=== PATIENT | male | born 1955 | race Caucasian/White ===

== ENCOUNTER 2020-07-05 09:27 | Outpatient (CLI) | payer OTHER, SELFPAY ==
--- NOTE | ~2020-07-05 | US_ITS ---
EXAMINATION: US abdomen complete DATE: 07/05/2020 10:10 INDICATION: Other specified abnormal findings of blood chemistry TECHNIQUE: Multiple grayscale and Doppler ultrasound images of the abdomen were obtained. COMPARISON: 11/18/2017 FINDINGS: The head and body of the pancreas are normal. The pancreatic tail is obscured by bowel gas. The liver demonstrates increased echogenicity, heterogenous echotexture, and decreased through trans mission. No surface nodularity. Normal hepatopetal flow in the main portal vein. The gallbladder is n ormal with no abnormal wall thickening, pericholecystic fluid or stones. The normal common bile duct measures 6 mm. There was no sonographic Hoffmann sign. The visualized portions of the aorta and inferio r vena cava are normal. The right kidney measures 9.9 x 6.1 x 6.9 cm. The left kidney measures 10.6 x 7.4 x 5.4 cm. The kidne ys demonstrate normal parenchymal echogenicity. There is no hydronephrosis. The spleen is normal in a ppearance and measures 13.2 cm. IMPRESSION: 1. Diffuse hepatic steatosis. Reviewed, dictated and finalized at location B.
== END 2020-07-05 09:28 | disposition home or self-care (01) ==
PROVIDERS: PCP Internal Medicine; Visit Provider Internal Medicine
DX: R79.89 Other specified abnormal findings of blood chemistry (principal); K76.0 Fatty (change of) liver, not elsewhere classified
CPT/HCPCS: 76700

== ENCOUNTER 2020-07-22 12:59 | Emergency (ER) | payer OTHER, SELFPAY ==
--- NOTE | ~2020-07-22 | XR_ITS ---
XR hand LT min 3V DATE: 07/22/2020 14:03 INDICATION: Fall. Pain at base of fourth and fifth digits TECHNIQUE: 3 views COMPARISON: None FINDINGS: There is osteoarthritic change at multiple interphalangeal joints and to a mild extent at t he triscaphe and first carpometacarpal joints. No fracture or dislocation, periosteal reaction or bone destruction. IMPRESSION: Polyarticular osteoarthritis No fracture or dislocation Reviewed, dictated and finalized at location A.
--- NOTE | ~2020-07-22 | CT_ITS ---
EXAMINATION: CT brain wo con DATE: 07/22/2020 13:58 INDICATION: For head injury. Patient on blood thinners. TECHNIQUE: Computed tomography (CT) of the head was performed without intravenous contrast. The mA wa s adjusted according to patient size. Iterative reconstruction technique was employed. Exam dose: 60 5.33 mGy-cm total exam DLP. COMPARISON: 12/30/2007 CT brain FINDINGS: No intracranial mass lesion or hemorrhage or cerebrovascular accident is detected. No midli ne shift or mass effect. No subdural or epidural hematoma. Included paranasal sinuses and mastoid air cells are normally developed and aerated. No fracture or bone destruction of the cranial vault. IMPRESSION: No acute intracranial finding or skull fracture Reviewed, dictated and finalized at Location A. Reviewed, dictated and finalized at location A.
[2020-07-22 13:03] VITALS: BP 128/75; PULSE 73; RESP 20; TEMP 36.8; O2SAT 99
--- NOTE | 2020-07-22 15:51 | ED.GENADULT ---
HPI - General Adult General Chief complaint: Wound/Laceration Stated complaint: head lac Time Seen by Provider: 07/22/20 13:19 Source: patient and family Mode of arrival: ambulatory Limitations: no limitations History of Present Illness HPI narrative: 65-year-old with a history of A. fib on Xarelto here with complaints of laceration to the forehead. Patient states that he was weed eating accidentally fell and hit his forehead. No history of loss of consciousness. Also complains of left hand pain and swelling. Onset (ago): hour(s) (1) Location: head Radiation: non-radiation Associated symptoms: denies other symptoms Related Data Home Medications Medication Instructions Recorded Confirmed acetaminophen 650 mg 650 mg PO Q8H 02/04/19 06/27/20 tablet,extended release amiodarone 200 mg tablet 200 mg PO DAILY 02/04/19 06/27/20 cholecalciferol (vitamin D3) 125 5,000 unit PO DAILY 02/04/19 06/27/20 mcg (5,000 unit) capsule fenofibrate 160 mg tablet 160 mg PO DAILY 02/04/19 06/27/20 metoprolol succinate 25 mg 25 mg PO DAILY 02/04/19 06/27/20 tablet,extended release 24 hr rivaroxaban 20 mg tablet 20 mg PO DAILY 02/04/19 06/27/20 furosemide 20 mg tablet 20 mg PO QAM 02/15/19 06/27/20 loratadine 10 mg tablet 10 mg PO DAILY 02/15/19 06/27/20 vitamin E (dl, acetate) 400 unit 400 unit PO DAILY 08/13/19 06/27/20 capsule Allergies Allergy/AdvReac Type Severity Reaction Status Date / Time No Known Allergies Allergy Verified 07/22/20 13:09 Review of Systems Review of Systems: All systems reviewed & are unremarkable except as noted in HPI and below Constitutional: Constitutional: Reports no additional constitutional complaints Eyes: Eyes: Reports no additional eye complaints ENT: Reports system reviewed and no additional complaints, except as documented Cardiovascular: Cardiovascular: Reports no additional cardiovascular complaints Respiratory: Respiratory: Reports no additional respiratory complaints Gastrointestinal: Gastrointestinal: Reports no additional gastrointestinal complaints Musculoskeletal: Musculoskeletal: Reports as per HPI Integumentary/Breasts: Skin/Breast: Reports system reviewed and no additional complaints, except as docu [facility] Family History Family History Mother Cerebrovascular accident, Onset Age: 84 Hypertension, Onset Age: 84 Family history of congestive heart failure, Onset Age: 84 Sibling Family history of diabetes mellitus in first degree relative Acute myocardial infarction Hypertension Family history of kidney disease, Onset Age: 56 Family history of heart disease in male family member before age 55 Family history of thyroid disease, Onset Age: 56 Family history of cardiovascular disease, Onset Age: 56 Father Family history of congestive heart failure Hypertension, Onset Age: 86 Family history of heart disease in male family member before age 55 Diabetes mellitus, Onset Age: 86 Other Family history of hearing loss Social History Social History Alcohol intake: never Gender identity (if verbalized by the patient): Male Exam Narrative: Exam Narrative: GENERAL: Well-appearing, well-nourished, and in no acute distress. HEAD: Normocephalic has a 3 cm long laceration on the forehead with very minimal bleeding. And also has a small skin evulsion on the hairline EYES: PERRLA and EOMI. ENT: Nares clear, no rhinorrhea or epistaxis. Mucous membranes moist. NECK: Supple. CHEST: Clear to auscultation. No respiratory distress. HEART: Regular rate and rhythm. No murmur heard. Normal peripheral pulses. ABDOMEN: Soft, nontender, nondistended, normal active bowel sounds. EXTREMITIES: Normal range of motion. No edema. Has soft tissue swelling of the left hand normal range of motion otherwise SKIN: Warm, dry, no rash. NEURO: N
[2020-07-22 16:46] VITALS: BP 120/82; PULSE 62; RESP 20; O2SAT 100
== END 2020-07-22 17:00 | disposition home or self-care (01) ==
PROVIDERS: Emergency Provider Family Medicine; PCP Internal Medicine
DX: S01.81XA Laceration without foreign body of other part of head, initial encounter (principal); S60.222A Contusion of left hand, initial encounter; I48.91 Unspecified atrial fibrillation; Z79.01 Long term (current) use of anticoagulants; W01.10XA Fall on same level from slipping, tripping and stumbling with subsequent striking against unspecified object, initial encounter; Y93.H2 Activity, gardening and landscaping
CPT/HCPCS: 12013; 70450; 73130; 99284

== ENCOUNTER → 2021-02-24 01:16 | Outpatient (CLI) | payer OTHER, SELFPAY ==
[2021-02-24 12:30] LABS: Influenza Control Positive
[2021-02-24 18:54] LABS: SARS-CoV-2 RNA PCR Negative
== END ==
PROVIDERS: PCP Internal Medicine; Visit Provider Internal Medicine
DX: Z20.822 Contact with and (suspected) exposure to COVID-19 (principal); Z20.828 Contact with and (suspected) exposure to other viral communicable diseases
CPT/HCPCS: 87804; C9803; U0003; U0005

== ENCOUNTER 2021-02-26 10:02 | Emergency (ER) | payer OTHER, SELFPAY ==
--- NOTE | ~2021-02-26 | XR_ITS ---
EXAMINATION: XR chest 2V DATE: 02/26/2021 10:37 INDICATION: Cough. TECHNIQUE: Frontal and lateral views of the chest were obtained. COMPARISON: Chest single view 04/23/2017 FINDINGS: The chest demonstrates clear lungs without pneumonia, pleural effusion, or pneumothorax. Th e heart size is normal. There are suture anchors in left humeral head. IMPRESSION: 1. No acute cardiopulmonary disease. Reviewed, dictated and finalized at location A. 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
[2021-02-26 10:10] VITALS: BP 131/76; PULSE 70; RESP 16; TEMP 36.1; O2SAT 98
--- NOTE | 2021-02-26 10:10 | ED.URI ---
HPI - URI/Sore Throat General Chief Complaint: Upper Respiratory Infection Stated Complaint: CONGESTION/COUGH/EARACHE Time Seen by Provider: 02/26/21 10:11 Source: patient, family, RN notes reviewed and old records reviewed Mode of arrival: ambulatory Limitations: no limitations History of Present Illness HPI Narrative: 65-year-old male who presents to [facility] with complaints of chest congestion cough, thick yellow sputum, earache since . Patient states that his cough is productive, harsh,and frequent, denies any acute dyspnea or known fevers, SAO2 98% on room air. Patient states that he has been taking Delsym and Mucinex for his symptoms with no improvement. Patient had flu and COVID tests on Friday which were negative. Patient has had COVID immunizations but has not yet had his flu shot. states that she has noted him wheezing at night when sleeping, has history of bronchitis and past pneumonia. MD elicited complaint: cough Pertinent past history: pneumonia, seasonal allergies and other (bronchitis) Onset (ago): day(s) (4) Consistency: progressively worsening Related Data Home Medications Medication Instructions Recorded Confirmed acetaminophen 650 mg 650 mg PO Q8H 02/04/19 01/11/21 tablet,extended release amiodarone 200 mg tablet 200 mg PO DAILY 02/04/19 02/26/21 cholecalciferol (vitamin D3) 125 5,000 unit PO DAILY 02/04/19 02/26/21 mcg (5,000 unit) capsule fenofibrate 160 mg tablet 160 mg PO DAILY 02/04/19 02/26/21 metoprolol succinate 25 mg 25 mg PO DAILY 02/04/19 02/26/21 tablet,extended release 24 hr furosemide 20 mg tablet 20 mg PO QAM 02/15/19 02/26/21 Allergies Allergy/AdvReac Type Severity Reaction Status Date / Time No Known Allergies Allergy Verified 01/11/21 08:44 Review of Systems Review of Systems: CONSTITUTIONAL: Denies fever, chills, or sweats. EYES: Denies visual changes, redness, or discharge. ENT: Positive for rhinorrhea, congestion, no sore throat, ear pressure CARDIOVASCULAR: Denies chest pain, palpitations, or edema. RESPIRATORY: Positive for productive cough denies acute dyspnea. GASTROINTESTINAL: Denies abdominal pain, nausea, vomiting, or diarrhea. GENITOURINARY: Denies dysuria or hematuria. SKIN: Denies rash or itching. MUSCULOSKELETAL: Denies back pain, joint pain, or myalgia. NEUROLOGIC: Denies headache, numbness, or weakness. PSYCHIATRIC: Denies anxiety or depression. All systems reviewed & are unremarkable except as noted in HPI and below PMFSH Past Medical History Medical History (Updated 02/26/21 @ 14:52 by Sue Carrion NP) CKD (chronic kidney disease) stage 3, GFR 30-59 ml/min Coronary artery disease involving [place] coronary artery of [place] heart Dilated cardiomyopathy Essential hypertension Hx of coronary artery disease Hyperlipidemia Hypothyroidism (acquired) COURTNEY (obstructive sleep apnea) Paroxysmal atrial fibrillation Seasonal allergies Type 2 diabetes mellitus with complication, without long-term current use of insulin Surgical History Surgical History (Updated 02/26/21 @ 14:52 by Sue Carrion NP) H/O repair of right rotator cuff History of right hip replacement History of total right knee replacement (TKR) Family History Family History Mother Cerebrovascular accident, Onset Age: 84 Hypertension, Onset Age: 84 Family history of congestive heart failure, Onset Age: 84 Sibling Family history of diabetes mellitus in first degree relative Acute myocardial infarction Hypertension Family history of kidney disease, Onset Age: 56 Family history of heart disease in male family member before age 55 Family history of thyroid disease, Onset Age: 56 Family history of cardiovascular disease, Onset Age: 56 Father Family history of congestive heart failure Hypertension, Onset Age: 86 Family history of heart disease in male family member emi
== END 2021-02-26 11:15 | disposition home or self-care (01) ==
PROVIDERS: Emergency Provider Registered Nurse; PCP Internal Medicine
DX: J40 Bronchitis, not specified as acute or chronic (principal); Z20.822 Contact with and (suspected) exposure to COVID-19; I12.9 Hypertensive chronic kidney disease with stage 1 through stage 4 chronic kidney disease, or unspecified chronic kidney disease; E11.22 Type 2 diabetes mellitus with diabetic chronic kidney disease; N18.30 Chronic kidney disease, stage 3 unspecified
CPT/HCPCS: 71046; 87426; 99213; C9803; G0463

== ENCOUNTER 2021-05-13 12:19 | Emergency (ER) | payer OTHER, SELFPAY ==
--- NOTE | ~2021-05-13 | XR_ITS ---
XR abdomen/kub 1V 05/13/2021 13:46 INDICATION: Right flank pain TECHNIQUE: KUB COMPARISON: 12/10/2018 FINDINGS: Bowel gas pattern is normal. There is no evidence of free air, mass, organomegaly, ascites or obstruction. No abnormal calculi are seen. The bones appear intact. There is a right hip arthro plasty. Moderate lumbar spondylosis. IMPRESSION: 1: No acute abdominal abnormality identified. Reviewed, dictated and finalized at location A. 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
[2021-05-13 12:33] VITALS: BP 128/82; PULSE 63; RESP 16; TEMP 36.2; O2SAT 100
[2021-05-13 12:34] VITALS: BP 128/82; PULSE 63; RESP 16; TEMP 36.2; O2SAT 100
--- NOTE | 2021-05-13 13:08 | ED.ABDPAIN ---
HPI - Abdominal Pain General Chief Complaint: Abdominal Pain Stated Complaint: Lower back pain, and stomach pain Time Seen by Provider: 05/13/21 12:51 Source: patient, family and RN notes reviewed Mode of arrival: ambulatory Limitations: no limitations History of Present Illness HPI narrative: Patient presents today complaining of 4-day history of right low back pain radiating to the right lower quadrant and suprapubic area with dark-colored urine and urinary frequency. states that patient's urine, looks like orange juice. Patient denies any additional symptoms to include dysuria, fever, hematuria, weakness, lightheadedness, dizziness, nausea or vomiting. He rates his pain 8/10. He has increased his water and cranberry juice intake, but has not tried any medication for other symptoms prior to arrival. MD elicited complaint: abdominal pain and flank pain Related Data Home Medications Medication Instructions Recorded Confirmed acetaminophen 650 mg 650 mg PO Q8H 02/04/19 05/13/21 tablet,extended release amiodarone 200 mg tablet 200 mg PO DAILY 02/04/19 05/13/21 cholecalciferol (vitamin D3) 125 5,000 unit PO DAILY 02/04/19 05/13/21 mcg (5,000 unit) capsule fenofibrate 160 mg tablet 160 mg PO DAILY 02/04/19 05/13/21 metoprolol succinate 25 mg 25 mg PO DAILY 02/04/19 05/13/21 tablet,extended release 24 hr furosemide 20 mg tablet 20 mg PO QAM 02/15/19 05/13/21 Allergies Allergy/AdvReac Type Severity Reaction Status Date / Time No Known Allergies Allergy Verified 05/13/21 12:32 Review of Systems Review of Systems: CONSTITUTIONAL: Denies body aches, fever, chills, or sweats. EYES: Denies visual changes, redness, or discharge. ENT: Denies rhinorrhea, congestion, sore throat, or otalgia. CARDIOVASCULAR: Denies chest pain, palpitations, or edema. RESPIRATORY: Denies cough or dyspnea. GASTROINTESTINAL: Denies nausea, vomiting, or diarrhea.+ Abdominal pain GENITOURINARY: Denies dysuria or hematuria. SKIN: Denies rash, itching, or wounds. MUSCULOSKELETAL: Denies joint pain, or myalgia.+ Low back/flank pain NEUROLOGIC: Denies headache, numbness, tingling, or weakness. PSYCH: Denies depression or anxiety. [facility] Past Medical History Medical History CKD (chronic kidney disease) stage 3, GFR 30-59 ml/min Coronary artery disease involving [place] coronary artery of [place] heart Dilated cardiomyopathy Essential hypertension Hx of coronary artery disease Hyperlipidemia Hypothyroidism (acquired) COURTNEY (obstructive sleep apnea) Paroxysmal atrial fibrillation Seasonal allergies Type 2 diabetes mellitus with complication, without long-term current use of insulin Surgical History Surgical History H/O repair of right rotator cuff History of right hip replacement History of total right knee replacement (TKR) Family History Family History Mother Cerebrovascular accident, Onset Age: 84 Hypertension, Onset Age: 84 Family history of congestive heart failure, Onset Age: 84 Sibling Family history of diabetes mellitus in first degree relative Acute myocardial infarction Hypertension Family history of kidney disease, Onset Age: 56 Family history of heart disease in male family member before age 55 Family history of thyroid disease, Onset Age: 56 Family history of cardiovascular disease, Onset Age: 56 Father Family history of congestive heart failure Hypertension, Onset Age: 86 Family history of heart disease in male family member before age 55 Diabetes mellitus, Onset Age: 86 Other Family history of hearing loss Social History Social History Smoking status: Never smoker Second hand tobacco smoke exposure: No Alcohol intake: ne
== END 2021-05-13 14:20 | disposition left against medical advice (07) ==
PROVIDERS: Emergency Provider Nurse Practitioner; PCP Internal Medicine
DX: R10.9 Unspecified abdominal pain (principal); I12.9 Hypertensive chronic kidney disease with stage 1 through stage 4 chronic kidney disease, or unspecified chronic kidney disease; E11.22 Type 2 diabetes mellitus with diabetic chronic kidney disease; N18.30 Chronic kidney disease, stage 3 unspecified; I25.10 Atherosclerotic heart disease of native coronary artery without angina pectoris; E78.5 Hyperlipidemia, unspecified; E03.9 Hypothyroidism, unspecified; G47.33 Obstructive sleep apnea (adult) (pediatric); I48.0 Paroxysmal atrial fibrillation; Z96.641 Presence of right artificial hip joint; Z96.651 Presence of right artificial knee joint
CPT/HCPCS: 74018; 81003; 87086; 99213; G0463

== ENCOUNTER 2021-06-12 10:49 | Emergency (ER) | payer OTHER, SELFPAY ==
--- NOTE | 2021-06-12 10:50 | ED.URI ---
HPI - URI/Sore Throat General Chief Complaint: Upper Respiratory Infection Stated Complaint: COLD/CONGESTION Time Seen by Provider: 06/12/21 10:50 Source: patient Mode of arrival: ambulatory Limitations: no limitations History of Present Illness HPI Narrative: is a 66-year-old male patient presenting to the clinic today with complaints of productive cough and nasal congestion x1 day. He reports when he blows his nose he is blowing out some blood. He denies any fever or chills. He denies any known exposure to anyone with Covid or influenza. MD elicited complaint: cough, rhinorrhea and nasal congestion Related Data Home Medications Medication Instructions Recorded Confirmed acetaminophen 650 mg 650 mg PO Q8H 02/04/19 05/13/21 tablet,extended release amiodarone 200 mg tablet 200 mg PO DAILY 02/04/19 05/13/21 cholecalciferol (vitamin D3) 125 5,000 unit PO DAILY 02/04/19 05/13/21 mcg (5,000 unit) capsule fenofibrate 160 mg tablet 160 mg PO DAILY 02/04/19 05/13/21 metoprolol succinate 25 mg 25 mg PO DAILY 02/04/19 05/13/21 tablet,extended release 24 hr furosemide 20 mg tablet 20 mg PO QAM 02/15/19 05/13/21 Allergies Allergy/AdvReac Type Severity Reaction Status Date / Time No Known Allergies Allergy Verified 05/13/21 12:32 Review of Systems Review of Systems: Pertinent positives per HPI. Patient denies any fever, chills, rash, headache, visual changes, dizziness, shortness of breath, chest pain, palpitations, nausea, vomiting, diarrhea, constipation, abdominal pain, or any urinary issues. [facility] Past Medical History Medical History CKD (chronic kidney disease) stage 3, GFR 30-59 ml/min Coronary artery disease involving [place] coronary artery of [place] heart Dilated cardiomyopathy Essential hypertension Hx of coronary artery disease Hyperlipidemia Hypothyroidism (acquired) COURTNEY (obstructive sleep apnea) Paroxysmal atrial fibrillation Seasonal allergies Type 2 diabetes mellitus with complication, without long-term current use of insulin Surgical History Surgical History H/O repair of right rotator cuff History of right hip replacement History of total right knee replacement (TKR) Family History Family History Mother Cerebrovascular accident, Onset Age: 84 Hypertension, Onset Age: 84 Family history of congestive heart failure, Onset Age: 84 Sibling Family history of diabetes mellitus in first degree relative Acute myocardial infarction Hypertension Family history of kidney disease, Onset Age: 56 Family history of heart disease in male family member before age 55 Family history of thyroid disease, Onset Age: 56 Family history of cardiovascular disease, Onset Age: 56 Father Family history of congestive heart failure Hypertension, Onset Age: 86 Family history of heart disease in male family member before age 55 Diabetes mellitus, Onset Age: 86 Other Family history of hearing loss Social History Social History Smoking status: Never smoker Second hand tobacco smoke exposure: No Alcohol intake: never Substance use: never Substance use type: does not use Gender identity (if verbalized by the patient): Male Comments At the time of my signature, I reviewed and agree with the nursing past medical, surgical, social, and family history. There is no relevant family history pertinent to the patient complaint. Exam Narrative: General: Well-developed, obese, in no apparent distress Head: Normocephalic, atraumatic Eyes: Pupils equally round and reactive to light bilaterally, EOM intact, sclera and conjunctive clear, no discharge, lids normal, eyes watering Ears: TMs intact,mild bulging, a
[2021-06-12 10:55] VITALS: BP 125/72; PULSE 59; RESP 16; TEMP 36.3; O2SAT 100
[2021-06-12 10:58] VITALS: BP 125/72; PULSE 59; RESP 16; TEMP 36.3; O2SAT 100
== END 2021-06-12 11:28 | disposition home or self-care (01) ==
PROVIDERS: Emergency Provider Nurse Practitioner Family; PCP Internal Medicine
DX: J30.9 Allergic rhinitis, unspecified (principal); I12.9 Hypertensive chronic kidney disease with stage 1 through stage 4 chronic kidney disease, or unspecified chronic kidney disease; E11.22 Type 2 diabetes mellitus with diabetic chronic kidney disease; N18.30 Chronic kidney disease, stage 3 unspecified; I25.10 Atherosclerotic heart disease of native coronary artery without angina pectoris; E78.5 Hyperlipidemia, unspecified; E03.9 Hypothyroidism, unspecified; G47.33 Obstructive sleep apnea (adult) (pediatric); I48.0 Paroxysmal atrial fibrillation; Z96.641 Presence of right artificial hip joint; Z96.651 Presence of right artificial knee joint
CPT/HCPCS: 99213; G0463

== ENCOUNTER 2021-08-23 10:10 | Emergency (ER) | payer OTHER, SELFPAY ==
--- NOTE | ~2021-08-23 | XR_ITS ---
EXAMINATION: XR chest 2V DATE: 08/23/2021 10:52 INDICATION: Cough and asthma TECHNIQUE: PA and lateral views of the chest were obtained. COMPARISON: Chest radiograph dated 02/26/2021 FINDINGS: The lungs remain clear with no focal airspace opacities, pulmonary edema, pleural effusion or pneumot horax. The cardiomediastinal silhouette is normal. Mild thoracic spondylosis. Suture anchors at the l eft humeral head suggesting prior rotator cuff repair. Distal left clavicle resection. IMPRESSION: 1. No acute cardiopulmonary disease. Reviewed, dictated and finalized at location B.
[2021-08-23 10:29] VITALS: BP 110/76; PULSE 69; RESP 16; TEMP 36.4; O2SAT 100
--- NOTE | 2021-08-23 10:34 | ED.URI ---
HPI - URI/Sore Throat General Chief Complaint: Upper Respiratory Infection Stated Complaint: cough,drainage Time Seen by Provider: 08/23/21 10:34 Source: patient and RN notes reviewed Mode of arrival: ambulatory Limitations: no limitations History of Present Illness HPI Narrative: 66 y/o male presented for complaint of cough and chest congestion for over 10 days. He states he completed a Medrol Pack yesterday and has been using albuterol nebulizer, taking Delsym and Mucinex for symptoms. He endorses at the onset his temperature was 101, he has been coughing up yellow mucus, he hears rumbling in his chest and endorses mild right ear pain, headache and wheezing. Symptoms are worse at night. He endorses of 45 pound weight loss in about 6 months, decreased appetite, Hx diabetes, coronary artery disease/[place]/PTCI. Also states he has been having similar symptoms intermittently for about 5 months. He is scheduled to establish with a new PCP in October, states his current PCP is moving. He is vaccinated and boosted for flu and COVID. MD elicited complaint: cough Related Data Home Medications Medication Instructions Recorded Confirmed acetaminophen 650 mg 650 mg PO Q8H 02/04/19 08/23/21 tablet,extended release (Tylenol Arthritis Pain) cholecalciferol (vitamin D3) 125 5,000 unit PO DAILY 02/04/19 08/23/21 mcg (5,000 unit) capsule fenofibrate 160 mg tablet 160 mg PO DAILY 02/04/19 08/23/21 metoprolol succinate 25 mg 12.5 mg PO DAILY 02/04/19 08/23/21 tablet,extended release 24 hr furosemide 20 mg tablet 20 mg PO QAM 02/15/19 08/23/21 amiodarone 100 mg tablet 100 mg PO DAILY 07/19/21 08/23/21 ascorbate calcium (vitamin C) 500 1,000 mg PO DAILY 08/23/21 08/23/21 mg tablet beta carotene 30 mg capsule 30 mg PO DAILY 08/23/21 08/23/21 levocetirizine 5 mg tablet (Xyzal) 5 mg PO DAILY 08/23/21 08/23/21 magnesium 250 mg tablet 250 mg PO DAILY 08/23/21 08/23/21 omega 4-zbl-rib-fish oil 1,200 mg 1 cap PO DAILY 08/23/21 08/23/21 (144 mg-216 mg) capsule (Fish Oil) vitamin E 400 unit capsule 800 unit PO DAILY 08/23/21 08/23/21 Allergies Allergy/AdvReac Type Severity Reaction Status Date / Time No Known Allergies Allergy Verified 08/23/21 10:27 Review of Systems Review of Systems: CONSTITUTIONAL: Denies malaise, chills, sweats, fever EYES: Denies visual changes, redness, or discharge ENT: Reports rhinorrhea, congestion CARDIOVASCULAR: Denies chest pain, palpitations, edema RESPIRATORY: Reports cough, dyspnea on exertion GASTROINTESTINAL: Endorses decreased appetite and weight loss denies abdominal pain, nausea, vomiting, diarrhea MUSCULOSKELETAL: Denies myalgia NEUROLOGIC: Denies headache PMFSH Past Medical History Medical History CKD (chronic kidney disease) stage 3, GFR 30-59 ml/min Coronary artery disease involving [place] coronary artery of [place] heart Dilated cardiomyopathy Essential hypertension Hx of coronary artery disease Hyperlipidemia Hypothyroidism (acquired) COURTNEY (obstructive sleep apnea) Paroxysmal atrial fibrillation Seasonal allergies Type 2 diabetes mellitus with complication, without long-term current use of insulin Surgical History Surgical History H/O repair of right rotator cuff History of right hip replacement History of total right knee replacement (TKR) Family History Family History Mother Cerebrovascular accident, Onset Age: 84 Hypertension, Onset Age: 84 Family history of congestive heart failure, Onset Age: 84 Sibling Family history of diabetes mellitus in first degree relative Acute myocardial infarction Hypertension Family history of kidney disease, Onset Age: 56 Family history of heart disease in male family member before age 55 Family history of thyroid disease, Onset Age: 56 Family
== END 2021-08-23 11:22 | disposition home or self-care (01) ==
PROVIDERS: Emergency Provider Nurse Practitioner Family; PCP Internal Medicine
DX: J40 Bronchitis, not specified as acute or chronic (principal); I12.9 Hypertensive chronic kidney disease with stage 1 through stage 4 chronic kidney disease, or unspecified chronic kidney disease; E11.22 Type 2 diabetes mellitus with diabetic chronic kidney disease; N18.30 Chronic kidney disease, stage 3 unspecified; Z79.84 Long term (current) use of oral hypoglycemic drugs; I25.10 Atherosclerotic heart disease of native coronary artery without angina pectoris; E78.5 Hyperlipidemia, unspecified; E03.9 Hypothyroidism, unspecified; G47.33 Obstructive sleep apnea (adult) (pediatric); I48.0 Paroxysmal atrial fibrillation
CPT/HCPCS: 71046; 99213; G0463

== ENCOUNTER 2021-12-05 07:45 | Outpatient (CLI) | payer OTHER, SELFPAY ==
--- NOTE | ~2021-12-05 | XR_ITS ---
EXAMINATION: XR barium swallow modified DATE: 12/05/2021 09:53 INDICATION: Dysphagia, unspecified. TECHNIQUE: The patient was given barium-containing material of multiple consistencies to swallow by t bacilio speech pathologist while I performed fluoroscopy. Fluoroscopy exposure time was 1.3 minutes. The n umber of fluoroscopy images saved to the PACS was 1. Dose-area product was 0.965 Gy-cm^2. FINDINGS: The oral stage of the swallow is normal. The pharyngeal stage of the swallow was within functional li mits. There was one occurrence of flash laryngeal penetration during regurgitation. The cervical/esop hageal stage is normal. IMPRESSION: 1. One occurrence of flash laryngeal penetration during regurgitation. 2. Please refer to the speech therapy report for recommendations. Reviewed, dictated and finalized at location A.
--- NOTE | 2021-12-05 13:30 | REHSTMBS ---
Assessment and note entered by Renuka Alcantar, ELECTRICAL ELECTRONICS TECHNICIAN Modified Barium Swallow Evaluation Feeding Type Recommended Oral Food Consistency Regular, Level 7 Liquid Consistency Thin (0) ST Clinical Summary The patient was viewed in a lateral position when presented with 5cc of thin liquid barium via spoon , pudding consistency barium via a spoon, mixed liquid/solid consistency via spoon, cracker coated with barium pudding via spoon, and uncontrolled thin liquid barium. This was presented via a cup & straw. Oral preparatory and oral phase symptoms : none. Pharyngeal phase symptoms: none. Laryngeal penetration occurred x1 when patient gagged but it was cleared without aspiration. Esophageal stage symptoms: none. No aspiration occurred. Impressions: Normal swallow Ability No further ST is warranted at this time.
--- NOTE | 2021-12-06 10:22 | WPDPFTINT ---
PFT Procedure Performed PFT Procedure Performed Spirometry with Pre/Post Bronchodilator Plethysmography (Lung Vol) Diffusing Cap (DLCO) Flow Vol Loop PFT Interpretation Lung volumes were measured with the body plethysmography method. Lung volumes are unremarkable. Spirometry showed normal expiratory flow rates and a normal FEV1 to FVC ratio of 80%. Following administration of a bronchodilator there was no significant increase in the expiratory flow rates. Lung diffusion capacity is within the normal range. The flow volume loop is unremarkable. Impression: Spirometry, lung volumes, and lung diffusion capacity all within the normal range.
--- NOTE | 2021-12-06 10:23 | WPDSIXMINUTE ---
Six Minute Walk Procedure Procedure Performed Pulmonary Stress Test (6 min walk) Six Minute Walk Six Minute Walk: This 6 minute walk test was carried out with the patient breathing ambient air. The pre walk oxyhemoglobin saturation was 98%. The patient walked over 426 m with no stops during testing. During the walk the oxyhemoglobin saturation remained 97% or higher. The perceived dyspnea on the Sherry scale was 2 at baseline and did not change at the end of the testing. Impression: No evidence of oxyhemoglobin desaturation on this testing.
== END 2021-12-05 07:46 | disposition home or self-care (01) ==
PROVIDERS: PCP Internal Medicine; Visit Provider Internal Medicine Pulmonary Disease
DX: R13.10 Dysphagia, unspecified (principal); J41.1 Mucopurulent chronic bronchitis; I48.0 Paroxysmal atrial fibrillation
CPT/HCPCS: 92611; 94060; 94618; 94726; 94729

== ENCOUNTER → 2021-12-22 07:23 | Outpatient (CLI) | payer OTHER, SELFPAY ==
--- NOTE | ~2021-12-22 | MR_ITS ---
EXAMINATION: MR brain/brain stem wo con DATE: 12/22/2021 08:35 INDICATION: Dementia. Stroke. TECHNIQUE: Magnetic resonance imaging (MRI) of the brain and brainstem was performed without intraven ous contrast. COMPARISON: Head CT 07/22/2020 FINDINGS: There are 2 punctate foci of nonspecific increased T2-weighted signal intensity in the cere bral white matter, which is within normal limits for the patient's age. There is no intracranial hemo rrhage, acute infarction, or abnormal intracranial mass lesion. The ventricles are normal in size. Th e orbits are normal. There is mild mucosal thickening in the ethmoid sinuses. The mastoid air cells a re normal. IMPRESSION: 1. Normal brain. Reviewed, dictated and finalized at location A. IMPRESSION: 1. Normal brain.
--- NOTE | ~2021-12-22 | MR_ITS ---
EXAMINATION: MRA brain wo con DATE: 12/22/2021 08:30 INDICATION: Family history of cerebral aneurysm. Stroke. Altered level of awareness. TECHNIQUE: Magnetic resonance angiography (MRA) of the brain was performed without intravenous contra st with T1-weighted SPGR by the 3D gkqh-za-stxbcs technique. Maximum intensity projection 3D-reconstr uctions were obtained. COMPARISON: MRI 12/22/2021 FINDINGS: Left vertebral artery is dominant. There is no significant stenosis of basilar artery or the posterio r cerebral arteries. Left posterior communicating artery is normal. A right posterior communicating a rtery is not identified. There is no significant stenosis of the intracranial internal carotid arteri es or anterior or middle cerebral arteries. Anterior communicating artery is normal. There is no aneu rysm. IMPRESSION: 1. Normal MRA. Reviewed, dictated and finalized at location A. IMPRESSION: 1. Normal MRA.
== END ==
PROVIDERS: PCP Internal Medicine; Visit Provider Student in an Organized Health Care Education/Training Program
DX: R40.4 Transient alteration of awareness (principal); Z82.49 Family history of ischemic heart disease and other diseases of the circulatory system
CPT/HCPCS: 70544; 70551

== ENCOUNTER 2022-04-12 08:43 | Emergency (ER) | payer OTHER, SELFPAY ==
[2022-04-12 08:56] VITALS: BP 114/70; PULSE 61; RESP 16; TEMP 36.1; O2SAT 100
[2022-04-12 09:03] VITALS: BP 114/70; PULSE 61; RESP 16; TEMP 36.1; O2SAT 100
--- NOTE | 2022-04-12 09:05 | ED.URI ---
HPI - URI/Sore Throat General Chief Complaint: Upper Respiratory Infection Stated Complaint: COUGH/CONGESTION Time Seen by Provider: 04/12/22 09:00 Source: patient and family () Mode of arrival: ambulatory Limitations: no limitations History of Present Illness HPI Narrative: Patient presents today complaining of a 3 day history of headache, cough, congestion, fatigue, postnasal drip. Denies any fever shortness of breath. He has been taking Mucinex DM and using Vicks vapor rub without much relief. Denies history of asthma or COPD. He is a nonsmoker. He has received a flu vaccine and COVID vaccines. He did a home COVID test which was negative. Related Data Home Medications Medication Instructions Recorded Confirmed acetaminophen 650 mg 650 mg PO Q8H 02/04/19 04/12/22 tablet,extended release (Tylenol Arthritis Pain) cholecalciferol (vitamin D3) 125 1,000 unit PO DAILY 02/04/19 04/12/22 mcg (5,000 unit) capsule fenofibrate 160 mg tablet 160 mg PO DAILY 02/04/19 04/12/22 metoprolol succinate 25 mg 12.5 mg PO DAILY 02/04/19 04/12/22 tablet,extended release 24 hr furosemide 20 mg tablet 20 mg PO QAM 02/15/19 04/12/22 ascorbate calcium (vitamin C) 500 1,000 mg PO DAILY 08/23/21 04/12/22 mg tablet beta carotene 30 mg capsule 30 mg PO DAILY 08/23/21 04/12/22 magnesium 250 mg tablet 250 mg PO DAILY 08/23/21 04/12/22 omega 8-kzs-pgh-fish oil 1,200 mg 1 cap PO DAILY 08/23/21 04/12/22 (144 mg-216 mg) capsule (Fish Oil) vitamin E 268 mg (400 unit) capsule 800 unit PO DAILY 08/23/21 04/12/22 omega 7-ogh-gmx-fish oil 1,200 mg cap PO 04/12/22 (144 mg-216 mg) capsule (Fish Oil) Allergies Allergy/AdvReac Type Severity Reaction Status Date / Time No Known Allergies Allergy Verified 04/12/22 08:56 Review of Systems Review of Systems: CONSTITUTIONAL: Denies body aches, fever, chills, or sweats.+ fatigue EYES: Denies visual changes, redness, or discharge. ENT: Denies rhinorrhea, sore throat, or otalgia.+ congestion, postnasal drip CARDIOVASCULAR: Denies chest pain, palpitations, or edema. RESPIRATORY: Denies dyspnea.+ cough GASTROINTESTINAL: Denies abdominal pain, nausea, vomiting, or diarrhea. GENITOURINARY: Denies dysuria or hematuria. SKIN: Denies rash, itching, or wounds. MUSCULOSKELETAL: Denies back pain, joint pain, or myalgia. NEUROLOGIC: Denies numbness, tingling, or weakness.+ headache PSYCH: Denies depression or anxiety. [facility] Past Medical History Medical History CKD (chronic kidney disease) stage 3, GFR 30-59 ml/min Coronary artery disease involving [place] coronary artery of [place] heart Dilated cardiomyopathy Essential hypertension Hx of coronary artery disease Hyperlipidemia Hypothyroidism (acquired) COURTNEY (obstructive sleep apnea) Paroxysmal atrial fibrillation Seasonal allergies Type 2 diabetes mellitus with complication, without long-term current use of insulin Surgical History Surgical History H/O repair of right rotator cuff History of right hip replacement History of total right knee replacement (TKR) Family History Family History Mother Cerebrovascular accident, Onset Age: 84 Hypertension, Onset Age: 84 Family history of congestive heart failure, Onset Age: 84 Sibling Family history of diabetes mellitus in first degree relative Acute myocardial infarction Hypertension Family history of kidney disease, Onset Age: 56 Family history of heart disease in male family member before age 55 Family history of thyroid disease, Onset Age: 56 Family history of cardiovascular disease, Onset Age: 56 Father Family history of congestive heart failure Hypertension, Onset Age: 86 Family history of heart disease in male family member before age 55 Diabetes mellitus, O
== END 2022-04-12 09:16 | disposition home or self-care (01) ==
PROVIDERS: Emergency Provider Nurse Practitioner; PCP Internal Medicine
DX: J06.9 Acute upper respiratory infection, unspecified (principal); I12.9 Hypertensive chronic kidney disease with stage 1 through stage 4 chronic kidney disease, or unspecified chronic kidney disease; E11.22 Type 2 diabetes mellitus with diabetic chronic kidney disease; N18.30 Chronic kidney disease, stage 3 unspecified
CPT/HCPCS: 87804; 99213; G0463

== ENCOUNTER 2022-05-15 11:01 | Outpatient (RCR) | payer OTHER, SELFPAY | END 2022-05-15 11:03 | disposition home or self-care (01) | LOC: ANHGOSHST 11:01 | PROVIDERS: PCP Internal Medicine; Visit Provider Internal Medicine Pulmonary Disease | DX: R13.10 Dysphagia, unspecified (principal) | CPT/HCPCS: 99199 ==

== ENCOUNTER 2022-11-08 10:36 | Emergency (ER) | payer OTHER, SELFPAY ==
--- NOTE | 2022-11-08 10:38 | ED.SKABFB ---
HPI - Skin/Abscess/Foreign Bdy General Chief complaint: Animal Bite Stated complaint: INSECT BITE Time Seen by Provider: 11/08/22 10:38 Source: patient Mode of arrival: ambulatory Limitations: no limitations History of Present Illness HPI narrative: Patient is a 67-year-old female who presents with insect bite to left back below shoulder blade. Patient states no despite on Friday but did not visualize what bit him. Patient has been using cbcv-ran-jjdsrvg salves and ointments with no relief. Patient reports mild itching and mild pain on palpation. Per area of redness has grown around initial bite. Denies any fevers, chills, nausea, vomiting, diarrhea. Related Data Home Medications Medication Instructions Recorded Confirmed acetaminophen 650 mg 650 mg PO Q8H 02/04/19 11/08/22 tablet,extended release (Tylenol Arthritis Pain) cholecalciferol (vitamin D3) 125 1,000 unit PO DAILY 02/04/19 11/08/22 mcg (5,000 unit) capsule fenofibrate 160 mg tablet 160 mg PO DAILY 02/04/19 11/08/22 omega 7-wrq-vlc-fish oil 1,200 mg 1 cap PO DAILY 08/23/21 11/08/22 (144 mg-216 mg) capsule (Fish Oil) magnesium hydroxide 1,200 mg 400 mg PO DAILY 10/28/22 11/08/22 chewable tablet cetirizine 10 mg tablet 10 mg PO DAILY 11/08/22 11/08/22 diclofenac sodium 75 mg 75 mg PO DAILY 11/08/22 11/08/22 tablet,delayed release glucosamine-chondroitin 250 mg-200 2 tablet PO TID 11/08/22 11/08/22 mg tablet (Osteo Bi-Flex) potassium 99 mg tablet 99 mg PO HS 11/08/22 11/08/22 vitamin A 2,400 mcg capsule 2,400 mcg PO DAILY 11/08/22 11/08/22 Allergies Allergy/AdvReac Type Severity Reaction Status Date / Time No Known Allergies Allergy Verified 11/08/22 10:47 Review of Systems Review of Systems: All systems reviewed & are unremarkable except as noted in HPI and below Constitutional: Constitutional: Denies body ache(s), Denies chills, Denies fatigue, Denies fever(s), Denies headache(s), Denies malaise and Denies weakness Eyes: Eyes: Denies blurry vision, Denies irritation and Denies loss of vision ENT: Denies otalgia, Denies headache(s), Denies nasal discharge, Denies sinus pain and Denies sore throat Cardiovascular: Cardiovascular: Denies chest pain, Denies irregular heart rhythm and Denies dyspnea Respiratory: Respiratory: Denies dyspnea Gastrointestinal: Gastrointestinal: Denies abdominal pain, Denies melena, Denies hematochezia, Denies diarrhea, Denies nausea and Denies vomiting Musculoskeletal: Musculoskeletal: Denies back pain, Denies myalgias and Denies arthralgias Integumentary/Breasts: Skin/Breast: Reports pruritus, Reports lesions, Reports erythema, Denies rash, Reports skin pain and Reports skin swelling Neurologic: Denies headache(s), Denies loss of vision and Denies weakness Psychiatric: Psychiatric: Reports no additional psychiatric complaints Endocrine: Endocrine: Denies fatigue [facility] Past Medical History Medical History CKD (chronic kidney disease) stage 3, GFR 30-59 ml/min Coronary artery disease involving [place] coronary artery of [place] heart Dilated cardiomyopathy Essential hypertension Hx of coronary artery disease Hyperlipidemia Hypothyroidism (acquired) COURTNEY (obstructive sleep apnea) Paroxysmal atrial fibrillation Seasonal allergies Type 2 diabetes mellitus with complication, without long-term current use of insulin Surgical History Surgical History H/O repair of right rotator cuff History of right hip replacement History of total right knee replacement (TKR) Family History Family History Mother Cerebrovascular accident, Onset Age: 84 Hypertension, Onset Age: 84 Family history of congestive heart failure, Onset Age: 84 Sibling Family history of diabetes mellitus in first degree relative Acute myoca
[2022-11-08 10:43] VITALS: BP 141/93; PULSE 80; RESP 16; TEMP 36.4; O2SAT 99
== END 2022-11-08 11:38 | disposition home or self-care (01) ==
PROVIDERS: Emergency Provider Nurse Practitioner Family; PCP Nurse Practitioner
DX: S20.462A Insect bite (nonvenomous) of left back wall of thorax, initial encounter (principal); L03.312 Cellulitis of back [any part except buttock and flank]; W57.XXXA Bitten or stung by nonvenomous insect and other nonvenomous arthropods, initial encounter; I13.10 Hypertensive heart and chronic kidney disease without heart failure, with stage 1 through stage 4 chronic kidney disease, or unspecified chronic kidney disease; E11.22 Type 2 diabetes mellitus with diabetic chronic kidney disease; N18.30 Chronic kidney disease, stage 3 unspecified; I25.10 Atherosclerotic heart disease of native coronary artery without angina pectoris; E78.5 Hyperlipidemia, unspecified; E03.9 Hypothyroidism, unspecified; I48.0 Paroxysmal atrial fibrillation; Z96.641 Presence of right artificial hip joint; Z96.651 Presence of right artificial knee joint
CPT/HCPCS: 99213; G0463

== ENCOUNTER 2023-07-23 21:22 | Emergency (ER) | payer OTHER, SELFPAY ==
--- NOTE | ~2023-07-23 | CT_ITS ---
EXAMINATION: CTA [facility] DATE: 07/23/2023 22:41 INDICATION: Hematoma TECHNIQUE: Computed tomography (CT) of the left lower extremity was performed with 100 CC Omnipaque 3 50 intravenous contrast. The mA was adjusted according to patient size. Iterative reconstruction tech nique was employed. Exam dose: 1785.94 mGy-cm total exam DLP. COMPARISON: None FINDINGS: The examination begins in the suprarenal abdominal aorta. The abdominal aorta is of normal caliber without atherosclerotic calcification, aneurysm, dissection or rupture. The common and news internship al iliac arteries, left common femoral, femoral, popliteal, anterior tibial, posterior tibial and per paulino arteries are intact with three-vessel runoff into the lower extremity. No stricture, dissection or obstruction or blockage is detected. There is prominent soft tissue stranding primarily in the medial subcutaneous tissues of the left leg . There is an approximately 2.3 cm wide 4.5 cm anteroposterior soft tissue density likely a hematoma in the medial subcutaneous tissues with a small collection of contrast material indicating recent hem orrhage. Status post right total hip arthroplasty. Diverticulosis of the colon IMPRESSION: Hematoma in the medial subcutaneous tissues of the right upper leg, with evidence of at least mild recent hemorrhage No stricture, dissection or obstruction of the arterial circulation to the left lower extremity Reviewed, dictated and finalized at Location [facility]. Reviewed, dictated and finalized at location A. IMPRESSION: Hematoma in the medial subcutaneous tissues of the right upper leg , with evidence of at least mild recent hemorrhage No stricture, dissection or obstruction of the arterial circulation to the left lower extremity
[2023-07-23 21:25] VITALS: BP 111/61; PULSE 68; RESP 18; TEMP 36.8; O2SAT 100
--- NOTE | 2023-07-23 21:48 | ED.FALL ---
HPI - Fall General Chief Complaint: Fall Stated Complaint: fall, hematoma L leg Time Seen by Provider: 07/23/23 21:39 History of Present Illness HPI Narrative: 68-year-old male with a history of hyperlipidemia, hypothyroidism, insulin-dependent type 2 diabetes, paroxysmal AFib is chronically anticoagulated on Xarelto presents to emergency department for left leg pain since the fall that occurred at 2:00 p.m. today. Patient states he was mowing the lawn when he slipped and fell. He injured the inside of his left thigh in the meantime. He presents with his who assists with history and states that over the course of a few hours the area has become larger and more painful which prompted them to come to the ER. Patient states he did not hit his head or lose consciousness, he does neck pain or back pain, chest pain or abdominal pain, hip pain or other injuries acquired. Related Data Home Medications Medication Instructions Recorded Confirmed acetaminophen 650 mg 650 mg PO Q8H 02/04/19 06/30/23 tablet,extended release (Tylenol Arthritis Pain) cholecalciferol (vitamin D3) 125 1,000 unit PO DAILY 02/04/19 06/30/23 mcg (5,000 unit) capsule fenofibrate 160 mg tablet 160 mg PO DAILY 02/04/19 06/30/23 omega 9-hyv-eua-fish oil 1,200 mg 1 cap PO DAILY 08/23/21 06/30/23 (144 mg-216 mg) capsule (Fish Oil) magnesium hydroxide 1,200 mg 400 mg PO DAILY 10/28/22 06/30/23 chewable tablet cetirizine 10 mg tablet 10 mg PO DAILY 11/08/22 06/30/23 glucosamine-chondroitin 250 mg-200 2 tablet PO TID 11/08/22 06/30/23 mg tablet (Osteo Bi-Flex) potassium 99 mg tablet 99 mg PO HS 11/08/22 06/30/23 vitamin A 2,400 mcg capsule 2,400 mcg PO DAILY 11/08/22 06/30/23 rosuvastatin 20 mg tablet 20 mg PO DAILY 02/19/23 06/30/23 gabapentin 300 mg capsule 300 mg PO TID 03/13/23 06/30/23 Allergies Allergy/AdvReac Type Severity Reaction Status Date / Time latex Allergy Redness of Verified 07/23/23 21:36 Skin Review of Systems Review of Systems: CONSTITUTIONAL: Denies fever, chills, or sweats. EYES: Denies visual changes, redness, or discharge. ENT: Denies rhinorrhea, congestion, sore throat, or otalgia. CARDIOVASCULAR: Denies chest pain, palpitations, or edema. RESPIRATORY: Denies cough or dyspnea. GASTROINTESTINAL: Denies abdominal pain, nausea, vomiting, or diarrhea. GENITOURINARY: Denies dysuria or hematuria. SKIN: Denies rash or itching. MUSCULOSKELETAL: See HPI NEUROLOGIC: Denies headache, numbness, or weakness. PSYCHIATRIC: Denies anxiety or depression. [facility] Past Medical History Medical History Chronic throat clearing CKD (chronic kidney disease) stage 3, GFR 30-59 ml/min Coronary artery disease involving [place] coronary artery of [place] heart Dilated cardiomyopathy Essential hypertension Family hx of colon cancer Hx of coronary artery disease Hyperlipidemia Hypothyroidism (acquired) COURTNEY (obstructive sleep apnea) Paroxysmal atrial fibrillation Personal history of colonic polyps Seasonal allergies Type 2 diabetes mellitus with complication, without long-term current use of insulin Surgical History Surgical History H/O repair of right rotator cuff History of carpal tunnel surgery of left wrist (~03/2023) History of right hip replacement History of total right knee replacement (TKR) Family History Family History Mother Cerebrovascular accident, Onset Age: 84 Hypertension, Onset Age: 84 Family history of congestive heart failure, Onset Age: 84 Sibling Family history of diabetes mellitus in first degree relative Acute myocardial infarction Hypertension Family history of kidney disease, Onset Age: 56 Family history of heart disease in male family member before age 55 Family history of thyroid disease, Onset Age: 56
[2023-07-23] MEDS: MORPHINE SULFATE (*CRX) 4 MG/ML INJ IV PUSH (22:00)
[2023-07-23 22:03] LABS: Basophils Percent Auto 0.6 % (0.2-1.2); Eosinophils Absolute Auto 0.2 K/mm3 (0-0.3); Hematocrit 42.1 % (42.0-52.0); Hemoglobin 13.6 g/dL (14.0-18.0); Immature Granulocyte Absolute 0.01 K/mm3 (0.00-0.031); Immature Granulocyte Percent A 0.2 % (0-0.5); Lymphocytes Absolute Auto 1.29 K/mm3 (0.9-3.2); Mean Corpuscular HGB Conc 32.3 g/dl (32-36); Mean Corpuscular Hemoglobin 27.1 pg (26-34); Mean Platelet Volume 10.8 fl (7.4-10.4); Monocytes Absolute Auto 0.8 K/mm3 (0.1-0.6); Monocytes Percent Auto 15.7 % (2.6-8.5); Neutrophils Absolute Auto 2.5 K/mm3 (1.3-6.7); Neutrophils Percent Auto 51.5 % (45.5-73.1); Platelet Count Result 212 k/mm3 (150-375); Red Blood Count 5.01 M/mm3 (4.6-6.20); White Blood Count 4.8 K/mm3 (4.5-10.0)
[2023-07-23 22:13] LABS: Alanine Aminotransferase 42 U/L (6-50); Albumin Level 4.4 g/dL (3.5-5.1); Alkaline Phosphatase 90 U/L (38-126); Anion Gap 11 mmol/L (4-12); Aspartate Amino Transferase 56 U/L (17-59); Bilirubin,Total 0.7 mg/dL (0.2-1.3); Blood Urea Nitrogen 20 mg/dL (9-20); Calcium 9.8 mg/dL (8.4-10.2); Carbon Dioxide 19 mmol/L (22-30); Chloride 108 mmol/L (98-107); Estimated CRCL calculation 72 ml/min; Estimated Glomerular Filt Rate > 60; Glucose 180 mg/dL (65-110); Potassium 3.9 mmol/L (3.4-5.0); Sodium 138 mmol/L (137-145)
[2023-07-23 22:15] LABS: INR 1.6; Partial Thromboplastin Time 34.7 Seconds (22.3-36.8); Prothrombin Time 20.3 Seconds (11.1-14.7)
[2023-07-23 22:45] VITALS: BP 154/95; PULSE 69; RESP 18; O2SAT 97
== END 2023-07-23 23:54 | disposition home or self-care (01) ==
PROVIDERS: Emergency Provider Physician Assistant; PCP Family Medicine
DX: S70.12XA Contusion of left thigh, initial encounter (principal); I48.0 Paroxysmal atrial fibrillation; I25.10 Atherosclerotic heart disease of native coronary artery without angina pectoris; I42.0 Dilated cardiomyopathy; E11.22 Type 2 diabetes mellitus with diabetic chronic kidney disease; I12.9 Hypertensive chronic kidney disease with stage 1 through stage 4 chronic kidney disease, or unspecified chronic kidney disease; N18.30 Chronic kidney disease, stage 3 unspecified; E03.9 Hypothyroidism, unspecified; E78.5 Hyperlipidemia, unspecified; G47.33 Obstructive sleep apnea (adult) (pediatric); Z96.641 Presence of right artificial hip joint; Z96.651 Presence of right artificial knee joint; Z86.010 Personal history of colon polyps; Z79.01 Long term (current) use of anticoagulants; Z79.85 Long-term (current) use of injectable non-insulin antidiabetic drugs; Z79.82 Long term (current) use of aspirin; W01.0XXA Fall on same level from slipping, tripping and stumbling without subsequent striking against object, initial encounter
CPT/HCPCS: 36415; 73706; 80053; 85025; 85610; 85730; 96374; 99284; J2270; Q9967

== ENCOUNTER 2023-10-07 02:20 | Day surgery (SDC) | payer OTHER, SELFPAY ==
--- NOTE | 2023-09-30 09:25 | PC.NURSE ---
Left message on Dr. Barrios office voice mail requesting clearance form.
[2023-10-01 08:49] VITALS: BMI 36.3
[2023-10-07 08:54] VITALS: BP 116/82; PULSE 56; RESP 17; TEMP 36.2; O2SAT 98; BMI 35.4
--- NOTE | 2023-10-07 08:58 | SUR.PREOP ---
Patient is not on medication for diabetes no need for accu check.
--- NOTE | 2023-10-07 09:05 | WPDANESEPPF ---
Anes - Initial Pre Proc Eval Procedure: Operation Date: 10/07/23 10:00 Proposed Procedures p Esophagogastroduodenoscopy & Colonoscopy - Cody Kaplan MD Date/Time: 10/07/23 09:05 Surgeon: Cody Kaplan MD Pre Op Diagnosis: Personal history colon polyps, Family history christine Patient Data Age: 68 Gender: M Height: 1.78 m Weight: 112 kg Last Vital Signs Temp 97.2 F L 10/07/23 08:54 Pulse 56 L 10/07/23 08:54 Resp 17 10/07/23 08:54 BP 116/82 10/07/23 08:54 Pulse Ox 98 10/07/23 08:54 O2 Del Method Room Air 10/07/23 08:54 Allergies Allergy/AdvReac Type Severity Reaction Status Date / Time latex Allergy Redness of Verified 10/07/23 08:51 Skin Home Medications Medication Instructions Recorded Confirmed Type acetaminophen 650 mg 650 mg PO Q8H 02/04/19 10/07/23 History tablet,extended release (Tylenol Arthritis Pain) aspirin 81 mg tablet,delayed 81 mg PO DAILY #1 tablet 02/04/19 10/07/23 Rx release (Aspir-) cholecalciferol (vitamin D3) 125 1,000 unit PO DAILY 02/04/19 10/07/23 History mcg (5,000 unit) capsule fenofibrate 160 mg tablet 160 mg PO DAILY 02/04/19 10/07/23 History rivaroxaban 20 mg tablet (Xarelto) 20 mg PO DAILY #90 tabs 06/13/21 10/07/23 Rx omega 7-jjl-cms-fish oil 1,200 mg 1 cap PO DAILY 08/23/21 10/07/23 History (144 mg-216 mg) capsule (Fish Oil) magnesium hydroxide 1,200 mg 400 mg PO DAILY 10/28/22 10/07/23 History chewable tablet glucosamine-chondroitin 250 mg-200 2 tablet PO TID 11/08/22 10/07/23 History mg tablet (Osteo Bi-Flex) potassium 99 mg tablet 99 mg PO HS 11/08/22 10/07/23 History vitamin A 2,400 mcg capsule 2,400 mcg PO DAILY 11/08/22 10/07/23 History rosuvastatin 20 mg tablet 20 mg PO DAILY 02/19/23 10/07/23 History gabapentin 300 mg capsule 300 mg PO TID 03/13/23 10/07/23 History levothyroxine 150 mcg tablet 150 mcg PO DAILY #90 tabs 04/28/23 10/07/23 Rx lancets #200 ea 05/27/23 10/07/23 Rx donepezil 10 mg tablet (Aricept) 10 mg PO QHS #90 tabs 05/28/23 10/07/23 Rx blood sugar diagnostic (FreeStyle #100 ea 05/30/23 10/07/23 Rx Test strips) blood-glucose meter (FreeStyle #1 ea 05/30/23 10/07/23 Rx [facility] kit) pantoprazole 40 mg tablet,delayed 40 mg PO QAM #90 tabs 09/17/23 10/07/23 Rx release B6 1.7 mg-folic 400 mcg-B12 2.4 1 cap PO DAILY 10/01/23 10/07/23 History vpu-drddkr-iwgpkzccyddr oral capsule (Neuriva Plus Brain Performance) cyanocobalamin (vitamin B-12) 1,000 mcg PO DAILY 10/01/23 10/07/23 History 1,000 mcg tablet (Vitamin B-12) furosemide 20 mg tablet 20 mg PO DAILY 10/01/23 10/07/23 History icosapent ethyl 1 gram capsule 1 g PO DAILY 10/01/23 10/07/23 History levocetirizine 5 mg tablet (Xyzal) 5 mg PO DAILY 10/01/23 10/07/23 History melatonin 3 mg capsule 3 mg PO HS PRN Sleep 10/01/23 10/07/23 History vbjdaowi-mrlcglly-xcjcs acid 400 1 tablet PO DAILY 10/01/23 10/07/23 History mcg-vit K 20 mcg-lycop 300 mcg tablet oil of oregano 1 tab-cap PO DAILY 10/01/23 10/07/23 History propranolol 60 mg capsule,24 60 mg PO DAILY #30 caps 10/02/23 10/07/23 Rx hr,extended release Patient hx anesthesia problems: none Family hx anesthesia problems: none Results Review: All pre-operative results and documents have been reviewed as part of the pre-operative evaluation. [facility] Past Medical History Medical History Chronic throat clearing CKD (chronic kidney disease) stage 3, GFR 30-59 ml/min Coronary artery disease involving [place] coronary artery of [place] heart Dilated cardiomyopathy Essential hypertension Family hx of colon cancer Hx of coronary artery disease Hyperlipidemia Hypothyroidism (acquired) COURTNEY (obstructive sleep apnea) Paroxysmal atrial fibrillation Personal history of colonic polyps Seasonal allergies Type 2 diabetes mellitus with complication, without long-term current use of insulin
[2023-10-07] MEDS: LACTATED RINGERS 1,000 ML 150 ML IV CONT (09:26)
--- NOTE | 2023-10-07 09:40 | PM.HPGS ---
History of Present Illness History of Present Illness Consent: Risks, benefits, and alternatives have been discussed and questions answered. Patient agrees to proceed with procedure. Chief complaint: Personal history colon polyps, Family history christine Narrative: Aniya Ulrich is a 68 year old male with choking sensation and clearing his throat, never had EGD. Last colonoscopy poor prep in 2019, he has a personal history of adenomatous colon polyps and a family history of colon cancer in 3 paternal uncles and in his father Review of Systems Review of Systems: All systems reviewed & are unremarkable except as noted in HPI and below PMFSH Past Medical History Medical History Chronic throat clearing CKD (chronic kidney disease) stage 3, GFR 30-59 ml/min Coronary artery disease involving [place] coronary artery of [place] heart Dilated cardiomyopathy Essential hypertension Family hx of colon cancer Hx of coronary artery disease Hyperlipidemia Hypothyroidism (acquired) COURTNEY (obstructive sleep apnea) Paroxysmal atrial fibrillation Personal history of colonic polyps Seasonal allergies Type 2 diabetes mellitus with complication, without long-term current use of insulin Surgical History Surgical History H/O repair of right rotator cuff History of carpal tunnel surgery of left wrist (~03/2023) History of right hip replacement History of total right knee replacement (TKR) Family History Family History Mother Cerebrovascular accident, Onset Age: 84 Hypertension, Onset Age: 84 Family history of congestive heart failure, Onset Age: 84 Sibling Family history of diabetes mellitus in first degree relative Acute myocardial infarction Hypertension Family history of kidney disease, Onset Age: 56 Family history of heart disease in male family member before age 55 Family history of thyroid disease, Onset Age: 56 Family history of cardiovascular disease, Onset Age: 56 Father Family history of congestive heart failure Hypertension, Onset Age: 86 Family history of heart disease in male family member before age 55 Diabetes mellitus, Onset Age: 86 Other Family history of hearing loss Social History Social History Smoking status: Never smoker Second hand tobacco smoke exposure: No Alcohol intake: never Substance use: never Substance use type: does not use Do You Feel Safe in your Home?: Yes Lack of Transportation: No Lack of Food: Never True Current Housing: I Have Housing Concerned About Future Housing: No Difficulty Paying Gas/Electric Bills: No Difficulty Paying for Meds: No Currently Unemployed: No Education: High School Diploma/GED Difficulty w/ Childcare or Family Care: No Living arrangements: with family Gender identity (if verbalized by the patient): Male Spiritual care concerns: No Meds Home Medications and Allergies Home Medications Medication Instructions Recorded Confirmed Type acetaminophen 650 mg 650 mg PO Q8H 02/04/19 10/07/23 History tablet,extended release (Tylenol Arthritis Pain) aspirin 81 mg tablet,delayed 81 mg PO DAILY #1 tablet 02/04/19 10/07/23 Rx release (Aspir-) cholecalciferol (vitamin D3) 125 1,000 unit PO DAILY 02/04/19 10/07/23 History mcg (5,000 unit) capsule fenofibrate 160 mg tablet 160 mg PO DAILY 02/04/19 10/07/23 History rivaroxaban 20 mg tablet (Xarelto) 20 mg PO DAILY #90 tabs 06/13/21 10/07/23 Rx omega 0-adt-clz-fish oil 1,200 mg 1 cap PO DAILY 08/23/21 10/07/23 History (144 mg-216 mg) capsule (Fish Oil) magnesium hydroxide 1,200 mg 400 mg PO DAILY 10/28/22 10/07/23 History chewable tablet glucosamine-chondroitin 250 mg-200 2 tablet PO TID 0
--- NOTE | 2023-10-07 09:59 | SUR.OPER ---
EGD end 951 COLONOSCOPY 28
[2023-10-07 10:11] VITALS: BP 100/69; PULSE 66; RESP 20; O2SAT 96
[2023-10-07 10:21] VITALS: BP 98/50; PULSE 51; RESP 18; O2SAT 98
[2023-10-07 10:31] VITALS: BP 107/69; PULSE 52; RESP 18; O2SAT 98
== END 2023-10-07 10:42 | disposition home or self-care (01) ==
PROVIDERS: PCP Family Medicine; Visit Provider Internal Medicine Gastroenterology
PROC: 0DJ08ZZ Inspection of Upper Intestinal Tract, Via Natural or Artificial Opening Endoscopic (ICD-10-PCS; CPT 43235; principal; 2023-10-07 10:00)
DX: Z12.11 Encounter for screening for malignant neoplasm of colon (principal); K57.30 Diverticulosis of large intestine without perforation or abscess without bleeding; K64.8 Other hemorrhoids; Z86.010 Personal history of colon polyps; Z80.0 Family history of malignant neoplasm of digestive organs; K21.00 Gastro-esophageal reflux disease with esophagitis, without bleeding; K29.50 Unspecified chronic gastritis without bleeding; I12.9 Hypertensive chronic kidney disease with stage 1 through stage 4 chronic kidney disease, or unspecified chronic kidney disease; E11.22 Type 2 diabetes mellitus with diabetic chronic kidney disease; N18.30 Chronic kidney disease, stage 3 unspecified; I42.0 Dilated cardiomyopathy; I25.10 Atherosclerotic heart disease of native coronary artery without angina pectoris; E78.5 Hyperlipidemia, unspecified; I48.0 Paroxysmal atrial fibrillation; E03.9 Hypothyroidism, unspecified; G47.33 Obstructive sleep apnea (adult) (pediatric); Z79.82 Long term (current) use of aspirin; Z79.01 Long term (current) use of anticoagulants; E66.9 Obesity, unspecified; Z68.35 Body mass index [BMI] 35.0-35.9, adult
CPT/HCPCS: 43239; G0105; 88305; J2704; J7120

== ENCOUNTER 2023-11-12 08:40 | Outpatient (CLI) | payer OTHER, SELFPAY ==
[2023-12-02 12:29] VITALS: BMI 37.3
--- NOTE | 2023-12-02 12:29 | WPDSLEEPSTUD ---
Sleep Study Date of Study: 11/12/23 Ordering Provider: MELANIE Hutson Interpreting Physician: Clare Apple DO Sleep Study Type: Split Polysomnogram Height: 1.78 m Weight: 117.934 kg Body Mass Index: 37.3 Neck Circumference (inches): 16.5 [place]: 21 Reason for Sleep Study Needs new equipment Sleep History The patient is a 68-year-old male that had a sleep study ordered by the pulmonary group so the patient can get a new CPAP. The patient is currently retired. The patient constantly awakens from sleep short of breath. He frequently awakens at night with heartburn, belching or cough. He frequently snores and is frequently loud enough that others complain. He frequently has trouble sleeping when he has a cold. He frequently wakes up gasping for air throughout the night. He frequently has breathing problems at night observed by himself or others. He denies sweating excessively at night. He denies having heart palpitations or irregular heartbeats during the night. He frequently falls asleep during the day but never while driving. He denies sleep paralysis, cataplexy and hypnagogic / hypnopompic hallucinations. He denies having trouble at school or work due to sleepiness. He denies feeling afraid of going to sleep. He denies having nightmares. He denies remembering his dreams. He rarely has thoughts racing through his mind. He rarely feels sad or depressed. He occasionally has anxiety. He constantly has muscular tension. He frequently notices parts of his body jerk. He frequently kicks during the night. He frequently has crawling and aching feelings in his legs and frequently has leg pain during the night. He denies grinding his teeth during sleep and denies awakening with morning jaw pain. He is occasionally bothered by pain during the day and frequently awakened by pain during the night. He frequently wakes up feeling stiff in the morning. He frequently wakes up with sore or achy muscles. He frequently wakes up with pain in the neck, spine or other joints. He goes to bed at 8:00 p.m. on both weekdays and weekends. It takes him several minutes to fall asleep. He wakes up once throughout the night to urinate and is able to fall back asleep within a few minutes. He wakes up at 8:00 a.m. on both weekdays and weekends. He typically gets 10-12 hours of sleep per night. He will stay in bed for hours after waking up in the morning. He currently lives with his . He will consume caffeinated beverages within 2 hours of bedtime. He denies engaging in physical exercise before bedtime. He will watch television before falling asleep. He will take naps in afternoon or the evening but they are not refreshing. He will consume caffeinated beverages throughout the day. He denies tobacco, alcohol and recreational drug use. [facility] Past Medical History Medical History Chronic throat clearing CKD (chronic kidney disease) stage 3, GFR 30-59 ml/min Coronary artery disease involving [place] coronary artery of [place] heart Dilated cardiomyopathy Essential hypertension Family hx of colon cancer Hx of coronary artery disease Hyperlipidemia Hypothyroidism (acquired) COURTNEY (obstructive sleep apnea) Paroxysmal atrial fibrillation Personal history of colonic polyps Seasonal allergies Type 2 diabetes mellitus with complication, without long-term current use of insulin Surgical History Surgical History H/O repair of right rotator cuff History of carpal tunnel surgery of left wrist (~03/2023) History of right hip replacement History of total right knee replacement (TKR) Family History Family History Mother Cerebrovascular accident, Onset Age: 84 Hypertension, Onset Age: 84 Family history of congestive heart failure, Onset Age: 84 Sibling De
== END 2023-11-13 07:04 | disposition home or self-care (01) ==
LOC: ANHCSM 08:41
PROVIDERS: PCP Family Medicine; Visit Provider Physician Assistant
DX: G47.33 Obstructive sleep apnea (adult) (pediatric) (principal)
CPT/HCPCS: 95811

== ENCOUNTER 2024-08-29 22:18 | Emergency (ER) | payer OTHER, SELFPAY ==
--- NOTE | ~2024-08-29 | CT_ITS ---
Noncontrast CT scan of the cervical spine Technique: Multiple contiguous axial [address] images of the cervical spine were obtained and rec onstructed in 2D sagittal and coronal planes on the acquisition scanner. Dose reduction technique was used on this scan by utilizing automated exposure control, adjustment of the mA and/or kV according to patient size. The dose-length product (DLP) was 490.14 mGy-cm. Clinical History: Pain Findings: No fractures or dislocations. Unremarkable visualized bony structures. There is advanced degenerative disc narrowing at C5-C6 and C6-C7 there is scattered facet joint degenerative changes in the cervical spine. There is right neural foraminal narrowing at C4-C5. There is bilateral neural fo raminal narrowing at C5-C6 and C6-C7.. No prevertebral soft tissue swelling. Impression: No fracture or subluxation of the cervical spine. Degenerative change, as above. Reviewed, dictated and finalized at [facility]. Impression: No fracture or subluxation of the cervical spine. Degenerative change, as above.
--- NOTE | ~2024-08-29 | CT_ITS ---
Non-contrast Head CT History: Status post fall Technique: Axial non-contrast imaging of the brain was performed. Dose reduction technique was used on this scan by utilizing automated exposure control and iterative reconstruction technique. The dose -length product (DLP) was 681.00 mGy-cm. Findings: There is no evidence of intracranial hemorrhage, mass lesion, or acute infarct. Brain par enchyma appears normal. The ventricles and subarachnoid spaces are normal in size. The calvarium ap pears normal. The visualized paranasal sinuses and mastoid air cells are clear. Impression: No significant abnormality seen. Reviewed, dictated and finalized at location . Impression: No significant abnormality seen.
[2024-08-29 22:19] VITALS: BP 144/85; PULSE 81; RESP 16; TEMP 36.8; O2SAT 100
--- OUTSIDE RECORDS SUMMARY | 2024-08-29 22:21 | XMS_ITS | Clinical Summary ---
Author Organization [facility] [employer] [facility] Address [address] [place] [address] Care Team Providers Care Giver Name Role Phone Becka Reagan MD Primary Care Provider [phone] Source Comments [facility] [employer] [facility],non-owned Affiliates and Associated Physician Practices is amultiple site organization consisting of ambulatory clinics and hospital sitesin [place], [place], [place] and [place]. This disclosure is being madepursuant to the Care Everywhere program and may not contain all information available regarding this patient. Last updated 17.[facility] [employer] Allergies No known active allergies Medications * Be aware that medications may not be up to date on this document. Alwaysverify current medications with the patient. aspirin 81 MG tablet Take 81 mg by mouth daily. Active PLAVIX 75 MG TABS Take 75 mg by mouth daily. Active metoprolol XL 24hr (TOPROL XL) Take 12.5 mg by mouth 2 times daily. Active SYNTHROID PO Take 0.15 mg by mouth daily. Active NIASPAN 500 MG TBCR Take 500 mg by mouth at bedtime. Active ALTACE 2.5 MG TABS Take 2.5 mg by mouth daily. Active SINGULAIR 10 MG TABS Take 10 mg by mouth at bedtime. Active COUMADIN PO Take by mouth as directed. Active FISH OIL 1000 MG CAPS capsule Take 1000 mg by mouth daily. Active MULTIVITAMIN PO Take by mouth daily. Active GLUCOSAMINE CHONDR 500 COMPLEX PO Take by mouth daily. Active TYLENOL 8 HOUR 650 MG TBCR Take 650 mg by mouth 3 times daily. Active Co-Enzyme Q-10 100 MG CAPS Take by mouth daily. Active betamethasone dipropionate (DIPROSONE) 0.05 % cream Apply to affected area as directed. 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 Gender Identity Not on file Sexual Orientation Not on file Plan of Treatment Health Maintenance Due Date Last Done Comments COLOGUARD (AGES 45-75) - COL ON CA SCREENING 1955 COLON MONITORING 1955 COLONOSCOPY - COLON CA SCREENING 1955 CT COLONOGRAPHY - COLON CA SCREENING 1955 Colorectal Cancer Screening 1955 FIT - COLON CA SCREENING 1955 FLEX SIG - COLON CA SCREENING 1955 MEDICARE AWV 12 MONTHS 1955 HEPATITIS C SCREENING 05/14/1973 DTAP/TDAP/TD VACCINES (1 - Tdap) 1974 PNEUMOCOCCAL VACCINE 50+ (1 of 1 - PCV) 2005 ZOSTER VACCINE (1 of 2) 2005 COVID-19 VACCINE ( - 2023-2 5 season) 2023 DEPRESSION SCREENING 03/24/2024 INFLUENZA VACCINE (Season Ended) 2024 Respiratory Syncytial Virus (RSV) Vaccine Pt: or over 60 yrs (1 - 1-dose 75+ series) 2030 HEPATITIS B VACCINE Aged Out No longe r eligible based on patient's age to complete this topic HIB VACCINE Aged Out No longer eligi ble based on patient's age to complete this topic HPV VACCINE Aged Out No longer eligi ble based on patient's age to complete this topic MENINGOCOCCAL (Group B) VACC INE SHARED DECISION-MAKING Aged Out No longer eligibl e based on patient's age to complete this topic MENINGOCOCCAL GROUPS A/C/Y/W VACCINE Aged Out No longer eligible b ased on patient's age to complete this topic Insurance * Guarantor: DEMOND DOLL Account Type Relation to Patient Date of Phone Billing Address Personal/Family [address] [place] [phone] [employer] MED[employer]ARE ADV PPO SELF PAY NO INSURANCE Member Subscriber Plan / Payer (Ef fective for All Dates) Name:Demond Doll Member ID:Not on file Relation to Subscriber:Not on file Name:DEMOND DOLL Subscriber ID:Not on file Address: [address] [place], [place] [address] Payer ID:Not on file Group ID:Not on file Type:Self Pay Address: [place], [place] * Guarantor: DEMOND DOLL Account Type Relation to Patient Date of Phone Billing Address Personal/Family [address] [place] [address] MEDICARE ADV PPO SELF PAY NO INSURANCE Member Subscriber Plan / Payer (Ef fective for All Dates) Name:Demond Doll Member ID:Not on file Relation to Subscriber:Not on file Name:DEMOND DOLL Subscriber ID:Not on file Address: [address] [place], [place] [id number] Payer ID:Not on file Group ID:Not on file Type:Self Pay Address: [place], [place] * Guarantor: DEMOND DOLL Account Type Relation to Patient Date of Phone Billing Address Personal/Family [address] [place], [place] [phone] [facility] MEDICARE ADV PPO SELF PAY NO INSURANCE Member Subscriber Plan / Payer (Ef fective for All Dates) Name:Demond Doll Member ID:Not on file Relation to Subscriber:Not on file Name:DEMOND DOLL Subscriber ID:Not on file Address: [address] [place] [phone] Payer ID:Not on file Group ID:Not on file Type:Self Pay Address: [place], [place] Care Teams Giver Relationship Specialty Start Date End Date Becka Reagan MD [address] [place] [address] PCP - General 06/10/08
--- OUTSIDE RECORDS SUMMARY | 2024-08-29 22:21 | XMS_ITS | Clinical Summary ---
Author Organization [facility] Address [address] [address] Phone Care Team Providers Care Client Manager Name Role Phone Provider, Not On File Primary Care Provider Unav ailable Social History Tobacco Use Types Packs/Day Years Used Date Smoking Tobacco: Never Assessed Sex and Gender Information Value Date Recorded Sex Assigned at Not on file Legal Sex Male 10:23 PM CDT Gender Identity Not on file Sexual Orientation Not on file Plan of Treatment Health Maintenance Due Date Last Done Comments Hepatitis C Virus (HCV) Screening 1955 TdaP Immunization 1955 Colonoscopy 2000 Colorectal Cancer Screening 2000 Cologuard 2005 Immunochemical Fecal Occult Blood 2005 PSA Discussion 2010 Pneumococcal Immunization (50+ years) (2 of 2 - PCV) 03/15/2022 03/15/2021 SARS-COV-2 Immunization ( season) 2023 12/29/2021, 02/10/2021, 06/03/2020, Additional history exists Influenza Immunization (Season Ended) 2024 12/29/2021, 03/15/2021, 12/22/2012 Respiratory Syncytial Virus (RSV) Immunization (Adult) (1 - 1-dose 75+ series) 2030 Zoster Immunization Completed 05/21/2021, Hepatitis B Immunization Aged Out No longer eligible based on patient's age to complete this topic Human Papillomavirus (HPV) Immunization Aged Out No longer eligible based on patient's age to complete this topic Meningococcal Immunization (ACWY) Aged Out No longer eligible based on patient's age to complete this topic Rotavirus Immunization Aged Out No lo nger eligible based on patient's age to complete this topic Insurance [facility] Care Teams Client Manager Relationship Specialty Start Date End Date Provider, Not On File [place] PCP - General 12/05/22
--- OUTSIDE RECORDS SUMMARY | 2024-08-29 22:21 | XMS_ITS | Patient Health Record ---
Author Organization 1 OF Heriberto rivera [facility] Address [address] [place] [address] Care Team Providers Care Sales And Marketing Analyst Name Role Phone Dr. Apolinar Cook Primary Care Provider Unavailab Roel Littlejohn Unavailable Anival Andrade Unavailable [phone] Allergies No Known Allergies Reason For Referral No Information Medications Medication SIG (Take, Route, Fr equency, Duration) Notes Start Date End Date Status Vitamin E Active Beta Carotene Active Fish Oil Active Mounjaro Active Levothyroxine Sodium Active Metoprolol Succinate Active Furosemide Active Vitamin D3 Active Xarelto Active Vitamin C Active Fenofibrate Active Aspirin Active Tylenol Arthritis Pain Active Social History Tobacco Use: Social History Observation Description Date Details (start date - stop date) Never Smoker NA - NA Tobacco Use/Smoking Question Answer Notes Are you a nonsmoker Problems Problem Type SNOMED Code ICD Code Onset Dates Problem Status W/U Status Risk Notes Problem 81029143 Type 2 diabetes mellitus with other diabetic neurological complication (E11.49) Active confirmed Problem 22329444 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) Active confirmed Problem 423108334 Hammertoe of right foot (M20.41) Active confirmed Vital Signs Height 70 in 08/13/2024 Weight 265 lbs 08/13/2024 BMI 38.02 kg/m2 08/13/2024 Encounters Encounter Location Date Provider Diagnosis 1 OF Heriberto [facility] [address] [place] [address] 03/09/2024 Roel Clark Type 2 diabetes mellitus with other diabetic neurological complication E11.49 ; Callus of foot L84 ; Onychogryphosis L60.2 and Nail dystrophy L60.3 1 OF Heriberto Dor[place] [address] [address] 06/01[facility]2024 [facility] Type 2 diabetes mellitus with other diabetic neurological complication E11.49 ; Callus of foot L84 ; Onychogryphosis L60.2 and Nail dystrophy L60.3 1 OF [place] [address] [address] 10/21/2023 [facility] Type 2 diabetes mellitus with other diabetic neurological complication E11.49 ; Callus of foot L84 ; Onychogryphosis L60.2 and Nail dystrophy L60.3 1 OF [place] [address] [address] 11/05/2023 Anival Lupe Plantar fasciitis, bilateral M72.2 ; Calcaneal spur of right foot M77.31 ; Calcaneal spur of left foot M77.32 ; Pain in right foot M79.671 and Pain in left foot M79.672 1 OF Heriberto [place] [address] [address] 12/30/2023 [facility] Type 2 diabetes mellitus with other diabetic neurological complication E11.49 ; Callus of foot L84 ; Onychogryphosis L60.2 and Nail dystrophy L60.3 1 OF [place] [address] [address] 08/13/2024 [facility] Type 2 diabetes mellitus with other diabetic neurological complication E11.49 ; Callus of foot L84 ; Onychogryphosis L60.2 ; Nail dystrophy L60.3 and Contusion of lesser toe of right foot with damage to nail, initial encounter S90.221A 1 OF Heriberto Dorsey [place] [address] [facility] [address] [place] [address] 11/04/2023 Roel Eduardo Assessments Encounter Date Diagnosis (ICD Code) Assessment Notes Treatment Notes Treatment Clinical Notes Section Notes 10/21/2023 Type 2 diabetes mellitus with other diabetic neurological complication (ICD-10 - E11.49) Considering the associated comorbidities and physical exam findings today, this patient is at substantial risk of developing serious foot complications in the absence of regular and professional palliative foot care. 11/05/2023 Calcaneal spur of right foot (ICD-10 - M77.31) 11/05/2023 Plantar fasciitis, bilateral (ICD-10 - M72.2) Patient visit today included a review of medical history, review of systems, physical exam and discussion of exam findings, test results, and discussed the nature and etiology of plantar fasciitis as well as treatment options. I discussed the importance of wearing good supportive shoes and avoiding ambulation in slippers, flip flops or walking barefoot and I encouraged the patient to wear a good quality athletic sneaker whenever possible. Recommended local [employer] shoe store or a reputable running specialty store in the area for new shoes DYLAN. Discussed treatment options today including Rx and topical NSAIDs, prefab orthotics, custom orthotics, steroid injections, physical therapy, use of a night splint, immobilization and surgery as a last resort if conservative options fail to provide relief. Dispensed literature regarding plantar fasciitis. 12/30/2023 Type 2 diabetes mellitus with other diabetic neurological complication (ICD-10 - E11.49) Considering the associated comorbidities and physical exam findings today, this patient is at substantial risk of developing serious foot complications in the absence of regular and professional palliative foot care. 03/09/2024 Type 2 diabetes mellitus with other diabetic neurological complication (ICD-10 - E11.49) Considering the associated comorbidities and physical exam findings today, this patient is at substantial risk of developing serious foot complications in the absence of regular and professional palliative foot care. 06/01/2024 Type 2 diabetes mellitus with other [...] shoes self pay through an outside company. 08/13/2024 Type 2 diabetes mellitus with other diabetic neurological complication (ICD-10 - E11.49) Considering the associated comorbidities and physical exam findings today, this patient is at substantial risk of developing serious foot complications in the absence of regular and professional palliative foot care. 08/13/2024 Callus of foot (ICD-10 - L84) 08/13/2024 Onychogryphosis (ICD-10 - L60.2) 03/09/2024 Callus of foot (ICD-10 - L84) 06/01/2024 Callus of foot (ICD-10 - L84) 12/30/2023 Callus of foot (ICD-10 - L84) 11/05/2023 Calcaneal spur of left foot (ICD-10 - M77.32) 10/21/2023 Callus of foot (ICD-10 - L84) 11/05/2023 Pain in right foot (ICD-10 - M79.671) 10/21/2023 Onychogryphosis (ICD-10 - L60.2) 03/09/2024 Onychogryphosis (ICD-10 - L60.2) 12/30/2023 Onychogryphosis (ICD-10 - L60.2) 06/01/2024 Onychogryphosis (ICD-10 - L60.2) 08/13/2024 Nail dystrophy (ICD-10 - L60.3) 08/13/2024 Contusion of lesser toe of right foot with damage to nail, initial encounter (ICD-10 - S90.221A) He was advised to monitor T8 for SOI as his nail may snag in his sock and fall off. 06/01/2024 Nail dystrophy (ICD-10 - L60.3) 12/30/2023 Nail dystrophy (ICD-10 - L60.3) 03/09/2024 Nail dystrophy (ICD-10 - L60.3) 10/21/2023 Nail dystrophy (ICD-10 - L60.3) 11/05/2023 Pain in left foot (ICD-10 - M79.672) Plan Of Treatment Next Appt Details Provider Name:Roel Clark, 10/22/2024 10:00:00 AM, [address], [place], [address], Insurance Providers Payer Name Payer Address Payer Phone Subscriber Number Group Number Insured Name Patient Relationship to Insured Coverage Start Date Coverage End Date [employer] [address] [address] [place] [address] [id number] Aniya Ulrich Self - patient is the insured Medical (General) History Medical History History ICD Code A fib, arthritis, diabetes, heart attack, high blood pressure, high cholesterol, thyroid problems Surgical History Surgery Date(Month/Year) Right hip replacement 04/01/2017
--- OUTSIDE RECORDS SUMMARY | 2024-08-29 22:21 | XMS_ITS ---
Author Organization 1 OF Heriberto rivera DPM [facility] Address [address] [place] [address] Care Team Providers Care Stockroom Inventory Clerk Name Role Phone Dr. Apolinar Cook Primary Care Provider Unavailab Roel [facility] REASON FOR VISIT DFC (Diabetic foot care) Encounters Encounter Location Date Provider Diagnosis 1 OF [facility] [address] [place] [address] 08/10/2024 Roel Clark Plan Of Treatment Next Appt Details Provider Name:Roel Clark, 10/22/2024 10:00:00 AM, [address], [address], [place], [address], Progress Notes * Aniya DOLLDOB:[birth year] (69 yo M)Acc No.[id number]:08/10/2024 Progress Note Patient: Nati Aniya CRUZ Provider: Heriberto Clark DPM :1955 A ge:69 Y S ex:Male Date:08/10/2024 Address:[address] [place], [place] [id number] Pcp:Dr. Apolinar Cook Subjective: * Chief Complaints: * 1 . DFC (Diabetic foot care). * Medical History: Objective: * Vitals: Assessment: Plan: * Treatment: * Images: * Electronic signature of Chri stopher Eduardo , DPM on 08/29/2024 at 10:21 PM CDT Sign off status: Pending * Provider: Heriberto Clark DPM Date: 0 08/10/2024 Generated for Michael reddy/Anne/Catrina on: 0 08/29/2024 10:21 PM CDT
--- OUTSIDE RECORDS SUMMARY | 2024-08-29 22:21 | XMS_ITS | Encounter Summary ---
Author Organization [facility] Address [address] [place] [address] Phone Care Team Providers Care Aircraft Avionics Technician Name Role Phone Pérez Cifuentes NP Primary Care Provider [phone] Diego Lutz MD Unavailable Apolinar Cook MD Primary Care Provider [phone] Encounter Details Date Type Department Care Team (Late st Contact Info) Description 03/11/2023 Orders Only [facility] [phone] Scanning, Provider Social History Tobacco Use Types Packs/Day Years Used Date Smoking Tobacco: Never Passive Smoke Exposure: Never Smokeless Tobacco: Never Alcohol Use Standard Drinks/Week Comments No 0 (1 standard drink = 0.6 oz pur e alcohol) AUDIT-C Answer Date Recorded Q1: How often do you have a drink containing alc ohol? Monthly or less 12/03/2022 Q2: How many drinks containi ng alcohol do you have on a typical day when you are drinking? 1 or 2 12/03/2022 Q3: How often do you have si x or more drinks on one occasion? 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 Gender Identity Not on file Sexual Orientation Not on file documented as of this encounter Plan of Treatment Not on file documented as of this encounter Procedures Procedure Name Priority Date/Time Associated Diagnosis Comments SCAN - RADIOLOGY/IMAGING 03/11/2023 documented in this encounter Results * SCAN - RADIOLOGY/IMAGING (03/11/2023) Anatomical Region Laterality Modality Other us Provider Scanning Final Result documented in this encounter Visit Diagnoses Not on filedocumented in this encounter Care Teams Aircraft Avionics Technician Relationship Specialty Start Date End Date Pérez Cifuentes NP PCP - General Nurse Practitioner 02/05/23 07/26/24 Apolinar Cook MD [address] [place] [address] PCP - General Family Practice 07/27/24 Diego Lutz MD [address] [place] [address] Referring Physician Internal Medicine 04/02/23 documented as of this encounter
--- OUTSIDE RECORDS SUMMARY | 2024-08-29 22:21 | XMS_ITS ---
Author Organization 1 OF Heriberto rivera [facility] Address [email or web address] [address] [address] Care Team Providers Care Tester Waste Disposal Leakage Name Role Phone Dr. Apolinar Cook Primary Care Provider UnavailRoel [facility] [phone] Allergies No Known Allergies REASON FOR VISIT DFC (Diabetic foot care) Medications Medication SIG (Take, Route, Fr equency, Duration) Notes Start Date End Date Status Mounjaro Active Tylenol Arthritis Pain Active Aspirin Active Fenofibrate Active Vitamin C Active Vitamin D3 Active Metoprolol Succinate Active Furosemide Active Levothyroxine Sodium Active Xarelto Active Fish Oil Active Beta Carotene Active Vitamin E Active Vital Signs Weight 265 lbs 06/01/2024 Height 70 in 06/01/2024 BMI 38.02 kg/m2 06/01/2024 Encounters Encounter Location Date Provider Diagnosis 1 OF Heriberto Clark [place] [address] [email or web address] [address] [address] 06/01/2024 Roel Clark Type 2 diabetes mellitus [...] with any concerns, Reason: Provider Name:Roel Clark, 10/22/2024 10:00:00 AM, [address], [facility] [address], [place], [address], Procedure Notes * Category Sub-Category Detail Notes PALLIATIVE FOOT CARE: Callus paring: (74377) Fi ve or more calluses as noted above reduced with a sterile scalpel blade Nail debride (04867): Debridement of fiv e or less mycotic and/or hypertrophic nails, utilizing manual and electric debridement the affected nails were reduced the nails in length and thickness with curettage of debris from nail margins performed as needed. Nail thickness reduced by:, 10% Dystrophic nail trim (G0127) All dystrop hic nails reduced in length and thickness with curettage of debris from nail margins as needed Progress Notes * Aniya DOLLDOB:[birth year] (69 yo M)Acc No.[id number]:06/01/2024 Progress Note Patient: Aniya WATTS Provider: Heriberto Clark DPM :1955 A ge:69 Y S ex:Male Date:06/01/2024 Address:[address] [place], [place] [id number] Pcp:Dr. Apolinar Cook Subjective: * Chief Complaints: * 1 . DFC (Diabetic foot care). * HPI: Awais Spencer assisting with visit:: Chart Prep Nati britoa. HPI/Rooming: , Myeshia. Mekhi ramos reason for visit:: 69 year old diabetic male PTO for RFC. Pt reports no acute issues with nails or calluses today. Pt also PTO to discuss getting d iabetic shoes, which he has never purchased before. * Medical History: A fib, arthritis, diabetes, heart attack, high blood pressure, high cholesterol, thyroid problems. * Surgical History: R ight hip replacement 04/01/2017. * Family History: diabetes. * Medications: T aking Metoprolol Succinate , Taking Mounjaro , Taking Tylenol Arthritis Pain , Taking Aspirin , Taking Fenofibrate , Taking Vitamin C , Taking Fish Oil , Taking Beta Carotene , Taking Vitamin E , Taking Xarelto , Taking Vitamin D3 , Taking Furosemide , Taking Levothyroxine Sodium , Medication List reviewed and reconciled with the patient * Allergies: N .K.D.A. Objective: * Vitals: W t:265lbs, Wt-k.2 kg, [...] P ALLIATIVE FOOT CARE:: Callus paring: ( 04287) Five or more calluses as noted above reduced with a sterile scalpel blade. Nail debride (20457): D ebridement of five or less mycotic [...] or contact office PRN with any concerns * Images: * Electronic signature of Maximo Clark DPM on 08/29/2024 at 10:20 PM CDT Sign off status: Pending * Provider: Heriberto Clark DPM Date: 0 06/01/2024 Generated for Michael reddy/Anne/eTransmitting on: 0 08/29/2024 10:20 PM CDT History and Physical Notes * HPI (History [...]
--- OUTSIDE RECORDS SUMMARY | 2024-08-29 22:21 | XMS_ITS | Encounter Summary ---
Author Organization [facility] Address [address] [place] [address] Phone Care Team Providers Care Quality Control Chemist Name Role Phone Pérez Cifuentes NP Primary Care Provider [phone] Diego Lutz MD Unavailable Apolinar Cook MD Primary Care Provider [phone] Reason for Referral * Diagnostic Imaging (Routine) - Closed Specialty Diagnoses / Procedures Referred By Contac t Referred To Contact Diagnoses Status post reverse total arthroplasty of left shoulder Procedures XR Shoulder Left 2 or More Views Fransisco Santo MD [address] [place] [address] Phone: tel: fax: [address] [address] Referral ID Status Reason Start Date Expiration Date Visits Re quested Visits Authorized [id number] Closed 12/05/2022 01/04/2024 1 1 Encounter Details Date Type Department Care Team (Late st Contact Info) Description 12/05/2022 Orders Only [facility] Orthopaedic Surgery [address] [facility] [address] [place] [id number] Fransisco Santo MD [address] [place] [address] Status post reverse total arthroplasty of left shoulder (Primary Dx) Social History Tobacco Use Types Packs/Day Years [...] more drinks on one occasion? 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 Electronically signed by: Yunior Chapin M.D. Narrative 12/16/2022 2:45 PM CDT EXAMINATION: XR SHOULDER LEFT 2 OR MORE VIEWS HISTORY: Left shoulder pain FINDINGS: 4 view examination of the left shoulder is compared with a study from 12/03/2022. Reverse total shoulder arthroplasty remains in unchanged, expected position. Soft tissue gas has decreased. There is unchanged distal clavicle excision and acromioplasty. Procedure Note Yunior Chapin MD - 12/16/2022 EXAMINATION: XR SHOULDER LEFT 2 OR MORE VIEWS HISTORY: Left shoulder pain FINDINGS: 4 view examination of the left shoulder is compared with a study from 12/03/2022. Reverse total shoulder arthroplasty remains in unchanged, expected position. Soft tissue gas has decreased. There is unchanged distal clavicle excision and acromioplasty. IMPRESSION: Reverse left total shoulder arthroplasty in unchanged, near anatomic position. Electronically signed by: Yunior Chapin M.D. Fransisco Santo MD IMG XR PROCEDURES Final Result documented in this encounter Visit Diagnoses Diagnosis Status post reverse total arthroplasty of left shoulder- Primary Status post reverse total arthroplasty of left shoulder documented in this encounter Care Teams Quality Control Chemist Relationship Specialty Start Date End Date éPrez Cifuentes NP PCP - General Nurse Practitioner 02/05/23 07/26/24 Apolinar Cook MD [address] [place], [place] [id number] PCP - General Family Practice 07/27/24 Diego Lutz MD [address] [place], [place] [id number] Referring Physician Internal Medicine 04/02/23 documented as of this encounter
--- OUTSIDE RECORDS SUMMARY | 2024-08-29 22:21 | XMS_ITS | Referral Summary ---
Author Organization [facility] [address] Address [address] [employer] [place] [address] Phone Care Team Providers Care Environmental Research Scientist Name Role Phone Diego Lutz MD Unavailable Apolinar Cook MD Primary Care Provider [phone] Allergies Active Allergy Reactions Criticality Noted Date Comments Adhesive Tape-Silicones Rash Medium 10/03/2022 Medications fenofibrate (TRIGLIDE) 160 mg tabletIndication s:hyperlipidemia Take 1 tablet (160 mg total) by mouth every morning Active magnesium oxide (MAG-OX) 250 mg (150.8 mg elemental) tabletIndication s:supplement Take 400 mg by mouth nightly Active levothyroxine (SYNTHROID) 150 mcg tabletIndication s:hypothyroidism Take 1 tablet (150 mcg total) by mouth double cut off saw operator before breakfast 5 Active cholecalciferol, vitamin D3, (D3-5000 ORAL)Indications :supplement Take 2 capsules by mouth nightly 5 Active primidone (MYSOLINE) 50 mg tabletIndication s:Essential Tremor Take 0.5 tablets (25 mg total) by mouth every morning 2 Active potassium citrate 99 mg capsuleIndicatio ns:hypokalemia prevention Take 1 Caplet by mouth nightly 5 Active cetirizine (ZyrTEC) 10 mg tabletIndication s:Perennial Allergic Rhinitis Take 1 tablet (10 mg total) by mouth nightly 2 Active Denta 5000 Plus 1.1 % creamIndications :Prevention of Dental Caries Take 1 Application by mouth every morning 3 Active rivaroxaban (XARELTO) 20 mg tabletIndication s:atrial fibrillation Take 1 tablet (20 mg total) by mouth daily with dinner 3 Active Additional Information Patient taking differently:20 mg oral Daily with dinner,Indications: VTE Prophylaxis, atrial fibrillation, Informant: Self, Reported on 03/19/2023 docusate sodium (COLACE) 100 mg capsuleIndicatio ns:constipation Take 1 capsule (100 mg total) by mouth 2 (two) times a day 60 capsule 3 Active Additional Information Patient taking differently:100 mg oral2 times daily PRN, constipation, Indications: constipation, Informant: Self, Reported on 03/19/2023 furosemide (LASIX) 20 mg tabletIndication s:Edema,hyperten sejal Take 1 tablet (20 mg total) by mouth every morning 3 Active donepeziL (ARICEPT) 10 mg tabletIndication s:Mild to Moderate Alzheimer's Type Dementia Take 1 tablet (10 mg total) by mouth nightly 3 Active vitamin A 3,000 mcg (10,000 units) capsuleIndicatio ns:supplement Take 1 capsule (10,000 Units total) by mouth every morning Active omega-3 fatty acids-fish oil 300-1,000 mg capsuleIndicatio ns:hypertriglyce ridemia Take 2 capsules (2 g total) by mouth every morning Active multivitamin tabletIndication s:Vitamin Deficiency Prevention Take 1 tablet by mouth every morning Active aspirin 81 mg enteric coated tablet Take 1 tablet (81 mg total) by mouth nightly Active glucosamine/naresh dr delia daniels (OSTEO BI-FLEX ORAL)Indications :supplement Take 1 tablet by mouth every morning Active pantoprazole DR (PROTONIX) 40 mg EC tablet 3 Active rosuvastatin (CRESTOR) 20 mg tablet Take 1 tablet (20 mg total) by mouth daily 4 Active amiodarone (PACERONE) 200 mg tablet Take 1 tablet (200 mg total) by mouth daily 4 Active icosapent ethyL (VASCEPA) 1 gram capsule Take 2 capsules (2 g total) by mouth 2 (two) times a day 4 Active metoprolol tartrate (LOPRESSOR) 25 mg immediate release tablet TAKE 1/2 (ONE HALF) TABLET BY MOUTH ONCE DAILY 4 Active metoprolol XL (TOPROL-XL) 25 mg extended release tablet Take 1 tablet (25 mg total) by mouth daily 4 Active traZODone (DESYREL) 50 mg tablet Take 1 tablet (50 mg total) by mouth nightly as needed 5 Active gabapentin (NEURONTIN) 300 mg capsuleIndicatio ns:Neuropathic Pain Take 1 capsule (300 mg total) by mouth 3 (three) times a day 90 capsule 5 Active Active Problems Problem Noted Date Diagnosed Date Cubital tunnel syndrome on left 03/18/2023 Left rotator cuff tear arthropathy 12/03/2022 Osteoarthritis of glenohumeral joint, left 08/26 Rotator cuff tear arthropathy of left shoulder 0 08/26/2022 Special screening for malignant neoplasms, colon 10/11/2019 Overview (10/11/2019): Added automatically from request for surgery [id number] Edema of lower extremity 09/13/2018 Dyslipidemia 02/23/2017 Overview (11/13/2022): 09/02/15: LDL 65 Mitral valve regurgitation 08/25/2016 Obstructive sleep apnea syndrome 08/25/2016 Overview (11/13/2022): on CPAP Benign hypertension 08/27/2015 Obesity 08/27/2015 Paroxysmal atrial fibrillation 08/27/2015 Overview (11/13/2022): failed cardioversion Hyperlipidemia 08/27/2015 Shoulder pain 06/10/2014 Overview (06/28/2016): Shoulder pain Myocardial infarction 07/26/2013 Overview (10/03/2022): Heart attack Bacteremia due to Staphylococcus aureus 07/27/19 14 Overview (06/28/2016): MRSA bacteremia CTS (carpal tunnel syndrome) 06/10/2008 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 Other psoriasis 06/10/2008 Sinus trouble 06/10/2008 Thyroid trouble 06/10/2008 Immunizations Immunization Administration Dates Next Due Influenza, Trivalent, IM (MDV) 12/22/2012 Social History Tobacco Use Types Packs/Day Years Used Date Smoking Tobacco: Never Passive Smoke Exposure: Never Smokeless Tobacco: Never Tobacco Cessation:Counseling Given: Not Answered Alcohol Use Standard Drinks/Week Comments No 0 (1 standard drink = 0.6 oz pur e alcohol) AUDIT-C Answer Date Recorded Q1: How often do you have a drink containing alc ohol? Monthly or less 03/31/2023 Q2: How many drinks containi ng alcohol do you have on a typical day when you are drinking? 1 or 2 03/31/2023 Q3: How often do you have si x or more drinks on one occasion? Never 03/31/2023 Personal Safety Answer Date Recorded Have you ever been in or are you currently in a harmful physical or emotional relationship or is someone making you feel afraid or unsafe? Denies 03/31/2023 Sex and Gender Information Value Date Recorded Sex Assigned at Not on file Legal Sex Male 11:43 PM GROUP PRODUCT MANAGER Gender Identity Not on file Sexual Orientation Not on file Last Filed Vital Signs Vital Sign Reading Time Taken Comments Blood Pressure 122/77 03/31/2023 4:50 PM GROUP PRODUCT MANAGER Pulse 79 03/31/2023 4:50 PM GROUP PRODUCT MANAGER Temperature 36 C (96.8 F) 03/31/2023 8:10 AM GROUP PRODUCT MANAGER Respiratory Rate 16 03/31/2023 4:50 PM GROUP PRODUCT MANAGER Oxygen Saturation 93% 03/31/2023 4:50 PM GROUP PRODUCT MANAGER Inhaled Oxygen Concentration - - Weight 115.7 kg (255 lb) 03/11/2024 2:33 PM GROUP PRODUCT MANAGER Height 177.8 cm (5' 10) 03/19/2023 10:35 AM GROUP PRODUCT MANAGER Body Mass Index 36.59 03/19/2023 10:35 AM GROUP PRODUCT MANAGER Plan of Treatment Not on file Medical Devices Implanted Type Area Technology Services Manager Device Identifier Shelf Expiration Date Model / Serial / Lot Right Knee Replacement Endoprosthesis Knee [employer] Stem Perform Sz 3 Plus Humeral Long Dwx3pl - S0 - [id number] Implanted:Qty: 1 on 12/03/2022 by Fransisco Santo MD at [facility] Other - see comments Left: Shoulder ticketea [id number] / 0 / ticketea Insert Perform 10 Deg [id number] - S0 - [id number] Implanted:Qty: 1 on 12/03/2022 by Fransisco Santo MD at [facility] Other - see comments Left: Shoulder [employer] [id number] / 0 / Stent-09/18/200 7 Implanted:Qty: 1 on 09/18/2006 Stent Heart Shell Acetabular Tritanium F Hemispherical Od58 Mm Hip Primary Rim Cluster Hole - [id number] Implanted:Qty: 1 on 04/01/2017 by Toñito Mcfarland MD at [facility] Right: Hip [employer] 06/29/2020 [id number] / / [id number] Screw Bone Torx Titanium L35 Mm Od6.5 Mm Acetabular Cancellous Flush Seat Nonsterile - [id number] Implanted:Qty: 1 on 04/01/2017 by Toñito Mcfarland MD at [facility] Right: Hip [employer] 04/23/2021 [id number] / / [id number] Liner Acetabular Cocr F Od46 Mm Hip Modular Dual Mobility Primary - [id number] Implanted:Qty: 1 on 04/01/2017 by Toñito Mcfarland MD at [facility] Right: Hip [employer] 01/09/2022 [id number] / / [id number] Stem Femoral Accolade 127 D 5 Taper L108 Mm L35 Mm Hip Modular Sterile - [id number] Implanted:Qty: 1 on 04/01/2017 by Toñito Mcfarland MD at [facility] Right: Hip [employer] 12/21/2021 [id number] / / [id number] Insert Acetabular Adm Mobile Bearing Hip Anabaptist X3 Polyethylene H8.9 Mm Od46 Mm Odsec52 Mm Id28 Mm Hip - [id number] Implanted:Qty: 1 on 04/01/2017 by Toñito Mcfarland MD at [facility] Right: Hip [employer] 01/06/2022 [id number] / / [id number] Head Femoral V40 Biolox Delta +4 Mm Offset Taper Od28 Mm Hip - [id number] Implanted:Qty: 1 on 04/01/2017 by Toñito Mcfarland MD at [facility] Right: Hip [employer] 12/15/2021 [id number] / / [id number] [employer] Aequalis Perform Reversed 5mm 42mm Peripheral Glenoid Screw [id number] - [id number] Implanted:Qty: 1 on 12/03/2022 by Fransisco Santo MD at [facility] Left: Shoulder [employer] [id number] / / [employer] Aequalis Perform Reversed 5mm 34mm Peripheral Glenoid Screw [id number] - [id number] Implanted:Qty: 1 on 12/03/2022 by Fransisco Santo MD at [facility] Left: Shoulder [employer] [id number] / / [employer] Aequalis Perform Reversed 5mm 18mm Peripheral Glenoid Screw Tzo188 - [id number] Implanted:Qty: 1 on 12/03/2022 by Fransisco Santo MD at [facility] Left: Shoulder [employer] [id number] / / [employer] Od29 Mm Half Wedge Augment Shoulder 35 D Baseplate Glenoid Qhz296 - [id number] - [id number] Implanted:Qty: 1 on 12/03/2022 by Fransisco Santo MD at [facility] Left: Shoulder [employer] [id number] 06/12/2025 [id number] / [id number] / [employer] Tornier Aequalis Perform Od42 Mm Reverse Shoulder Standard Sphere Glenoid Sad007 - [id number] - [id number] Implanted:Qty: 1 on 12/03/2022 by Fransisco Santo MD at [facility] Left: Shoulder [employer] 01/22/2027 [id number] / [id number] / [employer] Aequalis Perform Reversed 6.5mm 35mm Central Glenoid Screw Xqg450 - [id number] Implanted:Qty: 1 on 12/03/2022 by Fransisco Santo MD at [facility] Left: Shoulder [employer] [id number] / / Procedures Procedure Name Priority Date/Time Associated Diagnosis Comments COLONOSCOPY 11/08/2019 7:11 AM CDT from Last 3 Months or Most Recently Relevant to Health Maintenance Results * COLONOSCOPY (11/08/2019 7:11 AM CDT) Anatomical Region Laterality Modality Other Narrative Procedure Note Pérez Hubbard MD - 11/08/2019 7:[address] [facility] Patient Name: Demond Ulrich Procedure Date: 11/08/2019 7:11 AM Date of : 1955 Admit Type: Outpatient Age: 64 Gender: Male Attending MD: Pérez Hubbard M.D. Room: [facility] ENDOSCOPY ROOM 2 Note Status: Finalized Patient Profile: Refer to note in patient chart for documentation of history and physical. Procedure: Colonoscopy Indications: High risk colon cancer surveillance: Personalhistory of colonic polyps, Last colonoscopy: October 2014 Referring MD: Diego Luzt M.D. Providers: Pérez Hubbard M.D. Impression: - Preparation of the colon was poor. - Hemorrhoids found on perianal exam. - Diverticulosis in the sigmoid colon, in the descending colon and in the transverse colon. - The examination was otherwise normal. - No specimens collected. Recommendation: - Discharge patient to home. - Resume previous diet. - Continue present medications. - Repeat colonoscopy in 3 years for surveillance. 3 years due to poor prep - Return to primary care physician as previously scheduled. Medicines: Propofol per Anesthesia Complications: No immediate complications. Estimated Blood Loss: Estimated blood loss: none. Procedure: Pre-Anesthesia Assessment: - This assessment was completed [Time of Assessment] prior to the administration of sedation. The benefits, risks and alternatives of theprocedure and sedation were discussed and informed consent was obtained. All questions were answered. Please referto the signed informed consent document in the medical record. The scope was passed under direct vision.The Colonoscope [id number] [id number] was introducedthrough the anus and advanced to the the cecum, identifiedby appendiceal orifice and ileocecal valve. The colonoscopy was performed with moderate difficultydue to the patient's body habitus. Successful completionof the procedure was aided by using manual pressure.The patient tolerated the procedure well. The quality of the bowel preparation was poor. The bowelpreparation used was polyethylene glycol (PEG). Findings: Hemorrhoids were found on perianal exam. Multiple small and large-mouthed diverticula were found in thesigmoid colon, descending colon and transverse colon. The exam was otherwise without abnormality. Electronically signed by Pérez Hubbard M.D. Pérez Hubbard M.D. 11/08/2019 8:19:30 AM Number of Addenda: 0 Note Initiated On: 11/08/2019 7:11 AM Procedure Code(s): --- Professional --- G0105, Colorectal cancer screening; colonoscopy on individual at high risk Diagnosis Code(s): --- Professional --- K64.9, Unspecified hemorrhoids K57.30, Diverticulosis of large intestine without perforation orabscess without bleeding Z86.010, Personal history of colonic polyps CPT copyright 2017 [employer]. All rights reserved. The codes documented in this report are preliminary and upon telecom network manager reviewmay be revised to meet current compliance requirements. Recognized by the [employer] for promoting quality in endoscopy Pérez Hubbard MD ENDOSCOPY PROCEDURES Final Re sult from Last 3 Months or Most Recently Relevant to Health Maintenance Insurance [facility] PLUS [facility] PLUS [place] [id number] [employer] ADV[employer]AGE CHOICE PPO [employer] PPO Advance Directives For more information, please contact: [phone] * Full Code (Latest Code Status on File) Date Activated Date Inactivated Comments 12/03/2022 5:49 PM 12/05/2022 3:56 PM * Full Code Date Activated Date Inactivated Comments 11/08/2019 7:26 AM 11/08/2019 1:09 PM * Full Code Date Activated Date Inactivated Comments 11/08/2019 7:26 AM 11/08/2019 7:26 AM * Full Code Date Activated Date Inactivated Comments 04/01/2017 10:49 AM 04/04/2017 3:43 PM Care Teams Environmental Research Scientist Relationship Specialty Start Date End Date Apolinar Cook MD [address] [place], [place] [id number] PCP - General Family Practice 07/27/24 Diego Lutz MD [address] [facility] [address] [facility] [address] [place] [address] Referring Physician Internal Medicine 04/02/23
--- OUTSIDE RECORDS SUMMARY | 2024-08-29 22:21 | XMS_ITS | Data Portability ---
Author Organization [place] - [facility] OFFICE Address [address] [place] [address] Assessment Encounter Date Assessment Date Assessment LastModified by Organization Details LastModified Time 11/05/2022 11/05/2022 Patient Examined by DAGOBERTO Kruger, Also Documentation reviewed and approved by supervising physician lucio Not available 11/05/2022 09:34:33 02/05/2023 02/05/2023 Patient Examined by DAGOBERTO Kruger, Also Documentation reviewed and approved by supervising physician [email or web address] Not available 01/30/2023 12:50:54 Plan of Treatment Reminders Order Date Submit Date Provider Last Modified By Organization Details Last Modified Time Details Appointments None recorded. Lab None recorded. Referral None recorded. Procedures None recorded. Surgeries None recorded. Imaging None recorded. Medication Orders furosemide 20 mg tablet 2023 024 [facility][id number], [address] [place], [address], 4 14:38:17 Crestor 20 mg tablet 2022 023 [facility], [address] [place] [address], [address], 3 12:38:47 Ozempic 0.25 mg or 0.5 mg (2 mg/1.5 mL) subcutaneou s pen injector 2022 023 [email or web address] [facility], [facility] [place], [address], 4 14:05:37 Vascepa 1 gram capsule 2022 023 [facility], [address] [place] [address], [address], 3 09:43:30 Xarelto 20 mg tablet 2022 023 [email or web address] [facility], [address] [place] [address], [address], 3 07:18:44 Ozempic 0.25 mg or 0.5 mg (2 mg/1.5 mL) subcutaneou s pen injector 2022 023 [email or web address] [facility], [address] [place] [address], [address], 4 14:05:37 nitroglycer in 0.4 mg sublingual tablet 2022 023 [id number], [address] [place], [address], 3 10:41:24 Patient TargetsNo targets recorded. Patient Instructions Encounter Date Encounter Id Patient Instructions Last Modified By Organization Details Last Modified Time 11/05/2022 [id number] cardiac clearance* [email or web address] Not available 11/26/2022 10:53:34 Low cholesterol diet advised Low sodium diet advised. [email or web address] Not available 11/05/2022 09:43:19 02/05/2023 [id number] Low cholesterol diet advised Low sodium diet advised. [email or web address] Not available 02/05/2023 12:38:43 Reason for Referral None Reported. Results Created Date Observation Date Name Description Value Unit Range Abnormal Flag Note LastModifiedBy Organization Detail LastModifiedTime 06/18/19 23 06/14/2022 , [facility] ardio gram No observ ation record ed. [facility] [address] [place] [address] Dr Kelsey, [place], [address], 06/17/2022 17:45:46 07/02/19 23 06/28/2022 elect rocar diogr am No observ ation record ed. [email or web address] Not Available 2022 13:47:56 08/14/19 23 07/16/2022 exerc ise stres s test No observ ation record ed. [email or web address] Not Available 2022 14:18:27 02/12/20 23 02/05/2023 elect rocar diogr am No observ ation record ed. [email or web address] Not Available 2022 14:02:13 08/06/19 24 08/05/2023 elect rocar diogr am No observ ation record ed. [email or web address] Not Available 2023 09:35:17 09/22/19 24 09/17/2023 , [facility] ardio gram No observ ation record ed. [email or web address] Not Available 2023 16:04:57 10/30/19 24 10/28/2023 elect rocar diogr am No observ ation record ed. [email or web address] Not Available 2023 20:03:51 Result Notes Documentation Provider Name and Address Organization Details Recorded Time Lipid Panel, Blood : 01/30/23:AST 28,ALT 25,CK 344,TSH 0.123,T4 1.62. 01/30/23:TC 154,TG 165,HDL 41,LDL 84. [place] Garnett - [facility] 02/02/2023 17:28:23 Problems Name Problem SNOMED Code Status Onset Date Resolution Date Notes Provider Name and Address Organization Details Recorded Time Benign hyperten sejal 48824586 Completed 201502/24/2017 [place] Bautista - [facility] 7 17:49:15 Disorder of coronary artery 284185550 Active 2015 s/p PCI to the left anterior descendi ng coronary artery in 2004. Not Available [facility] 3 13:47:04 Myocardi al infarcti on 82649772 Active 2015 Not Available [facility] 3 13:47:04 Paroxysm al atrial fibrilla tion 002000485 Active 2015 failed cardiove rsion Not Available [facility] 3 13:47:04 Hypothyr oidism 36393695 Active 2015 Not Available [facility] 3 13:47:04 Obesity 733922073 Active 2015 Not Available [facility] 3 13:47:04 Hyperlip idemia 22015787 Completed 201502/24/2017 Yudith garvey [facility] [place] 7 17:49:28 Obstruct yessi sleep apnea syndrome 51053680 Active 2016 on CPAP Not Available [facility] 3 13:47:04 Mitral valve regurgit ation 00942415 Active 2016 Not Available [facility] 3 13:47:04 [facility] hyperten sejal 73216397 Active 2016 Not Available [facility] 3 13:47:04 Dyslipid emia 336861226 Active 201609/02/15 : LDL 65 Not Available [facility] 3 13:47:04 Atrial fibrilla tion 58260878 Active 2018 Not Available [facility] 3 13:47:04 Diabetes mellitus 40823092 Active 2018 Not Available [facility] 3 13:47:04 Edema of lower extremit y 545653859 Active 2018 Not Available [facility] 3 13:47:04 Problem Notes None recorded. Procedures Surgical History Date Name Laterality Status Provider Name and Address Organization Details Recorded Time 04/01/19 18 total replacement of hip completed [facility] [place] 11/15/2020 01:42:49 11/21/19 10 Colonoscopy completed [facility] [place] 08/27/2015 08:44:08 03/29/19 07 Coronary Artery Stent completed [facility] [place] 08/27/2015 08:43:36 Carpal tunnel surgery completed [facility] [place] 08/27/2015 08:43:12 Anesth knee arthroplasty completed [facility] [place] 08/27/2015 08:44:39 Imaging Results None recorded. Procedure Notes None recorded. Medical Equipment None Reported. Allergies Allergen ID Allergen Name Allergen Category Reaction Reaction Severity Criticality Documentation Date Start Date Code Code System Note Provider Name and Address Organization Details Recorded Time 1306 adhesive tape environme nt,medica tion Not available Not available Not available 08/27/2015 13905 UNK Marques [place], [place] - [facility] 6 02:57:30 Medications Name Sig Start Date Stop Date Status Note LastModified by Organization Details LastModified Time Prescripti on - Prior Authorizat ion Request 08/02 completed Not Available Not Available Not Available amoxicilli n 500 mg capsule TAKE 4 CAPSULES BY MOUTH 1 HOUR PRIOR TO APPOINTM ENT 08/04 completed Not Available Not Available Not Available methocarba mol 500 mg tablet 12/15 completed Not Available Not Available Not Available albuterol sulfate 0.63 mg/3 mL solution for nebulizati on INHALE CONTENTS OF 1 VIAL VIA NEBULIZE R EVERY 4 HOURS NEEDED FOR SHORTNES S OF BREATH OR WHEEZING 10/27 completed Not Available Not Available Not Available primidone 50 mg tablet Take 5 tablets 3 times a day by oral route. 10/27 completed Not Available Not Available Not Available vitamin A 2,400 mcg capsule Take by oral route. active Not Available Not Available No t Available prednisone 10 mg tablet TAKE BY MOUTH 6 TABS DAY 1, 5 TABS DAY 5, 4 TABS DAY 3, 3 TABS DAY 4, 2 TABS DAY 5, 1 TAB DAY 6 05/21 completed Not Available Not Available Not Available doxycyclin e hyclate 100 mg capsule 07/28 completed Not Available Not Available Not Available desoximeta sone 0.25 % topical cream as needed 05/11 completed Not Available Not Available Not Available ipratropiu m 0.5 mg-albuter ol 3 mg (2.5 mg base)/3 mL nebulizati on soln 3 ML INHALED FOUR TIMES DAILY NEEDED FOR SHORTNES S OF BREATH active Not Available Not Available No t Available donepezil 5 mg tablet 08/04 completed Not Available Not Available Not Available albuterol sulfate 2.5 mg/3 mL (0.083 %) solution for nebulizati on INHALE EVERY 4 HOURS NEEDED FOR BRONCHOS PASM 10/27 completed Not Available Not Available Not Available Vitamin C 500 mg tablet Take by oral route. 08/28 completed Not Available Not Available Not Available trazodone 50 mg tablet TAKE 1 TABLET BY MOUTH EVERY DAY AT BEDTIME NEEDED FOR INSOMNIA active Not Available Not Available No t Available azithromyc in 250 mg tablet TAKE 2 TABLETS BY MOUTH TODAY, THEN TAKE 1 TABLET DAILY FOR 4 DAYS 05/21 completed Not Available Not Available Not Available pravastati n 40 mg tablet TAKE 1 TABLET DAILY 01/27 completed NO LONGER TAKING; AL 8 Not Available Not Available Not Available ibuprofen 800 mg tablet prn 01/24 completed Not Available Not Available Not Available amiodarone 200 mg tablet TAKE 1 TABLET DAILY 10/27 completed Not Available Not Available Not Available benzonatat e 200 mg capsule TAKE 1 CAPSULE BY MOUTH THREE TIMES A DAY NEEDED FOR COUGH 05/21 completed Not Available Not Available Not Available hydrocodon e 5 mg-acetami nophen 325 mg tablet TAKE 1 TO 2 TABLETS BY MOUTH EVERY 6 HOURS NEEDED FOR PAIN 10/27 completed Not Available Not Available Not Available Claritin 10 mg tablet Take 1 tablet every day by oral route. active Not Available Not Available No t Available beta carotene 7,500 mcg (25,000 unit) capsule Take 1 capsule every day by oral route as directed . 08/04 completed Not Available Not Available Not Available donepezil 10 mg tablet TAKE 1 TABLET BY MOUTH EVERY EVENING active Not Available Not Available No t Available prednisone 20 mg tablet TAKE 2 TABLETS BY MOUTH FOR 5 DAYS 05/21 completed Not Available Not Available Not Available propranolo l ER 60 mg capsule,24 hr,extende d release TAKE 1 CAPSULE BY MOUTH EVERY DAY active Not Available Not Available No t Available Niaspan 500 mg tablet,ext ended release 1 tab at night 04/24 completed Not Available Not Available Not Available sulfametho xazole 800 mg-trimeth oprim 160 mg tablet 05/11 completed Not Available Not Available Not Available tramadol 50 mg tablet 05/21 completed pt no longer takes 021 [place] Not Available Not Available Not Available glimepirid e 1 mg tablet Take 1 tablet every day by oral route. 01/27 completed no longer taking 018 ab Not Available Not Available Not Available Synthroid 175 mcg tablet 1 tab daily 05/21 completed Not Available Not Available Not Available terbinafin e HCl 250 mg tablet PLEASE SEE ATTACHED FOR DETAILED DIRECTIO NS 05/21 completed Not Available Not Available Not Available aspirin 325 mg tablet,del ayed release 07/24 completed no longer taking 018 ab Not Available Not Available Not Available benzonatat e 100 mg capsule 07/24 completed Not Available Not Available Not Available cephalexin 500 mg capsule 500 MG ORALLY EVERY 8 HOURS FOR 7 DAYS 08/04 completed Not Available Not Available Not Available pantoprazo le 40 mg tablet,del ayed release 40 MG ORALLY EVERY MORNING active Not Available Not Available No t Available metformin 1,000 mg tablet Take 1 tablet twice a day by oral route for 90 days. 01/27 completed NO LONGER TAKING; AL 8 Not Available Not Available Not Available Coumadin 2 mg tablet Take 1 tablet every day by oral route as directed . 02/26 completed Not Available Not Available Not Available prednisone 50 mg tablet TAKE 1 TABLET BY MOUTH EVERY DAY 05/21 completed Not Available Not Available Not Available levothyrox ine 150 mcg tablet TAKE 1 TABLET BY MOUTH EVERY DAY active Not Available Not Available No t Available nitroglyce rin 0.[address] 1 TABLET UNDER THE TONGUE EVERY 5 MINUTES, UP TO 3 DOSES NEEDED FOR CHEST PAIN active Not Available Not Available No t Available docusate sodium 100 mg capsule 08/04 completed Not Available Not Available Not Available gabapentin 300 mg capsule PLEASE SEE ATTACHED FOR DETAILED DIRECTIO NS active Not Available Not Available No t Available niacin ER 500 mg capsule,ex tended release one tablet orally daily 08/27 completed Not Available Not Available Not Available diclofenac sodium 75 mg tablet,del ayed release TAKE 1 TABLET BY MOUTH TWICE A DAY 08/04 completed Not Available Not Available Not Available codeine 10 mg-guaifen esin 100 mg/5 mL oral liquid TAKE 10ML BY MOUTH EVERY 12 HOURS NEEDED FOR COUGH 05/21 completed Not Available Not Available Not Available furosemide 20 mg tablet TAKE 1 TABLET BY MOUTH EVERY DAY DIRECTED active Not Available Not Available No t Available levofloxac in 750 mg tablet TAKE 1 TABLET BY MOUTH EVERY DAY 08/02 completed Not Available Not Available Not Available methylpred nisolone 4 mg tablets in a dose pack TAKE 6 TABLETS ON DAY 1 DIRECTED ON PACKAGE AND DECREASE BY 1 TAB EACH DAY FOR A TOTAL OF 6 DAYS 05/21 completed Not Available Not Available Not Available fluticason e propionate 50 mcg/actuat ion nasal spray,susp ension 1 SPRAY INTRANAS ALLY EVERY 12 HOURS ADMINIST ER INTO EACH NOSTRIL active Not Available Not Available No t Available amoxicilli n 875 mg-potassi um clavulanat e 125 mg tablet TAKE 1 TABLET BY MOUTH TWICE A DAY active Not Available Not Available No t Available magnesium 250 mg (as magnesium oxide) tablet Take 1 tablet every day by oral route. 2023 active 400mg Not Available Not Available Not Avai lable oxycodone 5 mg tablet 08/04 completed Not Available Not Available Not Available Denta 5000 Plus 1.1 % cream USE TO BRUSH AT BEDTIME 10/27 completed Not Available Not Available Not Available Asprin Ec Low Dose 81 mg tablet,del ayed release Take 1 tablet every day by oral route. 02/26 completed Not Available Not Available Not Available Synthroid 137 mcg tablet Take 1 tablet every day by oral route for 30 days. 07/28 completed Not Available Not Available Not Available ezetimibe 10 mg tablet TAKE 1 TABLET DAILY 04/24 completed Not Available Not Available Not Available rosuvastat in 10 mg tablet TAKE 1 TABLET DAILY 02/23 completed Not Available Not Available Not Available rosuvastat in 20 mg tablet TAKE 1 TABLET BY MOUTH EVERY DAY active Not Available Not Available No t Available metoprolol tartrate 25 mg tablet TAKE 1/2 (ONE HALF) TABLET BY MOUTH ONCE DAILY 10/27 completed Not Available Not Available Not Available OneTouch UltraSoft Lancets 08/28 completed Not Available Not Available Not Available fenofibrat e 160 mg tablet TAKE 1 TABLET DAILY active Not Available Not Available No t Available vitamin E (dl, acetate) 45 mg (100 unit) capsule 1 tab qd 08/27 completed Not Available Not Available Not Available chlorhexid ine gluconate 0.12 % mouthwash RINSE MOUTH WITH 15ML (1 CAPFUL) FOR 30 SECONDS IN MORNING AND EVENING AFTER MEALS, THEN SPIT 10/27 completed Not Available Not Available Not Available melatonin active Not Available Not Magda ilable Not Available Aleve 02/26 completed Not Available Not Available Not Available Fish Oil 1200 mg once daily 01/24 completed Not Available Not Available Not Available potassium active Not Available Not Magda ilable Not Available Coated Aspirin 81 mg 1 tab qd 01/24 completed Not Available Not Available Not Available cetirizine 01/24 completed Not Available Not Available Not Available Orange 3 1080 mcg active Not Available Not Magda ilable Not Available Tylenol Arthritis Pain 8 hr. active Not Available Not Available Not Available One A Day 01/24 completed Not Available Not Available Not Available ProAir HFA 90 mcg/actuat ion aerosol inhaler prn 07/28 completed Not Available Not Available Not Available vitamin E (dl, acetate) 180 mg (400 unit) capsule Take 1 capsule every day by oral route as directed . 05/18 completed Not Available Not Available Not Available OneTouch Delica Lancets 33 gauge 08/28 completed Not Available Not Available Not Available Vitamin D3 125 mcg (5,000 unit) tablet Take 2 tablets every day by oral route. active Not Available Not Available No t Available Xarelto 10 mg tablet 01/04 completed Not Available Not Available Not Available Xarelto 20 mg tablet TAKE 1 TABLET DAILY active Not Available Not Available No t Available OneTouch Verio test strips USE TO TEST BLOOD SUGAR ONCE DAILY. NEED MED B INFO active Not Available Not Available No t Available One-A-Day Men's Multivitam in 1 tab qd 01/24 completed Not Available Not Available Not Available icosapent ethyl 1 gram capsule TAKE 2 CAPSULES BY MOUTH TWICE A DAY active Not Available Not Available No t Available Adult Aspirin Regimen 81 mg tablet,del ayed release Take 1 tablet every day by oral route. 2023 active Not Available Not Available Not Avai lable Ozempic 1 mg/dose (2 mg/1.5 mL) subcutaneo us pen injector Inject 1 mL every week by sub-q route as directed . 05/21 completed Not Available Not Available Not Available Ozempic 0.25 mg or 0.5 mg (2 mg/1.5 mL) subcutaneo us pen injector active Not Available Not Available Not Available OneTouch Delica Plus Lancet 30 gauge USE TO TEST BLOOD SUGAR ONCE A DAY active Not Available Not Available No t Available Ozempic 1 mg/dose (4 mg/3 mL) subcutaneo us pen injector 05/21 completed Not Available Not Available Not Available Mounjaro 2.5 mg/0.5 mL subcutaneo us pen injector INJECT 2.5 MG (0.5 ML) SUBCUTAN EOUSLY WEEKLY 10/27 completed Not Available Not Available Not Available Ozempic 0.25 mg or 0.5 mg (2 mg/3 mL) subcutaneo us pen injector INJECT 0.25 MG EVERY WEEK BY SUBCUTAN EOUS ROUTE. 08/04 completed Not Available Not Available Not Available One A Day Men Complete active Not Available Not Available Not Available Vitals Date Recorded Body height Body mass index (BMI) Body weight Oxygen saturation Oxygen saturation in Arterial blood by Pulse oximetry Heart rate Systolic blood pressure Diastolic blood pressure Provider Name and Address Organization Details Last Updated DateTime 3 177.8 cm 31.3 kg/m2 11176.1 4 g 96 % 96 % 56 /min 110 mm[Hg] 78 mm[Hg] SHEILA SALAZARONY [facility] [place] 3 10:13:09 Date Recorded Body height Body mass index (BMI) Body weight Heart rate Oxygen saturation Oxygen saturation in Arterial blood by Pulse oximetry Systolic blood pressure Diastolic blood pressure Provider Name and Address Organization Details Last Updated DateTime 4 177.8 cm 37.9 kg/m2 335499. 39 g 69 /min 93 % 93 % 138 mm[Hg] 90 mm[Hg] Basilia Laughlin [facility] [place] 4 14:09:13 Date Recorded Body height Body mass index (BMI) Body weight Heart rate Oxygen saturation Oxygen saturation in Arterial blood by Pulse oximetry Systolic blood pressure Diastolic blood pressure Provider Name and Address Organization Details Last Updated DateTime 4 177.8 cm 36.1 kg/m2 541309. 2 g 67 /min 93 % 93 % 113 mm[Hg] 77 mm[Hg] Becka Lyons [facility] [place] 4 14:36:45 Date Recorded Body height Body mass index (BMI) Body weight Heart rate Oxygen saturation Oxygen saturation in Arterial blood by Pulse oximetry Systolic blood pressure Diastolic blood pressure Provider Name and Address Organization Details Last Updated DateTime 3 177.8 cm 35.3 kg/m2 681472. 72 g 67 /min 95 % 95 % 108 mm[Hg] 73 mm[Hg] Becka Lyons [facility] 3 09:15:40 Date Recorded Body height Body mass index (BMI) Body weight Heart rate Oxygen saturation Oxygen saturation in Arterial blood by Pulse oximetry Systolic blood pressure Diastolic blood pressure Provider Name and Address Organization Details Last Updated DateTime 3 177.8 cm 33.7 kg/m2 525510. 21 g 63 /min 98 % 98 % 118 mm[Hg] 85 mm[Hg] Becka Lyons [facility] 3 12:16:48 Social History Question Answer Notes LastModified by [employer] Platform Details LastModified Time Tobacco Smoking Status [facility] 08:55:34 What Was The Date Of Your Most Recent Tobacco Screening? 01/27/2018 Information n ot available 10/15/2018 How Much Tobacco Do You Smoke? No Information not available 09/04/2019 How Many Years Have You Smoked Tobacco? 0 Information not available 04/23/2017 Sex: Unknown Functional Status Question Answer Note LastModified by Organizat ion Details LastModified Time Do you or have you ever used smokeless tobacco? Never used smokeless tobacco Information not available 09/04/2019 Do you or have you ever used e-cigarettes or vape? Never used electronic cigarettes Information not available 09/04/2019 Mental Status None recorded. Family History Relationship Description Onset Age of this Age Resolved Age Notes LastModified by Organization Details LastModified Time Father Cardiomyopat hy and pacema ker implan t in his 70's. [email or web address] Not available 08/27/2015 08:54:31 Brother Hypertensive disorder hmesto Not available 2015 08:55:03 Brother Diabetes mellitus [email or web address] Not available 2015 08:55:16 Notes:No known premature cor onary artery disease. Medical History Condition Response Coronary Artery Disease Y Thyroid Disease Y Atrial Fibrillation Y Myocardial Infarction Y Hyperlipidemia Y Hypertension Y Past Encounters Encounter ID Performer Location Encounter Start Date Encounter Closed Date Diagnosis/Indication Diagnosis SNOMED-CT Code Diagnosis ICD10 Code Diagnosis Note [id number] Paras Zapien MD [facility] [address] [place] [address] 08/29/2015 10:03:32 08/29/2015 11:52:22 Obstructive sleep apnea syndrome 92278593 G47.33 On Cpap Hyperlipidemia 25711745 E78.5 Coronary arteriosclerosis 75910511 I25.10 s/p LAD stent Mitral arabella ve regurgitation 74750635 I34.0 Atrial fibrillation 4943 6004 I48.91 [id number] Paras Zapien MD [facility] [address] [place] [address] 02/27/2016 11:18:12 02/28/2016 15:48:53 Benign hypertension 86769047 I10 Obstructiv e sleep apnea syndrome 89268305 G47.33 On Cpap Mitral arabella ve regurgitation 08645025 I34.0 Atrial fibrillation 4943 6004 I48.91 Rate is well controlled On xarelto Hyperlipidemia 93671577 E78.5 Coronary arteriosclerosis 27354364 I25.10 s/p LAD stent [id number] Paras Zapien MD [facility] [address] [place] [address] 08/27/2016 16:17:17 08/28/2016 13:29:47 Paroxysmal atrial fibrillation 694633809 I48.0 On Xarelto Benign hypertension 1072 5009 I10 Stable Obstructiv e sleep apnea syndrome 22553456 G47.33 On Cpap, seems to be well controlled now Hyperlipidemia 88524356 E78.5 Need FLP On Pravastati n Coronary arteriosclerosis 79803235 I25.10 s/p LAD stent Treadmill Myoview Stress test, has high [place] Risk score. Has Known CAD, or CAD risk equivalent . To look for any ischemia. Mitral arabella ve regurgitation 53672176 I34.0 Atrial fibrillation 4943 6004 I48.91 Rate is well controlled On xarelto Edema of l ower extremity 874295525 R60.0 [id number] Paras Zapien MD [facility] [address] [place] [address] 02/25/2017 09:58:40 02/25/2017 16:27:17 Essential hypertension 63111940 I10 Stable Paroxysmal atrial fibrillation 680760150 I48.0 On Xarelto Obstructiv e sleep apnea syndrome 79735497 G47.33 On Cpap, seems to be well controlled now Hyperlipidemia 62507104 E78.5 Need FLP On Pravastati n Coronary arteriosclerosis 55209699 I25.10 s/p LAD stent Treadmill Myoview Stress test was negative Mitral arabella ve regurgitation 71055973 I34.0 Atrial fibrillation 4943 6004 I48.91 Rate is well controlled On xarelto Will plan LAITH and Cardiovers ion Edema of l ower extremity 422336181 R60.0 Now well controlled . On Lasix Fatigue 96269435 R53.83 Woll plane afib Cardiovers ion [id number] MD Juan A Worthy e Office [address] [place] [address] 04/24/2017 10:16:50 04/24/2017 11:14:52 Essential hypertension 83976712 I10 Now well controlled Paroxysmal atrial fibrillation 445169360 I48.0 On Xarelto Obstructiv e sleep apnea syndrome 62264289 G47.33 On Cpap, seems to be well controlled now Hyperlipidemia 96392301 E78.5 Need FLP On Pravastati n 40 and ezetimibe 10 Coronary arteriosclerosis 17635207 I25.10 s/p LAD stent Treadmill Myoview Stress test was negative Mitral arabella ve regurgitation 12444307 I34.0 Atrial fibrillation 4943 6004 I48.91 Rate is well controlled On xarelto Had LAITH and Cardiovers ion, but now in afib again Edema of l ower extremity 405442664 R60.0 Now well controlled . On Lasix 52963 MD Juan A [facility] [address] [place] [address] 07/24/2017 11:16:06 07/24/2017 11:51:39 Essential hypertension 26351060 I10 Now well controlled Paroxysmal atrial fibrillation 775798340 I48.0 On Xarelto Obstructiv e sleep apnea syndrome 49564149 G47.33 On Cpap with 100% compliance . Continue use. Hyperlipidemia 23099576 E78.5 07/15/17 LDL 109 Needs to keep LDL less than 70, and HDL more than 40 On Pravastati n 40 will change to Crestor 10 Coronary arteriosclerosis 03926530 I25.10 s/p LAD stent Treadmill Myoview Stress test was negative Mitral arabella ve regurgitation 52827435 I34.0 mild Atrial fibrillation 4943 6004 I48.91 Rate is well controlled On xarelto Had LAITH and Cardiovers ion, but now in afib again Edema of l ower extremity 364654794 R60.0 Now well controlled . On Lasix 48713 Paras Zapien MD [place] [facility] [place] [address] 01/27/2018 09:13:21 01/27/2018 09:59:16 Essential hypertension 82236001 I10 Now well controlled Paroxysmal atrial fibrillation 180899029 I48.0 On Xarelto Obstructiv e sleep apnea syndrome 83093496 G47.33 On Cpap with 100% compliance . Continue use. Hyperlipidemia 88074714 E78.5 07/15/17 LDL 109 Needs to keep LDL less than 70, and HDL more than 40 Currently on Crestor. 01/27/18 Will give order for FLP follow up. Coronary arteriosclerosis 36760315 I25.10 s/p LAD stent Treadmill Myoview Stress test was negative Mitral arabella ve regurgitation 28565057 I34.0 mild Atrial fibrillation 4943 6004 I48.91 Rate is well controlled On xarelto Had LAITH and Cardiovers ion, but now in afib again Edema of l ower extremity 194770263 R60.0 Now well controlled . On Lasix 44565 Paras Zapien MD [place] [facility] [place] [address] 07/28/2018 09:18:19 07/28/2018 17:31:19 Coronary arteriosclerosis 58420844 I25.10 s/p LAD stent Will obtain Treadmill Myoview Stress Test to look for any ischemia. Has a high Muenster Risk score. Has Known CAD and/or CAD risk equivalent . Continue maximal medical treatment and risk factor modificati on Essential hypertension 72804267 I10 Now well controlled Obstructiv e sleep apnea syndrome 66419130 G47.33 On Cpap with 100% compliance . Continue use. Hyperlipidemia 12811674 E78.5 Needs to keep LDL less than 70, and HDL more than 40 Will get lipid profile before next visit. 07/15/17 LDL 109 Continue rosuvastat in Mitral arabella ve regurgitation 85019404 I34.0 mild Atrial fibrillation 4943 6004 I48.91 Chronic. Rate is well controlled On xarelto Had LAITH and Cardiovers ion, but now in afib again Edema of l ower extremity 423593949 R60.0 Resolved on Lasix. Diabetes mellitus 946184 09 E11.9 Last A1C of 5.8% Treatment and evaluation by primary care doctor. Discussed importance of adequate glycemic control to minimize cardiovasc ular disease progressio n. A1C goal of < 7% for type 2 DM 30152 Paras Zapien MD [place] [facility] [address] [place] [address] 09/15/2018 16:08:51 09/15/2018 17:03:43 Atrial fibrillation 33361711 I48.91 Chronic. Rate is well controlled . Continue metoprolol . On xarelto, no bleeding events. Had LAITH and Cardiovers ion, but now in afib again Coronary arteriosclerosis 50292525 I25.10 s/p LAD stent (08/2006) 09/01/2018 Positive stress test. Reversible defect consistent with ischemia in inferior area. Normal LV systolic function. LVEF 55% With worsened fatigued, which may be an anginal equivalent . Will arrange for cardiac CTA, he has high Muenster Risk score. he would benefit from CT to look for any new Coronary Artery Disease Essential hypertension 04668258 I10 Now well controlled Hyperlipidemia 24733621 E78.5 Needs to keep LDL less than 70, and HDL more than 40 08/05/18 LIPID: TC 137, TR 109, HDL 38, LDL 77 Continue rosuvastat in Mitral arabella ve regurgitation 26817136 I34.0 mild Edema of l ower extremity 607598219 R60.0 Resolved on Lasix. Diabetes mellitus 034757 09 E11.9 Last A1C of 5.8% Treatment and evaluation by primary care doctor. Discussed importance of adequate glycemic control to minimize cardiovasc ular disease progressio n. A1C goal of < 7% for type 2 DM Obstructiv e sleep apnea syndrome 74633772 G47.33 On Cpap with 100% compliance . Continue use. History of placement of stent for coronary artery disease 895131865 Z95.5 74144 Paras Zapien MD [place] [facility] [address] [place] [address] 12/15/2018 09:07:59 12/15/2018 10:21:28 Coronary arteriosclerosis 39450932 I25.10 s/p LAD stent (08/2006) 09/01/2018 Positive stress test. Reversible defect consistent with ischemia in inferior area. Normal LV systolic function. LVEF 55% 10/13/2018 Cardiac CTA 10/13/18:m oderate Coronary artery disease , patent LAD stent. Maximal medical treatment. Atrial fibrillation 4943 6004 I48.91 Chronic. Rate is well controlled . Continue metoprolol . On xarelto, no bleeding events. Had LAITH and Cardiovers ion, but now in afib again Essential hypertension 91759162 I10 Now well controlled Hyperlipidemia 60203836 E78.5 Needs to keep LDL less than 70, and HDL more than 40 08/05/18 LIPID: TC 137, TR 109, HDL 38, LDL 77 Continue rosuvastat in Mitral arabella ve regurgitation 58280132 I34.0 mild Edema of l ower extremity 127487289 R60.0 Resolved on Lasix. Diabetes mellitus 386312 09 E11.9 Last A1C of 5.8% Treatment and evaluation by primary care doctor. Discussed importance of adequate glycemic control to minimize cardiovasc ular disease progressio n. A1C goal of < 7% for type 2 DM Obstructiv e sleep apnea syndrome 88670259 G47.33 On Cpap with 100% compliance . Continue use. History of placement of stent for coronary artery disease 559715653 Z95.5 77709 MD [facility] A [facility] [address] [place] [address] 02/25/2019 13:51:49 02/25/2019 14:14:37 Obstructive sleep apnea syndrome 03332154 G47.33 On Cpap, seems to be well controlled now. He is compliant, and he is benefiting from Cpap therapy, will continue to use Cpap at night Sleep disorder 68449116 G47.9 Coronary arteriosclerosis 29014855 I25.10 s/p LAD stent (08/2006) 09/01/2018 Positive stress test. Reversible defect consistent with ischemia in inferior area. Normal LV systolic function. LVEF 55% 10/13/2018 Cardiac CTA 10/13/18:m oderate Coronary artery disease , patent LAD stent. Maximal medical treatment. Atrial fibrillation 4943 6004 I48.91 Chronic. Rate is well controlled . Continue metoprolol . On xarelto, no bleeding events. Had LAITH and Cardiovers ion, but now in afib again Essential hypertension 13985848 I10 Now well controlled Hyperlipidemia 40638507 E78.5 Needs to keep LDL less than 70, and HDL more than 40 08/05/18 LIPID: TC 137, TR 109, HDL 38, LDL 77 Continue rosuvastat in Mitral arabella ve regurgitation 12823243 I34.0 mild Edema of l ower extremity 646258409 R60.0 Resolved on Lasix. Diabetes mellitus 219610 09 E11.9 Last A1C of 5.8% Treatment and evaluation by primary care doctor. Discussed importance of adequate glycemic control to minimize cardiovasc ular disease progressio n. A1C goal of < 7% for type 2 DM History of placement of stent for coronary artery disease 432049649 Z95.5 91295 MD [facility] A [facility] [address] [place] [address] 05/27/2019 14:10:49 05/27/2019 17:04:05 Sleep disorder 28425634 G47.9 Obstructiv e sleep apnea syndrome 77962314 G47.33 On Cpap, seems to be well controlled now. He is compliant, and he is benefiting from Cpap therapy, will continue to use Cpap at night Coronary arteriosclerosis 08663633 I25.10 s/p LAD stent (08/2006) 09/01/2018 Positive stress test. Reversible defect consistent with ischemia in inferior area. Normal LV systolic function. LVEF 55% 10/13/2018 Cardiac CTA 10/13/18:m oderate Coronary artery disease , patent LAD stent. Maximal medical treatment. Atrial fibrillation 4943 6004 I48.91 Chronic. Rate is well controlled . Continue metoprolol . On xarelto, no bleeding events. Had LAITH and Cardiovers ion, but now in afib again Essential hypertension 24130763 I10 Now well controlled Hyperlipidemia 09047925 E78.5 Needs to keep LDL less than 70, and HDL more than 40 08/05/18 LIPID: TC 137, TR 109, HDL 38, LDL 77 Continue rosuvastat in Mitral arabella ve regurgitation 68848615 I34.0 mild Edema of l ower extremity 888369086 R60.0 Resolved on Lasix. Diabetes mellitus 041650 09 E11.9 Last A1C of 5.8% Treatment and evaluation by primary care doctor. Discussed importance of adequate glycemic control to minimize cardiovasc ular disease progressio n. A1C goal of < 7% for type 2 DM History of placement of stent for coronary artery disease 324637050 Z95.5 91368 Paras Zapien MD [place] [facility] [address] [place] [address] 09/07/2019 12:00:19 09/07/2019 12:33:52 Sleep disorder 73853008 G47.9 On Cpap Obstructiv e sleep apnea syndrome 75841818 G47.33 On Cpap, seems to be well controlled now. He is compliant, and he is benefiting from Cpap therapy, will continue to use Cpap at night Coronary arteriosclerosis 49599119 I25.10 s/p LAD stent (08/2006) 09/01/2018 Positive stress test. Reversible defect consistent with ischemia in inferior area. Normal LV systolic function. LVEF 55% 10/13/2018 Cardiac CTA 10/13/18:m oderate Coronary artery disease , patent LAD stent. Maximal medical treatment. Atrial fibrillation 4943 6004 I48.91 Chronic. Rate is well controlled . Continue metoprolol . On xarelto, no bleeding events. Had LAITH and Cardiovers ion, but now in afib again Essential hypertension 24782494 I10 Now well controlled Hyperlipidemia 66544687 E78.5 Needs to keep LDL less than 70, and HDL more than 40 08/05/18 LIPID: TC 137, TR 109, HDL 38, LDL 77 Continue rosuvastat in Mitral arabella ve regurgitation 64971511 I34.0 mild Edema of l ower extremity 238334034 R60.0 Resolved on Lasix. Diabetes mellitus 626435 09 E11.9 Last A1C of 5.8% Treatment and evaluation by primary care doctor. Discussed importance of adequate glycemic control to minimize cardiovasc ular disease progressio n. A1C goal of < 7% for type 2 DM History of placement of stent for coronary artery disease 448215892 Z95.5 stable 09737 MD Juan A [facility] Office [address] [place] [address] 11/25/2019 14:56:47 11/25/2019 15:11:58 Sleep disorder 78828871 G47.9 Patient is tolerating CPAP. Patient benefits from CPAP. Patient is compliant with CPAP. Continue CPAP. Obstructiv e sleep apnea syndrome 10474667 G47.33 On Cpap, seems to be well controlled now. He is compliant, and he is benefiting from Cpap therapy, will continue to use Cpap at night. Coronary arteriosclerosis 82436256 I25.10 s/p LAD stent (08/2006) 09/01/2018 Positive stress test. Reversible defect consistent with ischemia in inferior area. Normal LV systolic function. LVEF 55% 10/13/2018 Cardiac CTA 10/13/18:m oderate Coronary artery disease , patent LAD stent. Maximal medical treatment. Atrial fibrillation 4943 6004 I48.91 Chronic. Rate is well controlled . Continue metoprolol . On xarelto, no bleeding events. Had LAITH and Cardiovers ion, but now in afib again Essential hypertension 93350346 I10 Now well controlled Hyperlipidemia 93768193 E78.5 Needs to keep LDL less than 70, and HDL more than 40 08/05/18 LIPID: TC 137, TR 109, HDL 38, LDL 77 Continue rosuvastat in Mitral arabella ve regurgitation 16516851 I34.0 mild Edema of l ower extremity 205682650 R60.0 Resolved on Lasix. Diabetes mellitus 564818 09 E11.9 Last A1C of 5.8% Treatment and evaluation by primary care doctor. Discussed importance of adequate glycemic control to minimize cardiovasc ular disease progressio n. A1C goal of < 7% for type 2 DM History of placement of stent for coronary artery disease 269258050 Z95.5 stable 57921 MD [facility] A [facility] [address] [place] [address] 02/24/2020 14:19:17 02/24/2020 15:25:01 Sleep disorder 36396436 G47.9 Obstructiv e sleep apnea syndrome 24544322 G47.33 02/24/2020 On Cpap, seems to be well controlled now.Patien t is compliant, and is benefiting from Cpap therapy, will continue to use Cpap at nightRepor ts some fatigue, but overall feels better wearing his CPAP. 38583 Pino Hernandez MD [place] [facility] [address] [place] [address] 2020 09:35:23 2020 11:08:48 Obstructive sleep apnea syndrome 63864673 G47.33 Compliant with nightly CPAP use Coronary arteriosclerosis 00685657 I25.10 s/p LAD stent (08/2006) Cardiac CTA 10/13/2018 : moderate coronary artery disease, patent LAD stent. Maximal medical treatment. Atrial fibrillation 4943 6004 I48.91 Chronic, remains asymptomat ic. [id number] Sc score = 4 Rate controlled on metoprolol on Xarelto s/p LAITH and cardiovers ion Essential hypertension 24117987 I10 Well controlled on current regimen Hyperlipidemia 03957165 E78.5 Needs to keep LDL less than 70, and HDL more than 40 08/05/2018 LDL 77 Continue rosuvastat in 10 mg Will get fasting lipids for follow0-up Mitral arabella ve regurgitation 81464627 I34.0 Mild on echo 01/14/2020 Edema of l ower extremity 292518282 R60.0 Resolved on Lasix Diabetes mellitus 925794 09 E11.9 Treatment and evaluation by primary care doctor. Discussed importance of adequate glycemic control to minimize cardiovasc ular disease progressio n, A1C goal of < 7% for type 2 DM. [id number] MD Juan A [facility] [address] [place] [address] 05/25/2020 14:48:50 05/25/2020 15:19:01 Sleep disorder 60034094 G47.9 Obstructiv e sleep apnea syndrome 66302478 G47.33 05/25/2020 On Cpap, seems to be well controlled now.Patien t is compliant, and is benefiting from Cpap therapy, will continue to use Cpap at nightGap in wearing CPap due to Covid 19, could not tolerate mask at that time. Education on exercise, weight loss, diet. Educated COURTNEY could be retested for when a healthy BMI. 62444 MD Juan A [facility] [address] [place] [address] 08/24/2020 14:36:59 08/24/2020 15:01:37 Sleep disorder 22045420 G47.9 Obstructiv e sleep apnea syndrome 54957778 G47.33 08/24/20 On Cpap, seems to be well controlled now. Patient is compliant, and is benefiting from Cpap therapy, will continue to use Cpap at night Sleep clinic report shows 96% usage with a 96% rate of time requiremen ts. Reports days missed are post fall with head injury. Education on exercise, weight loss, diet. Educated COURTNEY could be retested for when a healthy BMI. 58595 Paras Zapien MD [place] [facility] [address] [place] [address] 11/17/2020 08:49:10 11/20/2020 16:00:35 Atrial fibrillation 89403993 I48.91 Chronic, remains asymptomat ic. [id number] Sc score = 4 Rate controlled on metoprolol on Xarelto s/p LAITH and cardiovers ionSept 2020 has plans for 7 teeth to be pulled will hold Xarelto for 2-3 days no ASA ASA stop for 5 days we will request no epinephrin e during the procedure Cleared for oral surgery. Diabetes mellitus 613605 09 E11.9 Treatment and evaluation by primary care doctor. Discussed importance of adequate glycemic control to minimize cardiovasc ular disease progressio n, A1C goal of < 7% for type 2 DM. Disorder o f coronary artery 921986323 I77.9 Stent in LAD, last stress 2018 40-70% LAD and 25-40% in OM, last stress 2019 Had Cardiac CTA done in 10/13/18 showed moderate CAD and patent LAD. 09/01/2018 Positive stress test with Reversible non transmural moderate defect consistent with ischemia in inferior septal area. Defect is medium in size Normal LV systolic function. LVEF 55%. With DM and angina equivilant of mild KUO to repeat stress test tradmill, not to hold the metoprolol . instructed patient re that. Treadmill Myoview Stress test, has high Muenster Risk score. Has Known CAD, or CAD risk equivalent . To look for any ischemia. Hypothyroidism 97647280 E03.9 Myocardial infarction 22 140070 I21.9 Stable no chest mild KUO, past CTA with 40-70% in LAD see above Stent in LAD, last stress 2019 40-70% LAD and 25-40% in OM, last stress 2019 Had Cardiac CTA done in 10/13/18 showed moderate CAD and patent LAD. 09/01/2018 Positive stress test with Reversible non transmural moderate defect consistent with ischemia in inferior septal area. Defect is medium in size Normal LV systolic function. LVEF 55%. With DM and angina equivilant of mild KUO to repeat stress test tradmill, not to hold the metoprolol . instructed patient re that. Treadmill Myoview Stress test, has high Muenster Risk score. Has Known CAD, or CAD risk equivalent . To look for any ischemia. Obstructiv e sleep apnea syndrome 41576171 G47.33 08/24/20 On Cpap, seems to be well controlled now. Patient is compliant, and is benefiting from Cpap therapy, will continue to use Cpap at night Sleep clinic report shows 96% usage with a 96% rate of time requiremen ts. Reports days missed are post fall with head injury. Education on exercise, weight loss, diet. Educated COURTNEY could be retested for when a healthy BMI. Has appt Sept for CPAP issues Coronary arteriosclerosis 25199991 I25.10 s/p LAD stent (08/2006) Cardiac CTA 10/13/2018 : moderate coronary artery disease, patent LAD stent. Maximal medical treatment. Essential hypertension 04866656 I10 Well controlled on current regimen Hyperlipidemia 78108111 E78.5 Needs to keep LDL less than 70, and HDL more than :TC 133,TG 136,HDL 35,LDL 74. Rosuva 10 Continue rosuvastat in 10 mg Mitral arabella ve regurgitation 15577793 I34.0 Mild on echo 01/14/2020 50-55% LVEF Edema of l ower extremity 450806956 R60.0 Resolved on Lasix Paroxysmal atrial fibrillation 749042368 I48.0 See above rate controlled no change otherwise Rate 60 BPM 00267 Paras Zapien MD [place] [facility] [address] [place] [address] 11/28/2020 08:53:36 11/28/2020 09:39:47 Sleep disorder 51588224 G47.9 Obstructiv e sleep apnea syndrome 37179927 G47.33 On Cpap, seems to be well controlled now. Patient is compliant, and is benefiting from Cpap therapy, will continue to use Cpap at night Sleep clinic report shows 96% usage with a 96% rate of time requiremen ts. Reports days missed are post fall with head injury. Education on exercise, weight loss, diet. Educated COURTNEY could be retested for when a healthy BMI. Okay to stay off c-pap until surgeries are done, then go back on. Okay to xarelto 48124 Paras Zapien MD [place] [facility] [address] [place] [address] 05/18/2021 09:10:04 05/18/2021 09:44:38 Sleep disorder 72375217 G47.9 Obstructiv e sleep apnea syndrome 11324062 G47.33 On Cpap, seems to be well controlled now. Patient is compliant, and is benefiting from Cpap therapy, will continue to use Cpap at night Sleep clinic report shows 96% usage with a 96% rate of time requiremen ts. Reports days missed are post fall with head injury. Education on exercise, weight loss, diet. Educated COURTNEY could be retested for when a healthy BMI. Okay to stay off c-pap until surgeries are done, then go back on. Okay to xarelto Atrial fibrillation 4943 6004 I48.91 Chronic, remains asymptomat ic. [id number] Sc score = 4 Rate controlled on metoprolol on Xareltowil l decrease Amio to 100 mg po qd Diabetes mellitus 971899 09 E11.9 Treatment and evaluation by primary care doctor. Discussed importance of adequate glycemic control to minimize cardiovasc ular disease progressio n, A1C goal of < 7% for type 2 DM. 50757 Paras Zapien MD [place] [facility] [address] [place] [address] 11/16/2021 08:45:58 11/16/2021 10:08:51 Sleep disorder 39393334 G47.9 Obstructiv e sleep apnea syndrome 65743589 G47.33 On Cpap, seems to be well controlled now. Patient is compliant, and is benefiting from Cpap therapy, will continue to use Cpap at night Sleep clinic report shows 96% usage with a 96% rate of time requiremen ts. Reports days missed are post fall with head injury. Education on exercise, weight loss, diet. Educated COURTNEY could be retested for when a healthy BMI. Okay to stay off c-pap until surgeries are done, then go back on. Okay to xarelto Atrial fibrillation 4943 6004 I48.91 Chronic, remains asymptomat ic. [id number] Sc score = 4 Rate controlled on metoprolol on XareltoOK to DC Amio Diabetes mellitus 627811 09 E11.9 Treatment and evaluation by primary care doctor. Discussed importance of adequate glycemic control to minimize cardiovasc ular disease progressio n, A1C goal of < 7% for type 2 DM. 12096 Paras Zapien MD [place] [facility] [address] [place] [address] 05/21/2022 08:58:02 05/21/2022 09:36:02 Sleep disorder 48045236 G47.9 On Cpap Obstructiv e sleep apnea syndrome 36926037 G47.33 On Cpap, seems to be well controlled now. Patient is compliant, and is benefiting from Cpap therapy, will continue to use Cpap at night Sleep clinic report shows 96% usage with a 96% rate of time requiremen ts. Reports days missed are post fall with head injury. Education on exercise, weight loss, diet. Educated COURTNEY could be retested for when a healthy BMI. Okay to stay off c-pap until surgeries are done, then go back on. Okay to xarelto Atrial fibrillation 4943 6004 I48.91 Chronic, remains asymptomat ic. [id number] Sc score = 4 Rate controlled on metoprolol on XareltoObt ain echo to evaluate for structural /functiona l disease.OK to DC Amio Diabetes mellitus 511771 09 E11.9 Treatment and evaluation by primary care doctor. Discussed importance of adequate glycemic control to minimize cardiovasc ular disease progressio n, A1C goal of < 7% for type 2 DM. 31717 Paras Zapien MD [place] [facility] [address] [place] [address] 06/28/2022 09:28:13 06/28/2022 10:44:34 Sleep disorder 98903888 G47.9 On Cpap Atrial fibrillation 4943 6004 I48.91 Chronic, remains asymptomat ic. [id number] Sc score = 4 Rate controlled on metoprolol on XareltoDC Toprol due to bradycardi a Diabetes mellitus 966008 09 E11.9 Treatment and evaluation by primary care doctor. Discussed importance of adequate glycemic control to minimize cardiovasc ular disease progressio n, A1C goal of < 7% for type 2 DM. Atypical chest pain 1025 54649 R07.89 Treadmill Myoview Stress test, has high Muenster Risk score. Has Known CAD, or CAD risk equivalent . To look for any ischemia. 25151 Paras Zapien MD [place] [facility] [address] [place] [address] 11/05/2022 08:51:17 11/05/2022 10:07:24 Sleep disorder 27755880 G47.9 On Cpap Atrial fibrillation 4943 6004 I48.91 Chronic, remains asymptomat ic. [id number] Sc score = 4 Rate controlled on metoprolol on XareltoDC Toprol due to bradycardi a Diabetes mellitus 144184 09 E11.9 Treatment and evaluation by primary care doctor. Discussed importance of adequate glycemic control to minimize cardiovasc ular disease progressio n, A1C goal of < 7% for type 2 DM. Atypical chest pain 1025 24396 R07.89 Treadmill Myoview Stress test, has high Muenster Risk score. Has Known CAD, or CAD risk equivalent . To look for any ischemia. Essential hypertension 46365137 I10 Well controlled on current regimen Dyslipidemia 247774435 E 78.5 continue fenofibrat e and crestorLDL is 68 and TG is 234 done 10/2022sta rting vascepa Coronary arteriosclerosis 18196759 I25.10 Negative stress test 09/2022 s/p LAD stent (08/2006) Cardiac CTA 10/13/2018 : moderate coronary artery disease, patent LAD stent. Maximal medical treatment. Continue with ozempic Pre-surger y evaluation 429331361 Z01.818 There is no cardiac contraindi cation for the procedure. The planned procedure would be within acceptable risk. Patient may stop taking aspirin and Plavix five (5) days prior to the procedure. Patient may stop xarelto prior to his procedure 48 hour and resume after surgery [id number] Paras Zapien MD [place] [address] [place] [address] 02/05/2023 12:06:37 02/05/2023 12:42:26 Atrial fibrillation 00139101 I48.91 Chronic, remains asymptomat ic. [id number] Sc score = 4 Rate controlled on metoprolol on XareltoDC Toprol due to bradycardi a Diabetes mellitus 153673 09 E11.9 Treatment and evaluation by primary care doctor. Discussed importance of adequate glycemic control to minimize cardiovasc ular disease progressio n, A1C goal of < 7% for type 2 DM. Essential hypertension 04161064 I10 Well controlled on current regimen Dyslipidemia 917178395 E 78.5 continue fenofibrat e and crestorLDL is 84 and TG is 165 done on tinue with vascepawil l increased his crestor 20 mg daily Coronary arteriosclerosis 64769628 I25.10 Negative stress test 09/2022 s/p LAD stent (08/2006) Cardiac CTA 10/13/2018 : moderate coronary artery disease, patent LAD stent. Maximal medical treatment. Continue with ozempic [id number] Paras Zapien MD [place] [facility] [place] [address] 08/05/2023 13:51:33 08/05/2023 14:43:06 Atrial fibrillation [id number] I48.91 Chronic, remains asymptomat ic. [id number] Sc score = 4 Rate controlled on metoprolol on XareltoDC Toprol due to bradycardi a Diabetes mellitus 273124 09 E11.9 Treatment and evaluation by primary care doctor. Discussed importance of adequate glycemic control to minimize cardiovasc ular disease progressio n, A1C goal of < 7% for type 2 DM. Essential hypertension [id number] I10 Well controlled on current regimen Dyslipidemia [id number] E 78.5 continue fenofibrat e and crestorLDL is 84 and TG is 165 done on tinue with vascepawil l increased his crestor 20 mg daily Coronary arteriosclerosis [id number] I25.10 Negative stress test 09/2022 s/p LAD stent (08/2006) Cardiac CTA 10/13/2018 : moderate coronary artery disease, patent LAD stent. Maximal medical treatment. Continue with ozempic Edema of l ower extremity 371100003 R60.0 LasixObtai n echo to evaluate for structural /functiona l disease. [id number] Paras Zapien MD [place] [facility] [address] [place] [address] 10/28/2023 14:07:04 10/28/2023 15:00:03 Atrial fibrillation [id number] I48.91 Chronic, remains asymptomat ic. [id number] Sc score = 4 Rate controlled on metoprolol on Xarelto Diabetes mellitus 714216 09 E11.9 Treatment and evaluation by primary care doctor. Discussed importance of adequate glycemic control to minimize cardiovasc ular disease progressio n, A1C goal of < 7% for type 2 DM. Essential hypertension 41438223 I10 Well controlled on current regimen Dyslipidemia 992009396 E 78.5 continue fenofibrat e and crestorLDL is 84 and TG is 165 done on tinue with vascepawil l increased his crestor 20 mg daily Coronary arteriosclerosis [id number] I25.10 Negative stress test 09/2022 s/p LAD stent (08/2006) Cardiac CTA 10/13/2018 : moderate coronary artery disease, patent LAD stent. Maximal medical treatment. Continue with ozempic Edema of l ower extremity [id number] R60.0 [facility] Concerns Section Related Observation LastModified by Organization Detai ls LastModified Time None Recorded Concern Status LastModified by Organization Details LastModified Time None Recorded Advance Directives Directive None Recorded Payers Insurance Date Sequence Insurance Name Policy Number Policy Grayson Covered Member ID Grayson Member ID Guarantor Name 10/27/2023 1 [facility] (MEDICARE REPLACEMENT/A DVANTAGE - PPO) [id number] Aniya Ulrich [id number] Aniya Ulrich 10/27/2023 1 [facility] [id number] Aniya Ulrich [id number] Aniya Ulrich 10/27/2023 1 [place] Aniya Ulrich [id number] Aniya Ulrich Notes Date Note Type Note Provider Name and Address Organization Details Recorded Time 06/28/2022 text/html 06/28/22CC : Car diac follow up, chest [id number] white man with a PMH of moderate CAD s/p left anterior descending coronary artery stent (), patent stent ( per CTA ) COURTNEY, left atrial dilation , and obesity presents today for follow-up.He was last seen in the clinic on 06/17/22, since then he c/o chest pain Has central chest pain.Denies shortness of breath at rest. Has mild dyspnea on exertion.No orthopnea. No PNDs.Denies heart palpitations.Denies dizziness. Denies syncope or near syncope.No ankle or leg edema.No major bleeding events.No reported side effects from medications. Taking medications as prescribed with no missed doses.Denies snoring, daytime somnolence and AM headache.*Last LDL was 74 done on 10/06/20.Pt takes rosuvastatin 10 mg. *Had ECHO on 06/14/22 showed LV chamber size is normal.LVEF 50-55%,LV wall thickness is mildly increased,diastolic function is indeterminate due to atrial fibrillation,left atrium chamber is mildly dilated,there is mild aortic root calcification,the mitral valve leaflet is mildly thickened,atrial fibrillation. *Had Cardiac CTA done in 10/13/18 showed moderate CAD and patent LAD. *Had Positive stress test done in 09/01/2018 with Reversible non transmural moderate defect consistent with ischemia in inferior septal area. Defect is medium in size Normal LV systolic function. LVEF 55%. On Xarelto for Afib. Tolerating well with no major bleeding events. Continues on amiodarone. Pt had a hip replacement 04/01/17 at [facility]. Pt had a DCCV on 03/27/17 went into NSR but is back in A-fib. Pt went to [facility] 04/23/17 after he stopped breathing at home. His breathing resumed spontaneously. He was found to have bronchitis in AFIB.Results from this visit, or from the past:10/07/20:Na 140,K 4.1,Cl 104,Co2 23,Glu 97,Bun 18,Cr 1.35,AST 46,ALT 42. 06/21/20:TC 133,TG 136,HDL 35,LDL 74.Cr 1.35, LDL 74BMP, serum or plasma [id number] 08/05/18: NA 140, K 4.7, CL 103, CO2 22, GLU 103, BUN 21, CR 1.34TSH, serum or plasma 08-05- TSH: 1. LIPID: TC 137, TR 109, HDL 38, LDL 775 CBC: WBC 3.0, HGB 15.4, HCT 46.9, PLT 30135/: Na 136 ,K 4.9 ,CL 97 ,CO2 22 ,GLU 98 ,BUN 19 ,CR 1.16,CK 713 ,TC 189 ,TG 222 ,HDL 36 ,LDL 109 ,AST ,ALT ,HB 15.5, HT 46. : Na 140 ,K 4.4 ,CL 100 ,CO2 21 ,GLU 120 ,BUN 15 ,CR 0.94 ,CK 1183* ,TC 142 ,TG 235 ,HDL 30 ,LDL 65 ,AST 44 ,ALT 38 ,08/02/14 SOD 139, K 4.1, CL 103, Co2 21, GLU 90, BUN 15,CR 0.93 ,HB 15.4 ,HT 45.2, HgA1c 5.8, .08/02/14 : TC 128. TG 134. LDL 71. HDL 30. AST 31. ALT 32. Vit D 25. EKG: atrial fibrillation with normal ventricular response. P: no analysis. QRS: marked left axis deviation. consistent with LAFB. anteroseptal infarct. QS in V1 V2 V3. slight intraventricular conduction delay. ST-T: minimal left-precordial ST-T changes consistent with infarct. flat or low negative T in V5 V6. conclusion: abnormal ECG.09/07/19 EKG: One or more baseline jumps, atrial fibrillation with normal ventricular response. anteroseptal infarct. Possible inferior infarct. Moderate intraventricular conduction delay. conclusion: abnormal EKGEKG, 12/15/18: prob.. A-Fib, Left anterior hemiblock. muCT, angiogram, coronary arteries, w/wo contrast 10-13-2018 Cardiac CTA 10/13/18:moderate Coronary artery disease , patent LAD stent. electrocardiogram 10-08-2018 EKG, 09/15/18: Prob A-Fib. Low Voltage, chest leads. prob old anterior WY. Left axis deviation. EKG, 09/15/18: Prob A-Fib. Low Voltage, chest leads. prob old anterior [place]Y. Left axis deviation. EKG, 07/28/18, A-Fib..with normal ventricular. P..no analysis. QRS.. marked left axis deviation, consistant with LAFB, anteroseptal infarct. QS in V2, V3, V4. R< 0.[address]-T...normal. ABN EKG EK01/27/18 Atrial fibrillation with normal ventricular response. P: no analysis. QRS: extreme right superior axis deviation, anteroseptal infarct. ST-T: EKG 07/24/17: Probably atrail fibrillation, low voltage chest leads, probably old anterior myocardial infarction, probably old inferior myocardial infarction left axis deviationEKG 04/24/2017: Low voltage, chest leads; anteroseptal myocardial infarction, age undetermined. Poor R progression in chest leads; left axis deviation 02/25/17 EKG: Probably atrial fibrillation. Low voltage, chest leads. Probably old inferior myocardial infarction. Poor R progression in chest leads. Left axis deviation EKG 08/29/15: Atrial fibrillation with normal ventricular response.P: no analysis,QRS: anterolateral infarct.R < 0.15mV in V3 V4 V5 V6 probable inferior infarct. QS in II III aVF, low voltage in precordial leads. ST-T: minimal left precordial ST-T changes consistent with infarct, flat or low negative T in V5 V6 conclusion: abnormal EKG. EKG 08/27/16 : Afib EK02/27/16 atrial fibrillation with normal ventricular response. P: no analysi. QRS: anteroseptal infarct. QS in V1 V2 V3 . R < 0.15 mV in V4 possible inferior infarct. QS in III aVF. ST-T: normal. conclusion: abnormal ECG. EK02/28/15 Atrial fibrillation with normal ventricular response. P: no analysis. QRS:probable inferolateral infarct. QS in III aVF. R < 0.15mV in V6. Consider septal infarct. QS in V1 V2. ST-T: normal Conclusion: abnormal ECG. EK08/29/15 Atrial fibrillation with normal ventricular response. P: no analysis. QRS: anterolateral infarct. R<0.15 mV in V3 V4 V5 V6. probable inferior infarct. QS in II III aVF. low voltage in precordial leads. ST-TL minimal left-precordial ST-T changes consistent with infarct. flat or low negative T in V5 V6. conclusion: abnormal ECG. 01/14/20 ECHO: Technical limitations - poor acoustic window, body habitus. Atrial fibrillation is present. LV chamber size is normal. LV wall thickness is mildly increased. The estimated left ventricle ejection fraction is 50-55% (normal). Diastolic function is indeterminate due to atrial fibrillation. There is mild mitral regurgitation. There is mild tricuspid regurgitation. Atrial fibrillation, sinus bradycardia. 03/27/17 LAITH: Normal left ventricular size. Mild concentric left ventricular hypertrophy. Ejection fraction is visually estimated at 60%. No left ventricular thrombus visualized. There is mild enlargement of left atrium. No left atrial thrombus. Treadmill Nuclear Stress Test 10/16/16 : Negative stress test for ischemia. Artifact noted. Compared to last study in 09/05, there are no changes. Exercise tolerance is below average. LVEF 40%. NUC: 09/08/14 Negative stress test. Normal LV systolic function. Fixed defect consistent with old infarction inferior area. LVEF 53%. TTE 08/29/15: Atrial fibrillation, there is borderline concentric LVH, overall LV systolic function is normal with an EF 55-60%, Left atrium is severely dilated by volume. Paras Zapien MD [address] [place], [address], [facility] 06/28/2022 10:41:36 11/05/2022 text/html 11/05/22CC : Car diac follow up dyspnea on [id number] white man with a PMH of moderate CAD s/p left anterior descending coronary artery stent (), patent stent ( per CTA ) COURTNEY, left atrial dilation , and obesity presents today for 6 month follow-up. He was last seen in the clinic on 06/28/22, since then he need cardiac clearance for upcoming surgery. His stress test is negative and he denied chest pain or dyspnea on exertion. *Last LDL was 74 done on 10/06/20.Pt takes rosuvastatin 10 mg. He denies ER visits and hospitalizations since he was last seen. Today reports:no cc needs cardiac clearanceDenies chest pain.Denies shortness of breath at rest. Has mild dyspnea on exertion.No orthopnea. No PNDs.Denies heart palpitations.Denies dizziness. Denies syncope or near syncope.mild ankle or leg edema.No major bleeding events.No reported side effects from medications. Taking medications as prescribed with no missed doses.Denies snoring, daytime somnolence and AM headache.*Last LDL was 74 done on 10/06/20.Pt takes rosuvastatin 10 mg. *Had negative stress test on 07/16/22 with Fixed defect consistent with old infarction in inferior areas. Normal LV systolic function. Exercise tolerance: Average. Previously:Has central chest pain. *Had ECHO on 06/14/22 showed LV chamber size is normal.LVEF 50-55%,LV wall thickness is mildly increased,diastolic function is indeterminate due to atrial fibrillation,left atrium chamber is mildly dilated,there is mild aortic root calcification,the mitral valve leaflet is mildly thickened,atrial fibrillation. *Had Cardiac CTA done in 10/13/18 showed moderate CAD and patent LAD. On Xarelto for Afib. Tolerating well with no major bleeding events. Continues on amiodarone. Pt had a hip replacement 04/01/17 at [facility]. Pt had a DCCV on 03/27/17 went into NSR but is back in A-[facility]. Pt went to [facility] 04/23/17 after he stopped breathing at home. His breathing resumed spontaneously. He was found to have bronchitis in AFIB.Results from this visit, or from the past:10/07/20:Na 140,K 4.1,Cl 104,Co2 23,Glu 97,Bun 18,Cr 1.35,AST 46,ALT 42. 06/21/20:TC 133,TG 136,HDL 35,LDL 74.Cr 1.35, LDL 74BMP, serum or plasma [id number] 08/05/18: NA 140, K 4.7, CL 103, CO2 22, GLU 103, BUN 21, CR 1.34TSH, serum or plasma TSH: 1. LIPID: TC 137, TR 109, HDL 38, LDL 775 CBC: WBC 3.0, HGB 15.4, HCT 46.9, PLT 61420: Na 136 ,K 4.9 ,CL 97 ,CO2 22 ,GLU 98 ,BUN 19 ,CR 1.16,CK 713 ,TC 189 ,TG 222 ,HDL 36 ,LDL 109 ,AST ,ALT ,HB 15.5, HT 46.406 : Na 140 ,K 4.4 ,CL 100 ,CO2 21 ,GLU 120 ,BUN 15 ,CR 0.94 ,CK 1183* ,TC 142 ,TG 235 ,HDL 30 ,LDL 65 ,AST 44 ,ALT 38 ,08/02/14 SOD 139, K 4.1, CL 103, Co2 21, GLU 90, BUN 15,CR 0.93 ,HB 15.4 ,HT 45.2, HgA1c 5.8, .08/02/14 : TC 128. TG 134. LDL 71. HDL 30. AST 31. ALT 32. Vit D 25.82/ EKG: atrial fibrillation with normal ventricular response. P: no analysis. QRS: marked left axis deviation. consistent with LAFB. anteroseptal infarct. QS in V1 V2 V3. slight intraventricular conduction delay. ST-T: minimal left-precordial ST-T changes consistent with infarct. flat or low negative T in V5 V6. conclusion: abnormal ECG.09/07/19 EKG: One or more baseline jumps, atrial fibrillation with normal ventricular response. anteroseptal infarct. Possible inferior infarct. Moderate intraventricular conduction delay. conclusion: abnormal EKGEKG, 12/15/18: prob.. A-Fib, Left anterior hemiblock. muCT, angiogram, coronary arteries, w/wo contrast 10-13-2018 Cardiac CTA 10/13/18:moderate Coronary artery disease , patent LAD stent. electrocardiogram 10-08-2018 EKG, 09/15/18: Prob A-Fib. Low Voltage, chest leads. prob old anterior WY. Left axis deviation. EKG, 09/15/18: Prob A-Fib. Low Voltage, chest leads. prob old anterior [place]. Left axis deviation. EKG, 07/28/18, A-Fib..with normal ventricular. P..no analysis. QRS.. marked left axis deviation, consistant with LAFB, anteroseptal infarct. QS in V2, V3, V4. R< 0.15 [address] ST-T...normal. ABN EKG EK01/27/18 Atrial fibrillation with normal ventricular response. P: no analysis. QRS: extreme right superior axis deviation, anteroseptal infarct. ST-T: EKG 07/24/17: Probably atrail fibrillation, low voltage chest leads, probably old anterior myocardial infarction, probably old inferior myocardial infarction left axis deviationEKG 04/24/2017: Low voltage, chest leads; anteroseptal myocardial infarction, age undetermined. Poor R progression in chest leads; left axis deviation 02/25/17 EKG: Probably atrial fibrillation. Low voltage, chest leads. Probably old inferior myocardial infarction. Poor R progression in chest leads. Left axis deviation EKG 08/29/15: Atrial fibrillation with normal ventricular response.P: no analysis,QRS: anterolateral infarct.R < 0.15mV in V3 V4 V5 V6 probable inferior infarct. QS in II III aVF, low voltage in precordial leads. ST-T: minimal left precordial ST-T changes consistent with infarct, flat or low negative T in V5 V6 conclusion: abnormal EKG. EKG 08/27/16 : Afib EK02/27/16 atrial fibrillation with normal ventricular response. P: no analysi. QRS: anteroseptal infarct. QS in V1 V2 V3 . R < 0.15 mV in V4 possible inferior infarct. QS in III aVF. ST-T: normal. conclusion: abnormal ECG. EK02/28/15 Atrial fibrillation with normal ventricular response. P: no analysis. QRS:probable inferolateral infarct. QS in III aVF. R < 0.15mV in V6. Consider septal infarct. QS in V1 V2. ST-T: normal Conclusion: abnormal ECG. EK08/29/15 Atrial fibrillation with normal ventricular response. P: no analysis. QRS: anterolateral infarct. R<0.15 mV in V3 V4 V5 V6. probable inferior infarct. QS in II III aVF. low voltage in precordial leads. ST-TL minimal left-precordial ST-T changes consistent with infarct. flat or low negative T in V5 V6. conclusion: abnormal ECG. 01/14/20 ECHO: Technical limitations - poor acoustic window, body habitus. Atrial fibrillation is present. LV chamber size is normal. LV wall thickness is mildly increased. The estimated left ventricle ejection fraction is 50-55% (normal). Diastolic function is indeterminate due to atrial fibrillation. There is mild mitral regurgitation. There is mild tricuspid regurgitation. Atrial fibrillation, sinus bradycardia. 03/27/17 LAITH: Normal left ventricular size. Mild concentric left ventricular hypertrophy. Ejection fraction is visually estimated at 60%. No left ventricular thrombus visualized. There is mild enlargement of left atrium. No left atrial thrombus. Treadmill Nuclear Stress Test 10/16/16 : Negative stress test for ischemia. Artifact noted. Compared to last study in 09/05, there are no changes. Exercise tolerance is below average. LVEF 40%. NUC: 09/08/14 Negative stress test. Normal LV systolic function. Fixed defect consistent with old infarction inferior area. LVEF 53%. TTE 08/29/15: Atrial fibrillation, there is borderline concentric LVH, overall LV systolic function is normal with an EF 55-60%, Left atrium is severely dilated by volume. VANESSA HAYNES [place], [place] - [facility] 11/05/2022 09:43:36 02/05/2023 text/html 02/05/23CC : Car diac follow up dyspnea on [id number] white man with a PMH of moderate CAD s/p left anterior descending coronary artery stent (), patent stent ( per CTA ) COURTNEY, left atrial dilation , and obesity presents today for 3 month follow-up. He was last seen in the clinic on 11/05/22, since then he is doing well. He denied chest pain. *Last LDL was 74 done on 10/06/20.Pt takes rosuvastatin 10 mg daily. He denies ER visits and hospitalizations since he was last seen. Today reports:no ccDenies chest pain.Denies shortness of breath at rest. Has mild dyspnea on exertion.No orthopnea. No PNDs.Denies heart palpitations.Denies dizziness. Denies syncope or near syncope.No ankle or leg edema.No major bleeding events.No reported side effects from medications. Taking medications as prescribed with no missed doses.Denies snoring, daytime somnolence and AM headache.*Last LDL was 74 done on 10/06/20.Pt takes rosuvastatin 10 mg daily. Previously:He came last visit for cardiac clearance for upcoming surgery. *Had negative stress test on 07/16/22 with Fixed defect consistent with old infarction in inferior areas. Normal LV systolic function. Exercise tolerance: Average. *Had ECHO on 06/14/22 showed LV chamber size is normal.LVEF 50-55%,LV wall thickness is mildly increased,diastolic function is indeterminate due to atrial fibrillation,left atrium chamber is mildly dilated,there is mild aortic root calcification,the mitral valve leaflet is mildly thickened,atrial fibrillation. *Had Cardiac CTA done in 07/23/19 showed moderate CAD and patent LAD. On Xarelto for Afib. Tolerating well with no major bleeding events. Continues on amiodarone. Pt had a hip replacement 04/01/17 at [facility]. Pt had a DCCV on 03/27/17 went into NSR but is back in A-fib. Pt went to [facility] 04/23/17 after he stopped breathing at home. His breathing resumed spontaneously. He was found to have bronchitis in AFIB.Results from this visit, or from the past:10/07/20:Na 140,K 4.1,Cl 104,Co2 23,Glu 97,Bun 18,Cr 1.35,AST 46,ALT 42. 06/21/20:TC 133,TG 136,HDL 35,LDL 74.Cr 1.35, LDL 74BMP, serum or plasma [id number] 08/05/18: NA 140, K 4.7, CL 103, CO2 22, GLU 103, BUN 21, CR 1.34TSH, serum or plasma 08-05- TSH: 1. LIPID: TC 137, TR 109, HDL 38, LDL 775 CBC: WBC 3.0, HGB 15.4, HCT 46.9, PLT 03948: Na 136 ,K 4.9 ,CL 97 ,CO2 22 ,GLU 98 ,BUN 19 ,CR 1.16,CK 713 ,TC 189 ,TG 222 ,HDL 36 ,LDL 109 ,AST ,ALT ,HB 15.5, HT 46. : Na 140 ,K 4.4 ,CL 100 ,CO2 21 ,GLU 120 ,BUN 15 ,CR 0.94 ,CK 1183* ,TC 142 ,TG 235 ,HDL 30 ,LDL 65 ,AST 44 ,ALT 38 ,08/02/14 SOD 139, K 4.1, CL 103, Co2 21, GLU 90, BUN 15,CR 0.93 ,HB 15.4 ,HT 45.2, HgA1c 5.8, .08/02/14 : TC 128. TG 134. LDL 71. HDL 30. AST 31. ALT 32. Vit D 25. EKG: atrial fibrillation with normal ventricular response. P: no analysis. QRS: marked left axis deviation. consistent with LAFB. anteroseptal infarct. QS in V1 V2 V3. slight intraventricular conduction delay. ST-T: minimal left-precordial ST-T changes consistent with infarct. flat or low negative T in V5 V6. conclusion: abnormal ECG.09/07/19 EKG: One or more baseline jumps, atrial fibrillation with normal ventricular response. anteroseptal infarct. Possible inferior infarct. Moderate intraventricular conduction delay. conclusion: abnormal EKGEKG, 12/15/18: prob.. A-Fib, Left anterior hemiblock. muCT, angiogram, coronary arteries, w/wo contrast 10-13-2018 Cardiac CTA 10/13/18:moderate Coronary artery disease , patent LAD stent. electrocardiogram 10-08-2018 EKG, 09/15/18: Prob A-Fib. Low Voltage, chest leads. prob old anterior [place]. Left axis deviation. mu EKG, 09/15/18: Prob A-Fib. Low Voltage, chest leads. prob old anterior [place]. Left axis deviation. mu EKG, 07/28/18, A-Fib..with normal ventricular. P..no analysis. QRS.. marked left axis deviation, consistant with LAFB, anteroseptal infarct. QS in V2, V3, V4. R< 0.15 [address] ST-T...normal. ABN EKG EK01/27/18 Atrial fibrillation with normal ventricular response. P: no analysis. QRS: extreme right superior axis deviation, anteroseptal infarct. ST-T: EKG 07/24/17: Probably atrail fibrillation, low voltage chest leads, probably old anterior myocardial infarction, probably old inferior myocardial infarction left axis deviationEKG 04/24/2017: Low voltage, chest leads; anteroseptal myocardial infarction, age undetermined. Poor R progression in chest leads; left axis deviation 02/25/17 EKG: Probably atrial fibrillation. Low voltage, chest leads. Probably old inferior myocardial infarction. Poor R progression in chest leads. Left axis deviation EKG 08/29/15: Atrial fibrillation with normal ventricular response.P: no analysis,QRS: anterolateral infarct.R < 0.15mV in V3 V4 V5 V6 probable inferior infarct. QS in II III aVF, low voltage in precordial leads. ST-T: minimal left precordial ST-T changes consistent with infarct, flat or low negative T in V5 V6 conclusion: abnormal EKG. EKG 08/27/16 : Afib EK02/27/16 atrial fibrillation with normal ventricular response. P: no analysi. QRS: anteroseptal infarct. QS in V1 V2 V3 . R < 0.15 mV in V4 possible inferior infarct. QS in III aVF. ST-T: normal. conclusion: abnormal ECG. EK02/28/15 Atrial fibrillation with normal ventricular response. P: no analysis. QRS:probable inferolateral infarct. QS in III aVF. R < 0.15mV in V6. Consider septal infarct. QS in V1 V2. ST-T: normal Conclusion: abnormal ECG. EK08/29/15 Atrial fibrillation with normal ventricular response. P: no analysis. QRS: anterolateral infarct. R<0.15 mV in V3 V4 V5 V6. probable inferior infarct. QS in II III aVF. low voltage in precordial leads. ST-TL minimal left-precordial ST-T changes consistent with infarct. flat or low negative T in V5 V6. conclusion: abnormal ECG. 01/14/20 ECHO: Technical limitations - poor acoustic window, body habitus. Atrial fibrillation is present. LV chamber size is normal. LV wall thickness is mildly increased. The estimated left ventricle ejection fraction is 50-55% (normal). Diastolic function is indeterminate due to atrial fibrillation. There is mild mitral regurgitation. There is mild tricuspid regurgitation. Atrial fibrillation, sinus bradycardia. 03/27/17 LAITH: Normal left ventricular size. Mild concentric left ventricular hypertrophy. Ejection fraction is visually estimated at 60%. No left ventricular thrombus visualized. There is mild enlargement of left atrium. No left atrial thrombus. Treadmill Nuclear Stress Test 10/16/16 : Negative stress test for ischemia. Artifact noted. Compared to last study in 09/05, there are no changes. Exercise tolerance is below average. LVEF 40%. NUC: 09/08/14 Negative stress test. Normal LV systolic function. Fixed defect consistent with old infarction inferior area. LVEF 53%. TTE 08/29/15: Atrial fibrillation, there is borderline concentric LVH, overall LV systolic function is normal with an EF 55-60%, Left atrium is severely dilated by volume. VANESSA HAYNES [facility] [place] - [facility] 02/05/2023 12:38:50 08/05/2023 text/html 08/05/23CC : [facility] follow [id number] white man with a PMH of moderate CAD s/p left anterior descending coronary artery stent (), patent stent ( per CTA ) COURTNEY, left atrial dilation , and obesity presents today for 6 month follow-up.He was last seen in the clinic on 02/05/23, since then he He denies ER visits and hospitalizations since he was last seen. Today reports: Denies chest pain. Denies shortness of breath at rest. Has mild dyspnea on exertion. No orthopnea. No PNDs. Denies heart palpitations. Denies dizziness. Denies syncope or near syncope. No ankle or leg edema. No major bleeding events. No reported side effects from medications. Taking medications as prescribed with no missed doses. Denies snoring, daytime somnolence and AM headache. *Last LDL was 84 done on 01/29/23.Pt takes rosuvastatin 20 mg and fenofibrate 160 mg daily. Previously:He came last visit for cardiac clearance for upcoming surgery. *Had negative stress test on 07/16/22 with Fixed defect consistent with old infarction in inferior areas. Normal LV systolic function. Exercise tolerance: Average. *Had ECHO on 06/14/22 showed LV chamber size is normal.LVEF 50-55%,LV wall thickness is mildly increased,diastolic function is indeterminate due to atrial fibrillation,left atrium chamber is mildly dilated,there is mild aortic root calcification,the mitral valve leaflet is mildly thickened,atrial fibrillation. *Had Cardiac CTA done in 10/13/18 showed moderate CAD and patent LAD. On Xarelto for Afib. Tolerating well with no major bleeding events. Continues on amiodarone. Pt had a hip replacement 04/01/17 at [facility]. Pt had a DCCV on 03/27/17 went into NSR but is back in A-fib. Pt went to [facility] 04/23/17 after he stopped breathing at home. His breathing resumed spontaneously. He was found to have bronchitis in AFIB.Results from this visit, or from the past:10/07/20:Na 140,K 4.1,Cl 104,Co2 23,Glu 97,Bun 18,Cr 1.35,AST 46,ALT 42. 06/21/20:TC 133,TG 136,HDL 35,LDL 74.Cr 1.35, LDL 74BMP, serum or plasma [id number] 08/05/18: NA 140, K 4.7, CL 103, CO2 22, GLU 103, BUN 21, CR 1.34TSH, serum or plasma 08-05- TSH: 1. LIPID: TC 137, TR 109, HDL 38, LDL 775 CBC: WBC 3.0, HGB 15.4, HCT 46.9, PLT 64444/: Na 136 ,K 4.9 ,CL 97 ,CO2 22 ,GLU 98 ,BUN 19 ,CR 1.16,CK 713 ,TC 189 ,TG 222 ,HDL 36 ,LDL 109 ,AST ,ALT ,HB 15.5, HT 46. : Na 140 ,K 4.4 ,CL 100 ,CO2 21 ,GLU 120 ,BUN 15 ,CR 0.94 ,CK 1183* ,TC 142 ,TG 235 ,HDL 30 ,LDL 65 ,AST 44 ,ALT 38 ,08/02/14 SOD 139, K 4.1, CL 103, Co2 21, GLU 90, BUN 15,CR 0.93 ,HB 15.4 ,HT 45.2, HgA1c 5.8, .08/02/14 : TC 128. TG 134. LDL 71. HDL 30. AST 31. ALT 32. Vit D 25. EKG: atrial fibrillation with normal ventricular response. P: no analysis. QRS: marked left axis deviation. consistent with LAFB. anteroseptal infarct. QS in V1 V2 V3. slight intraventricular conduction delay. ST-T: minimal left-precordial ST-T changes consistent with infarct. flat or low negative T in V5 V6. conclusion: abnormal ECG.09/07/19 EKG: One or more baseline jumps, atrial fibrillation with normal ventricular response. anteroseptal infarct. Possible inferior infarct. Moderate intraventricular conduction delay. conclusion: abnormal EKGEKG, 12/15/18: prob.. A-Fib, Left anterior hemiblock. muCT, angiogram, coronary arteries, w/wo contrast 10-13-2018 Cardiac CTA 10/13/18:moderate Coronary artery disease , patent LAD stent. electrocardiogram 10-08-2018 EKG, 09/15/18: Prob A-Fib. Low Voltage, chest leads. prob old anterior [place]. Left axis deviation. mu EKG, 09/15/18: Prob A-Fib. Low Voltage, chest leads. prob old anterior [place]. Left axis deviation. mu EKG, 07/28/18, A-Fib..with normal ventricular. P..no analysis. QRS.. marked left axis deviation, consistant with LAFB, anteroseptal infarct. QS in V2, V3, V4. R< 0.[address]-T...normal. ABN EKG EK01/27/18 Atrial fibrillation with normal ventricular response. P: no analysis. QRS: extreme right superior axis deviation, anteroseptal infarct. ST-T: EKG 07/24/17: Probably atrail fibrillation, low voltage chest leads, probably old anterior myocardial infarction, probably old inferior myocardial infarction left axis deviationEKG 04/24/2017: Low voltage, chest leads; anteroseptal myocardial infarction, age undetermined. Poor R progression in chest leads; left axis deviation 02/25/17 EKG: Probably atrial fibrillation. Low voltage, chest leads. Probably old inferior myocardial infarction. Poor R progression in chest leads. Left axis deviation EKG 08/29/15: Atrial fibrillation with normal ventricular response.P: no analysis,QRS: anterolateral infarct.R < 0.15mV in V3 V4 V5 V6 probable inferior infarct. QS in II III aVF, low voltage in precordial leads. ST-T: minimal left precordial ST-T changes consistent with infarct, flat or low negative T in V5 V6 conclusion: abnormal EKG. EKG 08/27/16 : Afib EK02/27/16 atrial fibrillation with normal ventricular response. P: no analysi. QRS: anteroseptal infarct. QS in V1 V2 V3 . R < 0.15 mV in V4 possible inferior infarct. QS in III aVF. ST-T: normal. conclusion: abnormal ECG. EK02/28/15 Atrial fibrillation with normal ventricular response. P: no analysis. QRS:probable inferolateral infarct. QS in III aVF. R < 0.15mV in V6. Consider septal infarct. QS in V1 V2. ST-T: normal Conclusion: abnormal ECG. EK08/29/15 Atrial fibrillation with normal ventricular response. P: no analysis. QRS: anterolateral infarct. R<0.15 mV in V3 V4 V5 V6. probable inferior infarct. QS in II III aVF. low voltage in precordial leads. ST-TL minimal left-precordial ST-T changes consistent with infarct. flat or low negative T in V5 V6. conclusion: abnormal ECG. 01/14/20 ECHO: Technical limitations - poor acoustic window, body habitus. Atrial fibrillation is present. LV chamber size is normal. LV wall thickness is mildly increased. The estimated left ventricle ejection fraction is 50-55% (normal). Diastolic function is indeterminate due to atrial fibrillation. There is mild mitral regurgitation. There is mild tricuspid regurgitation. Atrial fibrillation, sinus bradycardia. 03/27/17 LAITH: Normal left ventricular size. Mild concentric left ventricular hypertrophy. Ejection fraction is visually estimated at 60%. No left ventricular thrombus visualized. There is mild enlargement of left atrium. No left atrial thrombus. Treadmill Nuclear Stress Test 10/16/16 : Negative stress test for ischemia. Artifact noted. Compared to last study in 09/05, there are no changes. Exercise tolerance is below average. LVEF 40%. NUC: 09/08/14 Negative stress test. Normal LV systolic function. Fixed defect consistent with old infarction inferior area. LVEF 53%. TTE 08/29/15: Atrial fibrillation, there is borderline concentric LVH, overall LV systolic function is normal with an EF 55-60%, Left atrium is severely dilated by volume. Paras Zapien MD [address] [place], [address], [facility] 08/05/2023 14:38:38 10/28/2023 text/html 10/28/23CC : Car diac follow up , dyspnea on [id number] white man with a PMH of moderate CAD s/p left anterior descending coronary artery stent (), patent stent ( per CTA ) COURTNEY, left atrial dilation , and obesity presents today for 3 month follow-up with ECHO results.He was last seen in the clinic on 08/05/23, since then he still works, somewhat activeHe denies ER visits and hospitalizations since he was last seen.no ccToday reports:Denies chest pain.Denies shortness of breath at rest. Has mild dyspnea on exertion.No orthopnea. No PNDs.Denies heart palpitations.Denies dizziness. Denies syncope or near syncope.No ankle or leg edema.No major bleeding events.No reported side effects from medications. Taking medications as prescribed with no missed doses.Denies snoring, daytime somnolence and AM headache.*Last LDL was 75 done on 05/05/23.Pt takes rosuvastatin 20 mg and fenofibrate 160 mg daily. *Had ECHO on 09/16/23 showed LV chamber size is normal. LV wall thickness is mildly increased. The estimated left ventricle ejection fraction is 55-60% (normal). Diastolic function is indeterminate due to atrial fibrillation. The aortic valve leaflet is mildly thickened. There is mild thickening of the mitral valve anterior leaflet. Previously:He came last visit for cardiac clearance for upcoming surgery. *Had negative stress test on 07/16/22 with Fixed defect consistent with old infarction in inferior areas. Normal LV systolic function. Exercise tolerance: Average. *Had Cardiac CTA done in 10/13/18 showed moderate CAD and patent LAD. On Xarelto for Afib. Tolerating well with no major bleeding events. Continues on amiodarone. Pt had a hip replacement 04/01/17 at [facility]. Pt had a DCCV on 03/27/17 went into [facility] but is back in [facility]. Pt went to [facility] 04/23/17 after he stopped breathing at home. His breathing resumed spontaneously. He was found to have bronchitis in AFIB.Results from this visit, or from the past:10/07/20:Na 140,K 4.1,Cl 104,Co2 23,Glu 97,Bun 18,Cr 1.35,AST 46,ALT 42. 06/21/20:TC 133,TG 136,HDL 35,LDL 74.Cr 1.35, LDL 74BMP, serum or plasma [id number] 08/05/18: NA 140, K 4.7, CL 103, CO2 22, GLU 103, BUN 21, CR 1.34TSH, serum or plasma TSH: 1. LIPID: TC 137, TR 109, HDL 38, LDL 7708/05/18 CBC: WBC 3.0, HGB 15.4, HCT 46.9, PLT 72432: Na 136 ,K 4.9 ,CL 97 ,CO2 22 ,GLU 98 ,BUN 19 ,CR 1.16,CK 713 ,TC 189 ,TG 222 ,HDL 36 ,LDL 109 ,AST ,ALT ,HB 15.5, HT 46. : Na 140 ,K 4.4 ,CL 100 ,CO2 21 ,GLU 120 ,BUN 15 ,CR 0.94 ,CK 1183* ,TC 142 ,TG 235 ,HDL 30 ,LDL 65 ,AST 44 ,ALT 38 ,08/02/14 SOD 139, K 4.1, CL 103, Co2 21, GLU 90, BUN 15,CR 0.93 ,HB 15.4 ,HT 45.2, HgA1c 5.8, .08/02/14 : TC 128. TG 134. LDL 71. HDL 30. AST 31. ALT 32. Vit D 25. EKG: atrial fibrillation with normal ventricular response. P: no analysis. QRS: marked left axis deviation. consistent with LAFB. anteroseptal infarct. QS in V1 V2 V3. slight intraventricular conduction delay. ST-T: minimal left-precordial ST-T changes consistent with infarct. flat or low negative T in V5 V6. conclusion: abnormal ECG.09/07/19 EKG: One or more baseline jumps, atrial fibrillation with normal ventricular response. anteroseptal infarct. Possible inferior infarct. Moderate intraventricular conduction delay. conclusion: abnormal EKGEKG, 12/15/18: prob.. A-Fib, Left anterior hemiblock. muCT, angiogram, coronary arteries, w/wo contrast 10-13-2018 Cardiac CTA 10/13/18:moderate Coronary artery disease , patent LAD stent. electrocardiogram 10-08-2018 EKG, 09/15/18: Prob A-Fib. Low Voltage, chest leads. prob old anterior [place]. Left axis deviation. mu EKG, 09/15/18: Prob A-Fib. Low Voltage, chest leads. prob old anterior [place]. Left axis deviation. mu EKG, 07/28/18, A-Fib..with normal ventricular. P..no analysis. QRS.. marked left axis deviation, consistant with LAFB, anteroseptal infarct. QS in V2, V3, V4. R< 0.15 [address]-T...normal. ABN EKG EK01/27/18 Atrial fibrillation with normal ventricular response. P: no analysis. QRS: extreme right superior axis deviation, anteroseptal infarct. ST-T: EKG 07/24/17: Probably atrail fibrillation, low voltage chest leads, probably old anterior myocardial infarction, probably old inferior myocardial infarction left axis deviationEKG 04/24/2017: Low voltage, chest leads; anteroseptal myocardial infarction, age undetermined. Poor R progression in chest leads; left axis deviation 02/25/17 EKG: Probably atrial fibrillation. Low voltage, chest leads. Probably old inferior myocardial infarction. Poor R progression in chest leads. Left axis deviation EKG 08/29/15: Atrial fibrillation with normal ventricular response.P: no analysis,QRS: anterolateral infarct.R < 0.15mV in V3 V4 V5 V6 probable inferior infarct. QS in II III aVF, low voltage in precordial leads. ST-T: minimal left precordial ST-T changes consistent with infarct, flat or low negative T in V5 V6 conclusion: abnormal EKG. EKG 08/27/16 : Afib EK02/27/16 atrial fibrillation with normal ventricular response. P: no analysi. QRS: anteroseptal infarct. QS in V1 V2 V3 . R < 0.15 mV in V4 possible inferior infarct. QS in III aVF. ST-T: normal. conclusion: abnormal ECG. EK02/28/15 Atrial fibrillation with normal ventricular response. P: no analysis. QRS:probable inferolateral infarct. QS in III aVF. R < 0.15mV in V6. Consider septal infarct. QS in V1 V2. ST-T: normal Conclusion: abnormal ECG. EK08/29/15 Atrial fibrillation with normal ventricular response. P: no analysis. QRS: anterolateral infarct. R<0.15 mV in V3 V4 V5 V6. probable inferior infarct. QS in II III aVF. low voltage in precordial leads. ST-TL minimal left-precordial ST-T changes consistent with infarct. flat or low negative T in V5 V6. conclusion: abnormal ECG. 01/14/20 ECHO: Technical limitations - poor acoustic window, body habitus. Atrial fibrillation is present. LV chamber size is normal. LV wall thickness is mildly increased. The estimated left ventricle ejection fraction is 50-55% (normal). Diastolic function is indeterminate due to atrial fibrillation. There is mild mitral regurgitation. There is mild tricuspid regurgitation. Atrial fibrillation, sinus bradycardia. 03/27/17 LAITH: Normal left ventricular size. Mild concentric left ventricular hypertrophy. Ejection fraction is visually estimated at 60%. No left ventricular thrombus visualized. There is mild enlargement of left atrium. No left atrial thrombus. Treadmill Nuclear Stress Test 10/16/16 : Negative stress test for ischemia. Artifact noted. Compared to last study in 09/05, there are no changes. Exercise tolerance is below average. LVEF 40%. NUC: 09/08/14 Negative stress test. Normal LV systolic function. Fixed defect consistent with old infarction inferior area. LVEF 53%. TTE 08/29/15: Atrial fibrillation, there is borderline concentric LVH, overall LV systolic function is normal with an EF 55-60%, Left atrium is severely dilated by volume. Paras Zapien MD [address] [place], [address], [facility] 10/28/2023 14:57:39
--- OUTSIDE RECORDS SUMMARY | 2024-08-29 22:21 | XMS_ITS | Clinical Summary ---
Author Organization [facility] [address] Address [address] [place] [address] Phone Care Team Providers Care Brim Buster Name Role Phone Diego Lutz MD Unavailable Apolinar Cook MD Primary Care Provider [phone] Allergies Active Allergy Reactions Criticality Noted Date Comments Adhesive Tape-Silicones Rash Medium 10/03/2022 Medications fenofibrate (TRIGLIDE) 160 mg tabletIndication s:hyperlipidemia Take 1 tablet (160 mg total) by mouth every morning Active magnesium oxide (MAG-OX) 250 mg (150.8 mg elemental) tabletIndication s:supplement Take 400 mg by mouth nightly Active levothyroxine (SYNTHROID) 150 mcg tabletIndication s:hypothyroidism Take 1 tablet (150 mcg total) by mouth ruffler before breakfast 5 Active cholecalciferol, vitamin D3, [...] (10/11/2019): Added automatically from request for surgery [id number] Edema of lower extremity 09/13/2018 Dyslipidemia 02/23/2017 [...] Administration Dates Next Due Influenza, Trivalent, IM ([facility]ND[facility]) 12/22/2012 Surgical History Surgery Date Site/Laterality Comments KNEE ARTHROPLASTY 03/24/2010 - 03/23/2011 Knee replacement ROTATOR CUFF REPAIR 12/03/2022 Left reversal CARDIAC STENT PLACEMENT 03/24/2006 - 03/23/2007 POLYPECTOMY 03/24/2019 - 03/23/2020 COLONOSCOPY 10/27/2014 KNEE ARTHROSCOPY W/ LATERAL RELEASE 03/24/2003 - 03/23/2004 Right TOTAL HIP ARTHROPLASTY 03/24/2014 - 03/23/2015 Left VASECTOMY 03/24/1980 - 03/23/1981 COLONOSCOPY 11/08/2019 TOTAL HIP ARTHROPLASTY 04/11/2017 Right Medical History Medical History Date Comments Hx Other Medical staph infection in right knee 2003 Hx Other Medical coronary stenti ng Hypothyroidism hypothyroidism Atrial fibrillation (HCC) Atrial fibrillation Chronic coronary artery disease Coronary artery disease Hyperlipidemia Hyperlipidemia Diabetes mellitus (HCC) Diabetes Hx Other Medical Rt. total knee replacemet 02-22-12.; Comments: MEGAN 03/29/2014 - Hx Other Medical Left acromiocla vicular resection with anterior acr; Comments: MEGAN 03/29/2014 - Sleep apnea Arthritis Obesity Colon polyp Myocardial infarction (HCC) 08/2006 Heart disease DVT (deep venous thrombosis) ([facility]) Family History Medical History Relation Name Comments Arthritis Father Edgard Currie arthritis; Other Father Edgard Currie CHF cause of .; Arthritis Mother arthritis; Stroke Mother Stroke; Diabetes Son lupe currie Early Son lupe currie Heart attack Son lupe currie Hypertension Son lupe currie Anesthesia problems Neg Hx Relation Name Status Comments Father Edgard Currie Alive Mother Alive Son lupe currie Social History Tobacco Use Types Packs/Day Years [...] on file Legal Sex Male 11:43 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 Gender Identity Not on file Sexual Orientation Not on file Obstetrics History Last Filed Vital Signs Vital Sign Reading Time Taken Comments Blood Pressure 122/77 03/31/2023 4:50 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 Pulse 79 03/31/2023 4:50 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 Temperature 36 C (96.8 F) 03/31/2023 8:10 AM DIRECTOR OF EXHIBIT DEVELOPMENT Respiratory Rate 16 03/31/2023 4:50 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 Oxygen Saturation 93% 03/31/2023 4:50 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 Inhaled Oxygen Concentration - - Weight 115.7 kg (255 lb) 03/11/2024 2:33 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 Height 177.8 cm (5' 10) 03/19/2023 10:35 AM DIRECTOR OF EXHIBIT DEVELOPMENT Body Mass Index 36.59 03/19/2023 10:35 AM DIRECTOR OF EXHIBIT DEVELOPMENT Plan of Treatment Health Maintenance Due Date Last Done Comments Depression Screening 1955 Hepatitis C Screening 1955 Prostate Cancer Screening-PSA 1955 DTaP/Tdap/Td Vaccine (1 - Tdap) 1966 Hepatitis B Screening 1973 Well Visit 65+ 2020 Pneumococcal vaccine 65+ (2 of 2 - PCV) 03/15/2022 03/15/2021 Covid-19 Vaccine (5 - 2023-2 5 season) 2023 12/29/2021, 02/10/2021, 06/03/2020, Additional history exists Fall Risk Assessment 03/31/2024 03/31/2023 Influenza Vaccine (Season Ended) 2024 12/29/2021, 03/15/2021, 12/22/2012 Colon Cancer Screening-Colonoscopy 11/07/2029 11/08/2019, 10/27/2014, 10/27/2014, Additional history exists Colon Cancer Screening-CT Colonography Discontinued 11/08/2019, 10/27/2014, 10/27/2014, Additional history exists Colon Cancer Screening-DNA Stool Discontinued 11/08/2019, 10/27/2014, 10/27/2014, Additional history exists Colon Cancer Screening-FIT Discontinued 11/07, 10/27/2014, 10/27/2014, Additional history exists Colon Cancer Screening-Sigmoidoscopy Discontinued 11/08/2019, 10/27/2014, 10/27/2014, Additional history exists Zoster Vaccine Completed 05/21/2021, 03/15/2021 Medical Devices Implanted Type Area Process Safety Engineer Device Identifier Shelf Expiration Date Model / Serial / Lot Right Knee Replacement Endoprosthesis Knee Trulia Stem Perform Sz 3 Plus Humeral Long Dwx3pl - S0 - [id number] Implanted:Qty: 1 on 12/03/2022 by Fransisco Santo MD at [facility] Other - see comments Left: Shoulder Trulia [id number] / 0 / [employer] AQS Insert Perform 10 Deg [id number] - S0 - [id number] Implanted:Qty: 1 on 12/03/2022 by Fransisco Santo MD at [facility] Other - see comments Left: Shoulder [employer] [id number] / 0 / [id number]-200 7 Implanted:Qty: 1 on 09/18/2006 Stent Heart Shell Acetabular Tritanium F Hemispherical Od58 Mm Hip Primary Rim Cluster Hole - [id number] Implanted:Qty: 1 on 04/01/2017 by Toñito Mcfarland MD at [facility] Right: Hip [employer] 06/29/2020 [id number] / / [id number] Screw Bone Torx Titanium L35 Mm Od6.5 Mm Acetabular Cancellous Flush Seat Nonsterile - [id number] Implanted:Qty: 1 on 04/01/2017 by Toñito Mcfarland MD at [facility] Right: Hip [employer] [facility] 04/23/2021 [id number] / / [id number] Liner Acetabular Cocr F Od46 Mm Hip Modular Dual Mobility Primary - [id number] Implanted:Qty: 1 on 04/01/2017 by Toñito Mcfarland MD at [facility] Right: Hip [employer] 01/09/2022 [id number] / / [id number] Stem Femoral Accolade 127 D 5 Taper L108 Mm L35 Mm Hip Modular Sterile - [id number] Implanted:Qty: 1 on 04/01/2017 by Toñito Mcfarland MD at [facility] Right: Hip [employer] 12/21/2021 [id number] / / [id number] Insert Acetabular Adm Mobile Bearing Hip Pentecostalism X3 Polyethylene H8.9 Mm Od46 Mm Odsec52 Mm Id28 Mm Hip - [id number] Implanted:Qty: 1 on 04/01/2017 by Toñito Mcfarland MD at [facility] Right: Hip [employer] 01/06/2022 [id number] / / [id number] Head Femoral V40 Biolox Delta +4 Mm Offset Taper Od28 Mm Hip - [id number] Implanted:Qty: 1 on 04/01/2017 by Toñito Mcfarland MD at [facility] Right: Hip [employer] [facility] 12/15/2021 6570-0-22 8 / / [id number] [employer] Aequalis Perform Reversed 5mm 42mm Peripheral Glenoid Screw Hpf204 - [id number] Implanted:Qty: 1 on 12/03/2022 by Fransisco Santo MD at [facility] Left: Shoulder [employer] [id number] / / [employer] Aequalis Perform Reversed 5mm 34mm Peripheral Glenoid Screw Fcq492 - [id number] Implanted:Qty: 1 on 12/03/2022 by Fransisco Santo MD at [facility] Left: Shoulder [employer] [id number] / / [employer] Aequalis Perform Reversed 5mm 18mm Peripheral Glenoid Screw Ebx504 - [id number] Implanted:Qty: 1 on 12/03/2022 by Fransisco Santo MD at [facility] Left: Shoulder [employer] [id number] / / [employer] Od29 Mm Half Wedge Augment Shoulder 35 D Baseplate Glenoid Fdh415 - [id number] - [id number] Implanted:Qty: 1 on 12/03/2022 by Fransisco Santo MD at [facility] Left: Shoulder [employer] [id number] 06/12/2025 CRD170 / [id number] / [employer] Tornier Aequalis Perform Od42 Mm Reverse Shoulder Standard Sphere Glenoid Uck512 - [id number] - [id number] Implanted:Qty: 1 on 12/03/2022 by Fransisco Santo MD at [facility] Left: Shoulder [employer] 01/22/2027 BLC137 / [id number] / [employer] Aequalis Perform Reversed 6.5mm 35mm Central Glenoid Screw Fbw155 - [id number] Implanted:Qty: 1 on 12/03/2022 by Fransisco Santo MD at [facility] Left: Shoulder [employer] [id number] / / Procedures Procedure Name Priority Date/Time Associated Diagnosis Comments COLONOSCOPY 11/08/2019 7:11 AM CDT from Last 3 Months or Most Recently Relevant to Health Maintenance Results * COLONOSCOPY (11/08/2019 7:11 AM CDT) Anatomical Region Laterality Modality Other Narrative Procedure Note Pérez Hubbard MD - 11/08/2019 7:11 AM CDT [facility] Patient Name: Demond Currie Procedure Date: 11/08/2019 7:11 AM Date of : 1955 Admit Type: Outpatient Age: 64 Gender: Male Attending MD: Pérez Hubbard M.D. Room: [facility] 2 Note Status: Finalized Patient Profile: Refer to note in patient chart for documentation of history and physical. Procedure: Colonoscopy Indications: High risk colon cancer surveillance: Personalhistory of colonic polyps, Last colonoscopy: October 2014 Referring MD: Diego Lutz M.D. Providers: Pérez Hubbard M.D. Impression: - [...] scope was passed under direct vision.The Colonoscope [id number] was introducedthrough the anus and advanced to [...] history of colonic polyps CPT copyright 2017 [employer]. All rights reserved. The codes documented in this report are preliminary and upon machining engineer reviewmay be revised to meet current compliance requirements. Recognized by the [place] for promoting quality in endoscopy Pérez Hubbard MD ENDOSCOPY PROCEDURES Final Re sult from Last 3 Months or Most Recently Relevant to Health Maintenance Insurance [facility] CHOICE PLUS [facility] HMO/PPO Address[facility] [address] [place] [address] [facility] CHOICE PLUS [facility] HMO/PPO Address: [address] [address] [place] [address] [facility] ADVANTAGE CHOICE PPO [facility] ADVANTAGE CHOICE PPO Advance Directives For more information, please contact: [phone] * Full Code (Latest Code Status on File) Date Activated Date Inactivated Comments 12/03/2022 5:49 PM 12/05/2022 3:56 PM * Full Code Date Activated Date Inactivated Comments 11/08/2019 7:26 AM 11/08/2019 1:09 PM * Full Code Date Activated Date Inactivated Comments 11/08/2019 7:26 AM 11/08/2019 7:26 AM * Full Code Date Activated Date Inactivated Comments 04/01/2017 10:49 AM 04/04/2017 3:43 PM Care Teams Brim Buster Relationship Specialty Start Date End Date Apolinar Cook MD [address] [place] [address] PCP - General Family Practice 07/27/24 Diego Lutz MD [address] [place] [address] Referring Physician Internal Medicine 04/02/23
[2024-08-29 23:58] VITALS: BP 131/81; PULSE 78; RESP 18; O2SAT 99
--- NOTE | 2024-08-29 23:59 | PC.NURSE ---
Pt presents to ED due to ground level fall. Per pt was walking out infront of his house when he trip over himself and fell to ground. Pt has a 1inch laceration to R eyebrow, pt denies vision changed and/or n/v. RUDY
--- OUTSIDE RECORDS SUMMARY | 2024-08-30 00:19 | XMS_ITS | Clinical Summary ---
Author Organization [facility] Address [address] [place] [address] Care Team Providers Care Chimney Construction Supervisor Name Role Phone Becka Reagan MD Primary Care Provider [phone] Source Comments [facility],non-owned Affiliates and Associated Physician Practices is amultiple site organization consisting of ambulatory clinics and hospital sitesin [place], [place], [place] and [place]. This disclosure is being madepursuant to the Care Everywhere program and may not contain all information available regarding this patient. 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 Gender Identity Not on file Sexual Orientation [...] Patient Date of Phone Billing Address Personal/Family [address] [place] [phone] [employer] ADV PPO SELF PAY NO INSURANCE Member Subscriber Plan / Payer (Ef fective for All Dates) Name:Demond Doll Member ID:Not on file Relation to Subscriber:Not on file Name:DEMOND DOLL Subscriber ID:Not on file Address: [address] [place], [place] [address] Payer ID:Not on file Group ID:Not on file Type:Self Pay Address: [place], [place] * Guarantor: DEMOND DOLL Account Type Relation to Patient Date of Phone Billing Address Personal/Family [address] [place] [address] MEDICARE ADV PPO SELF PAY NO INSURANCE Member Subscriber Plan / Payer (Ef fective for All Dates) Name:Demond Doll Member ID:Not on file Relation to Subscriber:Not on file Name:DEMOND DOLL Subscriber ID:Not on file Address: [address] [place], [place] [id number] Payer ID:Not on file Group ID:Not on file Type:Self Pay Address: [place], [place] * Guarantor: DEMOND DOLL Account Type Relation to Patient Date of Phone Billing Address Personal/Family [address] [place], [place] [phone] [facility] MEDICARE ADV PPO SELF PAY NO INSURANCE Member Subscriber Plan / Payer (Ef fective for All Dates) Name:Demond Doll Member ID:Not on file Relation to Subscriber:Not on file Name:DEMOND DOLL Subscriber ID:Not on file Address: [address] [place] [id number] Payer ID:Not on file Group ID:Not on file Type:Self Pay Address: [place], [place] Care Teams Chimney Construction Supervisor Relationship Specialty Start Date End Date Becka Reagan MD [address] [place] [address] PCP - General 06/10/08
--- OUTSIDE RECORDS SUMMARY | 2024-08-30 00:19 | XMS_ITS | Referral Summary ---
Author Organization [facility] [address] Address [address] [place] [address] Phone Care Team Providers Care Cleaner Touch Up Worker Name Role Phone Diego Lutz MD Unavailable Apolinar Cook MD Primary Care Provider [phone] Allergies Active Allergy Reactions Criticality Noted Date Comments Adhesive Tape-Silicones Rash Medium 10/03/2022 Medications fenofibrate (TRIGLIDE) 160 mg tabletIndication s:hyperlipidemia Take 1 tablet (160 mg total) by mouth every morning Active magnesium oxide (MAG-OX) 250 mg (150.8 mg elemental) tabletIndication s:supplement Take 400 mg by mouth nightly Active levothyroxine (SYNTHROID) 150 mcg tabletIndication s:hypothyroidism Take 1 tablet (150 mcg total) by mouth public policy mediator before breakfast 5 Active cholecalciferol, vitamin D3, [...] (10/11/2019): Added automatically from request for surgery [id number] Edema of lower extremity 09/13/2018 Dyslipidemia 02/23/2017 [...] on file Legal Sex Male 11:43 PM CLASSIFICATION COUNSELOR Gender Identity Not on file Sexual Orientation Not on file Last Filed Vital Signs Vital Sign Reading Time Taken Comments Blood Pressure 122/77 03/31/2023 4:50 PM CLASSIFICATION COUNSELOR Pulse 79 03/31/2023 4:50 PM CLASSIFICATION COUNSELOR Temperature 36 C (96.8 F) 03/31/2023 8:10 AM CLASSIFICATION COUNSELOR Respiratory Rate 16 03/31/2023 4:50 PM CLASSIFICATION COUNSELOR Oxygen Saturation 93% 03/31/2023 4:50 PM CLASSIFICATION COUNSELOR Inhaled Oxygen Concentration - - Weight 115.7 kg (255 lb) 03/11/2024 2:33 PM CLASSIFICATION COUNSELOR Height 177.8 cm (5' 10) 03/19/2023 10:35 AM CLASSIFICATION COUNSELOR Body Mass Index 36.59 03/19/2023 10:35 AM CLASSIFICATION COUNSELOR Plan of Treatment Not on file Medical Devices Implanted Type Area Statistical Programmer Analyst Device Identifier Shelf Expiration Date Model / Serial / Lot Right Knee Replacement Endoprosthesis Knee [employer] Stem Perform Sz 3 Plus Humeral Long Dwx3pl - S0 - [id number] Implanted:Qty: 1 on 12/03/2022 by Fransisco Santo MD at [facility] Other - see comments Left: Shoulder M[employer]te [id number] / 0 / MeroArte Insert Perform 10 Deg [id number] - S0 - [id number] Implanted:Qty: 1 on 12/03/2022 by Fransisco Santo MD at [facility] Other - see comments Left: Shoulder [employer] [id number] / 0 / Stent-09/18/200 7 Implanted:Qty: 1 on 09/18/2006 Stent Heart Shell Acetabular Tritanium F Hemispherical Od58 Mm Hip Primary Rim Cluster Hole - [id number] Implanted:Qty: 1 on 04/01/2017 by Toñito Mcfarland MD at [facility] Right: Hip [facility] 06/29/2020 [id number] / / [id number] Screw Bone Torx Titanium L35 Mm Od6.5 Mm Acetabular Cancellous Flush Seat Nonsterile - [id number] Implanted:Qty: 1 on 04/01/2017 by Toñito Mcfarland MD at [facility] Right: Hip [facility] 04/23/2021 [id number] -1 / / [id number] Liner Acetabular Cocr F Od46 Mm Hip Modular Dual Mobility Primary - [id number] Implanted:Qty: 1 on 04/01/2017 by Toñito Mcfalrand MD at [facility] Right: Hip [facility] 01/09/2022 [id number] / / [id number] Stem Femoral Accolade 127 D 5 Taper L108 Mm L35 Mm Hip Modular Sterile - [id number] Implanted:Qty: 1 on 04/01/2017 by Toñito Mcfarland MD at [facility] Right: Hip [facility] 12/21/2021 [id number] / / [id number] Insert Acetabular Adm Mobile Bearing Hip Synagogue X3 Polyethylene H8.9 Mm Od46 Mm Odsec52 Mm Id28 Mm Hip - [id number] Implanted:Qty: 1 on 04/01/2017 by Toñito Mcfarland MD at [facility] Right: Hip [facility] 01/06/2022 [id number] / / [id number] Head Femoral V40 Biolox Delta +4 Mm Offset Taper Od28 Mm Hip - [id number] Implanted:Qty: 1 on 04/01/2017 by Toñito Mcfarland MD at [facility] Right: Hip [facility] 12/15/2021 6570-0-22 8 / / [id number] [employer] Aequalis Perform Reversed 5mm 42mm Peripheral Glenoid Screw Ezn966 - [id number] Implanted:Qty: 1 on 12/03/2022 by Fransisco Santo MD at [facility] Left: Shoulder [employer] [id number] / / [employer] Aequalis Perform Reversed 5mm 34mm Peripheral Glenoid Screw Sbw281 - [id number] Implanted:Qty: 1 on 12/03/2022 by Fransisco Santo MD at [facility] Left: Shoulder [employer] [id number] / / [employer] Aequalis Perform Reversed 5mm 18mm Peripheral Glenoid Screw Fgh630 - [id number] Implanted:Qty: 1 on 12/03/2022 by Fransisco Santo MD at [facility] Left: Shoulder [employer] ELK548 / / [employer] Od29 Mm Half Wedge Augment Shoulder 35 D Baseplate Glenoid Wox172 - [id number] - [id number] Implanted:Qty: 1 on 12/03/2022 by Fransisco Santo MD at [facility] Left: Shoulder [employer] [id number] 06/12/2025 [id number] / [id number] / [employer] Tornier Aequalis Perform Od42 Mm Reverse Shoulder Standard Sphere Glenoid Eqx832 - [id number] - [id number] Implanted:Qty: 1 on 12/03/2022 by Fransisco Santo MD at [facility] Left: Shoulder [employer] 01/22/2027 [id number] / [id number] / [employer] Aequalis Perform Reversed 6.5mm 35mm Central Glenoid Screw Wld481 - [id number] Implanted:Qty: 1 on 12/03/2022 by Fransisco Santo MD at [facility] Left: Shoulder [employer] [id number] / / Procedures Procedure Name Priority Date/Time Associated Diagnosis Comments COLONOSCOPY 11/08/2019 7:11 AM CDT from Last 3 Months or Most Recently Relevant to Health Maintenance Results * COLONOSCOPY (11/08/2019 7:11 AM CDT) Anatomical Region Laterality Modality Other Narrative Procedure Note Pérez Hubbard MD - 11/08/2019 7:11 AM CDT [facility] Patient Name: Demond Ulrich Procedure Date: 11/08/2019 7:11 AM Date of : 1955 Admit Type: Outpatient Age: 64 Gender: Male Attending MD: Péerz Hubbard M.D. Room: [facility] ENDOSCOPY ROOM 2 Note Status: Finalized Patient [...] scope was passed under direct vision.The Colonoscope [id number] was introducedthrough the anus and advanced to [...] history of colonic polyps CPT copyright 2017 [employer]. All rights reserved. The codes documented in this report are preliminary and upon automotive title clerk reviewmay be revised to meet current compliance requirements. Recognized by the [employer] for promoting quality in endoscopy Pérez Hubbard MD ENDOSCOPY PROCEDURES Final Re sult from Last 3 Months or Most Recently Relevant to Health Maintenance Insurance [facility] Address: [address] [address] [place] [address] [facility] Address: [address] [address] [place] [id number] [employer] ADVANTAGE CHOICE PPO [employer] ADVANTAGE CHOICE PPO Advance Directives For more information, please contact: [phone] * Full Code (Latest Code Status on File) Date Activated Date Inactivated Comments 12/03/2022 5:49 PM 12/05/2022 3:56 PM * Full Code Date Activated Date Inactivated Comments 11/08/2019 7:26 AM 11/08/2019 1:09 PM * Full Code Date Activated Date Inactivated Comments 11/08/2019 7:26 AM 11/08/2019 7:26 AM * Full Code Date Activated Date Inactivated Comments 04/01/2017 10:49 AM 04/04/2017 3:43 PM Care Teams Cleaner Touch Up Worker Relationship Specialty Start Date End Date Apolinar Cook MD [address] [place], [place] [id number] PCP - General Family Practice 07/27/24 Diego Lutz MD [address] [facility] [address] [facility] [address] [place] [address] Referring Physician Internal Medicine 04/02/23
--- OUTSIDE RECORDS SUMMARY | 2024-08-30 00:19 | XMS_ITS ---
Author Organization 1 OF Heriberto rivera [facility] Address [address] [address] Care Team Providers Care Engraver Ornamental Design Name Role Phone Dr. Apolinar Cook Primary Care Provider UnavailRoel Connell [facility] Allergies No Known Allergies REASON FOR VISIT [...] Date Provider Diagnosis 1 OF Heriberto Clark [place] [address] [address] 06/01/2024 Roel Clark Type 2 diabetes mellitus [...] Provider Name:Roel Clark, 10/22/2024 10:00:00 AM, [address] [facility], [facility] [address], [place], [address], Procedure Notes * Category Sub-Category Detail Notes PALLIATIVE FOOT CARE: Callus paring: (50590) Fi ve or more calluses as noted above reduced with a sterile scalpel blade Nail debride (46921): Debridement of fiv e or less mycotic [...] * Aniya DOLLDOB:[birth year] (69 yo M)Acc No.[id number]:06/01/2024 Progress Note Patient: Aniya WATTS Provider: Heriberto Clark DPM :1955 A ge:69 Y S ex:Male Date:06/01/2024 Address:[address] [place], [place] [address] Pcp:Dr. Apolinar Cook Subjective: * Chief Complaints: [...] P ALLIATIVE FOOT CARE:: Callus paring: ( 91931) Five or more calluses as noted above reduced with a sterile scalpel blade. Nail debride (34063): D ebridement of five or less mycotic [...] Electronic signature of Maximo Clark DPM on 08/30/2024 at 12:18 AM CDT Sign off status: Pending * Provider: Heriberto Clark DPM Date: 0 06/01/2024 Generated for Michael reddy/Anne/eTransmitting on: 0 08/30/2024 12:18 AM CDT History and Physical Notes * HPI [...]
--- OUTSIDE RECORDS SUMMARY | 2024-08-30 00:19 | XMS_ITS | Clinical Summary ---
Author Organization [facility] [address] Address [address] [place] [address] Phone Care Team Providers Care Community Organization Director Name Role Phone Diego Lutz MD Unavailable Apolinar Cook MD Primary Care Provider [phone] Allergies Active Allergy Reactions Criticality Noted Date Comments Adhesive Tape-Silicones Rash Medium 10/03/2022 Medications fenofibrate (TRIGLIDE) 160 mg tabletIndication s:hyperlipidemia Take 1 tablet (160 mg total) by mouth every morning Active magnesium oxide (MAG-OX) 250 mg (150.8 mg elemental) tabletIndication s:supplement Take 400 mg by mouth nightly Active levothyroxine (SYNTHROID) 150 mcg tabletIndication s:hypothyroidism Take 1 tablet (150 mcg total) by mouth concrete mixer truck driver before breakfast 5 Active cholecalciferol, vitamin D3, [...] (10/11/2019): Added automatically from request for surgery [id number] Edema of lower extremity 09/13/2018 Dyslipidemia 02/23/2017 [...] 08/2006 Heart disease DVT (deep venous thrombosis) ([facility]) Family History Medical History Relation Name Comments [...] on file Legal Sex Male 11:43 PM RELIEF CAPTAIN Gender Identity Not on file Sexual Orientation Not on file Obstetrics History Last Filed Vital Signs Vital Sign Reading Time Taken Comments Blood Pressure 122/77 03/31/2023 4:50 PM RELIEF CAPTAIN Pulse 79 03/31/2023 4:50 PM RELIEF CAPTAIN Temperature 36 C (96.8 F) 03/31/2023 8:10 AM RELIEF CAPTAIN Respiratory Rate 16 03/31/2023 4:50 PM RELIEF CAPTAIN Oxygen Saturation 93% 03/31/2023 4:50 PM RELIEF CAPTAIN Inhaled Oxygen Concentration - - Weight 115.7 kg (255 lb) 03/11/2024 2:33 PM RELIEF CAPTAIN Height 177.8 cm (5' 10) 03/19/2023 10:35 AM RELIEF CAPTAIN Body Mass Index 36.59 03/19/2023 10:35 AM RELIEF CAPTAIN Plan of Treatment Health Maintenance Due Date [...] 05/21/2021, 03/15/2021 Medical Devices Implanted Type Area Offbearer Device Identifier Shelf Expiration Date Model / Serial / Lot Right Knee Replacement Endoprosthesis Knee Cherry Bugs Stem Perform Sz 3 Plus Humeral Long Dwx3pl - S0 - [id number] Implanted:Qty: 1 on 12/03/2022 by Fransisco Santo MD at [facility] Other - see comments Left: Shoulder Cherry Bugs [id number] / 0 / [employer] SAY Media Insert Perform 10 Deg [id number] - S0 - [id number] Implanted:Qty: 1 on 12/03/2022 by Fransisco Santo MD at [facility] Other - see comments Left: Shoulder [employer] [id number] / 0 / [id number]-200 7 Implanted:Qty: 1 on 09/18/2006 Stent Heart Shell Acetabular Tritanium F Hemispherical Od58 Mm Hip Primary Rim Cluster Hole - [id number] Implanted:Qty: 1 on 04/01/2017 by Toñito Mcfarland MD at [facility] Right: Hip [employer] 06/29/2020 [id number] / / [id number] Screw Bone Torx Titanium L35 Mm Od6.5 Mm Acetabular Cancellous Flush Seat Nonsterile - [id number] Implanted:Qty: 1 on 04/01/2017 by Toñito Mcfarland MD at [facility] Right: Hip [employer] 04/23/2021 [id number] / / [id number] Liner Acetabular Cocr F Od46 Mm Hip Modular Dual Mobility Primary - [id number] Implanted:Qty: 1 on 04/01/2017 by Toñito Mcfarland MD at [facility] Right: Hip [employer] 01/09/2022 [id number] / / [id number] Stem Femoral Accolade 127 D 5 Taper L108 Mm L35 Mm Hip Modular Sterile - [id number] Implanted:Qty: 1 on 04/01/2017 by Toñito Mcfarland MD at [facility] Right: Hip [employer] 12/21/2021 [id number] / / [id number] Insert Acetabular Adm Mobile Bearing Hip [employer]aritan X3 Polyethylene H8.9 Mm Od46 Mm Odsec52 Mm Id28 Mm Hip - [id number] Implanted:Qty: 1 on 04/01/2017 by Toñito Mcfarland MD at [facility] Right: Hip [employer] 01/06/2022 [id number] / / [id number] Head Femoral V40 Biolox Delta +4 Mm Offset Taper Od28 Mm Hip - [id number] Implanted:Qty: 1 on 04/01/2017 by Toñito Mcfarland MD at [facility] Right: Hip [employer] 12/15/2021 6570-0-22 8 / / [id number] [employer] Aequalis Perform Reversed 5mm 42mm Peripheral Glenoid Screw Jfh915 - [id number] Implanted:Qty: 1 on 12/03/2022 by Fransisco Santo MD at [facility] Left: Shoulder [employer] [id number] / / [employer] Aequalis Perform Reversed 5mm 34mm Peripheral Glenoid Screw Khq004 - [id number] Implanted:Qty: 1 on 12/03/2022 by Fransisco Santo MD at [facility] Left: Shoulder [employer] [id number] / / [employer] Aequalis Perform Reversed 5mm 18mm Peripheral Glenoid Screw Lxy343 - [id number] Implanted:Qty: 1 on 12/03/2022 by Fransisco Santo MD at [facility] Left: Shoulder [employer] [id number] / / [employer] Od29 Mm Half Wedge Augment Shoulder 35 D Baseplate Glenoid Llw988 - [id number] - [id number] Implanted:Qty: 1 on 12/03/2022 by Fransisco Santo MD at [facility] Left: Shoulder [employer] [id number] 06/12/2025 [id number] / [id number] / [employer] Tornier Aequalis Perform Od42 Mm Reverse Shoulder Standard Sphere Glenoid Qgq864 - [id number] - [id number] Implanted:Qty: 1 on 12/03/2022 by Fransisco Santo MD at [facility] Left: Shoulder [employer] 01/22/2027 [id number] / [id number] / [employer] Aequalis Perform Reversed 6.5mm 35mm Central Glenoid Screw Xsf834 - [id number] Implanted:Qty: 1 on 12/03/2022 by Fransisco Santo MD at [facility] Left: Shoulder [employer] [id number] / / Procedures Procedure Name Priority Date/Time Associated Diagnosis Comments COLONOSCOPY 11/08/2019 7:11 AM CDT from Last 3 Months or Most Recently Relevant to Health Maintenance Results * COLONOSCOPY (11/08/2019 7:11 AM CDT) Anatomical Region Laterality Modality Other Narrative Procedure Note Pérez Hubbard MD - 11/08/2019 7:[address] [facility] Patient Name: Demond Currie Procedure Date: 11/08/2019 7:11 AM Date of : 1955 Admit Type: Outpatient Age: 64 Gender: Male Attending MD: Pérez Hubbard M.D. Room: [facility] ENDOSCOPY ROOM 2 Note Status: Finalized [...] scope was passed under direct vision.The Colonoscope [id number] was introducedthrough the anus and advanced to [...] abnormality. Electronically signed by Pérez Hubbard M.D. Pérze Hubbard M.D. 11/08/2019 8:19:30 AM Number of Addenda: 0 Note Initiated On: 11/08/2019 7:11 AM Procedure Code(s): --- Professional --- G0105, Colorectal cancer screening; colonoscopy on individual at high risk Diagnosis Code(s): --- Professional --- K64.9, Unspecified hemorrhoids K57.30, Diverticulosis of large intestine without perforation orabscess without bleeding Z86.010, Personal history of colonic polyps CPT copyright 2017 [employer] [place] [employer]. All rights reserved. The codes documented in this report are preliminary and upon senior safety support manager reviewmay be revised to meet current compliance requirements. Recognized by the [place] [employer] for promoting quality in endoscopy Pérez Hubbard MD ENDOSCOPY PROCEDURES Final Re sult from Last 3 Months or Most Recently Relevant to Health Maintenance Insurance [facility] CHOICE PLUS [facility] CHOICE PLUS [facility] ADVANTAGE CHOICE PPO [facility] ADVANTAGE CHOICE PPO Advance Directives For more information, please contact: [phone] * Full Code (Latest Code Status on File) Date Activated Date Inactivated Comments 12/03/2022 5:49 PM 12/05/2022 3:56 PM * Full Code Date Activated Date Inactivated Comments 11/08/2019 7:26 AM 11/08/2019 1:09 PM * Full Code Date Activated Date Inactivated Comments 11/08/2019 7:26 AM 11/08/2019 7:26 AM * Full Code Date Activated Date Inactivated Comments 04/01/2017 10:49 AM 04/04/2017 3:43 PM Care Teams Community Organization Director Relationship Specialty Start Date End Date Apolinar Cook MD [address] [place] [address] PCP - General Family Practice 07/27/24 Diego Lutz MD [address] [place] [address] Referring Physician Internal Medicine 04/02/23
--- OUTSIDE RECORDS SUMMARY | 2024-08-30 00:19 | XMS_ITS | Encounter Summary ---
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
--- OUTSIDE RECORDS SUMMARY | 2024-08-30 00:19 | XMS_ITS | Encounter Summary ---
Author Organization [facility] Address [address] [place] [address] Phone Care Team Providers Care Sueding Machine Tender Name Role Phone Pérez Cifuentes NP Primary Care Provider [phone] Diego Lutz MD Unavailable Apolinar Cook MD Primary Care Provider [phone] Reason for Referral * Diagnostic Imaging (Routine) - Closed Specialty Diagnoses / Procedures Referred By Contac t Referred To Contact Diagnoses Status post reverse total arthroplasty of left shoulder Procedures XR Shoulder Left 2 or More Views Fransisco Santo MD [address] [place] [address] Phone: tel: fax: [address] [address] Referral ID Status Reason Start Date Expiration Date Visits Re quested Visits Authorized [id number] Closed 12/05/2022 01/04/2024 1 1 Encounter Details Date Type Department Care Team (Late st Contact Info) Description 12/05/2022 Orders Only [facility] Orth[facility] Surgery [address] [facility] [address] [place] [address] Fransisco Santo MD [address] [place] [address] Status post reverse total arthroplasty of left [...] on file Legal Sex Male 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
--- OUTSIDE RECORDS SUMMARY | 2024-08-30 00:19 | XMS_ITS ---
Author Organization 1 OF Heriberto rivera [facility] Address [address] [place] [address] Care Team Providers Care Hotel General Manager Name Role Phone Dr. Apolinar Cook Primary Care Provider Unavailab Roel Littlejohn [facility] REASON FOR VISIT DFC (Diabetic foot care) Encounters Encounter Location Date Provider Diagnosis 1 OF Heriberto [facility] [address] [place] [address] 08/10/2024 Roel Clark Plan Of Treatment Next Appt Details Provider Name:Roel Clark, 10/22/2024 10:00:00 AM, [address], [place], [address], Progress Notes * Aniya DOLLDOB:[birth year] (69 yo M)Acc No.[id number]:08/10/2024 Progress Note Patient: Nati Aniya CRUZ Provider: Heriberto Clark DPM :1955 A ge:69 Y S ex:Male Date:08/10/2024 Address:[address] [place], [place] [address] Pcp:Dr. Apolinar Cook Subjective: * Chief Complaints: * 1 . DFC (Diabetic foot care). * Medical History: Objective: * Vitals: Assessment: Plan: * Treatment: * Images: * Electronic signature of Chri stopher Eduardo , DPM on 08/30/2024 at 12:19 AM CDT Sign off status: Pending * Provider: Heriberto Clark DPM Date: 0 08/10/2024 Generated for Michael reddy/Anne/Catrina on: 0 08/30/2024 12:19 AM CDT
--- OUTSIDE RECORDS SUMMARY | 2024-08-30 00:19 | XMS_ITS | Clinical Summary ---
Author Organization [facility] Address [address] [address] Phone Care Team Providers Care Grocery Specialist Name Role Phone Provider, Not On File [...] patient's age to complete this topic Insurance [facility] Care Teams Grocery Specialist Relationship Specialty Start Date End Date Provider, Not On File [place] PCP - General 12/05/22
--- OUTSIDE RECORDS SUMMARY | 2024-08-30 00:19 | XMS_ITS | Patient Health Record ---
Author Organization 1 OF Heriberto rivera [facility] Address [address] [place] [address] Care Team Providers Care Topology Teacher Name Role Phone Dr. 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) Active confirmed Problem 468595147 Hammertoe of right foot (M20.41) Active confirmed Vital Signs Height 70 in 08/13/2024 Weight 265 lbs 08/13/2024 BMI 38.02 kg/m2 08/13/2024 Encounters Encounter Location Date Provider Diagnosis 1 OF Heriberto [facility] [address] [place] [address] 03/09/2024 Roel Clark Type 2 diabetes mellitus with other diabetic neurological complication E11.49 ; Callus of foot L84 ; Onychogryphosis L60.2 and Nail dystrophy L60.3 1 OF Heriberto [place] [email or web address] [address] 06/01/2024 [facility] Type 2 diabetes mellitus with other diabetic neurological complication E11.49 ; Callus of foot L84 ; Onychogryphosis L60.2 and Nail dystrophy L60.3 1 OF [place] [email or web address] [address] 10/21/2023 [facility] Type 2 diabetes mellitus with other diabetic neurological complication E11.49 ; Callus of foot L84 ; Onychogryphosis L60.2 and Nail dystrophy L60.3 [address] OF [place] [email or web address] [address] 11/05/2023 Anival Lupe Plantar fasciitis, bilateral M72.2 ; Calcaneal spur of right foot M77.31 ; Calcaneal spur of left foot M77.32 ; Pain in right foot M79.671 and Pain in left foot M79.672 1 OF Heriberto [place] [address] [email or web address] [address] 12/30/2023 [facility] Type 2 diabetes mellitus with other diabetic neurological complication E11.49 ; Callus of foot L84 ; Onychogryphosis L60.2 and Nail dystrophy L60.3 1 OF [place] [address] [address] 08/13/2024 [facility] Type 2 diabetes mellitus with other diabetic neurological complication E11.49 ; Callus of foot L84 ; Onychogryphosis L60.2 ; Nail dystrophy L60.3 and Contusion of lesser toe of right foot with damage to nail, initial encounter S90.221A 1 OF Heriberto Dor[place] [email or web address] [facility] [address] [place] [address] 11/04/2023 Roel Eduardo Assessments Encounter Date Diagnosis [...] AM, [address], [place], [address], Insurance Providers Payer Name Payer Address Payer Phone Subscriber Number Group Number Insured Name Patient Relationship to Insured Coverage Start Date Coverage End Date [employer] [address] [address] [place] [address] [id number] Aniya Ulrich Self - patient is the insured Medical (General) History Medical History History ICD Code A fib, arthritis, diabetes, heart attack, high blood pressure, high cholesterol, thyroid problems Surgical History Surgery Date(Month/Year) Right hip replacement 04/01/2017
--- NOTE | 2024-08-30 00:20 | ED_ITS ---
HPI - Fall General Chief Complaint: Fall Stated Complaint: GLF ON THINNERS Time Seen by Provider: 08/30/24 00:00 History of Present Illness HPI Narrative: Patient is a 69-year-old male who presents the emergency department this evening status worst a ground level fall and head injury. Patient states that he stepped into a hole on the ground/gravel and tripped falling forward hitting the right side of his head on the ground. Patient did sustain a small superficial linear laceration above his right eyebrow. Denies any loss of consciousness. States that he remembers the full event. Denies any syncopal/near syncopal episodes prior to the fall. Patient is on aspirin and Plavix but otherwise denies any additional blood thinner use. No additional symptoms or concerns at this time Related Data Home Medications ?Medication ?Instructions ?Recorded ?Confirmed ?Last Taken ?Type acetaminophen 650 mg 650 mg PO Q8H 02/04/19 07/26/24 Unknown History tablet,extended release (Tylenol Arthritis Pain) cholecalciferol (vitamin D3) 125 1,000 unit PO DAILY 02/04/19 07/26/24 Unknown History mcg (5,000 unit) capsule omega 2-ahc-pkm-fish oil 1,200 mg 1 cap PO DAILY 08/23/21 07/26/24 Unknown History (144 mg-216 mg) capsule (Fish Oil) magnesium hydroxide 1,200 mg 400 mg PO DAILY 10/28/22 07/26/24 Unknown History chewable tablet glucosamine-chondroitin 250 mg-200 2 tablet PO TID 11/08/22 07/26/24 Unknown History mg tablet (Osteo Bi-Flex) potassium 99 mg tablet 99 mg PO HS 11/08/22 07/26/24 Unknown History vitamin A 2,400 mcg capsule 2,400 mcg PO DAILY 11/08/22 07/26/24 Unknown History B6 1.7 mg-folic 400 mcg-B12 2.4 1 cap PO DAILY 10/01/23 07/26/24 Unknown History kbc-tmqsut-wteapnxjjinh oral capsule (Neuriva Plus Brain Performance) cyanocobalamin (vitamin B-12) 1,000 mcg PO DAILY 10/01/23 07/26/24 Unknown History 1,000 mcg tablet (Vitamin B-12) furosemide 20 mg tablet 20 mg PO DAILY 10/01/23 07/26/24 Unknown History icosapent ethyl 1 gram capsule 1 g PO DAILY 10/01/23 07/26/24 Unknown History levocetirizine 5 mg tablet (Xyzal) 5 mg PO DAILY 10/01/23 07/26/24 Unknown History melatonin 3 mg capsule 3 mg PO HS PRN Sleep 10/01/23 07/26/24 Unknown History xkyxiqwl-thmmtzio-rxigf acid 400 1 tablet PO DAILY 10/01/23 07/26/24 Unknown History mcg-vit K 20 mcg-lycop 300 mcg tablet oil of oregano 1 tab-cap PO DAILY 10/01/23 07/26/24 Unknown History Allergies Allergy/AdvReac Type Severity Reaction Status Date / Time latex Allergy Redness of Verified 07/26/24 10:11 Skin metformin AdvReac Intermediate Diarrhea Verified 07/26/24 10:11 Review of Systems Review of Systems: All systems are reviewed and are negative unless stated otherwise in the HPI. [facility] Past Medical History Medical History Family hx of colon cancer Personal history of colonic polyps Chronic throat clearing CKD (chronic kidney disease) stage 3, GFR 30-59 ml/min Coronary artery disease involving [place] coronary artery of [place] heart Dilated cardiomyopathy Essential hypertension Hx of coronary artery disease Hyperlipidemia Hypothyroidism (acquired) COURTNEY (obstructive sleep apnea) Paroxysmal atrial fibrillation Seasonal allergies Type 2 diabetes mellitus with complication, without long-term current use of insulin Surgical History Surgical History History of carpal tunnel surgery of left wrist (~03/2023) H/O repair of right rotator cuff History of right hip replacement History of total right knee replacement (TKR) Family History Family History Mother Cerebrovascular accident, Onset Age: 84 Hypertension, Onset Age: 84 Family history of congestive heart failure, Onset Age: 84 Sibling Family history of diabetes mellitus in first degree relative Acute myocardial infarction Hypertension Family history of kidney disease, Onset Age: 56 Family history of heart disease in male family member before age 55 Family history of thyroid disease, Onset Age: 56 Family history of cardiovascular disease, Onset Age: 56 Father Family history of congestive heart failure Hypertension, Onset Age: 86 Family history of heart disease in male family member before age 55 Diabetes mellitus, Onset Age: 86 Other Family history of hearing loss Social History Social History Smoking status: Never smoker Second hand tobacco smoke exposure: No Alcohol intake: never Substance use: never Substance use type: does not use Do You Feel Safe in your Home?: Yes Lack of Transportation: No Lack of Food: Never True Current Housing: I Have Housing Concerned About Future Housing: No Difficulty Paying Gas/Electric Bills: No Difficulty Paying for Meds: No Currently Unemployed: No Education: High School Diploma/GED Difficulty w/ Childcare or Family Care: No Living arrangements: with family Gender identity (if verbalized by the patient): Male Spiritual care concerns: No Exam Narrative: General: Alert, awake, afebrile, in no acute distress. HEENT: PERRL, no rhinorrhea, no post nasal drip, oropharynx clear, small superficial laceration to the right eyebrow, no active bleeding, mild ecchymosis to the right eyebrow region. Neck: Trachea midline, no JVD, no lymphadenopathy. Cardiovascular: Regular rate and rhythm, no murmurs, rubs or gallops, no peripheral edema. Respiratory: Clear to auscultation bilaterally, no tachypnea, no wheezing, no rhonchi, no rubs, no respiratory distress. Abdomen: Soft, nontender, nondistended, no rebound, no guarding, no peritoneal signs. Musculoskeletal: No joint swelling or deformity, normal muscle tone. Skin: No rashes or petechia, no signs of infection. Psychiatric: Alert and oriented, normal behavior and judgment for situation. Neurological: Alert and oriented to person, place, and time. Follows all commands. No focal deficits, speech is clear and fluent. Course Vital Signs Vital signs: Vital Signs Temperature 98.3 F 08/29/24 22:19 Pulse Rate 81 08/29/24 22:19 Respiratory Rate 16 08/29/24 22:19 Blood Pressure 144/85 H 08/29/24 22:19 Pulse Oximetry 100 08/29/24 22:19 Oxygen Delivery Room Air 08/29/24 22:19 Temperature 98.3 F 08/29/24 22:19 Pulse Rate 78 08/29/24 23:58 Respiratory Rate 18 08/29/24 23:58 Blood Pressure 131/81 08/29/24 23:58 Pulse Oximetry 99 08/29/24 23:58 Oxygen Delivery Room Air 08/29/24 22:19 MDM - Fall MDM Narrative Medical decision making narrative: The patient was evaluated by myself in the emergency department. History is obta ined from patient who is an independent historian and physical exam was performed. External medical records were reviewed at this time. Imaging studies obtained included CT brain and cervical spine without IV contrast which was independently interpreted by me revealing no acute intracranial/cervical process, which is pending final radiology interpretation. Differential diagnosis considerations include fractures, dislocations, intracranial hemorrhage. Comorbidities impacting this visit include none. I have evaluated and discussed social determinants of health with the patient that could potentially impact subsequent diagnosis and treatment plans. On repeat assessment of the patient, reevaluation revealed that the patient is doing well and is in no acute distress. Patient symptoms have improved since he arrived to our emergency department. Repeat vital signs were all reviewed and noted to be stable. Differential diagnosis and treatment plan were discussed with the patient at bedside. Patient agrees with discussion and after shared medical decision making agrees with discharge. All questions were answered to the patient's satisfaction. Patient will follow up with his PCP in 3-5 days. Patient was provided with strict return precautions and instructed to return to the emergency department if any new or worsening symptoms develop. The patient was discharged in stable c ondition. Discharge Plan Discharge Clinical Impression: Fall from ground level, Abrasion of face, Head injury Patient Disposition: Home Condition: Improved Instructions: Antibiotic Form, Fall Prevention for Older Adults (ED), Head Injury (ED), Abrasion (ED) Additional Instructions: Please follow-up with the family doctor within the next 3-5 days. Return to emergency department if any new or worsening symptoms develop. Patient Language: Hungarian Prescriptions: No Action omega 3-dxy-xkf-fish oil [Fish Oil] 1,200 (144-216) mg Capsule 1 cap PO DAILY vitamin A 2,400 mcg Capsule 2,400 mcg PO DAILY potassium 99 mg Tablet 99 mg PO HS glucosamine-chondroitin [Osteo Bi-Flex] 250-200 mg Tablet 2 tablet PO TID Rx Instructions: give after food/meal (DME) FreeStyle Test Strip See Rx Instructions .Route Qty: 100 0RF Rx Instructions: Use to test blood sugar once daily (DME) blood-glucose meter [FreeStyle [place]ite] Kit See Rx Instructions .Route Qty: 1 0RF Rx Instructions: Use to test blood sugars once daily fluticasone propionate 50 mcg/actuation spray,suspension 1 spray intranasal Q12H Qty: 16 2RF Rx Instructions: administer into each nostril magnesium hydroxide 1,200 mg tablet,chewable 400 mg PO DAILY rivaroxaban 20 mg tablet 20 mg tablet 0RF Mounjaro 5 mg/0.5 mL pen injector 5 mg subcut WEEKLY Qty: 2 0RF pregabalin [Lyrica] 50 mg capsule 50 mg PO DAILY Qty: 30 0RF cyanocobalamin (vitamin B-12) [Vitamin B-12] 1,000 mcg Tablet 1,000 mcg PO DAILY furosemide 20 mg Tablet 20 mg PO DAILY levocetirizine [Xyzal] 5 mg Tablet 5 mg PO DAILY Men's Multivitamin 400-20-300 mcg Tablet 1 tablet PO DAILY icosapent ethyl 1 gram Capsule 1 g PO DAILY melatonin 3 mg Capsule 3 mg PO HS PRN (Reason: Sleep) Neuriva Plus Brain Performance 1.7 mg-400 mcg- 2.4 mcg Capsule 1 cap PO DAILY oil of oregano 1 tab-cap PO DAILY aspirin [Aspir-81] 81 mg tablet,delayed release (DR/EC) 81 mg PO DAILY Qty: 1 0RF acetaminophen [Tylenol Arthritis Pain] 650 mg tablet extended release 650 mg PO Q8H cholecalciferol (vitamin D3) 5,000 unit capsule 1,000 unit PO DAILY Xarelto 20 mg tablet 20 mg PO DAILY Qty: 90 1RF (DME) lancets [facility] See Rx Instructions .Route Qty: 200 1RF Rx Instructions: once a day donepezil [Aricept] 10 mg tablet 10 mg PO QHS Qty: 90 2RF rivaroxaban 10 mg tablet 10 mg tablet 0RF levothyroxine 150 mcg tablet 150 mcg PO DAILY Qty: 90 1RF pantoprazole 40 mg tablet,delayed release (DR/EC) See Rx Instructions .ROUTE .COMPLEX Qty: 90 0RF Dose Instruction: 40 MG ORALLY EVERY MORNING Rx Instructions: 40 MG ORALLY EVERY MORNING rivaroxaban 20 mg tablet 20 mg tablet 0RF metoprolol succinate 25 mg tablet extended release 24 hr See Rx Instructions .ROUTE .COMPLEX Qty: 90 2RF Dose Instruction: TAKE 1 TABLET BY MOUTH EVERY DAY Rx Instructions: TAKE 1 TABLET BY MOUTH EVERY DAY fenofibrate 160 mg tablet See Rx Instructions .ROUTE .COMPLEX Qty: 90 2RF Dose Instruction: TAKE 1 TABLET BY MOUTH EVERY DAY Rx Instructions: TAKE 1 TABLET BY MOUTH EVERY DAY trazodone 50 mg tablet See Rx Instructions .ROUTE .COMPLEX Qty: 90 0RF Dose Instruction: TAKE 1 TABLET BY MOUTH EVERY DAY AT BEDTIME NEEDED FOR INSOMNIA Rx Instructions: TAKE 1 TABLET BY MOUTH EVERY DAY AT BEDTIME NEEDED FOR INSOMNIA Mounjaro 2.5 mg/0.5 mL pen injector 2.5 mg subcut WEEKLY Qty: 2 0RF Rx Instructions: for 4 weeks rosuvastatin 20 mg tablet See Rx Instructions .ROUTE .COMPLEX Qty: 90 2RF Dose Instruction: TAKE 1 TABLET BY MOUTH EVERY DAY Rx Instructions: TAKE 1 TABLET BY MOUTH EVERY DAY ipratropium-albuterol 0.5 mg-3 mg(2.5 mg base)/3 mL solution for nebulization 3 ml inhalation QID PRN (Reason: shortness of breath) Qty: 90 1RF Follow-up/Referrals: Apolinar Cook MD [Primary Care Provider] - 3 Days Time of Disposition: 00:24
--- NOTE | 2024-08-30 00:46 | PC.NURSE ---
wound irrigated, steri strips applied to R eyebrow. And bilateral knee irrigated and abx ointment applied.
[2024-08-30 00:48] VITALS: BP 131/81; PULSE 77; RESP 16; O2SAT 98
== END 2024-08-30 00:48 | disposition home or self-care (01) ==
PROVIDERS: Emergency Provider Emergency Medicine; PCP Family Medicine
DX: S00.81XA Abrasion of other part of head, initial encounter (principal); W18.30XA Fall on same level, unspecified, initial encounter; N18.30 Chronic kidney disease, stage 3 unspecified; I25.10 Atherosclerotic heart disease of native coronary artery without angina pectoris; E78.5 Hyperlipidemia, unspecified; E03.9 Hypothyroidism, unspecified; I48.0 Paroxysmal atrial fibrillation; E11.22 Type 2 diabetes mellitus with diabetic chronic kidney disease; I12.9 Hypertensive chronic kidney disease with stage 1 through stage 4 chronic kidney disease, or unspecified chronic kidney disease
CPT/HCPCS: 70450; 72125; 99284

== ENCOUNTER 2024-09-06 10:52 | Emergency (ER) | payer OTHER, SELFPAY ==
[2024-09-06 10:59] VITALS: BP 111/96; PULSE 68; RESP 16; TEMP 36.2; O2SAT 98
--- NOTE | 2024-09-06 11:01 | ED_ITS ---
HPI - Skin/Abscess/Foreign Bdy General Chief complaint: Skin/Abscess/Foreign Body Stated complaint: SPIDER BITE Time Seen by Provider: 09/06/24 11:04 Source: patient, RN notes reviewed and old records reviewed Mode of arrival: ambulatory Limitations: no limitations History of Present Illness HPI narrative: 69-year-old male presents to the [facility] with concerns for a spider bite, noticed it 3 days ago. Has been applying Pred. Patient states it is tender. Denies any fevers. Related Data Home Medications ?Medication ?Instructions ?Recorded ?Confirmed ?Last Taken ?Type acetaminophen 650 mg 650 mg PO Q8H 02/04/19 09/06/24 Unknown History tablet,extended release (Tylenol Arthritis Pain) cholecalciferol (vitamin D3) 125 1,000 unit PO DAILY 02/04/19 09/06/24 Unknown History mcg (5,000 unit) capsule omega 3-qcj-gnm-fish oil 1,200 mg 1 cap PO DAILY 08/23/21 09/06/24 Unknown History (144 mg-216 mg) capsule (Fish Oil) magnesium hydroxide 1,200 mg 400 mg PO DAILY 10/28/22 09/06/24 Unknown History chewable tablet glucosamine-chondroitin 250 mg-200 2 tablet PO TID 11/08/22 09/03/24 Unknown History mg tablet (Osteo Bi-Flex) potassium 99 mg tablet 99 mg PO HS 11/08/22 09/06/24 Unknown History vitamin A 2,400 mcg capsule 2,400 mcg PO DAILY 11/08/22 09/06/24 Unknown History B6 1.7 mg-folic 400 mcg-B12 2.4 1 cap PO DAILY 10/01/23 09/03/24 Unknown History syd-dphtfk-oflqnowbbxsl oral capsule (Neuriva Plus Brain Performance) cyanocobalamin (vitamin B-12) 1,000 mcg PO DAILY 10/01/23 09/06/24 Unknown History 1,000 mcg tablet (Vitamin B-12) furosemide 20 mg tablet 20 mg PO DAILY 10/01/23 09/06/24 Unknown History icosapent ethyl 1 gram capsule 1 g PO DAILY 10/01/23 09/06/24 Unknown History levocetirizine 5 mg tablet (Xyzal) 5 mg PO DAILY 10/01/23 09/06/24 Unknown History melatonin 3 mg capsule 3 mg PO HS PRN Sleep 10/01/23 09/06/24 Unknown History zrvbfwff-dbsezkvd-fbzzj acid 400 1 tablet PO DAILY 10/01/23 09/03/24 Unknown History mcg-vit K 20 mcg-lycop 300 mcg tablet oil of oregano 1 tab-cap PO DAILY 10/01/23 09/06/24 Unknown History Allergies Allergy/AdvReac Type Severity Reaction Status Date / Time latex Allergy Redness of Verified 09/06/24 11:00 Skin metformin AdvReac Intermediate Diarrhea Verified 09/06/24 11:00 Review of Systems 2 Review of Systems: All systems reviewed & are unremarkable except as noted in HPI and below Constitutional: Constitutional: Reports no additional constitutional complaints ENT: Reports system reviewed and no additional complaints, except as documented Cardiovascular: Cardiovascular: Reports no additional cardiovascular complaints, Denies chest pain and Denies dyspnea Respiratory: Respiratory: Reports no additional respiratory complaints, Denies chest congestion, Denies cough and Denies dyspnea Musculoskeletal: Musculoskeletal: Reports no additional musculoskeletal complaints Integumentary/Breasts: Skin/Breast: Reports as per HPI PMFSH Past Medical History Medical History Family hx of colon cancer Personal history of colonic polyps Chronic throat clearing CKD (chronic kidney disease) stage 3, GFR 30-59 ml/min Coronary artery disease involving [place] coronary artery of [place] heart Dilated cardiomyopathy Essential hypertension Hx of coronary artery disease Hyperlipidemia Hypothyroidism (acquired) COURTNEY (obstructive sleep apnea) Paroxysmal atrial fibrillation Seasonal allergies Type 2 diabetes mellitus with complication, without long-term current use of insulin Surgical History Surgical History History of carpal tunnel surgery of left wrist (~03/2023) H/O repair of right rotator cuff History of right hip replacement History of total right knee replacement (TKR) Family History Family History Mother Cerebrovascular accident, Onset Age: 84 Hypertension, Onset Age: 84 Family history of congestive heart failure, Onset Age: 84 Sibling Family history of diabetes mellitus in first degree relative Acute myocardial infarction Hypertension Family history of kidney disease, Onset Age: 56 Family history of heart disease in male family member before age 55 Family history of thyroid disease, Onset Age: 56 Family history of cardiovascular disease, Onset Age: 56 Father Family history of congestive heart failure Hypertension, Onset Age: 86 Family history of heart disease in male family member before age 55 Diabetes mellitus, Onset Age: 86 Other Family history of hearing loss Social History Social History Smoking status: Never smoker Second hand tobacco smoke exposure: No Alcohol intake: never Substance use: never Substance use type: does not use Do You Feel Safe in your Home?: Yes Lack of Transportation: No Lack of Food: Never True Current Housing: I Have Housing Concerned About Future Housing: No Difficulty Paying Gas/Electric Bills: No Difficulty Paying for Meds: No Currently Unemployed: No Education: High School Diploma/GED Difficulty w/ Childcare or Family Care: No Living arrangements: with family Gender identity (if verbalized by the patient): Male Spiritual care concerns: No Comments At the time of my signature, I reviewed and agree with the nursing past medical, surgical, social, and family history. There is no relevant family history pertinent to the patient complaint. Exam 2 Const: General: cooperative, healthy appearing, comfortable, no acute distress, well developed, alert and well nourished Nutritional Appearance: w ell nourished Orientation/consciousness: patient oriented x3 Limitations: no limitations HENMT: Head: normal to inspection Eyes: General: appearance normal, both eyes and all related structures A lignment and Position: alignment normal Neck: Neck: normal visual inspection, full ROM, no lymphadenopathy and no meningeal signs Chest: Chest palpation & inspection: normal inspection of the chest Resp: Effort & Inspection: normal respiratory effort and able to speak in complete sentences Cardio: Rate: regular rate Skin: General skin exam: normal color and no rashes or lesions noted Full body images: 1. Dark center, 7x4 cm indurated area without fluctuance. No drainage. No swelling. [place] extends by 7 x 10 cm. Neuro: General: patient oriented x3, gait normal, moves all extremities and no meningeal signs Cognition (Neuro): normal cognition Speech: normal speech Gait exam (Neuro): Normal gait present Extrem: General: normal to inspection, full ROM, capillary refill normal and normal gait Psych: Appearance: grossly normal and well kempt Mental Status: mental status grossly normal Speech and movement: Normal speech and movement present and Clear speech present Affect: normal affect Attitude: cooperative Course Course Level of Care: Express Care Visit Vital Signs Vital signs: Vital Signs Temperature 97.1 F L 09/06/24 10:59 Pulse Rate 68 09/06/24 10:59 Respiratory Rate 16 09/06/24 10:59 Blood Pressure 111/96 H 09/06/24 10:59 Pulse Oximetry 98 09/06/24 10:59 Oxygen Delivery Room Air 09/06/24 10:59 Temperature 97.1 F L 09/06/24 10:59 Pulse Rate 68 09/06/24 10:59 Respiratory Rate 16 09/06/24 10:59 Blood Pressure 111/96 H 09/06/24 10:59 Pulse Oximetry 98 09/06/24 10:59 Oxygen Delivery Room Air 09/06/24 10:59 Reviewed MDM - Skin/Abscess/Foreign Bdy MDM Narrative Medical decision making narrative: Patient sitting in exam room. Patient is nontoxic, vitals are stable. Patient presents 3 day history of cellulitic changes to the right thigh. No abscess appreciated on exam. No fluctuance. Has slightly increased warmth, flat, no swelling, increased erythema. Patient appropriate for outpatient treatment with close follow-up. Discharge instructions reviewed with patient, as well as provided in writing per nursing staff. The instructions also include specific and strict return/GO TO THE ER as well as f/u information. All questions have been answered, and the patient deny any further questions with discharge and discharge plan. Some parts of this dictation were generated by voice recognition software and may contain typographical and/or grammatical inaccuracies. Differential Diagnosis Differential diagnosis: Likely abscess of skin or subcutaneous tissue, urticaria, herpes zoster, allergic reaction to drug, cellulitis, insect bites and contact dermatitis Critical Care Time Critical Care Time Critical Care Time: No Discharge Plan Discharge Clinical Impression: Cellulitis Patient Disposition: Home Condition: Stable Instructions: Antibiotic Form, Cellulitis (ED) Additional Instructions: DO NOT pick at the area. This will only make the area worse and drive infection deeper. Shower and wash with soapy water. Keep area clean and dry. You can a apply bacitracin twice a day. Take all the antibiotics as prescribed. Follow up with PCP in 7-10 days Go to the ER for worsened condition or Symptoms Patient Language: Kyrgyz Prescriptions: New sulfamethoxazole-trimethoprim [Bactrim DS] 800-160 mg tablet 1 tablet PO Q12H Qty: 14 0RF No Action omega 1-xco-uas-fish oil [Fish Oil] 1,200 (144-216) mg Capsule 1 cap PO DAILY vitamin A 2,400 mcg Capsule 2,400 mcg PO DAILY potassium 99 mg Tablet 99 mg PO HS glucosamine-chondroitin [Osteo Bi-Flex] 250-200 mg Tablet 2 tablet PO TID Rx Instructions: give after food/meal magnesium hydroxide 1,200 mg tablet,chewable 400 mg PO DAILY rivaroxaban 20 mg tablet 20 mg tablet 0RF Mounjaro 5 mg/0.5 mL pen injector 5 mg subcut WEEKLY Qty: 2 0RF pregabalin [Lyrica] 50 mg capsule 50 mg PO DAILY Qty: 30 0RF cyanocobalamin (vitamin B-12) [Vitamin B-12] 1,000 mcg Tablet 1,000 mcg PO DAILY furosemide 20 mg Tablet 20 mg PO DAILY levocetirizine [Xyzal] 5 mg Tablet 5 mg PO DAILY Men's Multivitamin 400-20-300 mcg Tablet 1 tablet PO DAILY icosapent ethyl 1 gram Capsule 1 g PO DAILY melatonin 3 mg Capsule 3 mg PO HS PRN (Reason: Sleep) Neuriva Plus Brain Performance 1.7 mg-400 mcg- 2.4 mcg Capsule 1 cap PO DAILY oil of oregano 1 tab-cap PO DAILY aspirin [Aspir-81] 81 mg tablet,delayed release (DR/EC) 81 mg PO DAILY Qty: 1 0RF acetaminophen [Tylenol Arthritis Pain] 650 mg tablet extended release 650 mg PO Q8H cholecalciferol (vitamin D3) 5,000 unit capsule 1,000 unit PO DAILY Xarelto 20 mg tablet 20 mg PO DAILY Qty: 90 1RF (DME) lancets [facility] [place] Rx Instructions .Route Qty: 200 1RF Rx Instructions: once a day donepezil [Aricept] 10 mg tablet 10 mg PO QHS Qty: 90 2RF levothyroxine 150 mcg tablet 150 mcg PO DAILY Qty: 90 1RF metoprolol succinate 25 mg tablet extended release 24 hr See Rx Instructions .ROUTE .COMPLEX Qty: 90 2RF Dose Instruction: TAKE 1 TABLET BY MOUTH EVERY DAY Rx Instructions: TAKE 1 TABLET BY MOUTH EVERY DAY fenofibrate 160 mg tablet See Rx Instructions .ROUTE .COMPLEX Qty: 90 2RF Dose Instruction: TAKE 1 TABLET BY MOUTH EVERY DAY Rx Instructions: TAKE 1 TABLET BY MOUTH EVERY DAY trazodone 50 mg tablet See Rx Instructions .ROUTE .COMPLEX Qty: 90 0RF Dose Instruction: TAKE 1 TABLET BY MOUTH EVERY DAY AT BEDTIME NEEDED FOR INSOMNIA Rx Instructions: TAKE 1 TABLET BY MOUTH EVERY DAY AT BEDTIME NEEDED FOR INSOMNIA rosuvastatin 20 mg tablet See Rx Instructions .ROUTE .COMPLEX Qty: 90 2RF Dose Instruction: TAKE 1 TABLET BY MOUTH EVERY DAY Rx Instructions: TAKE 1 TABLET BY MOUTH EVERY DAY ipratropium-albuterol 0.5 mg-3 mg(2.5 mg base)/3 mL solution for nebulization 3 ml inhalation QID PRN (Reason: shortness of breath) Qty: 90 1RF fluticasone propionate 50 mcg/actuation spray,suspension See Rx Instructions .ROUTE .COMPLEX Qty: 48 0RF Dose Instruction: 1 SPRAY INTRANASALLY EVERY 12 HOURS ADMINISTER INTO EACH NOSTRIL Rx Instructions: 1 SPRAY INTRANASALLY EVERY 12 HOURS ADMINISTER INTO EACH NOSTRIL pantoprazole 40 mg tablet,delayed release (DR/EC) See Rx Instructions .ROUTE .COMPLEX Qty: 90 0RF Dose Instruction: 40 MG ORALLY EVERY MORNING Rx Instructions: 40 MG ORALLY EVERY MORNING Follow-up/Referrals: Apolinar Cook MD [Primary Care Provider] - 2 Weeks ([facility] care follow up) Time of Disposition: 11:13
== END 2024-09-06 11:20 | disposition home or self-care (01) ==
PROVIDERS: Emergency Provider Nurse Practitioner; PCP Family Medicine
DX: L03.115 Cellulitis of right lower limb (principal); I12.9 Hypertensive chronic kidney disease with stage 1 through stage 4 chronic kidney disease, or unspecified chronic kidney disease; E11.22 Type 2 diabetes mellitus with diabetic chronic kidney disease; N18.30 Chronic kidney disease, stage 3 unspecified; Z79.85 Long-term (current) use of injectable non-insulin antidiabetic drugs; I25.10 Atherosclerotic heart disease of native coronary artery without angina pectoris; E78.5 Hyperlipidemia, unspecified; E03.9 Hypothyroidism, unspecified; I48.0 Paroxysmal atrial fibrillation; I42.0 Dilated cardiomyopathy; Z96.641 Presence of right artificial hip joint; Z96.651 Presence of right artificial knee joint
CPT/HCPCS: 99213; G0463

== ENCOUNTER 2025-02-16 18:58 | Emergency (ER) | payer OTHER, SELFPAY ==
[2025-02-16 19:11] VITALS: BP 112/86; PULSE 75; RESP 16; TEMP 36.4; O2SAT 98
--- NOTE | 2025-02-16 19:22 | ED.ANIMALBIT ---
HPI - Animal Bite General Chief Complaint: Animal Bite Stated Complaint: Dog Bite Time Seen by Provider: 02/16/25 19:10 Source: patient and RN notes reviewed Mode of arrival: ambulatory Limitations: no limitations History of Present Illness HPI narrative: 69-year-old male patient presents Express Care with spouse complain of dog bite to left hand. Patient broke up his dogs finding 1 1 of the dog bit him in his left hand. She reports a puncture wound to the distal left pinky and a laceration to the back of his left ring finger. Patient denies any hand dysfunction. Patient have a trouble getting the bleeding to stop to the left pinky wound. Patient is on Xarelto for history of AFib. Patient believes his tetanus up-to-date. Patient has no concern for rabies for his dogs. Related Data Home Medications ?Medication ?Instructions ?Recorded ?Confirmed ?Last Taken ?Type acetaminophen 650 mg 650 mg PO Q8H 02/04/19 01/25/25 Unknown History tablet,extended release (Tylenol Arthritis Pain) cholecalciferol (vitamin D3) 125 1,000 unit PO DAILY 02/04/19 01/25/25 Unknown History mcg (5,000 unit) capsule omega 6-mbf-exi-fish oil 1,200 mg 1 cap PO DAILY 08/23/21 01/25/25 Unknown History (144 mg-216 mg) capsule (Fish Oil) magnesium hydroxide 1,200 mg 400 mg PO DAILY 10/28/22 01/25/25 Unknown History chewable tablet glucosamine-chondroitin 250 mg-200 2 tablet PO TID 11/08/22 01/25/25 Unknown History mg tablet (Osteo Bi-Flex) potassium 99 mg tablet 99 mg PO HS 11/08/22 01/25/25 Unknown History vitamin A 2,400 mcg capsule 2,400 mcg PO DAILY 11/08/22 01/25/25 Unknown History B6 1.7 mg-folic 400 mcg-B12 2.4 1 cap PO DAILY 10/01/23 01/25/25 Unknown History xxb-qhrjdx-ojtjoaohwfgs oral capsule (Neuriva Plus Brain Performance) cyanocobalamin (vitamin B-12) 1,000 mcg PO DAILY 10/01/23 01/25/25 Unknown History 1,000 mcg tablet (Vitamin B-12) furosemide 20 mg tablet 20 mg PO DAILY 10/01/23 01/25/25 Unknown History icosapent ethyl 1 gram capsule 1 g PO DAILY 10/01/23 01/25/25 Unknown History levocetirizine 5 mg tablet (Xyzal) 5 mg PO DAILY 10/01/23 01/25/25 Unknown History melatonin 3 mg capsule 3 mg PO HS PRN Sleep 10/01/23 01/25/25 Unknown History gtctmjij-yydghdkb-fwrok acid 400 1 tablet PO DAILY 10/01/23 01/25/25 Unknown History mcg-vit K 20 mcg-lycop 300 mcg tablet oil of oregano 1 tab-cap PO DAILY 10/01/23 01/25/25 Unknown History Allergies Allergy/AdvReac Type Severity Reaction Status Date / Time latex Allergy Redness of Verified 01/25/25 09:53 Skin metformin AdvReac Intermediate Diarrhea Verified 01/25/25 09:53 Review of Systems Review of Systems: CONSTITUTIONAL: Denies fever, chills, or sweats. EYES: Denies visual changes, redness, or discharge. ENT: Denies rhinorrhea, congestion, sore throat, or otalgia. CARDIOVASCULAR: Denies chest pain, palpitations, or edema. RESPIRATORY: Denies cough or dyspnea. GASTROINTESTINAL: Denies abdominal pain, nausea, vomiting, or diarrhea. GENITOURINARY: Denies dysuria or hematuria. SKIN: Denies rash or itching. Positive for dog bite and laceration. MUSCULOSKELETAL: Denies back pain, joint pain, or myalgia. NEUROLOGIC: Denies headache, numbness, or weakness. PSYCHIATRIC: Denies anxiety or depression. All other systems reviewed are negative, except as documented in HPI. [facility] Past Medical History Medical History Family hx of colon cancer Personal history of colonic polyps Chronic throat clearing CKD (chronic kidney disease) stage 3, GFR 30-59 ml/min Coronary artery disease involving [place] coronary artery of [place] heart Dilated cardiomyopathy Essential hypertension Hx of coronary artery disease Hyperlipidemia Hypothyroidism (acquired) COURTNEY (obstructive sleep apnea) Paroxysmal atrial fibrillation Seasonal allergies Type 2 diabetes mellitus with complication, without long-term current use of insulin Surgical History Surgical History History of carpal tunnel surgery of left wrist (~03/2023) H/O repair of right rotator cuff History of right hip replacement History of total right knee replacement (TKR) Family History Family History Mother Cerebrovascular accident, Onset Age: 84 Hypertension, Onset Age: 84 Family history of congestive heart failure, Onset Age: 84 Sibling Family history of diabetes mellitus in first degree relative Acute myocardial infarction Hypertension Family history of kidney disease, Onset Age: 56 Family history of heart disease in male family member before age 55 Family history of thyroid disease, Onset Age: 56 Family history of cardiovascular disease, Onset Age: 56 Father Family history of congestive heart failure Hypertension, Onset Age: 86 Family history of heart disease in male family member before age 55 Diabetes mellitus, Onset Age: 86 Other Family history of hearing loss Social History Social History Smoking status: Never smoker Second hand tobacco smoke exposure: No Alcohol intake: never Substance use: never Substance use type: does not use Lack of Transportation: No Lack of Food: Never True Current Housing: I Have Housing Concerned About Future Housing: No Difficulty Paying Gas/Electric Bills: No Difficulty Paying for Meds: No Currently Unemployed: No Education: High School Diploma/GED Difficulty w/ Childcare or Family Care: No Living arrangements: with family Gender identity (if verbalized by the patient): Male Spiritual care concerns: No Comments At the time of my signature, I reviewed and agree with the nursing past medical, surgical, social, and family history. There is no relevant family history pertinent to the patient complaint. Exam Narrative: GENERAL: This is a well-nourished, well-developed adult, in no apparent distress. They are non ill-appearing, nontoxic appearing. HEAD: normocephalic, atraumatic. EYES: Sclera clear/white. Conjunctiva normal. Vision is grossly intact. Extraocular movements intact EARS: External ears normal, Hearing grossly intact. NOSE: External nose normal THROAT: Mucous membranes moist, NECK: Neck supple, CARDIOVASCULAR: Regular rate and rhythm RESPIRATORY: Respiratory rate normal, respiratory effort nonlabored, no respiratory distress SKIN: warm, Dry, intact with no suspicious lesions or rash, good texture and turgor. NEURO: awake, alert, and oriented to person, place and time. There were no obvious focal neurologic abnormalities. EXTREMITIES: Left pinky: Superficial Puncture wound to proximal palmar pinky. Is measuring less approximately 1 cm. Dorsal proximal pinky laceration measuring approximately 0.5 cm, well approximated. It is well approximated, not gaping. Slight oozing of bloody discharge. Patient able to flex against resistance and extend against resistance at the PIP, DIP, MCP joint. No retained foreign body. Left ring finger: There is a laceration to the proximal dorsal surface of the left ring finger. Is measuring approximately 1.5 cm. It is slightly on approximated. Appears superficial. No subcutaneous tissue visualized. No retained foreign body. Patient able to flex and extend against resistance at the PIP, DIP, MCP joint. Neurovascular status intact distal injuries. Capillary refill less than 2 seconds. Sensation intact. Radial, ulnar, median nerve distribution intact. BACK: Nontender without deformity. No CVA tenderness. Course Course Emergency Course: Portions of this record may have been created with voice recognition software Level of Care: Express Care Visit Vital Signs Vital signs: Vital Signs Temperature 97.6 F 02/16/25 19:11 Pulse Rate 75 02/16/25 19:11 Respiratory Rate 16 02/16/25 19:11 Blood Pressure 112/86 02/16/25 19:11 Pulse Oximetry 98 02/16/25 19:11 Temperature 97.6 F 02/16/25 19:11 Pulse Rate 75 02/16/25 19:11 Respiratory Rate 16 02/16/25 19:11 Blood Pressure 112/86 02/16/25 19:11 Pulse Oximetry 98 02/16/25 19:11 Reviewed Procedures Laceration Laceration 1: Date: 02/16/25 Time: 19:25 Site: hand Side (If applicable): left (Pinky) Size (cm): 1 Description: flap Depth: simple, single layer Local Anesthetic: lidocaine 1% Amount of anesthesia used (mL): 1.5 Pre-repair: wound explored, irrigated extensively and wound margins revised ====== Skin Level ====== Skin layer closed with: nylon Size (cm): 5-0 Number of sutures: 2 Technique: simple, interrupted (Loosely approximated) ====== Subcutaneous Layer ====== ====== Muscle Layer ====== ====== Tendon Layer ====== Dressing: Triple antibiotic ointment, non adherent dressing. Laceration 2: Date: 02/16/25 Time: 19:20 Site: hand Side (If applicable): left (Left ring finger) Size (cm): 1.5 Description: irregular Depth: simple, single layer Local Anesthetic: lidocaine 1% Amount of anesthesia used (mL): 2 Pre-repair: wound explored and irrigated extensively ====== Skin Level ====== Skin layer closed with: nylon Size (cm): 5-0 Number of sutures: 3 Technique: simple, interrupted (Approximated loosely) ====== Subcutaneous Layer ====== ====== Muscle Layer ====== ====== Tendon Layer ====== Dressing: Triple antibiotic ointment, non adherent dressing, pressure bandage. MDM - Animal Bite MDM Narrative Medical decision making narrative: Successful laceration repaired to lacerations. Wounds were closed loosely since they were dog bites. Patient will be sent home on Augmentin. No retained foreign body visualized on wounds. Patient says tetanus up-to-date. Wounds irrigated extensively. Strict ER precautions discussed with patient and signs of infection. Discussed physical exam findings. Advised supportive measures and signs/symptoms to go to the ER. Pt is appropriate for outpt treatment and f/u. Differential Diagnosis Differential diagnosis: Likely bite by animal, dog bite and other (Laceration,) Critical Care Time Critical Care Time Critical Care Time: No Discharge Plan Discharge Clinical Impression: Dog bite of hand Qualifiers: Encounter type: initial encounter Laterality: left Qualified Code(s): S61.452A - Open bite of left hand, initial encounter Patient Disposition: Home Condition: Stable Instructions: Antibiotic Form, Animal Bite (ED), Care For Your Stitches (ED), Laceration (ED) Additional Instructions: Take the Augmentin as directed. Your sutures need to be removed in 10-14 days. ?Wear the dressing that has been applied for the first 24 hours to allow a scab to start forming. ?After this, you may remove and wash as normal mild soap and water. Not soak or scrub the wound. Do NOT wash with peroxide or alcohol. May apply bacitracin ointment or Vaseline to the wound daily. Change the dressing daily, use a non adherent dressing such as a Band-Aid her Telfa. Avoid dirty water to the wound is healed completely. Take tylenol or ibuprofen at home for pain, if able. ?Follow up with your PCP 3-5 days for wound recheck. Look for any signs of infection such as redness, swelling, increased pain, or green/yellow drainage. Go to the ER for any signs of infection or any serious concerns. Follow-up with a hand specialist if any hands functions developed. Patient Language: Yemeni Prescriptions: New amoxicillin-pot clavulanate 875-125 mg tablet 1 tablet PO Q12H 5 Days Qty: 10 0RF No Action omega 1-fdy-fjf-fish oil [Fish Oil] 1,200 (144-216) mg Capsule 1 cap PO DAILY sulfamethoxazole-trimethoprim [Bactrim DS] 800-160 mg tablet 1 tablet PO Q12H Qty: 14 0RF vitamin A 2,400 mcg Capsule 2,400 mcg PO DAILY potassium 99 mg Tablet 99 mg PO HS glucosamine-chondroitin [Osteo Bi-Flex] 250-200 mg Tablet 2 tablet PO TID Rx Instructions: give after food/meal propranolol 60 mg capsule,extended release 24 hr 60 mg PO DAILY Qty: 90 0RF magnesium hydroxide 1,200 mg tablet,chewable 400 mg PO DAILY rivaroxaban 20 mg tablet 20 mg tablet 0RF cyanocobalamin (vitamin B-12) [Vitamin B-12] 1,000 mcg Tablet 1,000 mcg PO DAILY furosemide 20 mg Tablet 20 mg PO DAILY levocetirizine [Xyzal] 5 mg Tablet 5 mg PO DAILY Men's Multivitamin 400-20-300 mcg Tablet 1 tablet PO DAILY icosapent ethyl 1 gram Capsule 1 g PO DAILY melatonin 3 mg Capsule 3 mg PO HS PRN (Reason: Sleep) Neuriva Plus Brain Performance 1.7 mg-400 mcg- 2.4 mcg Capsule 1 cap PO DAILY oil of oregano 1 tab-cap PO DAILY aspirin [Aspir-81] 81 mg tablet,delayed release (DR/EC) 81 mg PO DAILY Qty: 1 0RF acetaminophen [Tylenol Arthritis Pain] 650 mg tablet extended release 650 mg PO Q8H cholecalciferol (vitamin D3) 5,000 unit capsule 1,000 unit PO DAILY (DME) lancets Misc See Rx Instructions .Route Qty: 200 1RF Rx Instructions: once a day metoprolol succinate 25 mg tablet extended release 24 hr See Rx Instructions .ROUTE .COMPLEX Qty: 90 2RF Dose Instruction: TAKE 1 TABLET BY MOUTH EVERY DAY Rx Instructions: TAKE 1 TABLET BY MOUTH EVERY DAY fenofibrate 160 mg tablet See Rx Instructions .ROUTE .COMPLEX Qty: 90 2RF Dose Instruction: TAKE 1 TABLET BY MOUTH EVERY DAY Rx Instructions: TAKE 1 TABLET BY MOUTH EVERY DAY rosuvastatin 20 mg tablet See Rx Instructions .ROUTE .COMPLEX Qty: 90 2RF Dose Instruction: TAKE 1 TABLET BY MOUTH EVERY DAY Rx Instructions: TAKE 1 TABLET BY MOUTH EVERY DAY ipratropium-albuterol 0.5 mg-3 mg(2.5 mg base)/3 mL solution for nebulization 3 ml inhalation QID PRN (Reason: shortness of breath) Qty: 90 1RF donepezil [Aricept] 10 mg tablet 10 mg PO QHS Qty: 90 2RF levothyroxine 150 mcg tablet 150 mcg PO DAILY Qty: 90 1RF fluticasone propionate 50 mcg/actuation spray,suspension See Rx Instructions .ROUTE .COMPLEX Qty: 48 0RF Dose Instruction: 1 SPRAY INTRANASALLY EVERY 12 HOURS ADMINISTER INTO EACH NOSTRIL Rx Instructions: 1 SPRAY INTRANASALLY EVERY 12 HOURS ADMINISTER INTO EACH NOSTRIL pantoprazole 40 mg tablet,delayed release (DR/EC) See Rx Instructions .ROUTE .COMPLEX Qty: 90 1RF Dose Instruction: 40 MG ORALLY EVERY MORNING Rx Instructions: 40 MG ORALLY EVERY MORNING memantine [Namenda] 10 mg tablet 10 mg PO QPM Qty: 90 0RF trazodone 50 mg tablet See Rx Instructions .ROUTE .COMPLEX Qty: 90 1RF Dose Instruction: TAKE 1 TABLET BY MOUTH EVERY DAY AT BEDTIME NEEDED FOR INSOMNIA Rx Instructions: TAKE 1 TABLET BY MOUTH EVERY DAY AT BEDTIME NEEDED FOR INSOMNIA pregabalin [Lyrica] 50 mg capsule 50 mg PO DAILY Qty: 30 0RF Mounjaro 5 mg/0.5 mL pen injector 5 mg subcut WEEKLY Qty: 6 1RF Xarelto 20 mg tablet 20 mg PO DAILY Qty: 90 2RF Follow-up/Referrals: Cherri Lynne MD [Physician, Plastic Surgery] Apolinar Cook MD [Primary Care Provider, Family Practice] Time of Disposition: 19:57
[2025-02-16] MEDS: LIDOCAINE 1% LOCAL INJ 2 ML AMPUL 4 ML INFILTRATE (19:35)
== END 2025-02-16 20:08 | disposition home or self-care (01) ==
PROVIDERS: PCP Family Medicine
DX: S61.452A Open bite of left hand, initial encounter (principal); I48.91 Unspecified atrial fibrillation; I12.9 Hypertensive chronic kidney disease with stage 1 through stage 4 chronic kidney disease, or unspecified chronic kidney disease; E11.22 Type 2 diabetes mellitus with diabetic chronic kidney disease; N18.30 Chronic kidney disease, stage 3 unspecified; I25.10 Atherosclerotic heart disease of native coronary artery without angina pectoris; Z79.01 Long term (current) use of anticoagulants; W54.0XXA Bitten by dog, initial encounter
CPT/HCPCS: 12001; 99213; G0463; J2003

== ENCOUNTER 2025-02-18 12:06 | Emergency (ER) | payer OTHER, SELFPAY ==
--- OUTSIDE RECORDS SUMMARY | 2023-11-19 04:40 | XMS_ITS ---
Author Organization 1 OF [facility] Address [address] [place] [address] Care Team Providers Care Secretary Of Police Name Role Phone Dr. Apolinar Cook Primary Care Provider Unavailab Roel Littlejohn Unavailable Anival Andrade Unavailable [phone] REASON FOR VISIT b/l heel pain Encounters Encounter Location Date Provider Diagnosis 1 OF [facility] [address] [place] [address] 11/19/2023 Anival Andrade Plan Of Treatment Next Appt Details Provider Name:Roel Clark, 03/31/2025 10:30:00 AM, [address], [address], [place], [address], History and Physical Notes * HPI (History of Present Illness) Category Sub-Category Detail Notes Category Not es Primary reason for visit: 68 yo diabetic male RTO for f/u on pf. At last visit, Injections were done B/L. MA assisting with visit: HPI/Rooming: ..... Examination Category Sub-Category Detail Notes Category Not es General Examination Mental status: Cooperative, Oriented to person, place and time, Mood and affect: normal, Judgement and intellect: normal with appropriate response to questions Shoes today: XXXX Exam unchanged from prior visit: with no significant changes in appearance or condition of feet Constitutional / Appearance: No acute di stress , Well nourished, Appropriate personal hygiene Progress Notes * Aniya DOLLDOB:[birth year] (69 yo M)Acc No.[id number]:11/19/2023 Progress Notes Patient: Aniya Wood Provider: Desmond Andrade DPM :1955 A ge:68 Y S ex:Male Date:11/19/2023 Address:[address] [place], [place] [id number] Pcp:Dr. Apolinar Cook Subjective: * Chief Complaints: * B /l heel pain * HPI: M A assisting with visit:: HPI/Rooming: . ..... [facility] reason for visit:: 68 yo diabetic male RTO for f/u on pf. At last visit, Injections were done B/L. Objective: * Examination: G eneral Examination: Constitutional / Appearance: N o acute distress , Well nourished, Appropriate personal hygiene. Mental status: C ooperative, Oriented to person, place and time, Mood and affect: normal, Judgement and intellect: normal with appropriate response to questions. Shoes today: X XXX. Exam unchanged from prior visit: w ith no significant changes in appearance or condition of feet . * Electronic signature of Anival Andrade DPM on 02/18/2025 at 12:07 PM AVIONICS SYSTEM ENGINEER Sign off status: Pending * Provider: Desmond Andrade DPM Date: 0 11/19/2023 Generated for Michael reddy/Anne/Alfreditting on: 1 04/20/2024 12:07 PM AVIONICS SYSTEM ENGINEER
--- OUTSIDE RECORDS SUMMARY | 2024-03-09 05:10 | XMS_ITS ---
Author Organization 1 OF [facility] river[facility] Address [address] [address] Care Team Providers Care Telecasting Technician Name Role Phone Dr. Apolinar Cook Primary Care Provider Unavailab Roel Littlejohn [facility] REASON FOR VISIT dfc Medications Medication SIG (Take, Route, Fr equency, Duration) Notes Start Date End Date Status Furosemide Active Levothyroxine Sodium Active Vitamin E Active Xarelto Active Vitamin D3 Active Aspirin Active Fenofibrate Active Vitamin C Active Fish Oil Active Beta Carotene Active Metoprolol Succinate Active Mounjaro Active Tylenol Arthritis Pain Active Vital Signs Height 70 in 03/09/2024 Weight 260 lbs 03/09/2024 BMI 37.3 kg/m2 03/09/2024 Encounters Encounter Location Date Provider Diagnosis 1 OF [facility] Clark [place] [address] [address] 03/09/2024 Roel Clark Type 2 diabetes mellitus with other diabetic neurological complication E11.49 ; Callus of foot L84 ; Onychogryphosis L60.2 and Nail dystrophy L60.3 Assessments Encounter Date Diagnosis (ICD Code) Assessment Notes Treatment Notes Treatment Clinical Notes Section Notes 03/09/2024 Type 2 diabetes mellitus with other diabetic neurological complication (ICD-10 - E11.49) Considering the associated comorbidities and physical exam findings today, this patient is at substantial risk of developing serious foot complications in the absence of regular and professional palliative foot care. 03/09/2024 Callus of foot (ICD-10 - L84) 03/09/2024 Onychogryphosis (ICD-10 - L60.2) 03/09/2024 Nail dystrophy (ICD-10 - L60.3) Plan Of Treatment Treatment Notes Assessment Notes Type 2 diabetes mellitus wit h other diabetic neurological complication Considering the associated comorbidities and physical exam findings today, this patient is at substantial risk of developing serious foot complications in the absence of regular and professional palliative foot care. Next Appt Details Follow Up: 10-12 weeks or co ntact office PRN with any concerns, Reason: Provider Name:Shaggymalikpaz Clark, 03/31/2025 10:30:00 AM, [address], [address], [place], [address], Procedure Notes * Category Sub-Category Detail Notes PALLIATIVE FOOT CARE: Callus paring: (53003) Fi ve or more calluses as noted above reduced with a sterile scalpel blade Nail debride (89541): Debridement of fiv e or less mycotic and/or hypertrophic nails, utilizing manual and electric debridement the affected nails were reduced the nails in length and thickness with curettage of debris from nail margins performed as needed. Nail thickness reduced by:, 10% Dystrophic nail trim (G0127) All dystrop hic nails reduced in length and thickness with curettage of debris from nail margins as needed History and Physical Notes * HPI (History of Present Illness) Category Sub-Category Detail Notes Category Not es Primary reason for visit: 68 year old diabetic male PTO for RFC. Pt reports no acute issues with nails or calluses today. MA assisting with visit: HPI/Rooming: Larry Chart Prep Larry Examination Category Sub-Category Detail Notes Category Not es General Examination Mental status: Cooperative, Oriented to person, place and time, Mood and affect: normal, Judgement and intellect: normal with appropriate response to questions Shoes today: Diabetic shoes w/ di abetic inserts Constitutional / Appearance: No acute di stress , Well nourished, Appropriate personal hygiene Lower Extremity VASCULAR: Pulses: DP pul se diminished bilateral; PT pulse absent bilateral Temperature gradient: decreased from pro ximal to distal bilateral Pedal hair: sparse / absent bila teral Lower Extremity NEURO: Monofilament test (10 gram pressure) Exam of 06/04/2023:, - - revealed intact sensation to, entire foot, bilateral Vibration perception: Exam of 06/04/2023 :, - - noted significantly diminished per evaluation with 128Hz tuning fork applied to distal hallux compared to ipsilateral medial malleolus , @ bilateral feet General sensation appears diminished , b ilateral , to sharp stimuli. Lower Extremity MSK: Hammertoe deformity: Bilate ral feet: digits 2-5 , Toe(s) are contracted in a flexible nature at the PIPJ with slight contracture evident to the MTPJ. Foot deformities: Bilateral: , hammert oes Lower Extremity DERM: Skin: relatively dry, atrophic and with decreased turgor noted. Nails: Nails of TA, T6, T7, T8, T9 , appear , relatively thickened , dystrophic , discolored , incurvated. Remaining nails appear elongated and dystrophic with abnormal shape, periungual debris, subungual hyperkeratosis and/or partial onycholysis. Hyperkeratotic lesions LEFT foot: medial hallux IPJ, plantar medial 1st MPJ, , sub 2nd MTH, sub 3rd MTH, sub 5th MTH Hyperkeratotic lesions RIGHT foot: media l hallux IPJ, distal 2nd toe, lateral PIPJ 5th toe, distal 3rd toe, sub 4th MTH, plantar medial 1st MPJ Progress Notes * Aniya DOLLDOB:[birth year] (69 yo M)Acc No.[id number]:03/09/2024 Progress Note Patient: Aniya Wood Provider: Heriberto Clark DPM :1955 A ge:68 Y S ex:Male Date:03/09/2024 Address:[address] [place], [place] [id number] Pcp:Dr. Apolinar Cook Subjective: * Chief Complaints: * D fc * HPI: Awais Spencer assisting with visit:: Chart Prep Frank phelps. HPI/Rooming: Frank ramos reason for visit:: 68 year old diabetic male PTO for RFC. Pt reports no acute issues with nails or calluses today. * ROS: * MULTI-SYSTEM REVIEW:: burning, tingling,numbness in feet a dmits. ? * Medical History: A fib, arthritis, diabetes, heart attack, high blood pressure, high cholesterol, thyroid problems Medical History Verified * Surgical History: Right hip replacement 04/01/2017 Surgical History verified. * Family History: F amily History Verified.. diabetes. * Social History: Social History Verified. No Social History documented. * Medications: T akingMetoprolol Succinate Mounjaro Tylenol Arthritis Pain Aspirin Fenofibrate Vitamin C Fish Oil Beta Carotene Vitamin E Xarelto Vitamin D3 Furosemide Levothyroxine Sodium Medication List reviewed and reconciled with the patientTaking Metoprolol Succinate Taking Mounjaro Taking Tylenol Arthritis Pain Taking Aspirin Taking Fenofibrate Taking Vitamin C Taking Fish Oil Taking Beta Carotene Taking Vitamin E Taking Xarelto Taking Vitamin D3 Taking Furosemide Taking Levothyroxine Sodium Medication List reviewed and reconciled with the patient * Allergies: y esAllergies Verified. Objective: * Vitals: W t:260lbs, Wt-k.93 kg, Ht:70in, BMI:37.3Index. * Examination: G eneral Examination: Constitutional / Appearance: N o acute distress , Well nourished, Appropriate personal hygiene. Mental status: C ooperative, Oriented to person, place and time, Mood and affect: normal, Judgement and intellect: normal with appropriate response to questions. Shoes today: D iabetic shoes w/ diabetic inserts. ? L ower Extremity VASCULAR: : Pulses: D P pulse diminished bilateral; PT pulse absent bilateral. Temperature gradient: decreased from proximal to distal bilateral. Pedal hair: s parse / absent bilateral. ? L ower Extremity DERM: : Skin: r elatively dry, atrophic and with decreased turgor noted.. Nails: N ails of TA, T6, T7, T8, T9 , appear , relatively thickened , dystrophic , discolored , incurvated. Remaining nails appear elongated and dystrophic with abnormal shape, periungual debris, subungual hyperkeratosis and/or partial onycholysis.. Hyperkeratotic lesions LEFT foot: m edial hallux IPJ, plantar medial 1st MPJ, , sub 2nd MTH, sub 3rd MTH, sub 5th MTH. Hyperkeratotic lesions RIGHT foot: m edial hallux IPJ, distal 2nd toe, lateral PIPJ 5th toe, distal 3rd toe, sub 4th MTH, plantar medial 1st MPJ. ? L ower Extremity NEURO: : General sensation appears d iminished , bilateral , to sharp stimuli.. Monofilament test (10 gram pressure) E xam of 06/04/2023:, - - revealed intact sensation to, entire foot, bilateral. Vibration perception: E xam of 06/04/2023:, - - noted significantly diminished per evaluation with 128Hz tuning fork applied to distal hallux compared to ipsilateral medial malleolus , @ bilateral feet . L ower Extremity MSK: : Foot deformities: B ilateral:, hammertoes. Hammertoe deformity: B ilateral feet: digits 2-5 , Toe(s) are contracted in a flexible nature at the PIPJ with slight contracture evident to the MTPJ.. ? Assessment: * Assessment: 1. T ype 2 diabetes mellitus with other diabetic neurological complication - E11.49 (Primary)? 2. C allus of foot - L84 3 . O nychogryphosis - L60.2 ? 4 . N ail dystrophy - L60.3 Plan: * Treatment: * Procedures: P ALLIATIVE FOOT CARE:: Callus paring: ( 13864) Five or more calluses as noted above reduced with a sterile scalpel blade. Nail debride (67250): D ebridement of five or less mycotic and/or hypertrophic nails, utilizing manual and electric debridement the affected nails were reduced the nails in length and thickness with curettage of debris from nail margins performed as needed. Nail thickness reduced by:, 10%. Dystrophic nail trim (G0127) A ll dystrophic nails reduced in length and thickness with curettage of debris from nail margins as needed. * Preventive Medicine: Counseling: C are goal follow-up plan: BMI counseling provided to patient:?Lifestyle education Screenings: F ALL RISK SCREENING Fall Risk Assessment: N o falls in the past year * Follow Up: 1 0-12 weeks or contact office PRN with any concerns Billing Information: * Procedure Codes: 29169 TRIM SKIN LESIONS, OVER 4. Modifiers: Q9 69689 DEBRIDE NAIL, 1-5. Modifiers: Q9, 59 G0127 TRIMMING DYSTROPHIC NAILS ANY #. Modifiers: 59, Q9 * Electronic signature of Maximo Clark DPM on 02/18/2025 at 12:08 PM LABORER TREE [employer]APPING Sign off status: Pending * Provider: Heriberto Clark DPM Date: 05/10/2023 Generated for Michael reddy/Anne/Catrina on: 04/20/2024 12:08 PM LABORER TREE TAPPING
--- OUTSIDE RECORDS SUMMARY | 2024-06-01 05:00 | XMS_ITS ---
Author Organization 1 OF Heriberto rivera [facility] Address [address] [address] Care Team Providers Care Gas Leak Inspector Helper Name Role Phone Dr. Apolinar Cook Primary Care Provider UnavailRoel [facility] [phone] Allergies No Known Allergies REASON FOR VISIT DFC (Diabetic foot care) Medications Medication SIG (Take, Route, Fr equency, Duration) Notes Start Date End Date Status Mounjaro Active Tylenol Arthritis Pain Active Aspirin Active Fenofibrate Active Vitamin C Active Vitamin D3 Active Metoprolol Succinate Active Furosemide Active Levothyroxine Sodium Active Xarelto Active Fish Oil Active Beta Carotene Active Vitamin E Active Vital Signs Height 70 in 06/01/2024 Weight 265 lbs 06/01/2024 BMI 38.02 kg/m2 06/01/2024 Encounters Encounter Location Date Provider Diagnosis 1 OF Heriberto Clark [place] [address] [address] 06/01/2024 Roel Clark Type 2 diabetes mellitus with other diabetic neurological complication E11.49 ; Callus of foot L84 ; Onychogryphosis L60.2 and Nail dystrophy L60.3 Assessments Encounter Date Diagnosis (ICD Code) Assessment Notes Treatment Notes Treatment Clinical Notes Section Notes 06/01/2024 Type 2 diabetes mellitus with other diabetic neurological complication (ICD-10 - E11.49) Considering the associated comorbidities and physical exam findings today, this patient is at substantial risk of developing serious foot complications in the absence of regular and professional palliative foot care. Due to the patients insurance, he was advised to contact his insurance company directly for guidance on contracted companies to obtain diabetic shoes through. The patient and his prefer to purchase shoes self pay through an outside company. 06/01/2024 Callus of foot (ICD-10 - L84) 06/01/2024 Onychogryphosis (ICD-10 - L60.2) 06/01/2024 Nail dystrophy (ICD-10 - L60.3) Plan Of Treatment Treatment Notes Assessment Notes Type 2 diabetes mellitus wit h other diabetic neurological complication Considering the associated comorbidities and physical exam findings today, this patient is at substantial risk of developing serious foot complications in the absence of regular and professional palliative foot care. Due to the patients insurance, he was advised to contact his insurance company directly for guidance on contracted companies to obtain diabetic shoes through. The patient and his prefer to purchase shoes self pay through an outside company. Next Appt Details Follow Up: 10-12 weeks or co ntact office PRN with any concerns, Reason: Provider Name:Roel Clark, 03/31/2025 10:30:00 AM, [address], [place], [address], Procedure Notes * Category Sub-Category Detail Notes PALLIATIVE FOOT CARE: Callus paring: (66312) Fi ve or more calluses as noted above reduced with a sterile scalpel blade Nail debride (42783): Debridement of fiv e or less mycotic [...] Category Not es Primary reason for visit: 69 year old diabetic male PTO for RFC. Pt reports no acute issues with nails or calluses today. Pt also PTO to discuss getting diabetic shoes, which he has never purchased before. MA assisting with visit: HPI/Rooming: , Myeshia Chart Prep Estefania Examination Category Sub-Category Detail Notes Category Not es General Examination Mental status: Cooperative, Oriented to person, place and time, Mood and affect: normal, Judgement and intellect: normal with appropriate response to questions Shoes today: , Slip on shoes Constitutional / Appearance: No acute di stress , Well nourished, Appropriate personal hygiene Lower Extremity VASCULAR: Pulses: DP pul se diminished bilateral; PT pulse absent bilateral Temperature gradient: decreased from pro ximal to distal bilateral Pedal hair: sparse / absent bila teral Lower Extremity NEURO: Monofilament test (10 gram pressure) Exam of 06/01/2024, - - revealed intact sensation to, bilateral Vibration perception: Exam of 06/01/2024 , - - noted significantly diminished / absent per evaluation with 128Hz tuning fork applied to distal hallux compared to ipsilateral medial malleolus, @ bilateral feet General sensation appears diminished [...] medial hallux IPJ, plantar medial 1st MPJ, Hyperkeratotic lesions RIGHT foot: media l hallux IPJ, distal 2nd toe, lateral PIPJ 5th toe, distal 3rd toe, sub 4th MTH, plantar medial 1st MPJ Progress Notes * Aniya DOLLDOB:[birth year] (69 yo M)Acc No.[id number]:06/01/2024 Progress Note Patient: Aniya Wood Provider: Heriberto Clark DPM :1955 A ge:69 Y S ex:Male Date:06/01/2024 Address:[address] [place], [place] [id number] Pcp:Dr. Apolinar Cook Subjective: * Chief Complaints: * D FC (Diabetic foot care) * HPI: M A assisting with visit:: Chart Prep Nati helms. HPI/Rooming: , Myeshia. [facility] reason for visit:: 69 year old diabetic male PTO for RFC. Pt reports no acute issues with nails or calluses today. Pt also PTO to discuss getting d iabetic shoes, which he has never purchased before. * Medical History: A fib, arthritis, diabetes, [...] and reconciled with the patient * Allergies: N .K.D.A.yesAllergies Verified. Objective: * Vitals: W t:265lbs, Wt-k.2 kg, Ht: 70 in, BMI:38.02Index. * Examination: G eneral Examination: Constitutional / Appearance: N o acute distress , Well nourished, Appropriate personal hygiene. Mental status: C ooperative, Oriented to person, place and time, Mood and affect: normal, Judgement and intellect: normal with appropriate response to questions. Shoes today: , Slip on shoes. L ower Extremity VASCULAR: : Pulses: D [...] m edial hallux IPJ, plantar medial 1st MPJ,. Hyperkeratotic lesions RIGHT foot: m edial hallux IPJ, distal 2nd toe, lateral PIPJ 5th toe, distal 3rd toe, sub 4th MTH, plantar medial 1st MPJ. ? L ower Extremity NEURO: : General sensation appears d iminished , bilateral , to sharp stimuli.. Monofilament test (10 gram pressure) E xam of 06/01/2024, - - revealed intact sensation to, bilateral. Vibration perception: E xam of 06/01/2024, - - noted significantly diminished / absent per evaluation with 128Hz tuning fork applied to distal hallux compared to ipsilateral medial malleolus, @ bilateral feet. L ower Extremity MSK: : Foot deformities: [...] P ALLIATIVE FOOT CARE:: Callus paring: ( 09002) Five or more calluses as noted above reduced with a sterile scalpel blade. Nail debride (65919): D ebridement of five or less mycotic [...] F ALL RISK SCREENING Fall Risk Assessment: O ne fall without injury in the past year * Follow Up: 1 0-12 weeks or contact office PRN with any concerns Billing Information: * Procedure Codes: 31226 TRIM SKIN LESIONS, OVER 4. Modifiers: Q9 07279 DEBRIDE NAIL, 1-5. Modifiers: Q9, 59 G0127 TRIMMING DYSTROPHIC NAILS ANY #. Modifiers: 59, Q9 * Electronic signature of Maximo Clark DPM on 02/18/2025 at 12:08 PM RAILROAD POLICE OFFICER Sign off status: Pending * Provider: Heriberto Clark DPM Date: 0 06/01/2024 Generated for Michael reddy/Anne/Catrina on: 1 04/20/2024 12:08 PM RAILROAD POLICE OFFICER
--- OUTSIDE RECORDS SUMMARY | 2024-08-10 05:10 | XMS_ITS ---
Author Organization 1 OF Heriberto rivera [facility] Address [address] [place] [address] Care Team Providers Care Business Law Professor Name Role Phone Dr. Apolinar Cook Primary Care Provider Unavailab Roel [facility] REASON FOR VISIT DFC (Diabetic foot care) Encounters Encounter Location Date Provider Diagnosis 1 OF Heriberto Clark [facility] [address] [place] [address] 08/10/2024 Roel Clark Plan Of Treatment Next Appt Details Provider Name:Roel Clark, 03/31/2025 10:30:00 AM, [address], [place], [address], Progress Notes * Aniya DOLLDOB:[birth year] (69 yo M)Acc No.[id number]:08/10/2024 Progress Note Patient: Nati Aniya chandler Provider: Heriberto Clark DPM :1955 A ge:69 Y S ex:Male Date:08/10/2024 Address:[address] [place], [place] [address] Pcp:Dr. Apolinar Cook Subjective: * Chief Complaints: * D FC (Diabetic foot care) * Electronic signature of Maximo Clark DPM on 02/18/2025 at 12:10 PM EXTENSION DIVISION DIRECTOR Sign off status: Pending * Provider: Heriberto Clark, DPM Date: 0 08/10/2024 Generated for Michael reddy/Anne/Catrina on: 04/20/2024 12:10 PM EXTENSION DIVISION DIRECTOR
--- OUTSIDE RECORDS SUMMARY | 2024-10-22 04:00 | XMS_ITS ---
Author Organization 1 OF Heriberto rivera [facility] Address [address] [address] Care Team Providers Care Rehabilitation Worker Name Role Phone Dr. Apolinar Cook Primary Care Provider UnavailRoel [facility] Allergies No Known Allergies REASON FOR VISIT DFC (Diabetic foot care) Medications Medication SIG (Take, Route, Fr equency, Duration) Notes Start Date End Date Status Xarelto Active Vitamin D3 Active Metoprolol Succinate Active Furosemide Active Levothyroxine Sodium Active Beta Carotene Active Vitamin E Active Fenofibrate Active Vitamin C Active Fish Oil Active Mounjaro Active Tylenol Arthritis Pain Active Aspirin Active Vital Signs Height 70 in 10/22/2024 Weight 250 lbs 10/22/2024 BMI 35.87 kg/m2 10/22/2024 Encounters Encounter Location Date Provider Diagnosis 1 OF [place] [address] [address] 10/22/2024 Roel Clark Type 2 diabetes mellitus with other diabetic neurological complication E11.49 ; Callus of foot L84 ; Onychogryphosis L60.2 ; Nail dystrophy L60.3 ; Right knee pain, unspecified chronicity M25.561 and Right hip pain M25.551 Assessments Encounter Date Diagnosis (ICD Code) Assessment Notes Treatment Notes Treatment Clinical Notes Section Notes 10/22/2024 Type 2 diabetes mellitus with other diabetic neurological complication (ICD-10 - E11.49) Considering the associated comorbidities and physical exam findings today, this patient is at substantial risk of developing serious foot complications in the absence of regular and professional palliative foot care. 10/22/2024 Callus of foot (ICD-10 - L84) 10/22/2024 Onychogryphosis (ICD-10 - L60.2) 10/22/2024 Nail dystrophy (ICD-10 - L60.3) 10/22/2024 Right knee pain, unspecified chronicity (ICD-10 - M25.561) 10/22/2024 Right hip pain (ICD-10 - M25.551) 10/22/2024 Other Plan: - Recommended evaluation by an welfare specialist for hip and knee, specifically for the leg length discrepancy and worsening gait. - Discussed that the issue may be related to the lifespan of the hip/knee implants. - Provided a referral to [facility]. - Discussed the potential for Charcot neuroarthropathy with continued abnormal stress on the foot combined with neuropathy from diabetes. Interventions: - Routine nail care performed. - Provided an adjustable heel lift for the right shoe to trial for temporary relief. Patient reported no immediate difference in sensation upon standing. Evaluation: - Patient educated that the heel lift is a temporary measure and not a substitute for orthopedic evaluation. Additional Notes: - Advised to call the welfare specialist for an appointment, emphasizing that the condition will likely worsen without intervention. Plan Of Treatment Treatment Notes Assessment Notes Type 2 diabetes mellitus wit h other diabetic neurological complication Considering the associated comorbidities and physical exam findings today, this patient is at substantial risk of developing serious foot complications in the absence of regular and professional palliative foot care. Other Plan: - Recommended evaluation by an welfare specialist for hip and knee, specifically for the leg length discrepancy and worsening gait. - Discussed that the issue may be related to the lifespan of the hip/knee implants. - Provided a referral to [facility]. - Discussed the potential for Charcot neuroarthropathy with continued abnormal stress on the foot combined with neuropathy from diabetes. Interventions: - Routine nail care performed. - Provided an adjustable heel lift for the right shoe to trial for temporary relief. Patient reported no immediate difference in sensation upon standing. Evaluation: - Patient educated that the heel lift is a temporary measure and not a substitute for orthopedic evaluation. Additional Notes: - Advised to call the welfare specialist for an appointment, emphasizing that the condition will likely worsen without intervention. Next Appt Details Follow Up: 10-12 weeks or co ntact office PRN with any concerns, Reason: Provider Name:Roel Clark, 03/31/2025 10:30:00 AM, [address], [address], [place], [address], Procedure Notes * Category Sub-Category Detail Notes PALLIATIVE FOOT CARE: Callus paring: (04388) Le ss than five calluses as noted above reduced with a sterile scalpel blade Nail debride (20355): Debridement of fiv e or less mycotic and/or hypertrophic nails, utilizing manual and electric debridement the affected nails were reduced the nails in length and thickness with curettage of debris from nail margins performed as needed. Nail thickness reduced by:, 10% Dystrophic nail trim (G0127) All dystrop hic nails reduced in length and thickness with curettage of debris from nail margins as needed DME: Retail DME recommended: heel lif ts History and Physical Notes * HPI (History of Present Illness) Category Sub-Category Detail Notes Category Not es Primary reason for visit: 69 year old diabetic male PTO for RFC. Today the pt reports feeling of loose skin on the bottom of the right foot when walking. No similar sensation in the left foot. - History of right hip replacement approximately 15 years ago and knee replacement over 20 years ago. Reports the right leg is shorter than the left post-surgery. - PMHx: Diabetes, back issues. - Previously used a shoe lift which caused significant pain and was discontinued. Examination Category Sub-Category Detail Notes Category Not es General Examination Mental status: Cooperative, Oriented to per son, place and time, Mood and affect: normal, Judgement and intellect: normal with appropriate response to questions - Physical examination findings: Black toenail, right foot. Pronation deformity right greater than left likely secondary to a more proximal issue with the knee and or hips. Right foot collapses significantly more than the left. Shoes today: tennis shoe Constitutional / Appearance: No acute di stress [...] medial hallux IPJ, plantar medial 1st MPJ, sub 3rd Hyperkeratotic lesions RIGHT foot: media l hallux IPJ, distal 2nd toe, distal 3rd toe, sub 4th MTH, plantar medial 1st MPJ Evidence of contusion of toenail: Nail p late of T8 exhibits dark discoloration, partial onycholysis, No drainage., Neg. pain with palpation. Progress Notes * Aniya DOLLDOB:[birth year] (69 yo M)Acc No.[id number]:10/22/2024 Progress Note Patient: Aniya Wood Provider: Heriberto Clark DPM :1955 A ge:69 Y S ex:Male Date:10/22/2024 Address:[address] [place], [place] [id number] Pcp:Dr. Apolinar Cook Subjective: * Chief Complaints: * D FC (Diabetic foot care) * HPI: P rimary reason for visit:: 69 year old diabetic male PTO for RFC. Today the pt reports feeling of loose skin on the bottom of the right foot when walking. No similar sensation in the left foot. - History of right hip replacement approximately 15 years ago and knee replacement over 20 years ago. Reports the right leg is shorter than the left post-surgery. - PMHx: Diabetes, back issues. - Previously used a shoe lift which caused significant pain and was discontinued. * ROS: * MULTI-SYSTEM REVIEW:: burning, tingling,numbness in feet a dmits. ? * Medical History: A fib, arthritis, diabetes, heart attack, high blood pressure, high cholesterol, thyroid problems Atrial fibrillation (A-fib) Arthritis Heart attack ([place]) Diabetes High cholesterol High blood pressure Medical History Verified * Surgical History: Right hip replacement 04/01/2017 Vascular sugery Surgical History verified. * Family History: F [...] N .K.D.A.yesAllergies Verified. Objective: * Vitals: W t:250lbs, Wt-k.4 kg, Ht:70in, BMI:35.87Index. * Examination: G eneral Examination: Constitutional / Appearance: N o acute distress , Well nourished, Appropriate personal hygiene. Mental status: C ooperative, Oriented to person, place and time, Mood and affect: normal, Judgement and intellect: normal with appropriate response to questions. Shoes today: t german shoe. - Physical examination findings: Black toenail, right foot. Pronation deformity right greater than left likely secondary to a more proximal issue with the knee and or hips. Right foot collapses significantly more than the left. L ower Extremity VASCULAR: : Pulses: D [...] edial hallux IPJ, plantar medial 1st MPJ, sub 3rd. Hyperkeratotic lesions RIGHT foot: m edial hallux IPJ, distal 2nd toe, distal 3rd toe, sub 4th MTH, plantar medial 1st MPJ. Evidence of contusion of toenail: N ail plate of T8 exhibits dark discoloration, partial onycholysis, No drainage., Neg. pain with palpation.. ? L ower Extremity NEURO: : General [...] 4 . N ail dystrophy - L60.3 5 . R ight knee pain, unspecified chronicity - M25.561 6 . R ight hip pain - M25.551 Plan: * Treatment: 2. O thers Notes: Plan: - Recommended evaluation by an welfare specialist for hip and knee, specifically for the leg length discrepancy and worsening gait. - Discussed that the issue may be related to the lifespan of the hip/knee implants. - Provided a referral to [facility]. - Discussed the potential for Charcot neuroarthropathy with continued abnormal stress on the foot combined with neuropathy from diabetes. Interventions: - Routine nail care performed. - Provided an adjustable heel lift for the right shoe to trial for temporary relief. Patient reported no immediate difference in sensation upon standing. Evaluation: - Patient educated that the heel lift is a temporary measure and not a substitute for orthopedic evaluation. Additional Notes: - Advised to call the welfare specialist for an appointment, emphasizing that the condition will likely worsen without intervention. * Procedures: P ALLIATIVE FOOT CARE:: Callus paring: ( 10163) Less than five calluses as noted above reduced with a sterile scalpel blade. Nail debride (90058): D ebridement of five or less mycotic and/or hypertrophic nails, utilizing manual and electric debridement the affected nails were reduced the nails in length and thickness with curettage of debris from nail margins performed as needed. Nail thickness reduced by:, 10%. Dystrophic nail trim (G0127) A ll dystrophic nails reduced in length and thickness with curettage of debris from nail margins as needed. D ME:: Retail DME recommended: h eel lifts. * Preventive Medicine: Counseling: C are goal follow-up plan: BMI counseling provided to patient:?Lifestyle education Screenings: F ALL RISK SCREENING Fall Risk Assessment: O ne fall without injury in the past year * Follow Up: 1 0-12 weeks or contact office PRN with any concerns Billing Information: * Procedure Codes: 20664 DEBRIDE NAIL, 1-5. Modifiers: Q9, 59 41918 TRIM SKIN LESIONS, 2 TO 4. Modifiers: Q9 G0127 TRIMMING DYSTROPHIC NAILS ANY #. Modifiers: 59, Q9 * Electronic signature of Maximo Clark DPM on 02/18/2025 at 12:10 PM PROP SETTER Sign off status: Pending * Provider: Heriberto Clark DPM Date: 0 10/22/2024 Generated for Michael reddy/Anne/Catrina on: 04/20/2024 12:10 PM PROP SETTER
--- OUTSIDE RECORDS SUMMARY | 2025-01-06 04:10 | XMS_ITS ---
Author Organization 1 OF [facility] Address [address] [address] Care Team Providers Care Parking Enforcement Officer Name Role Phone Dr. Apolinar Cook Primary Care Provider Unavail Roel [facility] Allergies No Known Allergies REASON FOR VISIT DFC (Diabetic foot care) Medications Medication SIG (Take, Route, Fr equency, Duration) Notes Start Date End Date Status Levothyroxine Sodium Active Furosemide Active Vitamin D3 Active Xarelto Active Vitamin E Active Vitamin C Active Fenofibrate Active Aspirin Active Beta Carotene Active Fish Oil Active Mounjaro Active Metoprolol Succinate Active Tylenol Arthritis Pain Active Vital Signs Height 70 in 01/06/2025 Weight 250 lbs 01/06/2025 BMI 35.87 kg/m2 01/06/2025 Encounters Encounter Location Date Provider Diagnosis 1 [place] [address] [address] [address] 01/06/2025 Roel Clark Type 2 diabetes mellitus with other diabetic neurological complication E11.49 ; Callus of foot L84 ; Onychogryphosis L60.2 and Nail dystrophy L60.3 Assessments Encounter Date Diagnosis (ICD Code) Assessment Notes Treatment Notes Treatment Clinical Notes Section Notes 01/06/2025 Type 2 diabetes mellitus with other diabetic neurological complication (ICD-10 - E11.49) Considering the associated comorbidities and physical exam findings today, this patient is at substantial risk of developing serious foot complications in the absence of regular and professional palliative foot care. 01/06/2025 Callus of foot (ICD-10 - L84) 01/06/2025 Onychogryphosis (ICD-10 - L60.2) 01/06/2025 Nail dystrophy (ICD-10 - L60.3) 01/06/2025 Other Plan: - Routine foot care. - Follow-up as needed. Interventions: - Debridement of calluses on the left and right feet. - Lotion applied. - Shoes re-applied. Plan Of Treatment Treatment Notes Assessment Notes Type 2 diabetes mellitus wit h other diabetic neurological complication Considering the associated comorbidities and physical exam findings today, this patient is at substantial risk of developing serious foot complications in the absence of regular and professional palliative foot care. Other Plan: - Routine foot care. - Follow-up as needed. Interventions: - Debridement of calluses on the left and right feet. - Lotion applied. - Shoes re-applied. Next Appt Details Provider Name:Roel Clark, 03/31/2025 10:30:00 AM, [address], [address], [place], [address], Procedure Notes * Category Sub-Category Detail Notes PALLIATIVE FOOT CARE: Callus paring: (72116) Le ss than five calluses as noted above reduced with a sterile scalpel blade Nail debride (30109): Debridement of fiv e or less mycotic [...] old diabetic male PTO for RFC. Pt denies acute nail or callus concerns today.No other concerns today A1C:6.1 Examination Category Sub-Category Detail Notes Category Not es General Examination Mental status: Cooperative, Oriented to person, place and time, Mood and affect: normal, Judgement and intellect: normal with appropriate response to questions Shoes today: Steel toe tennis simael es Constitutional / Appearance: No acute di stress [...] foot: medial hallux IPJ, plantar medial 1st MPJ Hyperkeratotic lesions RIGHT foot: media l hallux IPJ, plantar medial 1st MPJ, distal 2nd toe, distal 3rd toe, sub 4th MTH, Evidence of contusion of toenail: Nail p late of T8 exhibits dark discoloration, partial onycholysis, No drainage., Neg. pain with palpation. Progress Notes * AMANDABETTY AniyaDOB:[birth year] (69 yo M)Acc No.[id number]:01/06/2025 Progress Note Patient: Aniya Wood Provider: Heriberto Clark DPM :1955 A ge:69 Y S ex:Male Date:01/06/2025 Address:[address] [place], [place] [id number] Pcp:Dr. Apolinar Cook Subjective: * Chief Complaints: * D FC (Diabetic foot care) * HPI: P rimary reason for visit:: 69 year old diabetic male PTO for RFC. Pt denies acute nail or callus concerns today.No other concerns today A1C:6.1. * Medical History: A fib, arthritis, diabetes, heart attack, high blood pressure, high cholesterol, thyroid problems Atrial fibrillation (A-fib) Arthritis Heart attack ([place]) Diabetes High cholesterol High blood pressure Medical History Verified * Surgical History: Right hip replacement 04/01/2017 Vascular sugery Surgical History verified. * Hospitalization/Major Diagno stic Procedure: Denies Past Hospitalization. * Family History: F amily History Verified.. [...] Objective: * Vitals: W t:250lbs, Wt-k.4 kg, Ht: 70 in, BMI:35.87Index. * Examination: G eneral Examination: Constitutional / Appearance: N o acute distress , Well nourished, Appropriate personal hygiene. Mental status: C ooperative, Oriented to person, place and time, Mood and affect: normal, Judgement and intellect: normal with appropriate response to questions. Shoes today: S milka toe tennis shoes. ? L ower Extremity VASCULAR: : Pulses: [...] m edial hallux IPJ, plantar medial 1st MPJ. Hyperkeratotic lesions RIGHT foot: m edial hallux IPJ, plantar medial 1st MPJ, d istal 2nd toe,distal 3rd toe, sub 4th MTH,. Evidence of contusion of toenail: N ail [...] ail dystrophy - L60.3 Plan: * Treatment: 2. O thers Notes: Plan: - Routine foot care. - Follow-up as needed. Interventions: - Debridement of calluses on the left and right feet. - Lotion applied. - Shoes re-applied. * Procedures: P ALLIATIVE FOOT CARE:: Callus paring: ( 94151) Less than five calluses as noted above reduced with a sterile scalpel blade. Nail debride (29498): D ebridement of five or less mycotic [...] fall without injury in the past year Billing Information: * Procedure Codes: 34543 DEBRIDE NAIL, 1-5. Modifiers: Q9, 59 71980 TRIM SKIN LESIONS, 2 TO 4. Modifiers: Q9 G0127 TRIMMING DYSTROPHIC NAILS ANY #. Modifiers: 59, Q9 * Electronic signature of Maximo Clark DPM on 02/18/2025 at 12:08 PM FISHING CAPTAIN Sign off status: Pending * Provider: Heriberto Clark DPM Date: Generated for Michael reddy/Anne/Catrina on: 04/20/2024 12:08 PM FISHING CAPTAIN
--- OUTSIDE RECORDS SUMMARY | 2025-02-18 12:07 | XMS_ITS | Encounter Summary ---
Author Organization [facility] Address [address] [place] [address] Phone Care Team Providers Care Lithographic Photographer Apprentice Name Role Phone Diego Lutz MD Unavailable Apolinar Cook MD Primary Care Provider [phone] Encounter Details Date Type Department Care Team (Latest Contact Info) Description 12/20/2024 Results Follow-Up [facility] Medicine Orthopaedic Surgery [address] [place] [address] Shell Coates, JORDI [address] [facility] [address] [place] [address] Erythrocyte sedimentation rate Social History Tobacco Use Types Packs/Day Years [...] on file 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
--- OUTSIDE RECORDS SUMMARY | 2025-02-18 12:07 | XMS_ITS | Encounter Summary ---
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
--- OUTSIDE RECORDS SUMMARY | 2025-02-18 12:07 | XMS_ITS | Encounter Summary ---
Author Organization [facility] Address [address] [place] [address] Phone Care Team Providers Care Advertising Specialist Name Role Phone Pérez Cifuentes NP Primary Care Provider [phone] Diego Lutz MD Unavailable Apolinar Cook MD Primary Care Provider [phone] Reason for Referral * Diagnostic Imaging (Routine) - Closed Specialty Diagnoses / Procedures Referred By Contac t Referred To Contact Diagnoses Status post reverse total arthroplasty of left shoulder Procedures XR Shoulder Left 2 or More Views Fransisco Santo MD [address] [facility] [place] [address] Phone: tel: fax: [address] [address] Referral ID Status Reason Start Date Expiration Date Visits Re quested Visits Authorized [id number] Closed 12/05/2022 01/04/2024 1 1 Encounter Details Date Type Department Care Team (Late st Contact Info) Description 12/05/2022 Orders Only [facility] Medicine Orthopaedic Surgery [address] [place] [address] Fransisco Santo MD [address] [facility] [place] [address] Status post reverse total arthroplasty of left [...] on file 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 Gender Identity Not on file Sexual Orientation Not on file documented as of this encounter Functional Status * Difference in Last Two Mario Scores Answer Date of Assessment Author 0 12/05/2022 8:14 AM CDT Dmitri Mcneil RN * Question Answer Date of Assessment Author BP Location Right arm 12/05/2022 8:07 AM CDT Dmitri Pittman RN BP Method Automatic 12/05/2022 8:07 AM CDT Dmitri Pittman RN MAP (mmHg) 87 12/05/2022 8:07 AM CDT Dmitri Pittman RN * Kwan Fall Risk Question Answer Date of Assessment Author History of Falling 0 12/05/2022 8:14 AM CDT Dmitri Mcneil RN Secondary Diagnosis 15 12/05/2022 8:14 AM CD T Dmitri Mcneil RN Ambulatory Aids 0 12/05/2022 8:14 AM CDT Dmitri Cornelius RN Intravenous Therapy/Heparin/Saline Lock 20 12/05/2022 8:14 AM CDT Dmitri Mcneil RN Gait/Transferring 0 12/05/2022 8:14 AM CDT Dmitri Mcneil RN Mental Status 0 12/05/2022 8:14 AM CDT Dmitri Barrow RN Kwan Fall Risk Score (Score >= 45 places fall precaution order) 35 12/05/2022 8:14 AM CDT Dmitri Mcneil RN Prior Fall Event (Autopopula christine from EMR) None found 12/05/2022 8:14 AM CDT Dmitri Mcneil RN * Mario Scale Question Answer Date of Assessment Author Sensory Perceptions 3 12/05/2022 8:14 AM CD Dmitri Bello RN Moisture 4 12/05/2022 8:14 AM CDT Dmitri Pittman RN Activity 3 12/05/2022 8:14 AM CDT Dmitri Pittman RN Mobility 3 12/05/2022 8:14 AM CDT Dmitri Pittman RN Nutrition 3 12/05/2022 8:14 AM CDT Dmitri Pittman RN Friction and Shear 3 12/05/2022 8:14 AM CDT Dmitri Mcneil RN Mario Scale Score 19 12/05/2022 8:14 AM CDT Dmitri Mcneil RN * Fall Risk Interventions Question Answer Date of Assessment Author All Low Fall Interventions Applied Yes 12/05/2022 8:14 AM Dmitri Bee RN All Moderate Fall Interventions Applied Yes 12/05/2022 8:14 AM JUNAIDT Dmitri Mcneil RN All High Fall Risk Interventions Applied No 12/05/2022 8:14 AM Dmitri Bee RN All High Risk Interventions EXCEPT: Bed alarm 12/05/2022 8:14 AM JUNAIDT Dmitri Mcneil RN Reason For Exception(s) Calls appropriat daniella and waits for assistance 12/05/2022 8:14 AM Dmitri Bee RN * Alcohol Withdrawal BP Hierarchy Answer Date of Assessment Author 79 12/05/2022 8:07 AM JUNAIDT Dmitri Mcneil RN * Integumentary Question Answer Date of Assessment Author Skin Color Appropriate for ethnicity 12/05/2022 3:09 AM Terence Bo RN Skin Condition/Temp Warm;Dry 12/05/2022 3:09 AM Terence Johnson RN Skin Integrity Surgical incision 12/05/2022 8:14 AM Dmitri Wynn RN Integumentary (WDL) X 12/05/2022 8:14 AM Dmitri Wynn RN Skin Location l shouldr 12/05/2022 8:14 AM CDT Dmitri Barrow RN * Question Answer Date of Assessment Author BP Location Right arm 12/05/2022 8:07 AM CDT Dmitri Pittman RN BP Method Automatic 12/05/2022 8:07 AM CDT Dmitri Pittman RN * Fall Risk Interventions Question Answer Date of Assessment Author All Low Fall Interventions Applied Yes 12/05/2022 8:14 AM CDT Dmitri Mcneil RN All Moderate Fall Interventions Applied Yes 12/05/2022 8:14 AM CDT Dmitri Mcneil RN All High Fall Risk Interventions Applied No 12/05/2022 8:14 AM CDT Dmitri Mcneil RN All High Risk Interventions EXCEPT: Bed alarm 12/05/2022 8:14 AM CDT Dmitri Mcneil RN Reason For Exception(s) Calls appropriat daniella and waits for assistance 12/05/2022 8:14 AM CDT Dmitri Mcneil RN documented as of this encounter Mental Status * Question Answer Entry Date Author Orientation Oriented X4 (person, place, time, situation) 12/05/2022 8:45 AM CDT Jamie Perdomo PTA * Question Answer Entry Date Author Level of Consciousness Alert;Awake 12/05/2022 8:14 AM CDT Dmitri Mcneil RN Neuro (WDL) X 12/05/2022 8:14 AM CDT Dmitri Pittman RN documented in this encounter Plan of Treatment Not on [...] shoulder documented in this encounter Care Teams Advertising Specialist Relationship Specialty Start Date End Date Pérez Cifuentes NP PCP - General Nurse Practitioner 02/05/23 07/26/24 Apolinar Cook MD [address] [place] [address] PCP - General Family Practice 07/27/24 Diego Lutz MD [address] [place] [address] Referring Physician Internal Medicine 04/02/23 documented as of this encounter
--- OUTSIDE RECORDS SUMMARY | 2025-02-18 12:08 | XMS_ITS | Clinical Summary ---
Author Organization [facility] Address [address] [place] [address] Phone Care Team Providers Care Brim Rounder Name Role Phone Diego Lutz MD Unavailable Apolinar Cook MD Primary Care Provider [phone] Allergies Active Allergy Reactions Criticality Noted Date Comments Adhesive Tape-Silicones Rash Medium 10/03/2022 Latex Rash Medium 09/06/2024 Metformin Diarrhea High 09/06/2024 Medications fenofibrate (TRIGLIDE) 160 mg tabletIndicatio ns:hyperlipidem ia Take 1 tablet (160 mg total) by mouth every morning Active magnesium oxide (MAG-OX) 250 mg (150.8 mg elemental) tabletIndicatio ns:supplement Take 400 mg by mouth nightly Active levothyroxine (SYNTHROID) 150 mcg tabletIndicatio ns:hypothyroidi sm Take 1 tablet (150 mcg total) by mouth commissions analyst before breakfast 5 Active cholecalciferol , vitamin D3, (D3-5000 ORAL)Indication s:supplement Take 2 capsules by mouth nightly 5 Active potassium citrate 99 mg capsuleIndicati ons:hypokalemia prevention Take 1 Caplet by mouth nightly 5 Active cetirizine (ZyrTEC) 10 mg tabletIndicatio ns:Perennial Allergic Rhinitis Take 1 tablet (10 mg total) by mouth nightly 2 Active Denta 5000 Plus 1.1 % creamIndication s:Prevention of Dental Caries Take 1 Application by mouth every morning 3 Active furosemide (LASIX) 20 mg tabletIndicatio ns:Edema,hypert ension Take 1 tablet (20 mg total) by mouth every morning 3 Active donepeziL (ARICEPT) 10 mg tabletIndicatio ns:Mild to Moderate Alzheimer's Type Dementia Take 1 tablet (10 mg total) by mouth nightly 3 Active vitamin A 3,000 mcg (10,000 units) capsuleIndicati ons:supplement Take 1 capsule (10,000 Units total) by mouth every morning Active omega-3 fatty acids-fish oil 300-1,000 mg capsuleIndicati ons:hypertrigly ceridemia Take 2 capsules (2 g total) by mouth every morning Active multivitamin tabletIndicatio ns:Vitamin Deficiency Prevention Take 1 tablet by mouth every morning Active aspirin 81 mg enteric coated tablet Take 1 tablet (81 mg total) by mouth nightly Active glucosamine/cho ndr lin A sod (OSTEO BI-FLEX ORAL)Indication s:supplement Take 1 tablet by mouth every morning Active pantoprazole DR (PROTONIX) 40 mg EC tablet 3 Active rosuvastatin (CRESTOR) 20 mg tablet Take 1 tablet (20 mg total) by mouth daily 4 Active icosapent ethyL (VASCEPA) 1 gram capsule Take 2 capsules (2 g total) by mouth 2 (two) times a day 4 Active traZODone (DESYREL) 50 mg tablet Take 1 tablet (50 mg total) by mouth nightly as needed 5 Active fluticasone propionate (FLONASE) 50 mcg/actuation nasal spray Administer 1 spray into each nostril daily 5 Active ipratropium-alb uteroL (DUO-NEB) 0.5-2.5 mg/3 mL nebulizer solution INHALE 3 ML FOUR TIMES DAILY NEEDED FOR SHORTNESS OF BREATH 5 Active pregabalin (LYRICA) 50 mg capsule Take 1 capsule (50 mg total) by mouth 3 (three) times a day 5 Active Mounjaro 5 mg/0.5 mL pen injector injection Inject 0.5 mL (5 mg total) under the skin once a week 5 Active Active Problems Problem Noted Date Diagnosed Date Cubital tunnel syndrome on left 03/18/2023 Left rotator cuff tear arthropathy 12/03/2022 Osteoarthritis of glenohumeral joint, left 08/26 Rotator cuff tear arthropathy of left shoulder 0 08/26/2022 Special screening for malignant neoplasms, colon 10/11/2019 Overview (10/11/2019): Added automatically from request for surgery [id number] Edema of lower extremity 09/13/2018 Dyslipidemia 02/23/2017 [...] the left anterior descending coronary artery in 2004. Other psoriasis 06/10/2008 Sinus trouble 06/10/2008 Thyroid trouble 06/10/2008 Encounters Date Type Department Care Team Description 01/08/2025 Results Follow-Up [facility] [address] [place] [address] Jhony Shepherd MD MRI Lumbar Spine WO Contrast 01/06/2025 4:54 PM CDT - 01/06/2025 11:59 PM CDT Hospital Encounter [facility] [address] [place] [id number] Low back pain, unspecified back pain laterality, unspecified chronicity, unspecified whether sciatica present; Other spondylosis with radiculopathy, lumbar region Discharge Disposition: Discharge to home or self care 01/03/2025 10:40 AM CDT Office Visit [facility] Orthopaedic Surgery [address] [place] [address] [address] [place] [phone] Jhony Shepherd MD Other spondylosis with radiculopathy, lumbar region (Primary Dx); Low back pain, unspecified back pain laterality, unspecified chronicity, unspecified whether sciatica present 01/03/2025 10:27 AM CDT - 01/03/2025 11:59 PM CDT Hospital Encounter [facility] Radiology [address] [place] [address] [address] [place] [phone] Low back pain, unspecified back pain laterality, unspecified chronicity, unspecified whether sciatica present Discharge Disposition: Discharge to home or self care 12/20/2024 10:00 AM CDT Lab [facility] [address] [place] [address] Hx of total hip arthroplasty, right; Hx of total knee arthroplasty, right 12/20/2024 9:30 AM CDT Office Visit [facility] Orthopaedic Surgery [address] [place] [address] [phone] [place] Hx of total hip arthroplasty, right (Primary Dx); Hx of total knee arthroplasty, right; Right knee pain, unspecified chronicity; Right hip pain 12/20/2024 8:31 AM CDT - 12/20/2024 11:59 PM CDT Hospital Encounter [facility] Radiology [address] [place] [address] [address] [place] [phone] Hx of total hip arthroplasty, right; Right hip pain; Hx of total knee arthroplasty, right; Right knee pain, unspecified chronicity Discharge Disposition: Discharge to home or self care 12/20/2024 Results Follow-Up [facility] Medicine Orthopaedic Surgery [address] [place] [address] Shell Coates [place] Erythrocyte sedimentation rate from Last 3 Months Immunizations Immunization Administration Dates Next Due Influenza, Trivalent, IM (MDV) 12/22/2012 Surgical History Surgery Date Site/Laterality Comments [...] Coronary artery disease Hyperlipidemia Hyperlipidemia Diabetes mellitus Diabetes Hx Other Medical Rt. total knee replacemet 02-22-12.; Comments: MEGAN 03/29/2014 - Hx Other Medical Left acromiocla vicular resection with anterior acr; Comments: MEGAN 03/29/2014 - Sleep apnea Arthritis Obesity Colon polyp Myocardial infarction (HCC) 08/2006 Heart disease DVT (deep venous thrombosis) Family History Medical History Relation Name Comments Arthritis Father Edgard Doll arthritis; Other Father Edgard Doll CHF cause of .; Arthritis Mother lia paredes arthritis; Stroke Mother lia paredes Stroke; Diabetes Son lupe doll Early Son lupe doll Heart attack Son don kathiadaksha Hypertension Son lupe doll Anesthesia problems Neg Hx Relation Name Status Comments Father Edgard Doll Alive Mother lia paredes Alive Son lupe doll Social History Tobacco Use Types Packs/Day Years [...] on file Legal Sex Male 11:43 PM [employer] Gender Identity Not on file Sexual Orientation Not on file Last Filed Vital Signs Vital Sign Reading Time Taken Comments Blood Pressure 122/77 03/31/2023 4:50 PM [employer] Pulse 79 03/31/2023 4:50 PM [employer] Temperature 36 C (96.8 F) 03/31/2023 8:10 AM [employer] DRAW[employer] Respiratory Rate 16 03/31/2023 4:50 PM [employer] DRAWER Oxygen Saturation 93% 03/31/2023 4:50 PM [employer] DRAWER Inhaled Oxygen Concentration - - Weight 109.3 kg (241 lb) 01/06/2025 4:58 PM CDT Height 177.8 cm (5' 10) 01/06/2025 4:58 PM CDT Body Mass Index 34.58 01/06/2025 4:58 PM CDT Plan of Treatment Health Maintenance Due Date Last Done Comments Depression Screening 1955 Hepatitis C Screening 1955 Prostate Cancer Screening-PSA 1955 DTaP/Tdap/Td Vaccine (1 - Tdap) 1966 Hepatitis B Screening 1973 Well Visit 65+ 2020 Pneumococcal vaccine 65+ (2 of 2 - PCV) 03/15/2022 03/15/2021 Fall Risk Assessment 03/31/2024 03/31/2023 Covid-19 Vaccine (6 - 2024-2 6 season) 2024 12/29/2021, 02/11/2021, 02/10/2021, Additional history exists Influenza Vaccine (#1) 2024 , 03/15/2021, 12/22/2012 Colon Cancer Screening-Colonoscopy 11/07/2029 11/08/2019, [...] 05/21/2021, 03/15/2021 Medical Devices Implanted Type Area Metal Bonder Device Identifier Shelf Expiration Date Model / Serial / Lot Right Knee Replacement Endoprosthesis Knee Tyche Stem Perform Sz 3 Plus Humeral Long Dwx3pl - S0 - [id number] Implanted:Qty: 1 on 12/03/2022 by Fransisco Santo MD at [facility] Other - see comments Left: Shoulder Tyche [id number] / 0 / Tyche Insert Perform 10 Deg [id number] - S0 - [id number] Implanted:Qty: 1 on 12/03/2022 by Fransisco Santo MD at [facility] Other - see comments Left: Shoulder [employer] [id number] / 0 / Stent- 7 Implanted:Qty: 1 on 09/18/2006 Stent Heart Shell Acetabular Tritanium F Hemispherical Od58 Mm Hip Primary Rim Cluster Hole - [id number] Implanted:Qty: 1 on 04/01/2017 by Toñito Mcfarland MD at [facility] Right: Hip [employer] [facility] 06/29/2020 [id number] / / [id number] Screw Bone Torx Titanium L35 Mm Od6.5 Mm Acetabular Cancellous Flush Seat Nonsterile - [id number] Implanted:Qty: 1 on 04/01/2017 by Toñito Mcfarland MD at [facility] Right: Hip [employer] 04/23/2021 [id number] / / [id number] Liner Acetabular Cocr F Od46 Mm Hip Modular Dual Mobility Primary - [id number] Implanted:Qty: 1 on 04/01/2017 by Toñito Mcfarland MD at [facility] Right: Hip [employer] [facility] 01/09/2022 [id number] / / [id number] Stem Femoral Accolade 127 D 5 Taper L108 Mm L35 Mm Hip Modular Sterile - [id number] Implanted:Qty: 1 on 04/01/2017 by Toñito Mcfarland MD at [facility] Right: Hip [employer] [facility] 12/21/2021 [id number] / / [id number] Insert Acetabular Adm Mobile Bearing Hip Buddhism X3 Polyethylene H8.9 Mm Od46 Mm Odsec52 Mm Id28 Mm Hip - [id number] Implanted:Qty: 1 on 04/01/2017 by Toñito Mcfarland MD at [facility] Right: Hip [employer] [facility] 01/06/2022 [id number] / / [id number] Head Femoral V40 Biolox Delta +4 Mm Offset Taper Od28 Mm Hip - [id number] Implanted:Qty: 1 on 04/01/2017 by Toñito Mcfarland MD at [facility] Right: Hip [employer] [facility] 12/15/2021 [id number] / / [id number] [employer] Aequalis Perform Reversed 5mm 42mm Peripheral Glenoid Screw Fqd947 - [id number] Implanted:Qty: 1 on 12/03/2022 by Fransisco Santo MD at [facility] Left: Shoulder [employer] [id number] / / [employer] Aequalis Perform Reversed 5mm 34mm Peripheral Glenoid Screw Byi766 - [id number] Implanted:Qty: 1 on 12/03/2022 by Fransisco Santo MD at [facility] Left: Shoulder [employer] [id number] / / [employer] Aequalis Perform Reversed 5mm 18mm Peripheral Glenoid Screw Drs677 - [id number] Implanted:Qty: 1 on 12/03/2022 by Fransisco Santo MD at [facility] Left: Shoulder [employer] [id number] / / [employer] Od29 Mm Half Wedge Augment Shoulder 35 D Baseplate Glenoid Hxl246 - [id number] - [id number] Implanted:Qty: 1 on 12/03/2022 by Fransisco Santo MD at [facility] Left: Shoulder Tyche [id number] 06/12/2025 [id number] / [id number] / CHOBOLABS [employer] Tornier Aequalis Perform Od42 Mm Reverse Shoulder Standard Sphere Glenoid Ypv989 - [id number] - [id number] Implanted:Qty: 1 on 12/03/2022 by Fransisco Santo MD at [facility] Left: Shoulder Tyche 01/22/2027 [id number] / [id number] / Tyche Aequalis Perform Reversed 6.5mm 35mm Central Glenoid Screw [id number] - [id number] Implanted:Qty: 1 on 12/03/2022 by Fransisco Santo MD at [facility] Left: Shoulder Tyche [id number] / / Procedures Procedure Name Priority Date/Time Associated Diagnosis Comments MRI LUMBAR SPINE WO CONTRAST Schedule Routine, Read Routine (OP Routine) 01/06/2025 5:54 PM CDT Low back pain, unspecified back pain laterality, unspecified chronicity, unspecified whether sciatica present Other spondylosis with radiculopathy, lumbar region XR LUMBAR SPINE AP LAT FLEX EX Schedule Routine, Read Routine (OP Routine) 01/03/2025 10:39 AM CDT Low back pain, unspecified back pain laterality, unspecified chronicity, unspecified whether sciatica present ERYTHROCYTE SEDIMENTATION RATE Routine 12/20/2024 9:57 AM CDT Hx of total hip arthroplasty, right Hx of total knee arthroplasty, right CRP (ACUTE PHASE) Routine 12/20/2024 9:5 7 AM CDT Hx of total hip arthroplasty, right Hx of total knee arthroplasty, right XR KNEE RIGHT 3 VIEWS Schedule Routine, Read Routine (OP Routine) 12/20/2024 8:52 AM CDT Hx of total knee arthroplasty, right Right knee pain, unspecified chronicity XR HIP RIGHT W PELVIS 2 OR 3 VIEWS Schedule Routine, Read Routine (OP Routine) 12/20/2024 8:52 AM CDT Hx of total hip arthroplasty, right Right hip pain COLONOSCOPY 11/08/2019 7:11 AM CDT from Last 3 Months or Most Recently Relevant to Health Maintenance Results * MRI Lumbar Spine WO Contrast (01/06/2025 5:54 PM CDT) Anatomical Region Laterality Modality Spine N/A Magnetic Resonan ce 01/07/2025 10:1 7 AM CDT Impressions 01/07/2025 10:27 AM CDT Multilevel degenerative changes throughout the lumbar spine with left paracentral disc extrusion at L3-L4 causing moderate canal stenosis and left lateral recess stenosis with compression of the left L4 nerve root. Dictated by: Thomas Severino MD The radiology attending physician has personally reviewed this study, and had reviewed and/or edited this written report and agrees with it. Electronically signed by: Becka Agarwal M.D. Narrative 01/07/2025 10:27 AM CDT EXAMINATION: Magnetic resonance imaging (MRI) of the lumbar spine without contrast HISTORY: Low back and right hip pain/weakness TECHNIQUE: Multiplanar multi-weighted MRI of the lumbar spine was performed without intravenous contrast using the standard protocol. COMPARISON: None Available. FINDINGS: The alignment of the lumbar spine is normal. Degenerative endplate changes at L2-L3 with associated Schmorl's nodes. Intraosseous hemangioma at L3 There are no compression fractures. The conus medullaris terminates at the level of L1-L2. The distal spinal cord signal intensity is normal. Multilevel degenerative disc disease Annular fissure at L3-L4. Bilateral simple renal cysts. The aorta is normal. L1-L2: Circumferential disc bulge. There is mild bilateral facet arthropathy. There is no neuroforaminal stenosis. There is no spinal canal stenosis. L2-L3: Circumferential disc bulge with ligamentum flavum infolding There is moderate bilateral facet arthropathy. There is no neuroforaminal stenosis. There is mild spinal canal stenosis. L3-L4: Circumferential disc bulge with left paracentral disc extrusion migrating caudally causing left lateral recess stenosis and compression of the left L4 nerve root. There is moderate bilateral facet arthropathy. There is mild bilateral neuroforaminal stenosis. There is moderate spinal canal stenosis. L4-L5: Circumferential disc bulge. There is moderate bilateral facet arthropathy. There is moderate right and severe left neuroforaminal stenosis. There is mild spinal canal stenosis. L5-S1: Circumferential disc bulge There is mild bilateral facet arthropathy. There is moderate bilateral neuroforaminal stenosis. There is no spinal canal stenosis. Procedure Note Becka Agarwal MD - 01/07/2025 EXAMINATION: Magnetic resonance imaging (MRI) of the lumbar spine without contrast HISTORY: Low back and right hip pain/weakness TECHNIQUE: Multiplanar multi-weighted MRI of the lumbar spine was performed without intravenous contrast using the standard protocol. COMPARISON: None Available. FINDINGS: The alignment of the lumbar spine is normal. Degenerative endplate changes at L2-L3 with associated Schmorl's nodes. Intraosseous hemangioma at L3 There are no compression fractures. The conus medullaris terminates at the level of L1-L2. The distal spinal cord signal intensity is normal. Multilevel degenerative disc disease Annular fissure at L3-L4. Bilateral simple renal cysts. The aorta is normal. L1-L2: Circumferential disc bulge. There is mild bilateral facet arthropathy. There is no neuroforaminal stenosis. There is no spinal canal stenosis. L2-L3: Circumferential disc bulge with ligamentum flavum infolding There is moderate bilateral facet arthropathy. There is no neuroforaminal stenosis. There is mild spinal canal stenosis. L3-L4: Circumferential disc bulge with left paracentral disc extrusion migrating caudally causing left lateral recess stenosis and compression of the left L4 nerve root. There is moderate bilateral facet arthropathy. There is mild bilateral neuroforaminal stenosis. There is moderate spinal canal stenosis. L4-L5: Circumferential disc bulge. There is moderate bilateral facet arthropathy. There is moderate right and severe left neuroforaminal stenosis. There is mild spinal canal stenosis. L5-S1: Circumferential disc bulge There is mild bilateral facet arthropathy. There is moderate bilateral neuroforaminal stenosis. There is no spinal canal stenosis. IMPRESSION: Multilevel degenerative changes throughout the lumbar spine with left paracentral disc extrusion at L3-L4 causing moderate canal stenosis and left lateral recess stenosis with compression of the left L4 nerve root. Dictated by: Thomas Severino MD The radiology attending physician has personally reviewed this study, and had reviewed and/or edited this written report and agrees with it. Electronically signed by: Becka Agarwal M.D. Jhony Shepherd MD IMG MRI PROCEDURES Final Re sult * XR Spine Lumbar Ap Lat Flex Ext min 4 Views (01/03/2025 10:39 AM CDT) Anatomical Region Laterality Modality L-spine N/A Computed Radiogr aphy 01/03/2025 11:2 0 AM CDT Impressions 01/03/2025 11:20 AM CDT Multilevel lumbar spine degenerative disc disease worst and severe L3-L4. Electronically signed by: Michael Todd M.D. Narrative 01/03/2025 11:20 AM CDT EXAMINATION: XR SPINE LUMBAR AP LAT FLEX EXT MIN 4 VIEWS HISTORY: Back pain FINDINGS: 4 views of the lumbar spine were performed without prior comparison. There is a partially imaged right hip arthroplasty. There is no lumbar listhesis with flexion and extension. There is multilevel degenerative disc disease worst and severe L3-L4. Facet osteoarthritis is noted. There is no lumbar spine compression fracture. Procedure Note Michael Todd MD PhD - 01/03/2025 EXAMINATION: XR SPINE LUMBAR AP LAT FLEX EXT MIN 4 VIEWS HISTORY: Back pain FINDINGS: 4 views of the lumbar spine were performed without prior comparison. There is a partially imaged right hip arthroplasty. There is no lumbar listhesis with flexion and extension. There is multilevel degenerative disc disease worst and severe L3-L4. Facet osteoarthritis is noted. There is no lumbar spine compression fracture. IMPRESSION: Multilevel lumbar spine degenerative disc disease worst and severe L3-L4. Electronically signed by: Michael Todd M.D. Jhony Shepherd MD [facility] XR PROCEDURES Final Res ult * Erythrocyte sedimentation rate (12/20/2024 9:57 AM CDT) Erythrocyte sedimentation rate 12 1 - 20 mm/hr Blood 12/20/2024 9:57 AM CDT 12/20/2024 10:04 AM CDT Shell Stale[place]riss Coates [place] LAB BLOOD ORDERABLES F inal Result Performing Organization Address [facility] de Phone Number F[facility] [address] [employer] [facility] [place] [address] * CRP (acute phase) (12/20/2024 9:57 AM CDT) Pathologist [facility] CRP <3.0 <=10.0 mg/L Blood 12/20/2024 9:57 AM CDT 12/20/2024 10:04 AM CDT Shell Sherry [place] LAB BLOOD ORDERABLES F inal Result Performing Organization Address [facility] Phone Number [facility] [address] [facility] [place] [address] * XR Hip Right 2 or 3 Views W Pelvis (12/20/2024 8:52 AM CDT) Anatomical Region Laterality Modality Lower Extremities, Hip, Pelvis Right C omputed Radiography 12/20/2024 9:13 AM CDT Impressions 12/20/2024 9:13 AM CDT 1. Right total knee arthroplasty in near-anatomic position. 2. Right total hip arthroplasty with unchanged femoral component subsidence. Electronically signed by: Yunior Chapin M.D. Narrative 12/20/2024 9:13 AM CDT EXAMINATION: XR HIP RIGHT 2 OR 3 VIEWS W PELVIS, XR KNEE RIGHT 3 VIEWS HISTORY: Right hip and knee osteoarthritis FINDINGS: Right hip: 2 view examination right hip is compared with studies from 04/01/2017 and 06/02/2017. There is a right total hip arthroplasty with moderate femoral stem subsidence, new compared with radiographs from March 2017 but unchanged compared with a study from May 2017. There is no fracture. There is mild left hip osteoarthritis. There is heterotopic ossification at the left greater trochanter. Right knee: 3 view examination the right knee is read without comparison. There is a right total knee arthroplasty with no fracture or dislocation. There is heterotopic ossification lateral to the patella. There is a suture anchor in the tibial tubercle. No fracture or dislocation is present. Procedure Note Yunior Chapin MD - 12/20/2024 EXAMINATION: XR HIP RIGHT 2 OR 3 VIEWS W PELVIS, XR KNEE RIGHT 3 VIEWS HISTORY: Right hip and knee osteoarthritis FINDINGS: Right hip: 2 view examination right hip is compared with studies from 04/01/2017 and 06/02/2017. There is a right total hip arthroplasty with moderate femoral stem subsidence, new compared with radiographs from March 2017 but unchanged compared with a study from May 2017. There is no fracture. There is mild left hip osteoarthritis. There is heterotopic ossification at the left greater trochanter. Right knee: 3 view examination the right knee is read without comparison. There is a right total knee arthroplasty with no fracture or dislocation. There is heterotopic ossification lateral to the patella. There is a suture anchor in the tibial tubercle. No fracture or dislocation is present. IMPRESSION: 1. Right total knee arthroplasty in near-anatomic position. 2. Right total hip arthroplasty with unchanged femoral component subsidence. Electronically signed by: Yunior Chapin M.D. Shell [facility] IM XR PROCEDURES Barb l Result * XR Knee Right 3 Views (12/20/2024 8:52 AM CDT) Anatomical Region Laterality Modality Lower Extremities, Knee Right Computed Radiography 12/20/2024 9:13 AM CDT Impressions 12/20/2024 9:13 AM CDT 1. Right total knee arthroplasty in near-anatomic position. 2. Right total hip arthroplasty with unchanged femoral component subsidence. Electronically signed by: Yunior Chapin M.D. Narrative 12/20/2024 9:13 AM CDT EXAMINATION: XR HIP RIGHT 2 OR 3 VIEWS W PELVIS, XR KNEE RIGHT 3 VIEWS HISTORY: Right hip and knee osteoarthritis FINDINGS: Right hip: 2 view examination right hip is compared with studies from 04/01/2017 and 06/02/2017. There is a right total hip arthroplasty with moderate femoral stem subsidence, new compared with radiographs from March 2017 but unchanged compared with a study from May 2017. There is no fracture. There is mild left hip osteoarthritis. There is heterotopic ossification at the left greater trochanter. Right knee: 3 view examination the right knee is read without comparison. There is a right total knee arthroplasty with no fracture or dislocation. There is heterotopic ossification lateral to the patella. There is a suture anchor in the tibial tubercle. No fracture or dislocation is present. Procedure Note Yunior Chapin MD - 12/20/2024 EXAMINATION: XR HIP RIGHT 2 OR 3 VIEWS W PELVIS, XR KNEE RIGHT 3 VIEWS HISTORY: Right hip and knee osteoarthritis FINDINGS: Right hip: 2 view examination right hip is compared with studies from 04/01/2017 and 06/02/2017. There is a right total hip arthroplasty with moderate femoral stem subsidence, new compared with radiographs from March 2017 but unchanged compared with a study from May 2017. There is no fracture. There is mild left hip osteoarthritis. There is heterotopic ossification at the left greater trochanter. Right knee: 3 view examination the right knee is read without comparison. There is a right total knee arthroplasty with no fracture or dislocation. There is heterotopic ossification lateral to the patella. There is a suture anchor in the tibial tubercle. No fracture or dislocation is present. IMPRESSION: 1. Right total knee arthroplasty in near-anatomic position. 2. Right total hip arthroplasty with unchanged femoral component subsidence. Electronically signed by: Yunior Chapin M.D. [facility] XR PROCEDURES Barb l Result * COLONOSCOPY (11/08/2019 7:11 AM CDT) Anatomical Region Laterality Modality Other Narrative Procedure Note Pérez Hubbard MD - 11/08/2019 7:11 AM CDT [facility] Patient Name: Demond Doll Procedure Date: 11/08/2019 7:11 AM Date of : 1955 Admit Type: Outpatient Age: 64 Gender: Male Attending MD: Pérez Hubbard M.D. Room: [facility] ENDOSCOPY ROOM 2 Note Status: Finalized Patient [...] scope was passed under direct vision.The Colonoscope [id number] was introducedthrough the anus and advanced to [...] history of colonic polyps CPT copyright 2017 [employer]. All rights reserved. The codes documented in this report are preliminary and upon formstone fitter reviewmay be revised to meet current compliance requirements. Recognized by the [employer] for promoting quality in endoscopy Pérez Hubbard MD ENDOSCOPY PROCEDURES Final Re sult from Last 3 Months or Most Recently Relevant to Health Maintenance Insurance CHOICE PLUS CHOICE PLUS CHOICE PPO [employer] P[employer] Advance Directives For more information, please contact: [phone] * Full Code (Latest Code Status on [...] AM 04/04/2017 3:43 PM Care Teams Brim Rounder Relationship Specialty Start Date End Date Apolinar Cook MD [address] [place] [address] PCP - General Family Practice 07/27/24 Diego Lutz MD [address] [place] [address] Referring Physician Internal Medicine 04/02/23
--- OUTSIDE RECORDS SUMMARY | 2025-02-18 12:08 | XMS_ITS | Data Portability ---
Author Organization [place] - [facility] OFFICE Address [address] [place] [address] Assessment Encounter Date Assessment Date Assessment LastModified [...] Orders furosemide 20 mg [address] [facility] #[id number], [address] [place], [address], 4 14:38:17 Crestor 20 mg tablet 2022 023 [facility], [facility] [place], [address], 3 12:38:47 Ozempic 0.25 mg or 0.5 mg (2 mg/1.5 mL) subcutaneou s pen injector 2022 023 [email or web address] [facility], [facility] [place], [address], 4 14:05:37 Vascepa 1 gram capsule 2022 023 [facility]ERN [facility], [address] [place] [address], [address], 3 09:43:30 Xarelto 20 mg tablet 2022 023 [email or web address] [facility], [address] [place] [address], [address], 3 07:18:44 Ozempic 0.25 mg or 0.5 mg (2 mg/1.5 mL) subcutaneou s pen injector 2022 023 [email or web address] [facility], [address] [place] [address], [address], 4 14:05:37 nitroglycer in 0.4 mg sublingual tablet 2022 023 [place] [id number], [address] [place], [address], 10:41:24 Patient TargetsNo targets recorded. Patient Instructions Encounter Date Encounter Id Patient Instructions Last Modified By Organization Details Last Modified Time 11/05/2022 [id number] cardiac clearance* [email or web address] Not available 11/26/2022 10:53:34 Low cholesterol diet advised Low sodium diet advised. [email or web address] Not available 11/05/2022 09:43:19 02/05/2023 [id number] Low cholesterol diet advised Low sodium diet advised. eyassin Not available 02/05/2023 12:38:43 Reason for Referral None Reported. Results Created Date Observation Date Name Description Value Unit Range Abnormal Flag Note LastModifiedBy Organization Detail LastModifiedTime 06/18/19 23 06/14/2022 , echoc ardio gram No observ ation record ed. [facility] [address] [place] [address] Dr Kelsey, [place], [address], 06/17/2022 17:45:46 07/02/19 23 06/28/2022 elect rocar [...] 0.123,T4 1.62. 01/30/23:TC 154,TG 165,HDL 41,LDL 84. Cinthya garvey [place] - [facility] 02/02/2023 17:28:23 Problems Name Problem SNOMED Code Status Onset Date Resolution Date Notes Provider Name and Address Organization Details Recorded Time Benign hyperten sejal 90465024 Completed 201502/24/2017 Yudith garvey [place] - [facility] 7 17:49:15 Disorder of coronary artery 825186440 Active 2015 s/p PCI to the left anterior descendi ng coronary artery in 2004. Not Available [facility] 3 13:47:04 Myocardi al infarcti on 98493206 Active 2015 Not Available [facility] 3 13:47:04 Paroxysm al atrial fibrilla tion 773452430 Active 2015 failed cardiove rsion Not Available [facility] 3 13:47:04 Hypothyr oidism 04521969 Active 2015 Not Available [facility] 3 13:47:04 Obesity 512234921 Active 2015 Not Available [facility] 3 13:47:04 Hyperlip idemia 70703267 Completed 201502/24/2017 Yudith garvey [facility] 7 17:49:28 Obstruct yessi sleep apnea syndrome 41856429 Active 2016 on CPAP Not Available [facility] 3 13:47:04 Mitral valve regurgit ation 40608256 Active 2016 Not Available [facility] 3 13:47:04 [facility] hyperten sejal 25692447 Active 2016 Not Available [facility] 3 13:47:04 Dyslipid emia 985077197 Active 201609/02/15 : LDL 65 Not Available [facility] 3 13:47:04 Atrial fibrilla tion 45633973 Active 2018 Not Available [facility] 3 13:47:04 Diabetes mellitus 28856239 Active 2018 Not Available [facility] 3 13:47:04 Edema of lower extremit y 292623009 Active 2018 Not Available [facility] 3 13:47:04 Problem Notes None recorded. Procedures Surgical History Date Name Laterality Status Provider Name and Address Organization Details Recorded Time 04/01/19 18 total replacement of hip completed [facility] 11/15/2020 01:42:49 11/21/19 10 Colonoscopy completed Mend[facility] 08/27/2015 08:44:08 03/29/19 07 Coronary Artery Stent completed Mendes [facility] 08/27/2015 08:43:36 Carpal tunnel surgery completed Cinthya [facility] 08/27/2015 08:43:12 Anesth knee arthroplasty completed Mendes [facility] 08/27/2015 08:44:39 Imaging Results None recorded. Procedure Notes None recorded. Medical Equipment None Reported. Allergies Allergen ID Allergen Name Allergen Category Reaction Reaction Severity Criticality Documentation Date Start Date Code Code System Note Provider Name and Address Organization Details Recorded Time 1306 adhesive tape environme nt,medica tion Not available Not available Not available 08/27/2015 Marques Scott [facility], [place] - [facility] 6 02:57:30 Medications [...] completed Not Available Not Available Not Available [place] 3 1080 mcg active Not Available Not [...] mg/1.5 mL) subcutaneo us pen injector Inject 0.25 mg every week by subcutan eous route. 08/04 completed Not Available Not Available Not [...] mass index (BMI) Body weight Oxygen saturation Heart rate Systolic And Diastolic Provider Name and Address Organization Details Last Updated DateTime 3 177.8 cm 31.3 kg/m2 97090.1 4 g 96 % 56 /min 110/78 mm[Hg] SHEILA BOSS [facility] 3 10:13:09 Date Recorded Body height Body mass index (BMI) Body weight Heart rate Oxygen saturation Systolic And Diastolic Provider Name and Address Organization Details Last Updated DateTime 4 177.8 cm 37.9 kg/m2 302086. 39 g 69 /min 93 % 138/90 mm[Hg] Basilia Laughlin [facility] 4 14:09:13 Date Recorded Body height Body mass index (BMI) Body weight Heart rate Oxygen saturation Systolic And Diastolic Provider Name and Address Organization Details Last Updated DateTime 4 177.8 cm 36.1 kg/m2 830048. 2 g 67 /min 93 % 113/77 mm[Hg] Becka Lyons [facility] 4 14:36:45 Date Recorded Body height Body mass index (BMI) Body weight Heart rate Oxygen saturation Systolic And Diastolic Provider Name and Address Organization Details Last Updated DateTime 3 177.8 cm 35.3 kg/m2 062671. 72 g 67 /min 95 % 108/73 mm[Hg] Becka Lyons [facility] 3 09:15:40 Date Recorded Body height Body mass index (BMI) Body weight Heart rate Oxygen saturation Systolic And Diastolic Provider Name and Address Organization Details Last Updated DateTime 3 177.8 cm 33.7 kg/m2 240073. 21 g 63 /min 98 % 118/85 mm[Hg] Becka Lyons [facility] 3 12:16:48 Social History Question Answer Notes LastModified by Power[employer] Details LastModified Time Tobacco Smoking Status Never Smoker [place] [facility] 08:55:34 What Was The Date Of Your Most Recent Tobacco Screening? 01/27/2018 Information n ot available 10/15/2018 How Much Tobacco Do You Smoke? No Information not available 09/04/2019 How Many Years Have You Smoked Tobacco? 0 Information not available 04/23/2017 Sex: Unknown Functional Status Question Answer Note LastModified by PowerPot Details LastModified Time Do you or have [...] History Condition Response Coronary Artery Disease Y Myocardial Infarction Y Hyperlipidemia Y Atrial Fibrillation Y Thyroid Disease Y Hypertension Y Past Encounters Encounter ID Performer Location Encounter Start Date Encounter Closed Date Diagnosis/Indication Diagnosis SNOMED-CT Code Diagnosis ICD10 Code Diagnosis IMO Codes Diagnosis Note [id number] Paras Zapien MD [address] [place] [address] 08/29/2015 10:03:32 08/29/2015 11:52:22 Obstructive sleep apnea syndrome 22266574 G47.33 On Cpap Hyperlipidemia 23671122 E78.5 Coronary arteriosclerosis 97490453 I25.10 s/p LAD stent Mitral arabella ve regurgitation 83052989 I34.0 Atrial fibrillation 4943 6004 I48.91 [id number] Paras Zapien MD [facility] [address] [place], [place] [address] 02/27/2016 11:18:12 02/28/2016 15:48:53 Benign hypertension 69117611 I10 Obstructiv e sleep apnea syndrome 57779954 G47.33 On Cpap Mitral arabella ve regurgitation 32161251 I34.0 Atrial fibrillation 4943 6004 I48.91 Rate is well controlled On xarelto Hyperlipidemia 95934600 E78.5 Coronary arteriosclerosis 28746223 I25.10 s/p LAD stent [id number] Paras Zapien MD [facility] [address] [place] [address] 1 08/27/2016 16:17:17 08/28/2016 13:29:47 Paroxysmal atrial fibrillation 961868009 I48.0 On Xarelto Benign hypertension 1072 5009 I10 Stable Obstructiv e sleep apnea syndrome 73466231 G47.33 On Cpap, seems to be well controlled now Hyperlipidemia 56620433 E78.5 Need FLP On Pravastati n Coronary arteriosclerosis 00334464 I25.10 s/p LAD stent Treadmill Myoview Stress test, has high Lyons Risk score. Has Known CAD, or CAD risk equivalent . To look for any ischemia. Mitral arabella ve regurgitation 46596435 I34.0 Atrial fibrillation 4943 6004 I48.91 Rate is well controlled On xarelto Edema of l ower extremity 021901226 R60.0 [id number] Paras Zapien MD [facility] [address] [place] [address] 02/25/2017 09:58:40 02/25/2017 16:27:17 Essential hypertension 70212176 I10 Stable Paroxysmal atrial fibrillation 309340167 I48.0 On Xarelto Obstructiv e sleep apnea syndrome 19824949 G47.33 On Cpap, seems to be well controlled now Hyperlipidemia 59134146 E78.5 Need FLP On Pravastati n Coronary arteriosclerosis 36003279 I25.10 s/p LAD stent Treadmill Myoview Stress test was negative Mitral arabella ve regurgitation 94203282 I34.0 Atrial fibrillation 4943 6004 I48.91 Rate is well controlled On xarelto Will plan LAITH and Cardiovers ion Edema of l ower extremity 548020040 R60.0 Now well controlled . On Lasix Fatigue 70174899 R53.83 Woll plane afib Cardiovers ion [id number] MD Juan A Worthy e Office [address] [facility] [address] [place] [address] 04/24/2017 10:16:50 04/24/2017 11:14:52 Essential hypertension 99999163 I10 Now well controlled Paroxysmal atrial fibrillation 999886656 I48.0 On Xarelto Obstructiv e sleep apnea syndrome 84292132 G47.33 On Cpap, seems to be well controlled now Hyperlipidemia 93344489 E78.5 Need FLP On Pravastati n 40 and ezetimibe 10 Coronary arteriosclerosis 90619593 I25.10 s/p LAD stent Treadmill Myoview Stress test was negative Mitral arabella ve regurgitation 97839470 I34.0 Atrial fibrillation 4943 6004 I48.91 Rate is well controlled On xarelto Had LAITH and Cardiovers ion, but now in afib again Edema of l ower extremity 051672065 R60.0 Now well controlled . On Lasix [id number] MD Juan A Worthy e Office [address] [facility] [address] [place] [address] 07/24/2017 11:16:06 07/24/2017 11:51:39 Essential hypertension 66168357 I10 Now well controlled Paroxysmal atrial fibrillation 657965981 I48.0 On Xarelto Obstructiv e sleep apnea syndrome 12555419 G47.33 On Cpap with 100% compliance . Continue use. Hyperlipidemia 85681240 E78.5 07/15/17 LDL 109 Needs to keep LDL less than 70, and HDL more than 40 On Pravastati n 40 will change to Crestor 10 Coronary arteriosclerosis 89532874 I25.10 s/p LAD stent Treadmill Myoview Stress test was negative Mitral arabella ve regurgitation 13378457 I34.0 mild Atrial fibrillation 4943 6004 I48.91 Rate is well controlled On xarelto Had LAITH and Cardiovers ion, but now in afib again Edema of l ower extremity 215094828 R60.0 Now well controlled . On Lasix 93384 Paras Zapien MD [facility] [address] [place] [address] 01/27/2018 09:13:21 01/27/2018 09:59:16 Essential hypertension 94895016 I10 Now well controlled Paroxysmal atrial fibrillation 649149218 I48.0 On Xarelto Obstructiv e sleep apnea syndrome 63878720 G47.33 On Cpap with 100% compliance . Continue use. Hyperlipidemia 14984743 E78.5 07/15/17 LDL 109 Needs to keep LDL less than 70, and HDL more than 40 Currently on Crestor. 01/27/18 Will give order for FLP follow up. Coronary arteriosclerosis 62989997 I25.10 s/p LAD stent Treadmill Myoview Stress test was negative Mitral arabella ve regurgitation 10490616 I34.0 mild Atrial fibrillation 4943 6004 I48.91 Rate is well controlled On xarelto Had LAITH and Cardiovers ion, but now in afib again Edema of l ower extremity 209040374 R60.0 Now well controlled . On Lasix 06305 Paras Zapien MD [facility] [address] [place] [address] 07/28/2018 09:18:19 07/28/2018 17:31:19 Coronary arteriosclerosis 09204109 I25.10 s/p LAD stent Will obtain Treadmill Myoview Stress Test to look for any ischemia. Has a high Lyons Risk score. Has Known CAD and/or CAD risk equivalent . Continue maximal medical treatment and risk factor modificati on Essential hypertension 26011048 I10 Now well controlled Obstructiv e sleep apnea syndrome 40922144 G47.33 On Cpap with 100% compliance . Continue use. Hyperlipidemia 27120637 E78.5 Needs to keep LDL less than 70, and HDL more than 40 Will get lipid profile before next visit. 07/15/17 LDL 109 Continue rosuvastat in Mitral arabella ve regurgitation 58846543 I34.0 mild Atrial fibrillation 4943 6004 I48.91 Chronic. Rate is well controlled On xarelto Had LAITH and Cardiovers ion, but now in afib again Edema of l ower extremity 477616564 R60.0 Resolved on Lasix. Diabetes mellitus 036262 09 E11.9 Last A1C of 5.8% Treatment and evaluation by primary care doctor. Discussed importance of adequate glycemic control to minimize cardiovasc ular disease progressio n. A1C goal of < 7% for type 2 DM [id number] Paras Zapien MD [facility] [address] [place] [address] 09/15/2018 16:08:51 09/15/2018 17:03:43 Atrial fibrillation 40779742 I48.91 Chronic. Rate is well controlled . Continue metoprolol . On xarelto, no bleeding events. Had LAITH and Cardiovers ion, but now in afib again Coronary arteriosclerosis 74428901 I25.10 s/p LAD stent (08/2006) 09/01/2018 Positive stress test. Reversible defect consistent with ischemia in inferior area. Normal LV systolic function. LVEF 55% With worsened fatigued, which may be an anginal equivalent . Will arrange for cardiac CTA, he has high Lyons Risk score. he would benefit from CT to look for any new Coronary Artery Disease Essential hypertension 11534146 I10 Now well controlled Hyperlipidemia 09686269 E78.5 Needs to keep LDL less than 70, and HDL more than 40 08/05/18 LIPID: TC 137, TR 109, HDL 38, LDL 77 Continue rosuvastat in Mitral arabella ve regurgitation 60681053 I34.0 mild Edema of l ower extremity 787475407 R60.0 Resolved on Lasix. Diabetes mellitus 862722 09 E11.9 Last A1C of 5.8% Treatment and evaluation by primary care doctor. Discussed importance of adequate glycemic control to minimize cardiovasc ular disease progressio n. A1C goal of < 7% for type 2 DM Obstructiv e sleep apnea syndrome 73708875 G47.33 On Cpap with 100% compliance . Continue use. History of placement of stent for coronary artery disease 948787604 Z95.5 [id number] Paras Zapien MD [facility] [address] [place] [address] 12/15/2018 09:07:59 12/15/2018 10:21:28 Coronary arteriosclerosis 09093585 I25.10 s/p LAD stent (08/2006) 09/01/2018 Positive [...] but now in afib again Essential hypertension 53227686 I10 Now well controlled Hyperlipidemia 43929046 E78.5 Needs to keep LDL less than 70, and HDL more than 40 08/05/18 LIPID: TC 137, TR 109, HDL 38, LDL 77 Continue rosuvastat in Mitral arabella ve regurgitation 27605100 I34.0 mild Edema of l ower extremity 713069829 R60.0 Resolved on Lasix. Diabetes mellitus 097778 09 E11.9 Last A1C of 5.8% Treatment and evaluation by primary care doctor. Discussed importance of adequate glycemic control to minimize cardiovasc ular disease progressio n. A1C goal of < 7% for type 2 DM Obstructiv e sleep apnea syndrome 46264743 G47.33 On Cpap with 100% compliance . Continue use. History of placement of stent for coronary artery disease 454666534 Z95.5 30876 MD Juan A Ceja Office [address] [facility] [place] [address] 02/25/2019 13:51:49 02/25/2019 14:14:37 Obstructive sleep apnea syndrome 06127596 G47.33 On Cpap, seems to be well controlled now. He is compliant, and he is benefiting from Cpap therapy, will continue to use Cpap at night Sleep disorder 30170379 G47.9 Coronary arteriosclerosis 36201707 I25.10 s/p LAD stent (08/2006) 09/01/2018 Positive [...] but now in afib again Essential hypertension 30358870 I10 Now well controlled Hyperlipidemia 68614564 E78.5 Needs to keep LDL less than 70, and HDL more than 40 08/05/18 LIPID: TC 137, TR 109, HDL 38, LDL 77 Continue rosuvastat in Mitral arabella ve regurgitation 24005953 I34.0 mild Edema of l ower extremity 795174941 R60.0 Resolved on Lasix. Diabetes mellitus 386625 09 E11.9 Last A1C of 5.8% Treatment and evaluation by primary care doctor. Discussed importance of adequate glycemic control to minimize cardiovasc ular disease progressio n. A1C goal of < 7% for type 2 DM History of placement of stent for coronary artery disease 519179059 Z95.5 34355 MD Juan A Ceja Office [address] [facility] [place] [address] 05/27/2019 14:10:49 05/27/2019 17:04:05 Sleep disorder 53487018 G47.9 Obstructiv e sleep apnea syndrome 18991730 G47.33 On Cpap, seems to be well controlled now. He is compliant, and he is benefiting from Cpap therapy, will continue to use Cpap at night Coronary arteriosclerosis 45346169 I25.10 s/p LAD stent (08/2006) 09/01/2018 Positive [...] but now in afib again Essential hypertension 39417226 I10 Now well controlled Hyperlipidemia 28104630 E78.5 Needs to keep LDL less than 70, and HDL more than 40 08/05/18 LIPID: TC 137, TR 109, HDL 38, LDL 77 Continue rosuvastat in Mitral arabella ve regurgitation 62264406 I34.0 mild Edema of l ower extremity 665881680 R60.0 Resolved on Lasix. Diabetes mellitus 252772 E11.9 Last A1C of 5.8% Treatment and evaluation by primary care doctor. Discussed importance of adequate glycemic control to minimize cardiovasc ular disease progressio n. A1C goal of < 7% for type 2 DM History of placement of stent for coronary artery disease 955668523 Z95.5 40421 Paras Zapien MD [facility] [address] [place] [address] 09/07/2019 12:00:19 09/07/2019 12:33:52 Sleep disorder 59080220 G47.9 On Cpap Obstructiv e sleep apnea syndrome 47702220 G47.33 On Cpap, seems to be well controlled now. He is compliant, and he is benefiting from Cpap therapy, will continue to use Cpap at night Coronary arteriosclerosis 77869109 I25.10 s/p LAD stent (08/2006) 09/01/2018 Positive [...] but now in afib again Essential hypertension 78048045 I10 Now well controlled Hyperlipidemia 81989127 E78.5 Needs to keep LDL less than 70, and HDL more than 40 08/05/18 LIPID: TC 137, TR 109, HDL 38, LDL 77 Continue rosuvastat in Mitral arabella ve regurgitation 29485119 I34.0 mild Edema of l ower extremity 728524276 R60.0 Resolved on Lasix. Diabetes mellitus 927870 09 E11.9 Last A1C of 5.8% Treatment and evaluation by primary care doctor. Discussed importance of adequate glycemic control to minimize cardiovasc ular disease progressio n. A1C goal of < 7% for type 2 DM History of placement of stent for coronary artery disease 176123819 Z95.5 stable 81574 MD Juan A Mulligan Office [address] [facility] [place] [address] 11/25/2019 14:56:47 11/25/2019 15:11:58 Sleep disorder 12077352 G47.9 Patient is tolerating CPAP. Patient benefits from CPAP. Patient is compliant with CPAP. Continue CPAP. Obstructiv e sleep apnea syndrome 51219802 G47.33 On Cpap, seems to be well controlled now. He is compliant, and he is benefiting from Cpap therapy, will continue to use Cpap at night. Coronary arteriosclerosis 05892538 I25.10 s/p LAD stent (08/2006) 09/01/2018 Positive [...] but now in afib again Essential hypertension 76105146 I10 Now well controlled Hyperlipidemia 36127985 E78.5 Needs to keep LDL less than 70, and HDL more than 40 08/05/18 LIPID: TC 137, TR 109, HDL 38, LDL 77 Continue rosuvastat in Mitral arabella ve regurgitation 08939680 I34.0 mild Edema of l ower extremity 175917271 R60.0 Resolved on Lasix. Diabetes mellitus 918504 09 E11.9 Last A1C of 5.8% Treatment and evaluation by primary care doctor. Discussed importance of adequate glycemic control to minimize cardiovasc ular disease progressio n. A1C goal of < 7% for type 2 DM History of placement of stent for coronary artery disease 709397405 Z95.5 stable 54658 MD Juan A Worthy Office [address] [facility] [place] [address] 02/24/2020 14:19:17 02/24/2020 15:25:01 Sleep disorder 99686643 G47.9 Obstructiv e sleep apnea syndrome 76280694 G47.33 02/24/2020 On Cpap, seems to be well controlled now.Julio C todd is compliant, and is benefiting from Cpap therapy, will continue to use Cpap at nightRepor ts some fatigue, but overall feels better wearing his CPAP. 54987 Pino Hernandez MD [facility] [address] [place] [address] 2020 09:35:23 2020 11:08:48 Obstructive sleep apnea syndrome 37481370 G47.33 Compliant with nightly CPAP use Coronary arteriosclerosis 75629241 I25.10 s/p LAD stent (08/2006) Cardiac CTA 10/13/2018 : moderate coronary artery disease, patent LAD stent. Maximal medical treatment. Atrial fibrillation 4943 6004 I48.91 Chronic, remains asymptomat ic. [id number] Sc score = 4 Rate controlled on metoprolol on Xarelto s/p LAITH and cardiovers ion Essential hypertension 29120665 I10 Well controlled on current regimen Hyperlipidemia 09634951 E78.5 Needs to keep LDL less than 70, and HDL more than 40 08/05/2018 LDL 77 Continue rosuvastat in 10 mg Will get fasting lipids for follow0-up Mitral arabella ve regurgitation 08401183 I34.0 Mild on echo 01/14/2020 Edema of l ower extremity 763664757 R60.0 Resolved on Lasix Diabetes mellitus 686615 09 E11.9 Treatment and evaluation by primary care doctor. Discussed importance of adequate glycemic control to minimize cardiovasc ular disease progressio n, A1C goal of < 7% for type 2 DM. 30348 MD Juan A Mulligan Office [address] [facility] [address] [place] [address] 05/25/2020 14:48:50 05/25/2020 15:19:01 Sleep disorder 33825628 G47.9 Obstructiv e sleep apnea syndrome 46781654 G47.33 05/25/2020 On Cpap, seems to be well controlled now.Julio C t is compliant, and is benefiting from Cpap therapy, will continue to use Cpap at nightGap in wearing CPap due to Covid 19, could not tolerate mask at that time. Education on exercise, weight loss, diet. Educated COURTNEY could be retested for when a healthy BMI. 46278 MD Juan A Worthy e Office [address] [facility] [address] [place] [address] 08/24/2020 14:36:59 08/24/2020 15:01:37 Sleep disorder 76333073 G47.9 Obstructiv e sleep apnea syndrome 33677188 G47.33 08/24/20 On Cpap, seems to be [...] be retested for when a healthy BMI. 17135 Paras Zapien MD [facility] [address] [place] [address] 11/17/2020 08:49:10 11/20/2020 16:00:35 Atrial fibrillation 26800277 I48.91 Chronic, remains asymptomat ic. [id number] Sc score = 4 Rate controlled on metoprolol on Xarelto s/p LAITH and cardiovers ionSept 2020 has plans for 7 teeth to be pulled will hold Xarelto for 2-3 days no ASA ASA stop for 5 days we will request no epinephrin e during the procedure Cleared for oral surgery. Diabetes mellitus 884799 09 E11.9 Treatment and evaluation by primary care doctor. Discussed importance of adequate glycemic control to minimize cardiovasc ular disease progressio n, A1C goal of < 7% for type 2 DM. Disorder o f coronary artery 047584988 I77.9 Stent in LAD, last stress 2018 40-70% LAD and 25-40% in OM, last stress 2018 Had Cardiac CTA done in 10/13/18 showed [...] that. Treadmill Myoview Stress test, has high Lyons Risk score. Has Known CAD, or CAD risk equivalent . To look for any ischemia. Hypothyroidism 91072648 E03.9 Myocardial infarction 22 099190 I21.9 Stable no chest mild KUO, past CTA with 40-70% in LAD see above Stent in LAD, last stress 2018 40-70% LAD and 25-40% in OM, last stress 2018 Had Cardiac CTA done in 10/13/18 showed [...] that. Treadmill Myoview Stress test, has high Lyons Risk score. Has Known CAD, or CAD risk equivalent . To look for any ischemia. Obstructiv e sleep apnea syndrome 70684482 G47.33 08/24/20 On Cpap, seems to be [...] appt Sept for CPAP issues Coronary arteriosclerosis 17242528 I25.10 s/p LAD stent (08/2006) Cardiac CTA 10/13/2018 : moderate coronary artery disease, patent LAD stent. Maximal medical treatment. Essential hypertension 83739418 I10 Well controlled on current regimen Hyperlipidemia 69193529 E78.5 Needs to keep LDL less than 70, and HDL more than :TC 133,TG 136,HDL 35,LDL 74. Rosuva 10 Continue rosuvastat in 10 mg Mitral arabella ve regurgitation 40490636 I34.0 Mild on echo 01/14/2020 50-55% LVEF Edema of l ower extremity 797872978 R60.0 Resolved on Lasix Paroxysmal atrial fibrillation 145120568 I48.0 See above rate controlled no change otherwise Rate 60 BPM 16099 Paras Zapien MD [facility] [address] [place] [address] 11/28/2020 08:53:36 11/28/2020 09:39:47 Sleep disorder 87291338 G47.9 Obstructiv e sleep apnea syndrome 15206820 G47.33 On Cpap, seems to be well [...] then go back on. Okay to xarelto 32195 Paras Zapien MD [facility] [place] [address] 05/18/2021 09:10:04 05/18/2021 09:44:38 Sleep disorder 43457991 G47.9 Obstructiv e sleep apnea syndrome 19028744 G47.33 On Cpap, seems to be well [...] 4943 6004 I48.91 Chronic, remains asymptomat ic. [id number] Sc score = 4 Rate controlled on metoprolol on Xareltowil l decrease Amio to 100 mg po qd Diabetes mellitus 585594 09 E11.9 Treatment and evaluation by primary care doctor. Discussed importance of adequate glycemic control to minimize cardiovasc ular disease progressio n, A1C goal of < 7% for type 2 DM. 47675 Paras Zapien MD [facility] [address] [place] [address] 11/16/2021 08:45:58 11/16/2021 10:08:51 Sleep disorder 11695305 G47.9 Obstructiv e sleep apnea syndrome 95657918 G47.33 On Cpap, seems to be well [...] 4943 6004 I48.91 Chronic, remains asymptomat ic. [id number]-WL Sc score = 4 Rate controlled on metoprolol on XareltoOK to DC Amio Diabetes mellitus 899110 E11.9 Treatment and evaluation by primary care doctor. Discussed importance of adequate glycemic control to minimize cardiovasc ular disease progressio n, A1C goal of < 7% for type 2 DM. 42419 Paras Zapien MD [facility] [address] [place] [address] 05/21/2022 08:58:02 05/21/2022 09:36:02 Sleep disorder 55886483 G47.9 On Cpap Obstructiv e sleep apnea syndrome 91853329 G47.33 On Cpap, seems to be well [...] 4943 6004 I48.91 Chronic, remains asymptomat ic. ZDK6UU4-CN Sc score = 4 Rate controlled on metoprolol on XareltoObt ain echo to evaluate for structural /functiona l disease.OK to DC Amio Diabetes mellitus 000841 E11.9 Treatment and evaluation by primary care doctor. Discussed importance of adequate glycemic control to minimize cardiovasc ular disease progressio n, A1C goal of < 7% for type 2 DM. 97571 Paras Zapien MD [facility] [address] [place] [address] 06/28/2022 09:28:13 06/28/2022 10:44:34 Sleep disorder 01076605 G47.9 On Cpap Atrial fibrillation 4943 6004 I48.91 Chronic, remains asymptomat ic. [id number]-JD Sc score = 4 Rate controlled on metoprolol on XareltoDC Toprol due to bradycardi a Diabetes mellitus 558114 09 E11.9 Treatment and evaluation by primary care doctor. Discussed importance of adequate glycemic control to minimize cardiovasc ular disease progressio n, A1C goal of < 7% for type 2 DM. Atypical chest pain 1025 86532 R07.89 Treadmill Myoview Stress test, has high Lyons Risk score. Has Known CAD, or CAD risk equivalent . To look for any ischemia. 24656 Paras Zapien MD [facility] [address] [place] [address] 11/05/2022 08:51:17 11/05/2022 10:07:24 Sleep disorder 73138388 G47.9 On Cpap Atrial fibrillation 4943 6004 I48.91 Chronic, remains asymptomat ic. QAP5UF2-QT Sc score = 4 Rate controlled on metoprolol on XareltoDC Toprol due to bradycardi a Diabetes mellitus 054357 09 E11.9 Treatment and evaluation by primary care doctor. Discussed importance of adequate glycemic control to minimize cardiovasc ular disease progressio n, A1C goal of < 7% for type 2 DM. Atypical chest pain 1025 34201 R07.89 Treadmill Myoview Stress test, has high Lyons Risk score. Has Known CAD, or CAD risk equivalent . To look for any ischemia. Essential hypertension 73396252 I10 Well controlled on current regimen Dyslipidemia 157399283 E 78.5 continue fenofibrat e and crestorLDL is 68 and TG is 234 done 10/2022sta rting vascepa Coronary arteriosclerosis 67394641 I25.10 Negative stress test 09/2022 s/p LAD stent (08/2006) Cardiac CTA 10/13/2018 : moderate coronary artery disease, patent LAD stent. Maximal medical treatment. Continue with ozempic Pre-surger y evaluation 687524826 Z01.818 There is no cardiac contraindi cation for the procedure. The planned procedure would be within acceptable risk. Patient may stop xarelto prior to his procedure 48 hour and resume after surgery 30593 Paras Zapien MD [facility] [address] [place] [address] 02/05/2023 12:06:37 02/05/2023 12:42:26 Atrial fibrillation 30478855 I48.91 Chronic, remains asymptomat ic. JAZ1PH3-GS Sc score = 4 Rate controlled on metoprolol on XareltoDC Toprol due to bradycardi a Diabetes mellitus 993868 09 E11.9 Treatment and evaluation by primary care doctor. Discussed importance of adequate glycemic control to minimize cardiovasc ular disease progressio n, A1C goal of < 7% for type 2 DM. Essential hypertension 48200809 I10 Well controlled on current regimen Dyslipidemia 826383052 E 78.5 continue fenofibrat e and crestorLDL is 84 and TG is 165 done on tinue with vascepawil l increased his crestor 20 mg daily Coronary arteriosclerosis 79454136 I25.10 Negative stress test 09/2022 s/p LAD stent (08/2006) Cardiac CTA 10/13/2018 : moderate coronary artery disease, patent LAD stent. Maximal medical treatment. Continue with ozempic 296506 Paras Zapien MD [facility] [place] [address] 08/05/2023 13:51:33 08/05/2023 14:43:06 Atrial fibrillation 05680760 I48.91 Chronic, remains asymptomat ic. BGZ5YF7-NB Sc score = 4 Rate controlled on metoprolol on XareltoDC Toprol due to bradycardi a Diabetes mellitus 139209 09 E11.9 Treatment and evaluation by primary care doctor. Discussed importance of adequate glycemic control to minimize cardiovasc ular disease progressio n, A1C goal of < 7% for type 2 DM. Essential hypertension 31102801 I10 Well controlled on current regimen Dyslipidemia 957477885 E 78.5 continue fenofibrat e and crestorLDL is 84 and TG is 165 done on tinue with vascepawil l increased his crestor 20 mg daily Coronary arteriosclerosis 66144890 I25.10 Negative stress test 09/2022 s/p LAD stent (08/2006) Cardiac CTA 10/13/2018 : moderate coronary artery disease, patent LAD stent. Maximal medical treatment. Continue with ozempic Edema of l ower extremity 277949483 R60.0 LasixObtai n echo to evaluate for structural /functiona l disease. 669102 Paras Zapien MD [facility] [place] [address] 10/28/2023 14:07:04 10/28/2023 15:00:03 Atrial fibrillation 37551830 I48.91 Chronic, remains asymptomat ic. NPY6OH2-KH Sc score = 4 Rate controlled on metoprolol on Xarelto Diabetes mellitus 808628 09 E11.9 Treatment and evaluation by primary care doctor. Discussed importance of adequate glycemic control to minimize cardiovasc ular disease progressio n, A1C goal of < 7% for type 2 DM. Essential hypertension 75288726 I10 Well controlled on current regimen Dyslipidemia 241032523 E 78.5 continue fenofibrat e and crestorLDL is 84 and TG is 165 done on tinue with vascepawil l increased his crestor 20 mg daily Coronary arteriosclerosis 33870072 I25.10 Negative stress test 09/2022 s/p LAD stent (08/2006) Cardiac CTA 10/13/2018 : moderate coronary artery disease, patent LAD stent. Maximal medical treatment. Continue with ozempic Edema of l ower extremity 660001763 R60.0 Las[facility] Health Concerns Section Related Observation LastModified by Organization Detai ls LastModified Time None Recorded Concern Status LastModified by Organization Details LastModified Time None Recorded Advance Directives Directive None Recorded Payers Insurance Date Sequence Insurance Name Policy Number Policy Grayson Covered Member ID Grasyon Member ID Guarantor Name 10/02/2024 1 [employer] (MEDICARE REPLACEMENT/A DVANTAGE - PPO) [id number] Aniya Ulrich [id number] Aniya Ulrich 10/27/2023 1 [facility] [id number] Aniya Ulrich [id number] Aniya Ulrich 10/27/2023 1 [employer] (MEDICARE) Aniya Ulrich [id number] Aniya Ulrich Notes Date Note Type Note Provider Name and Address Organization Details Recorded Time 06/28/2022 text/html Sleep ProblemsRe ported by Patient 06/28/22CC : Cardiac follow up, chest [id number] white man with a PMH of moderate [...] Pt had a hip replacement 04/01/17 at [facility]. Pt had a DCCV on 03/27/17 went into [facility] but is back in [facility]. Pt went to [facility] 04/23/17 after he stopped breathing at home. His breathing resumed spontaneously. He was found to have bronchitis in AFIB.Results from this visit, or from the past:10/07/20:Na 140,K 4.1,Cl 104,Co2 23,Glu 97,Bun 18,Cr 1.35,AST 46,ALT 42. 06/21/20:TC 133,TG 136,HDL 35,LDL 74.Cr 1.35, LDL 74BMP, serum or plasma [id number] 08/05/18: NA 140, K 4.7, CL 103, CO2 22, GLU 103, BUN 21, CR 1.34TSH, serum or plasma TSH: 1. LIPID: TC 137, TR 109, HDL 38, LDL 775 CBC: WBC 3.0, HGB 15.4, HCT 46.9, PLT 48768: Na 136 ,K 4.9 ,CL 97 ,CO2 [...] Low Voltage, chest leads. prob old anterior WI. Left axis deviation. mu EKG, 09/15/18: Prob A-Fib. Low Voltage, chest leads. prob old anterior [place]. Left axis deviation. mu EKG, 07/28/18, A-Fib..with [...] by volume. Paras Zapien MD [address] [place], [address], [facility] 06/28/2022 10:41:36 11/05/2022 text/html Sleep ProblemsRe ported by Patient 11/05/22CC : Cardiac follow up dyspnea on [id number]-gfru-lfz white man with a PMH of moderate [...] Pt had a hip replacement 04/01/17 at [facility]. Pt had a DCCV on 03/27/17 went into NSR but is back in A-fib. Pt went to [facility] 04/23/17 after he stopped breathing at home. His breathing resumed spontaneously. He was found to have bronchitis in AFIB.Results from this visit, or from the past:10/07/20:Na 140,K 4.1,Cl 104,Co2 23,Glu 97,Bun 18,Cr 1.35,AST 46,ALT 42. 06/21/20:TC 133,TG 136,HDL 35,LDL 74.Cr 1.35, LDL 74BMP, serum or plasma [id number] 08/05/18: NA 140, K 4.7, CL 103, CO2 22, GLU 103, BUN 21, CR 1.34TSH, serum or plasma TSH: 1. LIPID: TC 137, TR 109, HDL 38, LDL 775 CBC: WBC 3.0, HGB 15.4, HCT 46.9, PLT 85772: Na 136 ,K 4.9 ,CL 97 ,CO2 22 ,GLU 98 ,BUN 19 ,CR 1.16,CK 713 ,TC 189 ,TG 222 ,HDL 36 ,LDL 109 ,AST ,ALT ,HB 15.5, HT 46.406/02/06 : Na 140 ,K 4.4 ,CL 100 [...] Low Voltage, chest leads. prob old anterior WI. Left axis deviation. mu EKG, 09/15/18: Prob A-Fib. Low Voltage, chest leads. prob old anterior WI. Left axis deviation. mu EKG, 07/28/18, A-Fib..with [...] Left atrium is severely dilated by volume. [place] [facility] 11/05/2022 09:43:36 02/05/2023 text/html Sleep ProblemsRe ported by Patient 02/05/23CC : Cardiac follow up dyspnea on wbualcua79-utno-tkp white man with a PMH of moderate [...] Pt had a hip replacement 04/01/17 at [facility]. Pt had a DCCV on 03/27/17 went into NSR but is back in A-fib. Pt went to [facility] 04/23/17 after he stopped breathing at home. His breathing resumed spontaneously. He was found to have bronchitis in AFIB.Results from this visit, or from the past:10/07/20:Na 140,K 4.1,Cl 104,Co2 23,Glu 97,Bun 18,Cr 1.35,AST 46,ALT 42. 06/21/20:TC 133,TG 136,HDL 35,LDL 74.Cr 1.35, LDL 74BMP, serum or plasma [id number] 08/05/18: NA 140, K 4.7, CL 103, CO2 22, GLU 103, BUN 21, CR 1.34TSH, serum or plasma TSH: 1. LIPID: TC 137, TR 109, HDL 38, LDL 7708/05/18 CBC: WBC 3.0, HGB 15.4, HCT 46.9, PLT 00355: Na 136 ,K 4.9 ,CL 97 ,CO2 [...] Low Voltage, chest leads. prob old anterior WI. Left axis deviation. mu EKG, 09/15/18: Prob A-Fib. Low Voltage, chest leads. prob old anterior WI. Left axis deviation. mu EKG, 07/28/18, A-Fib..with [...] Left atrium is severely dilated by volume. [place] [facility] 02/05/2023 12:38:50 08/05/2023 text/html Sleep ProblemsRe ported by Patient 08/05/23CC : Cardiac follow [id number]-ecj white man with a PMH of moderate [...] Pt had a hip replacement 04/01/17 at [facility]. Pt had a DCCV on 03/27/[address] [facility] but is back in [facility]. Pt went to [facility] 04/23/17 after he stopped breathing at home. His breathing resumed spontaneously. He was found to have bronchitis in AFIB.Results from this visit, or from the past:10/07/20:Na 140,K 4.1,Cl 104,Co2 23,Glu 97,Bun 18,Cr 1.35,AST 46,ALT 42. 06/21/20:TC 133,TG 136,HDL 35,LDL 74.Cr 1.35, LDL 74BMP, serum or plasma [id number] 08/05/18: NA 140, K 4.7, CL 103, CO2 22, GLU 103, BUN 21, CR 1.34TSH, serum or plasma 08-05- TSH: 1. LIPID: TC 137, TR 109, HDL 38, LDL 775 CBC: WBC 3.0, HGB 15.4, HCT 46.9, PLT 36277/: Na 136 ,K 4.9 ,CL 97 ,CO2 [...] Low Voltage, chest leads. prob old anterior WI. Left axis deviation. EKG, 09/15/18: Prob A-Fib. Low Voltage, chest leads. prob old anterior WI. Left axis deviation. EKG, 07/28/18, A-Fib..with normal [...] by volume. Paras Zapien MD [address] [place], [address], [facility] 08/05/2023 14:38:38 10/28/2023 text/html Sleep ProblemsRe ported by Patient 10/28/23CC : Cardiac follow up , dyspnea on hiqashgn18-ujqn-jvs white man with a PMH of moderate [...] Pt had a hip replacement 04/01/17 at [facility]. Pt had a DCCV on 03/27/[address] [facility] but is back in [facility]. Pt went to [facility] 04/23/17 after he stopped breathing at home. His breathing resumed spontaneously. He was found to have bronchitis in AFIB.Results from this visit, or from the past:10/07/20:Na 140,K 4.1,Cl 104,Co2 23,Glu 97,Bun 18,Cr 1.35,AST 46,ALT 42. 06/21/20:TC 133,TG 136,HDL 35,LDL 74.Cr 1.35, LDL 74BMP, serum or plasma [id number] 08/05/18: NA 140, K 4.7, CL 103, CO2 22, GLU 103, BUN 21, CR 1.34TSH, serum or plasma TSH: 1. LIPID: TC 137, TR 109, HDL 38, LDL 775 CBC: WBC 3.0, HGB 15.4, HCT 46.9, PLT 53319/: Na 136 ,K 4.9 ,CL 97 ,CO2 22 ,GLU 98 ,BUN 19 ,CR 1.16,CK 713 ,TC 189 ,TG 222 ,HDL 36 ,LDL 109 ,AST ,ALT ,HB 15.5, HT 46.406/02/06 : Na 140 ,K 4.4 ,CL 100 [...] Low Voltage, chest leads. prob old anterior WI. Left axis deviation. EKG, 09/15/18: Prob A-Fib. Low Voltage, chest leads. prob old anterior WI. Left axis deviation. mu EKG, 07/28/18, A-Fib..with [...] by volume. Paras Zapien MD [address] [place], [address], [facility] 10/28/2023 14:57:39
--- OUTSIDE RECORDS SUMMARY | 2025-02-18 12:08 | XMS_ITS | Patient Health Record ---
Author Organization 1 OF Heriberto rivera [facility] Address [address] [facility] [address] [place] [address] Care Team Providers Care Lead Operator Name Role Phone Dr. Apolinar Cook Primary Care Provider UnavailRoel Connell Unavailable Allergies No Known Allergies Reason For Referral No Information Medications Medication SIG (Take, Route, Fr equency, Duration) Notes Start Date End Date Status Levothyroxine Sodium Active Furosemide Active Vitamin D3 Active Mounjaro Active Metoprolol Succinate Active Vitamin C Active Fenofibrate Active Aspirin Active Tylenol Arthritis Pain Active Xarelto Active Vitamin E Active Beta Carotene Active Fish Oil Active Social History Tobacco Use: Social History Observation Description Date Details (start date - stop date) Never Smoker NA - NA Social History Tobacco Use: Social Info Question Answer Notes Tobacco Use/Smoking Are you a nonsmoker Additional Details Category Social Info Options Details Miscellaneous: Exercise: Sedentary Marital status: Housing: owns a home Occupation: Works full-time Living with: spouse Drugs/Alcohol: Alcohol use: Neeta todd alcohol use Recreational drugs Patient denie s recreational drug use Problems Problem Type SNOMED Code ICD Code Onset Dates Problem Status W/U Status Risk Notes Problem Neurologic disorder associated with type II diabetes mellitus (756656396) Type 2 diabetes mellitus with other diabetic neurological complication (E11.49) Active confirmed Problem Lower limb length difference (M21.70) Active confirmed Problem Acquired hammer toe of right foot (24329197444247 05) Hammertoe of right foot (M20.41) Active confirmed Vital Signs Height 70 in 01/06/2025 Weight 250 lbs 01/06/2025 BMI 35.87 kg/m2 01/06/2025 Encounters Encounter Location Date Provider Diagnosis 1 OF Her[facility]erto [place] [address] [employer] [address] [address] 03/09/2024 Roel Clark Type 2 diabetes mellitus with other diabetic neurological complication E11.49 ; Callus of foot L84 ; Onychogryphosis L60.2 and Nail dystrophy L60.3 1 OF [place] [address] [employer] [address] 06/01/2024 Roel Clark Type 2 diabetes mellitus with other diabetic neurological complication E11.49 ; Callus of foot L84 ; Onychogryphosis L60.2 and Nail dystrophy L60.3 1 OF [place] [address] [employer] [address] [address] 10/22/2024 Roel Clark Type 2 diabetes mellitus with other diabetic neurological complication E11.49 ; Callus of foot L84 ; Onychogryphosis L60.2 ; Nail dystrophy L60.3 ; Right knee pain, unspecified chronicity M25.561 and Right hip pain M25.551 1 OF [place] [address] [employer] [address] 01/06/2025 Roel Clark Type 2 diabetes mellitus with other diabetic neurological complication E11.49 ; Callus of foot L84 ; Onychogryphosis L60.2 and Nail dystrophy L60.3 1 OF [place] [address] [employer] [address] 08/13/2024 Roel Clark Type 2 diabetes mellitus with other diabetic neurological complication E11.49 ; Callus of foot L84 ; Onychogryphosis L60.2 ; Nail dystrophy L60.3 and Contusion of lesser toe of right foot with damage to nail, initial encounter S90.221A Assessments Encounter Date Diagnosis (ICD Code) Assessment [...] 08/13/2024 Callus of foot (ICD-10 - L84) 10/22/2024 Type 2 diabetes mellitus with other diabetic neurological complication (ICD-10 - E11.49) Considering the associated comorbidities and physical exam findings today, this patient is at substantial risk of developing serious foot complications in the absence of regular and professional palliative foot care. 10/22/2024 Callus of foot (ICD-10 - L84) 01/06/2025 Type 2 diabetes mellitus with other diabetic neurological complication (ICD-10 - E11.49) Considering the associated comorbidities and physical exam findings today, this patient is at substantial risk of developing serious foot complications in the absence of regular and professional palliative foot care. 01/06/2025 Callus of foot (ICD-10 - L84) 01/06/2025 Onychogryphosis (ICD-10 - L60.2) 10/22/2024 Onychogryphosis (ICD-10 - L60.2) 08/13/2024 Onychogryphosis (ICD-10 - L60.2) 03/09/2024 Callus of foot (ICD-10 - L84) 06/01/2024 Callus of foot (ICD-10 - L84) 03/09/2024 Onychogryphosis (ICD-10 - L60.2) 06/01/2024 Onychogryphosis (ICD-10 - L60.2) 08/13/2024 Nail dystrophy (ICD-10 - L60.3) 10/22/2024 Nail dystrophy (ICD-10 - L60.3) 01/06/2025 Nail dystrophy (ICD-10 - L60.3) 10/22/2024 Right knee pain, unspecified chronicity (ICD-10 - M25.561) 08/13/2024 Contusion of lesser toe of right foot with damage to nail, initial encounter (ICD-10 - S90.221A) He was advised to monitor T8 for SOI as his nail may snag in his sock and fall off. 06/01/2024 Nail dystrophy (ICD-10 - L60.3) 03/09/2024 Nail dystrophy (ICD-10 - L60.3) 10/22/2024 Right hip pain (ICD-10 - M25.551) 10/22/2024 Other Plan: - Recommended evaluation by an employment law specialist for hip and knee, specifically for [...] Additional Notes: - Advised to call the employment law specialist for an appointment, emphasizing that the condition will likely worsen without intervention. 01/06/2025 Other Plan: - Routine foot care. - Follow-up as needed. Interventions: - Debridement of calluses on the left and right feet. - Lotion applied. - Shoes re-applied. Plan Of Treatment Next Appt Details Provider Name:Roel Clark, 03/31/2025 10:30:00 AM, [address] [place], [address], Insurance Providers Payer Name Payer Address Payer Phone Subscriber Number Group Number Insured Name Patient Relationship to Insured Coverage Start Date Coverage End Date [facility] [address] [address] [facility] [address] [id number] Aniya Ulrich Self - patient is the insured Medical (General) History Medical History History ICD Code A fib, arthritis, diabetes, heart attack, high blood pressure, high cholesterol, thyroid problems Atrial fibrillation (A-fib) Arthritis Heart attack (ME) Diabetes High cholesterol High blood pressure Surgical History Surgery Date(Month/Year) Right hip replacement 04/01/2017 Vascular sugery
--- OUTSIDE RECORDS SUMMARY | 2025-02-18 12:08 | XMS_ITS | Clinical Summary ---
Author Organization [facility] Address [address] [address] Phone Care Team Providers Care Materials Handling Coordinator Name Role Phone Provider, Not On File [...] Virus (HCV) Screening 1955 TdaP Immunization 1955 Cologuard 2000 Colonoscopy 2000 Colorectal Cancer Screening 2000 Immunochemical Fecal Occult Blood 2000 Pneumococcal Immunization (50+ years) (2 of 2 - PCV) 03/15/2022 03/15/2021 Influenza Immunization (#1) 2024 10/0 10/2021, 03/15/2021, 12/22/2012 SARS-COV-2 Immunization ( season) 2024 12/29/2021, 02/10/2021, 06/03/2020, Additional history exists Respiratory Syncytial Virus (RSV) Immunization (Adult) (1 [...] patient's age to complete this topic Insurance Care Teams Materials Handling Coordinator Relationship Specialty Start Date End Date Provider, Not On File [place] PCP - General 12/05/22
--- OUTSIDE RECORDS SUMMARY | 2025-02-18 12:09 | XMS_ITS | Clinical Summary ---
Author Organization [facility] Address [address] [place] [address] Care Team Providers Care Coating Engineer Name Role Phone Becka Reagan MD Primary Care Provider [phone] Source Comments [facility],non-owned Affiliates and Associated Physician Practices is amultiple site organization consisting of ambulatory clinics and hospital sitesin [place], [place], [place] and [place]. This disclosure is being madepursuant to the Care Everywhere program and may not contain all information available regarding this patient. 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 Gender Identity Not on file Sexual Orientation [...] 2005 ZOSTER VACCINE (1 of 2) 2005 DEPRESSION SCREENING 03/24/2024 COVID-19 VACCINE (1 - 2024-2 6 season) 2024 INFLUENZA VACCINE (#1) 2024 Respiratory Syncytial Virus (RSV) Vaccine Pt: [...] Patient Date of Phone Billing Address Personal/Family [address] [place] [phone] [employer] MEDICARE ADV PPO SELF PAY NO INSURANCE Member Subscriber Plan / Payer (Ef fective for All Dates) Name:Demond Doll Member ID:Not on file Relation to Subscriber:Not on file Name:DEMOND DOLL Subscriber ID:Not on file Address: [address] [place], [place] [address] Payer ID:Not on file Group ID:Not on file Type:Self Pay Address: [place], [place] * Guarantor: DEMOND DOLL Account Type Relation to Patient Date of Phone Billing Address Personal/Family [address] [place] [address] MEDICARE ADV PPO SELF PAY NO INSURANCE Member Subscriber Plan / Payer (Ef fective for All Dates) Name:Demond Doll Member ID:Not on file Relation to Subscriber:Not on file Name:DEMOND DOLL Subscriber ID:Not on file Address: [address] [place], [place] [id number] Payer ID:Not on file Group ID:Not on file Type:Self Pay Address: [place], [place] * Guarantor: DEMOND DOLL Account Type Relation to Patient Date of Phone Billing Address Personal/Family [address] [place], [place] [phone] [facility] MEDICARE ADV PPO SELF PAY NO INSURANCE Member Subscriber Plan / Payer (Ef fective for All Dates) Name:Demond Doll Member ID:Not on file Relation to Subscriber:Not on file Name:DEMOND DOLL Subscriber ID:Not on file Address: [address] [place] [phone] Payer ID:Not on file Group ID:Not on file Type:Self Pay Address: [place], [place] Care Teams Coating Engineer Relationship Specialty Start Date End Date Becka Reagan MD [address] [place] [address] PCP - General 06/10/08
[2025-02-18 12:15] VITALS: BP 139/72; PULSE 66; RESP 18; TEMP 36.3
--- OUTSIDE RECORDS SUMMARY | 2025-02-18 12:37 | XMS_ITS | Encounter Summary ---
Author Organization [facility] Address [address] [place] [address] Phone Care Team Providers Care Manager Strategic Sourcing Name Role Phone Diego Lutz MD Unavailable Apolinar Cook MD Primary Care Provider [phone] Encounter Details Date Type Department Care Team (Latest Contact Info) Description 12/20/2024 Results Follow-Up 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
--- OUTSIDE RECORDS SUMMARY | 2025-02-18 12:37 | XMS_ITS | Encounter Summary ---
Author Organization [facility] Address [address] [place] [address] Phone Care Team Providers Care Vehicle Return Associate Name Role Phone Pérez Cifuentes NP Primary Care Provider [phone] Diego Lutz MD Unavailable Apolinar Cook MD Primary Care Provider [phone] Reason for Referral * Diagnostic Imaging (Routine) - Closed Specialty Diagnoses / Procedures Referred By Contac t Referred To Contact Diagnoses Status post reverse total arthroplasty of left shoulder Procedures XR Shoulder Left 2 or More Views Fransisco Santo MD [address] [facility] [place] [address] Phone: tel: fax: [address] [address] Referral ID Status Reason Start Date Expiration Date Visits Re quested Visits Authorized [id number] Closed 12/05/2022 01/04/2024 1 1 Encounter Details Date Type Department Care Team (Late st Contact Info) Description 12/05/2022 Orders Only [facility] Medicine Orthopaedic Surgery [address] [facility] 2[address] [place] [address] Fransisco Santo MD [address] [facility] [place] [address] Status post reverse total arthroplasty of left [...] on file Legal Sex Male 11:43 PM 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 Gender Identity Not on file Sexual Orientation [...] Aids 0 12/05/2022 8:14 AM CDT Dmitri Corneluis RN Intravenous Therapy/Heparin/Saline Lock 20 12/05/2022 8:14 [...] Applied Yes 12/05/2022 8:14 AM CDT Dmitri Mcenil RN All Moderate Fall Interventions Applied Yes [...] shoulder documented in this encounter Care Teams Vehicle Return Associate Relationship Specialty Start Date End Date Pérez Cifuentes NP PCP - General Nurse Practitioner 02/05/23 07/26/24 Apolinar Cook MD [address] [place] [address] PCP - General Family Practice 07/27/24 Diego Lutz MD [address] [place] [address] Referring Physician Internal Medicine 04/02/23 documented as of this encounter
--- OUTSIDE RECORDS SUMMARY | 2025-02-18 12:38 | XMS_ITS | Clinical Summary ---
Author Organization [facility] Address [address] [address] Phone Care Team Providers Care Slip Bridge Operator Name Role Phone Provider, Not On File [...] to complete this topic Insurance Care Teams Slip Bridge Operator Relationship Specialty Start Date End Date Provider, Not On File [place] PCP - General 12/05/22
--- OUTSIDE RECORDS SUMMARY | 2025-02-18 12:38 | XMS_ITS | Clinical Summary ---
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 process equipment operator before breakfast 5 Active cholecalciferol , vitamin [...] (10/11/2019): Added automatically from request for surgery [id number] Edema of lower extremity 09/13/2018 Dyslipidemia 02/23/2017 [...] Department Care Team Description 01/08/2025 Results [facility] [address] [place] [address] Jhony Shepherd MD MRI Lumbar Spine WO Contrast 01/06/2025 4:54 PM CDT - 01/06/2025 11:59 PM CDT Hospital Encounter [facility] [address] [place] [address] Low back pain, unspecified back pain laterality, unspecified chronicity, unspecified whether sciatica present; Other spondylosis with radiculopathy, lumbar region Discharge Disposition: Discharge to home or self care 01/03/2025 10:40 AM CDT [facility] [address] [place] [address] [address] [place] [phone] Jhony Shepherd MD Other spondylosis with radiculopathy, lumbar region (Primary Dx); Low back pain, unspecified back pain laterality, unspecified chronicity, unspecified whether sciatica present 01/03/2025 10:27 AM CDT - 01/03/2025 11:59 PM CDT Hospital Encounter [facility] Radiology [address] [place] [address] [address] [place] [phone] Low back pain, unspecified back pain laterality, unspecified chronicity, unspecified whether sciatica present Discharge Disposition: Discharge to home or self care 12/20/2024 10:00 AM CDT Lab [facility] [address] [place] [address] Hx of total hip arthroplasty, right; Hx of total knee arthroplasty, right 12/20/2024 9:30 AM CDT Office Visit [facility] [address] [place] [address] [phone] Shell Coates PA Hx of total hip arthroplasty, right (Primary Dx); Hx of total knee arthroplasty, right; Right knee pain, unspecified chronicity; Right hip pain 12/20/2024 8:31 AM CDT - 12/20/2024 11:59 PM CDT Hospital Encounter [facility] [address] [place] [address] [address] [phone] Hx of total hip arthroplasty, right; Right hip pain; Hx of total knee arthroplasty, right; Right knee pain, unspecified chronicity Discharge Disposition: Discharge to home or self care 12/20/2024 Results Follow-Up [facility] Medicine Orthopaedic Surgery [address] [facility] [address] Office [address] [place] [address] Shell Coates PA Erythrocyte sedimentation [...] on file Legal 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 Gender Identity Not on file Sexual Orientation Not on file Last Filed Vital Signs Vital Sign Reading Time Taken Comments Blood Pressure 122/77 03/31/2023 4:50 PM HEMATOLOGY NURSE Pulse 79 03/31/2023 4:50 PM HEMATOLOGY NURSE Temperature 36 C (96.8 F) 03/31/2023 8:10 AM HEMATOLOGY NURSE Respiratory Rate 16 03/31/2023 4:50 PM HEMATOLOGY NURSE Oxygen Saturation 93% 03/31/2023 4:50 PM HEMATOLOGY NURSE Inhaled Oxygen Concentration - - Weight 109.3 [...] 05/21/2021, 03/15/2021 Medical Devices Implanted Type Area Safety Deposit Supervisor Device Identifier Shelf Expiration Date Model / Serial / Lot Right Knee Replacement Endoprosthesis Knee [employer] Stem Perform Sz 3 Plus Humeral Long Dwx3pl - S0 - [id number] Implanted:Qty: 1 on 12/03/2022 by Fransisco Santo MD at [facility] Other - see comments Left: Shoulder [employer] [id number] / 0 / [employer] Insert Perform 10 Deg [id number] [id number] - S0 - [id number] Implanted:Qty: 1 on 12/03/2022 by Fransisco Santo MD at [facility] Other - see comments Left: Shoulder [employer] [id number] / 0 / Stent- 7 Implanted:Qty: 1 on 09/18/2006 Stent Heart Shell Acetabular Tritanium F Hemispherical Od58 Mm Hip Primary Rim Cluster Hole - [id number] Implanted:Qty: 1 on 04/01/2017 by Toñito Mcfarland MD at [facility] Right: Hip [facility] 06/29/2020 [id number] / / [id number] Screw Bone Torx Titanium L35 Mm Od6.5 Mm Acetabular Cancellous Flush Seat Nonsterile - [id number] Implanted:Qty: 1 on 04/01/2017 by Toñito Mcfarland MD at [facility] Right: Hip [facility] 04/23/2021 [id number] / / [id number] Liner Acetabular Cocr F Od46 Mm Hip Modular Dual Mobility Primary - [id number] Implanted:Qty: 1 on 04/01/2017 by Toñito Mcfarland MD at [facility] Right: Hip [facility] 01/09/2022 [id number] / / [id number] Stem Femoral Accolade 127 D 5 Taper L108 Mm L35 Mm Hip Modular Sterile - [id number] Implanted:Qty: 1 on 04/01/2017 by Toñito Mcfarland MD at [facility] Right: Hip [facility] 12/21/2021 [id number] / / [id number] Insert Acetabular Adm Mobile Bearing Hip Latter Day X3 Polyethylene H8.9 Mm Od46 Mm Odsec52 Mm Id28 Mm Hip - [id number] Implanted:Qty: 1 on 04/01/2017 by Toñito Mcfarland MD at [facility] Right: Hip [facility] 01/06/2022 [id number] / / [id number] Head Femoral V40 Biolox Delta +4 Mm Offset Taper Od28 Mm Hip - [id number] Implanted:Qty: 1 on 04/01/2017 by Toñito Mcfarland MD at [facility] Right: Hip [facility] 12/15/2021 6570-0-22 8 / / [id number] eleni [employer] Aequalis Perform Reversed 5mm 42mm Peripheral Glenoid Screw Ubz654 - [id number] Implanted:Qty: 1 on 12/03/2022 by Fransisco Santo MD at [facility] Left: Shoulder [employer] [id number] / / [employer] Aequalis Perform Reversed 5mm 34mm Peripheral Glenoid Screw Ash514 - [id number] Implanted:Qty: 1 on 12/03/2022 by Fransisco Santo MD at [facility] Left: Shoulder [employer] [id number] / / [employer] Aequalis Perform Reversed 5mm 18mm Peripheral Glenoid Screw Drl616 - [id number] Implanted:Qty: 1 on 12/03/2022 by Fransisco Santo MD at [facility] Left: Shoulder [employer] [id number] / / [employer] Od29 Mm Half Wedge Augment Shoulder 35 D Baseplate Glenoid Mqi382 - [id number] - [id number] Implanted:Qty: 1 on 12/03/2022 by Fransisco Santo MD at [facility] Left: Shoulder [employer] [id number] 06/12/2025 [id number] / [id number] / [employer] Tornier Aequalis Perform Od42 Mm Reverse Shoulder Standard Sphere Glenoid Chz669 - [id number] - [id number] Implanted:Qty: 1 on 12/03/2022 by Fransisco Santo MD at [facility] Left: Shoulder [employer] 01/22/2027 [id number] / [id number] / [employer] Aequalis Perform Reversed 6.5mm 35mm Central Glenoid Screw Ccy953 - [id number] Implanted:Qty: 1 on 12/03/2022 by Fransisco Santo MD at [facility] Left: Shoulder [employer] [id number] / / Procedures Procedure Name Priority Date/Time [...] by: Michael Todd M.D. Jhony Shepherd MD [facility] [place]R PROCEDURES Final Res ult * Erythrocyte sedimentation rate (12/20/2024 9:57 AM CDT) Erythrocyte sedimentation rate 12 1 - 20 mm/hr Blood 12/20/2024 9:57 AM CDT 12/20/2024 10:04 AM CDT Shell Staleychriss Coates [place] LAB BLOOD ORDERABLES F inal Result Performing Organization Address [facility] de Phone Number [facility] [address] [email or web address] [facility] [place] [address] * CRP (acute phase) (12/20/2024 9:57 AM CDT) Pathologist [facility] CRP <3.0 <=10.0 mg/L Blood 12/20/2024 9:57 AM CDT 12/20/2024 10:04 AM CDT Shell Sherry Coates [place] LAB BLOOD ORDERABLES F inal Result Performing Organization Address [facility] Phone Number [facility] [email or web address] [facility] [place] [address] * XR Hip Right 2 or 3 [...] MD - 11/08/2019 7:11 AM CDT Digestive [facility] Center Patient Name: Demond Doll Procedure Date: 11/08/2019 7:11 AM Date of : 1955 Admit Type: Outpatient Age: 64 Gender: Male Attending MD: Pérez Hubbard M.D. Room: [facility] ENDOSCOPY ROOM 2 Note Status: Finalized Patient [...] scope was passed under direct vision.The Colonoscope [id number] was introducedthrough the anus and advanced to [...] colonic polyps CPT copyright 2017 [employer] [place] [employer]. All rights reserved. The codes documented in this report are preliminary and upon knit goods washer reviewmay be revised to meet current compliance requirements. Recognized by the [place] [employer] for promoting quality in endoscopy Pérez Hubbard MD ENDOSCOPY PROCEDURES Final Re sult from Last 3 Months or Most Recently Relevant to Health Maintenance Insurance CHOICE PLUS CHOICE PLUS CHOICE PPO [employer] ADVANTAGE CHOICE PPO Advance Directives For more information, please contact: [phone] * Full Code (Latest Code Status on File) Date Activated Date Inactivated Comments 12/03/2022 5:49 PM 12/05/2022 3:56 PM * Full Code Date Activated Date Inactivated Comments 11/08/2019 7:26 AM 11/08/2019 1:09 PM * Full Code Date Activated Date Inactivated Comments 11/08/2019 7:26 AM 11/08/2019 7:26 AM * Full Code Date Activated Date Inactivated Comments 04/01/2017 10:49 AM 04/04/2017 3:43 PM Care Teams Byproducts Extractor Relationship Specialty Start Date End Date Apolinar Cook MD [address] [place] [address] PCP - General Family Practice 07/27/24 Diego Lutz MD [address] [place] [address] Referring Physician Internal Medicine 04/02/23
--- OUTSIDE RECORDS SUMMARY | 2025-02-18 12:38 | XMS_ITS | Clinical Summary ---
Author Organization [facility] Address [address] [place] [address] Care Team Providers Care Boat Person Name Role Phone Becka Reagan MD Primary Care Provider [phone] Source Comments [facility],non-owned Affiliates and Associated Physician Practices is amultiple site organization consisting of ambulatory clinics and hospital sitesin [place], [place], [place] and [place]. This disclosure is being madepursuant to the Care Everywhere program and may not contain all information available regarding this patient. 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 Gender Identity Not on file Sexual Orientation [...] Patient Date of Phone Billing Address Personal/Family [address] [place] [phone] [employer] MEDICARE ADV PPO SELF PAY NO INSURANCE Member Subscriber Plan / Payer (Ef fective for All Dates) Name:Demond Doll Member ID:Not on file Relation to Subscriber:Not on file Name:DEMOND DOLL Subscriber ID:Not on file Address: [address] [place], [place] [address] Payer ID:Not on file Group ID:Not on file Type:Self Pay Address: [place], [place] * Guarantor: DEMOND DOLL Account Type Relation to Patient Date of Phone Billing Address Personal/Family [address] [place] [address] MEDICARE ADV PPO SELF PAY NO INSURANCE Member Subscriber Plan / Payer (Ef fective for All Dates) Name:Demond Doll Member ID:Not on file Relation to Subscriber:Not on file Name:DEMOND DOLL Subscriber ID:Not on file Address: [address] [place], [place] [id number] Payer ID:Not on file Group ID:Not on file Type:Self Pay Address: [place], [place] * Guarantor: DEMOND DOLL Account Type Relation to Patient Date of Phone Billing Address Personal/Family [address] [place], [place] [phone] [facility] MEDICARE ADV PPO SELF PAY NO INSURANCE Member Subscriber Plan / Payer (Ef fective for All Dates) Name:Demond Doll Member ID:Not on file Relation to Subscriber:Not on file Name:DEMOND DOLL Subscriber ID:Not on file Address: [address] [place] [phone] Payer ID:Not on file Group ID:Not on file Type:Self Pay Address: [place], [place] Care Teams Boat Person Relationship Specialty Start Date End Date Becka Reagan MD [address] [place] [address] PCP - General 06/10/08
[2025-02-18] MEDS: DOXYCYCLINE HYCLATE 100 MG TABLET PO (12:51)
[2025-02-18] MEDS: AMPICILLIN SODIUM/SULBACTAM 3 GM in SODIUM CHLORIDE 0.9% IV 100 ML 200 ML IVPB (12:51)
--- NOTE | 2025-02-18 13:12 | ED.SKABFB ---
HPI - Skin/Abscess/Foreign Bdy General Chief complaint: Extremity Problem,Nontraumatic Stated complaint: L hand redness Time Seen by Provider: 02/18/25 12:18 History of Present Illness HPI narrative: Patient was bitten by his dog 2 days ago, had cuts to his L 4th/5th digits that were closed and he was started on augmentin; after taking for 1.5 days he noticed redness to his L hand last night. NO fevers, no pain with moving fingers. Related Data Home Medications ?Medication ?Instructions ?Recorded ?Confirmed ?Last Taken ?Type acetaminophen 650 mg 650 mg PO Q8H 02/04/19 01/25/25 Unknown History tablet,extended release (Tylenol Arthritis Pain) cholecalciferol (vitamin D3) 125 1,000 unit PO DAILY 02/04/19 01/25/25 Unknown History mcg (5,000 unit) capsule omega 1-qqo-pbg-fish oil 1,200 mg 1 cap PO DAILY 08/23/21 01/25/25 Unknown History (144 mg-216 mg) capsule (Fish Oil) magnesium hydroxide 1,200 mg 400 mg PO DAILY 10/28/22 01/25/25 Unknown History chewable tablet glucosamine-chondroitin 250 mg-200 2 tablet PO TID 11/08/22 01/25/25 Unknown History mg tablet (Osteo Bi-Flex) potassium 99 mg tablet 99 mg PO HS 11/08/22 01/25/25 Unknown History vitamin A 2,400 mcg capsule 2,400 mcg PO DAILY 11/08/22 01/25/25 Unknown History B6 1.7 mg-folic 400 mcg-B12 2.4 1 cap PO DAILY 10/01/23 01/25/25 Unknown History kwr-njhehl-wgchnefqitit oral capsule (Neuriva Plus Brain Performance) cyanocobalamin (vitamin B-12) 1,000 mcg PO DAILY 10/01/23 01/25/25 Unknown History 1,000 mcg tablet (Vitamin B-12) furosemide 20 mg tablet 20 mg PO DAILY 10/01/23 01/25/25 Unknown History icosapent ethyl 1 gram capsule 1 g PO DAILY 10/01/23 01/25/25 Unknown History levocetirizine 5 mg tablet (Xyzal) 5 mg PO DAILY 10/01/23 01/25/25 Unknown History melatonin 3 mg capsule 3 mg PO HS PRN Sleep 10/01/23 01/25/25 Unknown History gkjacwxj-exmkfkid-kzmcx acid 400 1 tablet PO DAILY 10/01/23 01/25/25 Unknown History mcg-vit K 20 mcg-lycop 300 mcg tablet oil of oregano 1 tab-cap PO DAILY 10/01/23 01/25/25 Unknown History Allergies Allergy/AdvReac Type Severity Reaction Status Date / Time latex Allergy Redness of Verified 02/18/25 12:08 Skin metformin AdvReac Intermediate Diarrhea Verified 02/18/25 12:08 Review of Systems Review of Systems: All systems reviewed & are unremarkable except as noted in HPI and below PMFSH Past Medical History Medical History Family hx of colon cancer Personal history of colonic polyps Chronic throat clearing CKD (chronic kidney disease) stage 3, GFR 30-59 ml/min Coronary artery disease involving shawnee coronary artery of shawnee heart Dilated cardiomyopathy Essential hypertension Hx of coronary artery disease Hyperlipidemia Hypothyroidism (acquired) COURTNEY (obstructive sleep apnea) Paroxysmal atrial fibrillation Seasonal allergies Type 2 diabetes mellitus with complication, without long-term current use of insulin Surgical History Surgical History History of carpal tunnel surgery of left wrist (~03/2023) H/O repair of right rotator cuff History of right hip replacement History of total right knee replacement (TKR) Family History Family History Mother Cerebrovascular accident, Onset Age: 84 Hypertension, Onset Age: 84 Family history of congestive heart failure, Onset Age: 84 Sibling Family history of diabetes mellitus in first degree relative Acute myocardial infarction Hypertension Family history of kidney disease, Onset Age: 56 Family history of heart disease in male family member before age 55 Family history of thyroid disease, Onset Age: 56 Family history of cardiovascular disease, Onset Age: 56 Father Family history of congestive heart failure Hypertension, Onset Age: 86 Family history of heart disease in male family member before age 55 Diabetes mellitus, Onset Age: 86 Other Family history of hearing loss Social History Social History Smoking status: Never smoker Second hand tobacco smoke exposure: No Alcohol intake: never Substance use: never Substance use type: does not use Lack of Transportation: No Lack of Food: Never True Current Housing: I Have Housing Concerned About Future Housing: No Difficulty Paying Gas/Electric Bills: No Difficulty Paying for Meds: No Currently Unemployed: No Education: High School Diploma/GED Difficulty w/ Childcare or Family Care: No Living arrangements: with family Gender identity (if verbalized by the patient): Male Spiritual care concerns: No Exam Narrative: EXAMINATION OF ORGAN SYSTEMS/BODY AREAS: Constitutional: Vital signs per nursing GENERAL:[No acute distress, non-toxic appearing.] HEAD: Normal with no signs of head trauma. EYES: EOMI, conjunctiva normal ENT: Hearing grossly intact LUNGS: Nonlabored breathing. HEART: [Regular rate and rhythm] ABD: [Soft], [nontender to palpation] EXT: Normal painless range of motion of hands and fingers; some swelling to L 4th/5th digit SKIN: Redness to dorsum of L hand NEURO: [Alert and oriented x 3. No gross focal sensory or strength deficits.] PSYCH: Normal affect Course Vital Signs Vital signs: Vital Signs Temperature 97.3 F L 02/18/25 12:15 Pulse Rate 66 02/18/25 12:15 Respiratory Rate 18 02/18/25 12:15 Blood Pressure 139/72 02/18/25 12:15 Oxygen Delivery Room Air 02/18/25 12:15 Temperature 97.3 F L 02/18/25 12:15 Pulse Rate 66 02/18/25 12:15 Respiratory Rate 18 02/18/25 12:15 Blood Pressure 139/72 02/18/25 12:15 Oxygen Delivery Room Air 02/18/25 12:15 MDM - Skin/Abscess/Foreign Bdy MDM Narrative Medical decision making narrative: Patient presents here with infected dog bite. Bite was 2d ago, had taken a couple doses of abx, and and last night started noticing more redness to the hand. On exam there is some redness to the back of and to his 4th and 5th digits on the left, sutures in place. 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 I did also remove the sutures today. Discussed strict return precautions, they already have a hand surgeon he follows up with so he I have asked him to follow-up with them and come back for any further issues especially if any signs of deep space infection or joint infection Discharge Plan Discharge Clinical Impression: Infected dog bite Patient Disposition: Home Condition: Stable Instructions: Animal Bite (ED) Additional Instructions: Please follow up with a hand surgeon and take the antibiotics as prescribed. If you start developing fevers/chills, pain with movement of your fingers or inability to bend them, or anything else concerning, please go to the ER. Patient Language: Burmese Prescriptions: New doxycycline hyclate 100 mg capsule 100 mg PO Q12H 10 Days Qty: 20 0RF amoxicillin-pot clavulanate 875-125 mg tablet 1 tablet PO Q12H Qty: 14 0RF No Action omega 8-rse-wyk-fish oil [Fish Oil] 1,200 (144-216) mg Capsule 1 cap PO DAILY sulfamethoxazole-trimethoprim [Bactrim DS] 800-160 mg tablet 1 tablet PO Q12H Qty: 14 0RF vitamin A 2,400 mcg Capsule 2,400 mcg PO DAILY potassium 99 mg Tablet 99 mg PO HS glucosamine-chondroitin [Osteo Bi-Flex] 250-200 mg Tablet 2 tablet PO TID Rx Instructions: give after food/meal amoxicillin-pot clavulanate 875-125 mg tablet 1 tablet PO Q12H 5 Days Qty: 10 0RF propranolol 60 mg capsule,extended release 24 hr 60 mg PO DAILY Qty: 90 0RF magnesium hydroxide 1,200 mg tablet,chewable 400 mg PO DAILY rivaroxaban 20 mg tablet 20 mg tablet 0RF cyanocobalamin (vitamin B-12) [Vitamin B-12] 1,000 mcg Tablet 1,000 mcg PO DAILY furosemide 20 mg Tablet 20 mg PO DAILY levocetirizine [Xyzal] 5 mg Tablet 5 mg PO DAILY Men's Multivitamin 400-20-300 mcg Tablet 1 tablet PO DAILY icosapent ethyl 1 gram Capsule 1 g PO DAILY melatonin 3 mg Capsule 3 mg PO HS PRN (Reason: Sleep) Neuriva Plus Brain Performance 1.7 mg-400 mcg- 2.4 mcg Capsule 1 cap PO DAILY oil of oregano 1 tab-cap PO DAILY aspirin [Aspir-81] 81 mg tablet,delayed release (DR/EC) 81 mg PO DAILY Qty: 1 0RF acetaminophen [Tylenol Arthritis Pain] 650 mg tablet extended release 650 mg PO Q8H cholecalciferol (vitamin D3) 5,000 unit capsule 1,000 unit PO DAILY ([place] [facility] [place] Instructions .Route Qty: 200 1RF Rx Instructions: once a day metoprolol succinate 25 mg tablet extended release 24 hr See Rx Instructions .ROUTE .COMPLEX Qty: 90 2RF Dose Instruction: TAKE 1 TABLET BY MOUTH EVERY DAY Rx Instructions: TAKE 1 TABLET BY MOUTH EVERY DAY fenofibrate 160 mg tablet See Rx Instructions .ROUTE .COMPLEX Qty: 90 2RF Dose Instruction: TAKE 1 TABLET BY MOUTH EVERY DAY Rx Instructions: TAKE 1 TABLET BY MOUTH EVERY DAY rosuvastatin 20 mg tablet See Rx Instructions .ROUTE .COMPLEX Qty: 90 2RF Dose Instruction: TAKE 1 TABLET BY MOUTH EVERY DAY Rx Instructions: TAKE 1 TABLET BY MOUTH EVERY DAY ipratropium-albuterol 0.5 mg-3 mg(2.5 mg base)/3 mL solution for nebulization 3 ml inhalation QID PRN (Reason: shortness of breath) Qty: 90 1RF donepezil [Aricept] 10 mg tablet 10 mg PO QHS Qty: 90 2RF levothyroxine 150 mcg tablet 150 mcg PO DAILY Qty: 90 1RF fluticasone propionate 50 mcg/actuation spray,suspension See Rx Instructions .ROUTE .COMPLEX Qty: 48 0RF Dose Instruction: 1 SPRAY INTRANASALLY EVERY 12 HOURS ADMINISTER INTO EACH NOSTRIL Rx Instructions: 1 SPRAY INTRANASALLY EVERY 12 HOURS ADMINISTER INTO EACH NOSTRIL pantoprazole 40 mg tablet,delayed release (DR/EC) See Rx Instructions .ROUTE .COMPLEX Qty: 90 1RF Dose Instruction: 40 MG ORALLY EVERY MORNING Rx Instructions: 40 MG ORALLY EVERY MORNING memantine [Namenda] 10 mg tablet 10 mg PO QPM Qty: 90 0RF trazodone 50 mg tablet See Rx Instructions .ROUTE .COMPLEX Qty: 90 1RF Dose Instruction: TAKE 1 TABLET BY MOUTH EVERY DAY AT BEDTIME NEEDED FOR INSOMNIA Rx Instructions: TAKE 1 TABLET BY MOUTH EVERY DAY AT BEDTIME NEEDED FOR INSOMNIA pregabalin [Lyrica] 50 mg capsule 50 mg PO DAILY Qty: 30 0RF Mounjaro 5 mg/0.5 mL pen injector 5 mg subcut WEEKLY Qty: 6 1RF Xarelto 20 mg tablet 20 mg PO DAILY Qty: 90 2RF Follow-up/Referrals: Cherri Lynne MD [Physician, Plastic Surgery] - 2 Days Apolinar Cook MD [Primary Care Provider, Family Practice]
[2025-02-18 13:31] LABS: Hematocrit 43.3 % (42.0-52.0); Hemoglobin 14.3 g/dL (14.0-18.0); Immature Granulocyte Percent A 0.2 % (0-0.5); Lymphocytes Absolute Auto 1.08 K/mm3 (0.9-3.2); Mean Corpuscular HGB Conc 33.0 g/dl (32-36); Mean Corpuscular Hemoglobin 28.5 pg (26-34); Mean Corpuscular Volume 86.4 fl (80-100); Nucleated Red Blood Cells Absolute Auto 0.000 K/mm3 (0.0-0.012); Nucleated Red Blood Cells Perc 0.0 % (0.0-0.2); Platelet Count Result 178 k/mm3 (150-375); Red Blood Count 5.01 M/mm3 (4.6-6.20); White Blood Count 4.3 K/mm3 (4.5-10.0)
[2025-02-18 13:50] VITALS: BP 117/85; PULSE 56; RESP 18; TEMP 36.5; O2SAT 97
== END 2025-02-18 14:00 | disposition home or self-care (01) ==
PROVIDERS: Emergency Provider Emergency Medicine; PCP Family Medicine
DX: S61.253A Open bite of left middle finger without damage to nail, initial encounter (principal); S61.257A Open bite of left little finger without damage to nail, initial encounter; L08.9 Local infection of the skin and subcutaneous tissue, unspecified; W54.0XXA Bitten by dog, initial encounter
CPT/HCPCS: 36415; 85025; 87040; 96365; 99284; A9270; J0295

== ENCOUNTER 2025-02-24 15:17 | Outpatient (CLI) | payer OTHER, SELFPAY ==
--- NOTE | 2025-02-24 15:21 | ECG_ITS ---
Test Date: 2025-02-24 15:33:31 Measurements Intervals [place] Rate: 60 P: 0 AK: 0 QRS: -45 QRSD: 121 T: 44 QT: 342 QTc: 342 Interpretive Statements ATRIAL FIBRILLATION INCOMPLETE RIGHT BUNDLE BRANCH BLOCK LEFT ANTERIOR FASCICULAR BLOCK ABNORMAL ECG No previous ECG available for comparison Electronically Signed On 02-24-2025 15:38:32 [employer] by Dago Kenny D.O.
== END 2025-02-24 15:18 | disposition home or self-care (01) ==
PROVIDERS: PCP Family Medicine; Visit Provider Family Medicine
DX: I48.91 Unspecified atrial fibrillation (principal); I45.10 Unspecified right bundle-branch block; I44.4 Left anterior fascicular block
CPT/HCPCS: 93005